=== PATIENT | female | born 1980 | race Caucasian/White ===

== ENCOUNTER 2020-07-23 09:45 | Outpatient (REF) | payer OTHER, SELFPAY ==
[2020-07-23 11:05] LABS: Glucose Urine UA 500 MG/DL (NEG); Leukocyte Esterase Urine NEG (NEG); Nitrite Urine NEG (NEG); PH 5.5 (5.0-8.0); Specific Gravity - Urine >= 1.030 (1.005-1.025); Urine Blood 3+ (NEG); Urine Ketones NEG (NEG); Urine Protein 3+ MG/DL (NEG-TRACE)
[2020-07-23 11:06] LABS: MANUAL DIFF FLAG NO
[2020-07-23 11:08] LABS: Appearance Urine HAZY; Color Urine YELLOW
[2020-07-23 11:10] LABS: Basophils Percent Auto 0.6 % (0-2); Eosinophils Absolute Auto 0.3 X10*3/uL (0.0-0.4); Eosinophils Percent Auto 3.8 % (0-4); Hematocrit 33.8 % (37-47); Hemoglobin 12.3 g/dl (12.0-16.0); Imm Gran Abs Auto 0.03 X10*3/uL (0.00-0.03); Imm Gran Pct Auto 0.5 % (0.0-0.4); Lymphocytes Absolute Auto 1.2 X10*3/uL (1.2-4.9); Lymphocytes Percent Auto 17.5 % (20-40); Mean Corpuscular HGB Conc 36.4 g/dl (31.0-35.0); Mean Corpuscular Volume 82.4 fL (80-98); Mean Platelet Volume 10.4 fL (9.4-12.3); Monocytes Absolute Auto 0.3 X10*3/uL (0.1-1.2); Monocytes Percent Auto 4.2 % (2-11); Neutrophils Absolute Auto 4.9 X10*3/uL (2.0-8.3); Neutrophils Percent Auto 73.4 % (45-73); Platelet Count 219 X10*3/uL (160-400); Red Cell Distribution Width 14.6 % (11.0-16.0); White Blood Count 6.6 X10*3/uL (4.8-10.8)
[2020-07-23 11:24] LABS: Bacteria Urine 2+ /LPF; Squamous Epithelial Cell Urine 3+ /LPF; WBC Urine 0-2 /HPF (0-4)
[2020-07-23 11:40] LABS: Creatinine Urine 121.37 mg/dL
[2020-07-23 12:18] LABS: Cholesterol 733 mg/dL; Triglycerides 4815 mg/dL
[2020-07-23 12:37] LABS: Alanine Aminotransferase 15 U/L (0-31); Albumin Level 3.9 g/dL (3.5-5.0); Alkaline Phosphatase 66 U/L (39-117); Anion Gap 19 (12-20); Aspartate Amino Transferase 19 U/L (5-31); Bilirubin Total 0.3 mg/dL (0.0-1.0); Blood Urea Nitrogen 15 mg/dL (9-16); Calcium 9.1 mg/dL (8.4-10.2); Carbon Dioxide 22 mmol/L (22-29); Chloride 100 mmol/L (96-108); Estimated Glomerular Filt Rate > 60; Glucose Random 322 mg/dL (60-115); HDL Cholesterol 20 mg/dL; Potassium 4.4 mmol/L (3.3-5.1); Sodium 137 mmol/L (135-145); Total Protein 7.3 g/dL (6.5-8.0)
[2020-07-23 12:42] LABS: Folate 16.1 ng/mL (> or = 4.0); Vitamin B12 226 pg/mL (200-900)
[2020-07-23 12:54] LABS: Free T4 (Free Thyroxine) 0.96 ng/dL (0.71-1.85); Thyroid Stimulating Hormone 0.95 uIU/mL (0.32-4.0); Vitamin D 25-OH Total 6.4 ng/mL (>30)
[2020-07-23 13:01] LABS: Estimated Average Glucose 206 mg/dL; Hemoglobin A1c % 8.8 %
== END 2020-07-23 09:46 | disposition home or self-care (01) ==
LOC: HO.LAB 09:45
PROVIDERS: PCP Internal Medicine; Visit Provider Internal Medicine
DX: I10 Essential (primary) hypertension (principal); E11.65 Type 2 diabetes mellitus with hyperglycemia; E11.42 Type 2 diabetes mellitus with diabetic polyneuropathy; E78.00 Pure hypercholesterolemia, unspecified; E78.5 Hyperlipidemia, unspecified; R10.12 Left upper quadrant pain
CPT/HCPCS: 36415; 80053; 80061; 81001; 82043; 82306; 82607; 82746; 83036; 84439; 84443; 85025

== ENCOUNTER 2020-08-02 13:06 | Outpatient (REF) | payer OTHER, SELFPAY ==
--- NOTE | ~2020-08-02 | US_ITS ---
EXAMINATION: PELVIC ULTRASOUND CLINICAL INFORMATION: Left lower quadrant pain. History of left ovarian cyst COMPARISON: Previous pelvic ultrasound most recent June [address] of the abdomen and pelvis June 2019 TECHNIQUE: Transabdominal and transvaginal pelvic ultrasound was performed. Transvaginal exam was performed for better visualization of the uterus and ovaries. FINDINGS: The uterus is anteverted and measures 8.3 x 4.1 x 4.7 cm in dimension. There is a 1.3 x 0.9 x 1.2 cm hypoechoic lesion in the posterior upper uterine body or lower fundus suggestive of a small fibroid. This is unchanged. No other focal uterine lesion is seen. Endometrial thickness is normal measuring 0.4 cm. There are nabothian cysts in the cervix. The ovaries are normal-appearing. The right ovary measures 3.6 x 2.2 x 2.8 cm and the left ovary measures 3.5 x 2.4 x 3 cm. There is no fluid in the pelvis. US/US transvaginal IMPRESSION: Small uterine fibroid otherwise unremarkable exam.
--- NOTE | ~2020-08-02 | US_ITS ---
EXAMINATION: PELVIC ULTRASOUND CLINICAL INFORMATION: Left lower quadrant pain. History of left ovarian cyst COMPARISON: Previous pelvic ultrasound most recent June [address] of the abdomen and pelvis June 2019 TECHNIQUE: Transabdominal and transvaginal pelvic ultrasound was performed. Transvaginal exam was performed for better visualization of the uterus and ovaries. FINDINGS: The uterus is anteverted and measures 8.3 x 4.1 x 4.7 cm in dimension. There is a 1.3 x 0.9 x 1.2 cm hypoechoic lesion in the posterior upper uterine body or lower fundus suggestive of a small fibroid. This is unchanged. No other focal uterine lesion is seen. Endometrial thickness is normal measuring 0.4 cm. There are nabothian cysts in the cervix. The ovaries are normal-appearing. The right ovary measures 3.6 x 2.2 x 2.8 cm and the left ovary measures 3.5 x 2.4 x 3 cm. There is no fluid in the pelvis. US/US pelvic complete IMPRESSION: Small uterine fibroid otherwise unremarkable exam.
--- NOTE | ~2020-08-02 | US_ITS ---
EXAMINATION: US RETROPERITONEAL COMPLETE (RENAL) CLINICAL INFORMATION: Left lower quadrant pain with microscopic hematuria. COMPARISON: CT abdomen and pelvis 07/01/2019. Ultrasound abdomen 10/25/2018. Limited abdominal ultrasound 09/29/2016. TECHNIQUE: Real-time imaging of the kidneys and bladder. FINDINGS: RIGHT KIDNEY: 12.3 x 5.5 x 7.1 cm (SAG x AP x TRV). The kidney is normal in size, contour, and echogenicity. Renal cortical thickness is normal. No calculi or focal parenchymal lesions. No hydronephrosis. LEFT KIDNEY: 12.0 x 6.0 x 6.0 cm (SAG x AP x TRV). The kidney is normal in size, contour, and echogenicity. Renal cortical thickness is normal. No calculi or focal parenchymal lesions. No hydronephrosis. BLADDER: Well distended and normal. Bilateral ureteral jets are demonstrated. Prevoid bladder volume is 262 mL. Postvoid bladder volume is 5.4 mL. US/US retroperitoneal comp IMPRESSION: 1. Unremarkable renal ultrasound. 2. Bilateral ureteral jets seen. Tiny postvoid residual bladder volume noted.
== END 2020-08-02 13:07 | disposition home or self-care (01) ==
LOC: HO.US 13:06
PROVIDERS: Visit Provider Physician Assistant
DX: R31.29 Other microscopic hematuria (principal)
CPT/HCPCS: 76770; 76830; 76856

== ENCOUNTER 2020-09-21 12:26 | Outpatient (REF) | payer OTHER, SELFPAY ==
--- NOTE | ~2020-09-21 | CT_ITS ---
EXAMINATION: CT ABDOMEN AND PELVIS WITHOUT AND WITH CONTRAST CLINICAL INFORMATION: Hematuria COMPARISON: Previous CT of the abdomen and pelvis June 2019 TECHNIQUE: Multidetector volumetric imaging was performed of the abdomen and pelvis before and after the IV administration of 85 mL of Omnipaque 350 intravenous contrast. Sagittal and coronal reformatted images were obtained on the technologist's workstation. This CT examination was performed using dose optimization techniques as appropriate, variously including the following: *Automated exposure control *Adjustment of mA and/or kV according to patient size (this includes techniques or standardized protocols for targeted exams where dose is matched to indication/reason for exam; i.e. extremities or head) *Use of iterative reconstruction technique DLP: 1040 mGy-cm FINDINGS: LUNG BASES: The visualized lung bases are unremarkable. LIVER, GALLBLADDER, AND BILIARY TREE: The liver is low in attenuation suggestive of fatty infiltration. No focal liver is seen. The gallbladder has been removed. PANCREAS: Unremarkable SPLEEN: Unremarkable ADRENAL GLANDS: Unremarkable KIDNEYS AND URETERS: The kidneys are normal in size, shape, and attenuation. No hydronephrosis, hydroureter, or calculi seen. The collecting systems are normal. The right ureter is well-opacified with excreted contrast and is normal-appearing. The left ureter is not optimally opacified with excreted contrast. The left ureter appears unremarkable. The BLADDER: Unremarkable GASTROINTESTINAL TRACT: The small and large bowel are unremarkable. The appendix is unremarkable. ABDOMINAL WALL: No significant hernia is appreciated. LYMPH NODES: Normal VASCULAR: Unremarkable PELVIC VISCERA: Unremarkable OSSEOUS STRUCTURES: Unremarkable CT/CT abdomen pelvis wo/w con IMPRESSION: No cause of hematuria seen. Fatty liver..
[2020-09-21 13:16] LABS: Glucose Urine UA 250 MG/DL (NEG); Leukocyte Esterase Urine NEG (NEG); Nitrite Urine NEG (NEG); PH 5.5 (5.0-8.0); Specific Gravity - Urine >= 1.030 (1.005-1.025); Urine Blood 1+ (NEG); Urine Ketones NEG (NEG); Urine Protein 2+ MG/DL (NEG-TRACE)
[2020-09-21 13:19] LABS: Appearance Urine HAZY; Color Urine YELLOW
[2020-09-21 13:25] LABS: Alanine Aminotransferase 8 U/L (0-31); Albumin Level 4.2 g/dL (3.5-5.0); Alkaline Phosphatase 51 U/L (39-117); Anion Gap 12 (12-20); Aspartate Amino Transferase 12 U/L (5-31); Bilirubin Total 0.4 mg/dL (0.0-1.0); Blood Urea Nitrogen 16 mg/dL (9-16); Calcium 10.1 mg/dL (8.4-10.2); Carbon Dioxide 27 mmol/L (22-29); Chloride 101 mmol/L (96-108); Estimated Glomerular Filt Rate > 60; Glucose Random 310 mg/dL (60-115); Potassium 4.2 mmol/L (3.3-5.1); Sodium 136 mmol/L (135-145); Total Protein 7.1 g/dL (6.5-8.0)
[2020-09-21 13:32] LABS: Creatinine Urine 190.68 mg/dL
[2020-09-21 14:34] LABS: Squamous Epithelial Cell Urine 3+ /LPF; WBC Urine 0 /HPF (0-4)
[2020-09-21] MEDS: iohexoL 350 MG/ML 100 ML INFUS..BTL IV (14:50)
== END 2020-09-21 12:27 | disposition home or self-care (01) ==
LOC: HO.CT 12:26
PROVIDERS: PCP Internal Medicine; Visit Provider Internal Medicine
DX: R31.9 Hematuria, unspecified (principal); E11.42 Type 2 diabetes mellitus with diabetic polyneuropathy; E11.65 Type 2 diabetes mellitus with hyperglycemia
CPT/HCPCS: 36415; 74178; 80053; 81001; Q9967

== ENCOUNTER 2020-09-27 10:31 | Outpatient (REF) | payer OTHER, SELFPAY ==
[2020-09-27 11:53] LABS: Glucose Urine UA NEG (NEG); Leukocyte Esterase Urine NEG (NEG); Nitrite Urine NEG (NEG); PH 5.5 (5.0-8.0); Specific Gravity - Urine >= 1.030 (1.005-1.025); Urine Blood TRACE (NEG); Urine Ketones NEG (NEG); Urine Protein 2+ MG/DL (NEG-TRACE)
[2020-09-27 11:55] LABS: Appearance Urine CLEAR; Color Urine YELLOW
[2020-09-27 11:57] LABS: Blood Urea Nitrogen 17 mg/dL (9-16); Estimated Glomerular Filt Rate > 60
[2020-09-27 12:02] LABS: Bacteria Urine TRACE /LPF; Squamous Epithelial Cell Urine 2+ /LPF; WBC Urine 0-2 /HPF (0-4)
== END 2020-09-27 10:32 | disposition home or self-care (01) ==
LOC: HO.LAB 10:31
PROVIDERS: PCP Internal Medicine; Visit Provider Internal Medicine
DX: R31.9 Hematuria, unspecified (principal); R10.12 Left upper quadrant pain
CPT/HCPCS: 36415; 81001; 82565; 84520

== ENCOUNTER 2020-10-08 09:35 | Outpatient (REF) | payer OTHER, SELFPAY ==
[2020-10-08 13:51] LABS: Alanine Aminotransferase 12 U/L (0-31); Albumin Level 4.5 g/dL (3.5-5.0); Alkaline Phosphatase 44 U/L (39-117); Aspartate Amino Transferase 15 U/L (5-31); Bilirubin Total 0.5 mg/dL (0.0-1.0); Blood Urea Nitrogen 23 mg/dL (9-16); Cholesterol 128 mg/dL; Estimated Glomerular Filt Rate 48; Glucose Fasting 235 mg/dL (60-99); HDL Cholesterol 26 mg/dL; Total Protein 7.6 g/dL (6.5-8.0); Triglycerides 537 mg/dL
[2020-10-08 14:03] LABS: Anion Gap 16 (12-20); Calcium 10.8 mg/dL (8.4-10.2); Carbon Dioxide 24 mmol/L (22-29); Chloride 106 mmol/L (96-108); Potassium 5.5 mmol/L (3.3-5.1); Sodium 140 mmol/L (135-145)
[2020-10-08 14:03] LABS: Creatinine Urine 169.48 mg/dL
[2020-10-09 10:46] LABS: LDL Cholesterol Direct 28 mg/dL (<100)
== END 2020-10-08 09:36 | disposition home or self-care (01) ==
LOC: HO.LAB 09:35
PROVIDERS: PCP Internal Medicine; Visit Provider Nurse Practitioner Gerontology
DX: E11.65 Type 2 diabetes mellitus with hyperglycemia (principal); Z79.4 Long term (current) use of insulin
CPT/HCPCS: 36415; 80053; 80061; 82043; 82947; 83721; 99212

== ENCOUNTER 2020-10-12 09:41 | Outpatient (REF) | payer OTHER, SELFPAY ==
[2020-10-12 11:14] LABS: Alanine Aminotransferase 16 U/L (0-31); Albumin Level 4.4 g/dL (3.5-5.0); Alkaline Phosphatase 47 U/L (39-117); Anion Gap 14 (12-20); Aspartate Amino Transferase 17 U/L (5-31); Bilirubin Total 0.6 mg/dL (0.0-1.0); Blood Urea Nitrogen 19 mg/dL (9-16); Calcium 10.3 mg/dL (8.4-10.2); Carbon Dioxide 22 mmol/L (22-29); Chloride 104 mmol/L (96-108); Estimated Glomerular Filt Rate > 60; Glucose Fasting 99 mg/dL (60-99); Magnesium 1.7 mg/dL (1.6-2.6); Phosphorus 3.8 mg/dL (2.7-4.5); Potassium 4.2 mmol/L (3.3-5.1); Sodium 136 mmol/L (135-145); Total Protein 7.3 g/dL (6.5-8.0)
[2020-10-12 11:38] LABS: Vitamin D 25-OH Total 34.7 ng/mL (>30)
[2020-10-13 10:17] LABS: Calcium, Ionized 5.5 mg/dL (4.8-5.6)
[2020-10-14 10:07] LABS: Calcium (PTHI) 10.5 mg/dL (8.6-10.2); PTHI 19 pg/mL (14-64)
[2020-10-16 14:17] LABS: VITAMIN D (1,25 OH) D3 26 pg/mL; Vit D (1,25-Dihydroxy) Total 26 pg/mL (18-72); Vitamin D (1,25 OH) D2 <8 pg/mL
== END 2020-10-12 09:42 | disposition home or self-care (01) ==
LOC: HO.LAB 09:41
PROVIDERS: PCP Internal Medicine; Visit Provider Nurse Practitioner Gerontology
DX: E83.52 Hypercalcemia (principal)
CPT/HCPCS: 36415; 80053; 82306; 82330; 82652; 83735; 83970; 84100

== ENCOUNTER 2020-10-15 09:56 | Outpatient (REF) | payer OTHER, SELFPAY ==
[2020-10-15 10:37] LABS: Total Volume 24 Hour Urine 1050 mL
[2020-10-15 10:53] LABS: Creatinine, 24Hr Urine 1.1 G/Day (1.0-2.0); Creatinine, mg/dL 105.62
[2020-10-16 20:16] LABS: Calcium, 24 Hr Urine 11 mg/24 h; Calcium/Creatinine Ratio 9 mg/g creat (30-275); Creatinine 24Hr Urine 1.13 g/24 h (0.50-2.15)
== END 2020-10-15 09:57 | disposition home or self-care (01) ==
LOC: HO.LNP 09:56
PROVIDERS: Visit Provider Nurse Practitioner Gerontology
DX: E83.52 Hypercalcemia (principal)
CPT/HCPCS: 82340; 82570

== ENCOUNTER → 2020-11-16 13:04 | Outpatient (BNVA) | payer OTHER, SELFPAY | PROVIDERS: PCP Internal Medicine; Referring Provider Internal Medicine; Visit Provider Physician Assistant ==

== ENCOUNTER → 2020-12-21 15:25 | Outpatient (BNVA) | payer OTHER, SELFPAY | PROVIDERS: PCP Internal Medicine; Referring Provider Internal Medicine; Visit Provider Physician Assistant | DX: E66.9 Obesity, unspecified (principal); E11.42 Type 2 diabetes mellitus with diabetic polyneuropathy; E55.9 Vitamin D deficiency, unspecified; E53.8 Deficiency of other specified B group vitamins; K58.9 Irritable bowel syndrome, unspecified; E78.1 Pure hyperglyceridemia; I10 Essential (primary) hypertension; E78.5 Hyperlipidemia, unspecified; Z68.34 Body mass index [BMI] 34.0-34.9, adult | CPT/HCPCS: 99202 ==

== ENCOUNTER 2020-12-31 10:57 | Outpatient (REF) | payer OTHER, SELFPAY ==
--- NOTE | ~2020-12-31 | XR_ITS ---
EXAMINATION: XR CHEST CLINICAL INFORMATION: Obesity. COMPARISON: Chest radiograph dated 09/22/2018. TECHNIQUE: 2 views of the chest were obtained. FINDINGS: The lungs are clear. The cardiomediastinal silhouette is normal in size. There is no pleural effusion or pneumothorax. No acute osseous abnormality. Right upper quadrant surgical clips. XR/XR chest 2V IMPRESSION: No acute cardiopulmonary findings.
--- NOTE | 2020-12-31 11:10 | ECG_ITS ---
Test Reason : E66.9 Blood Pressure : / mmHG Vent. Rate : 086 BPM Atrial Rate : 086 BPM P-R Int : 140 ms QRS Dur : 082 ms QT Int : 364 ms P-R-T Axes : 034 024 038 degrees QTc Int : 435 ms Normal sinus rhythm Low voltage QRS Borderline ECG When compared with ECG of 02-SEP-2018 22:20, No significant change was found Referred By: Eva Ribeiro Electronically Signed By:ANJEL AKHTAR
[2020-12-31 11:43] LABS: MANUAL DIFF FLAG NO
[2020-12-31 11:47] LABS: Basophils Percent Auto 0.6 % (0-2); Eosinophils Absolute Auto 0.1 X10*3/uL (0.0-0.4); Eosinophils Percent Auto 2.3 % (0-4); Hematocrit 32.4 % (37-47); Hemoglobin 11.2 g/dl (12.0-16.0); Imm Gran Abs Auto 0.02 X10*3/uL (0.00-0.03); Imm Gran Pct Auto 0.4 % (0.0-0.4); Mean Corpuscular HGB Conc 34.6 g/dl (31.0-35.0); Mean Corpuscular Hemoglobin 29.3 pg (27.0-33.0); Mean Corpuscular Volume 84.8 fL (80-98); Mean Platelet Volume 9.9 fL (9.4-12.3); Monocytes Absolute Auto 0.2 X10*3/uL (0.1-1.2); Monocytes Percent Auto 4.4 % (2-11); Neutrophils Absolute Auto 3.8 X10*3/uL (2.0-8.3); Neutrophils Percent Auto 73.3 % (45-73); Platelet Count 179 X10*3/uL (160-400); Red Blood Count 3.82 X10*6/uL (4.20-5.50); Red Cell Distribution Width 13.6 % (11.0-16.0); White Blood Count 5.2 X10*3/uL (4.8-10.8)
[2020-12-31 11:53] LABS: Estimated Average Glucose 203 mg/dL; Hemoglobin A1c % 8.7 %
[2020-12-31 12:07] LABS: Alanine Aminotransferase 18 U/L (0-31); Albumin Level 4.4 g/dL (3.5-5.0); Alkaline Phosphatase 45 U/L (39-117); Anion Gap 12 (12-20); Aspartate Amino Transferase 20 U/L (5-31); Bilirubin Total 0.4 mg/dL (0.0-1.0); Blood Urea Nitrogen 29 mg/dL (9-16); C Reactive Protein 0.24 mg/dL (< or = 0.50); Calcium 10.2 mg/dL (8.4-10.2); Carbon Dioxide 26 mmol/L (22-29); Chloride 105 mmol/L (96-108); Cholesterol 108 mg/dL; Estimated Glomerular Filt Rate 54; Glucose Random 209 mg/dL (60-115); HDL Cholesterol 23 mg/dL; Iron 74 mcg/dL (30-160); LDL Cholesterol Calculated 17 mg/dl; Percent Iron Saturation 18 % (15-50); Potassium 4.1 mmol/L (3.3-5.1); Sodium 139 mmol/L (135-145); Total Iron Binding Capacity 412 mcg/dL (228-428); Total Protein 7.4 g/dL (6.5-8.0); Triglycerides 341 mg/dL; Unsaturated Iron Binding 338 ug/dL
[2020-12-31 12:27] LABS: Vitamin D 25-OH Total 27.7 ng/mL (>30)
[2020-12-31 12:30] LABS: Ferritin 176 ng/mL (10-122)
[2021-01-01 15:11] LABS: H Pylori Breath Test NOT DETECTED (NOT DETECTED)
[2021-01-01 16:01] LABS: Folate 13.4 ng/mL (> or = 4.0); Vitamin B12 1634 pg/mL (200-900)
[2021-01-03 13:01] LABS: PTHI 18 pg/mL (14-64)
[2021-01-03 17:57] LABS: Insulin Level Total 41.9 uIU/mL
[2021-01-04 16:41] LABS: Zinc 81 mcg/dL (60-130)
[2021-01-05 17:41] LABS: Vitamin A 78 mcg/dL (38-98)
[2021-01-06 13:46] LABS: Vitamin B1 12 nmol/L (8-30)
== END 2020-12-31 10:58 | disposition home or self-care (01) ==
LOC: HO.XRAY 10:57
PROVIDERS: PCP Internal Medicine; Visit Provider Physician Assistant
DX: Z01.812 Encounter for preprocedural laboratory examination (principal); E66.9 Obesity, unspecified; E11.42 Type 2 diabetes mellitus with diabetic polyneuropathy; E78.5 Hyperlipidemia, unspecified; I10 Essential (primary) hypertension; Z11.0 Encounter for screening for intestinal infectious diseases; Z87.891 Personal history of nicotine dependence
CPT/HCPCS: 36415; 71046; 80053; 80061; 82306; 82607; 82728; 82746; 83013; 83036; 83525; 83540; 83970; 84425; 84590; 84630; 85025; 86140; 93005; 99211; 99212

== ENCOUNTER → 2021-01-10 08:30 | Outpatient (BNVA) | payer OTHER, SELFPAY | PROVIDERS: PCP Internal Medicine; Visit Provider Internal Medicine | DX: E83.52 Hypercalcemia (principal); E55.9 Vitamin D deficiency, unspecified; E11.65 Type 2 diabetes mellitus with hyperglycemia | CPT/HCPCS: Q3014 ==

== ENCOUNTER 2021-01-18 12:10 | Outpatient (REF) | payer OTHER, SELFPAY ==
[2021-01-18 13:41] LABS: Alanine Aminotransferase 14 U/L (0-31); Albumin Level 4.6 g/dL (3.5-5.0); Alkaline Phosphatase 39 U/L (39-117); Anion Gap 14 (12-20); Aspartate Amino Transferase 15 U/L (5-31); Bilirubin Total 0.6 mg/dL (0.0-1.0); Blood Urea Nitrogen 28 mg/dL (9-16); Calcium 10.1 mg/dL (8.4-10.2); Carbon Dioxide 21 mmol/L (22-29); Chloride 106 mmol/L (96-108); Estimated Glomerular Filt Rate 55; Glucose Random 168 mg/dL (60-115); Phosphorus 3.8 mg/dL (2.7-4.5); Potassium 4.2 mmol/L (3.3-5.1); Sodium 137 mmol/L (135-145); Total Protein 7.5 g/dL (6.5-8.0)
[2021-01-18 14:03] LABS: Free T4 (Free Thyroxine) 1.05 ng/dL (0.71-1.85); Vitamin D 25-OH Total 27.6 ng/mL (>30)
[2021-01-20 08:26] LABS: Calcium (PTHI) 10.3 mg/dL (8.6-10.2); PTHI 22 pg/mL (14-64)
[2021-01-20 13:12] LABS: Calcium, Ionized 5.3 mg/dL (4.8-5.6)
[2021-01-21 11:20] LABS: Alkaline Phosphatase Bone 6.1 mcg/L (5.3-19.5)
[2021-01-21 23:21] LABS: Vitamin A 63 mcg/dL (38-98)
[2021-01-22 12:56] LABS: VITAMIN D (1,25 OH) D3 24 pg/mL; Vit D (1,25-Dihydroxy) Total 24 pg/mL (18-72); Vitamin D (1,25 OH) D2 <8 pg/mL
[2021-01-25 22:52] LABS: Prot Elec - Albumin 4.2 g/dL (3.8-4.8); Prot Elec - Alpha1 0.4 g/dL (0.2-0.3); Prot Elec - Alpha2 0.9 g/dL (0.5-0.9); Prot Elec - Beta 1 0.6 g/dL (0.4-0.6); Prot Elec - Beta 2 0.5 g/dL (0.2-0.5); Prot Elec - Gamma 0.8 g/dL (0.8-1.7); Prot Elec - Total Protein 7.4 g/dL (6.1-8.1)
[2021-01-26 23:51] LABS: Parathyroid Hormone Related Pr 17 pg/mL (14-27)
== END 2021-01-18 12:11 | disposition home or self-care (01) ==
LOC: HO.LAB 12:10
PROVIDERS: PCP Internal Medicine; Visit Provider Internal Medicine
DX: E66.9 Obesity, unspecified (principal); Z68.33 Body mass index [BMI] 33.0-33.9, adult; E83.52 Hypercalcemia; Z71.3 Dietary counseling and surveillance
CPT/HCPCS: 36415; 80053; 82306; 82330; 82652; 83519; 83970; 84075; 84100; 84165; 84439; 84443; 84590; 97802

== ENCOUNTER 2021-01-25 10:25 | Outpatient (REF) | payer OTHER, SELFPAY ==
[2021-01-25 10:42] LABS: Total Volume 24 Hour Urine 2075 mL
[2021-01-25 11:36] LABS: Creatinine, 24Hr Urine 1.2 G/Day (1.0-2.0); Creatinine, mg/dL 57.82
[2021-01-27 17:31] LABS: Calcium, 24 Hr Urine 104 mg/24 h; Calcium/Creatinine Ratio 83 mg/g creat (30-275); Creatinine 24Hr Urine 1.25 g/24 h (0.50-2.15)
[2021-02-01 19:56] LABS: N-Telopeptide 11 (see note); NTXCreaRU 82 mg/dL (20-275)
== END 2021-01-25 10:26 | disposition home or self-care (01) ==
LOC: HO.LNP 10:25
PROVIDERS: Visit Provider Internal Medicine
DX: E83.52 Hypercalcemia (principal)
CPT/HCPCS: 82340; 82523; 82570

== ENCOUNTER → 2021-02-07 08:28 | Outpatient (BNVA) | payer OTHER, SELFPAY | PROVIDERS: PCP Internal Medicine; Visit Provider Surgery | DX: E66.9 Obesity, unspecified (principal); E11.42 Type 2 diabetes mellitus with diabetic polyneuropathy; I10 Essential (primary) hypertension; E78.5 Hyperlipidemia, unspecified; E78.1 Pure hyperglyceridemia; K21.9 Gastro-esophageal reflux disease without esophagitis | CPT/HCPCS: Q3014 ==

== ENCOUNTER 2021-02-08 09:29 | Outpatient (REF) | payer OTHER, SELFPAY ==
--- NOTE | ~2021-02-08 | FL_ITS ---
EXAMINATION: XR GI SERIES CLINICAL INFORMATION: Obesity COMPARISON: None TECHNIQUE: Upper GI was performed using thin and thick barium and effervescent granules. FINDINGS: Esophageal motility is normal. There is no esophageal hernia. There is mild gastroesophageal reflux. The stomach and duodenum are normal-appearing. No fold thickening, mass, ulcer or stricture is seen. FLUOROSCOPY TIME: 0.6 minutes DOSE AREA PRODUCT: 8 Toure per centimeter squared. 19 saved fluoroscopic images. FL/FL upper GI series IMPRESSION: Mild gastroesophageal reflux otherwise unremarkable exam.
--- NOTE | ~2021-02-08 | US_ITS ---
EXAMINATION: US COMPLETE ABDOMEN WITH LIVER ELASTOGRAPHY CLINICAL INFORMATION: Obesity COMPARISON: Previous CT of the abdomen and pelvis September 2020 TECHNIQUE: Real-time imaging of the abdominal viscera. Noninvasive ultrasound liver fibrosis assessment is performed using Duong ElastPQ point quantification shear wave elastography (pSWE) with a C5-2 MHz transducer. Multiple elastography samples are obtained. FINDINGS: PANCREAS: The visualized pancreatic head and body are normal in appearance. The remainder of the pancreas is obscured from visualization by the overlying bowel gas. ABDOMINAL AORTA: The proximal, middle, and distal aortic segments are normal in caliber. INFERIOR VENA CAVA: Visualized portions are normal. LIVER: Liver echotexture is increased. The liver is slightly enlarged. The liver demonstrates normal contour. No focal lesion or intrahepatic biliary duct dilatation. The right lobe measures 19 cm in length. The left lobe measures 14 cm in length. Portal flow is normal/hepatopedal Shear wave liver elastography median stiffness is 1.7 m/s (reference: normal median stiffness is 1.3 m/s or less). IQR/median stiffness to assess sampling precision is 0.15 (reference: good quality data set is IQR/median stiffness of 0.15 or less). GALLBLADDER: Surgically removed COMMON BILE DUCT: Normal in caliber measuring 0.4 cm in diameter. RIGHT KIDNEY: Normal. No hydronephrosis. No renal calculi or focal parenchymal lesions. The kidney measures 12.7 cm in maximum dimension. LEFT KIDNEY: Normal. No hydronephrosis. No renal calculi or focal parenchymal lesions. The kidney measures 12.4 cm in maximum dimension. SPLEEN: Normal. The spleen measures 11.6 cm in maximum dimension. FREE FLUID: None. US/US abdomen comp w elastography IMPRESSION: 1. Impression: Enlarged echogenic liver suggestive of fatty infiltration. Limited visualization of the tail the pancreas. 2. Liver elastography: Mild sampling error. In the absence of other known clinical signs, rules out compensated advanced chronic liver disease. REFERENCE: Society of Radiologists in Ultrasound Liver Stiffness Thresholds (2020): LIVER STIFFNESS THRESHOLDS: *Liver Stiffness equal or less than 1.3 m/s: High probability of being normal. *Liver Stiffness less than 1.7 m/s: In the absence of other known clinical signs, rules out compensated advanced chronic liver disease. *Liver Stiffness 1.7-2.1 m/s: Suggestive of compensated advanced chronic liver disease but need further test for confirmation. *Liver Stiffness over 2.1 m/s: Rules in compensated advanced chronic liver disease. *Liver Stiffness over 2.4 m/s: Suggestive of clinically significant portal hypertension. QUALITY OF DATA SET: *IQR/Median value equal or less than 0.15 implies a quality data set. *IQR/Median value over 0.15 implies a poor quality data set. SIGNIFICANT CHANGE FROM PRIOR EXAM: Significant change if liver stiffness measurement is 10% or greater from prior exam. OTHER CONSIDERATIONS: The stage of liver fibrosis may be overestimated in the setting of acute hepatitis, liver inflammation, elevated liver function tests, hepatic vascular congestion, obstructive cholestasis, non-fasting state, and infiltrative diseases such as amyloidosis and lymphoma. In some patients with NAFLD, the liver stiffness thresholds for compensated advanced chronic liver disease may be lower. In causes other than viral hepatitis and NAFLD, liver stiffness thresholds are not well established.
== END 2021-02-08 09:30 | disposition home or self-care (01) ==
LOC: HO.US 09:29
PROVIDERS: Visit Provider Surgery
DX: Z01.818 Encounter for other preprocedural examination (principal); Z01.812 Encounter for preprocedural laboratory examination; E66.01 Morbid (severe) obesity due to excess calories; K21.9 Gastro-esophageal reflux disease without esophagitis; E11.42 Type 2 diabetes mellitus with diabetic polyneuropathy; E66.9 Obesity, unspecified; E78.5 Hyperlipidemia, unspecified; I10 Essential (primary) hypertension
CPT/HCPCS: 74240; 76705; 76981

== ENCOUNTER 2021-02-15 13:28 | Outpatient (REF) | payer OTHER, SELFPAY ==
[2021-02-15 14:26] LABS: Estimated Average Glucose 151 mg/dL; Hemoglobin A1c % 6.9 %
== END 2021-02-15 13:29 | disposition home or self-care (01) ==
LOC: HO.LAB 13:28
PROVIDERS: PCP Internal Medicine; Visit Provider Surgery
DX: E11.42 Type 2 diabetes mellitus with diabetic polyneuropathy (principal)
CPT/HCPCS: 36415; 83036

== ENCOUNTER → 2021-02-25 13:26 | Outpatient (BNVA) | payer OTHER, SELFPAY | PROVIDERS: PCP Internal Medicine; Referring Provider Internal Medicine; Visit Provider Physician Assistant Surgical ==

== ENCOUNTER → 2021-03-02 08:10 | Outpatient (BNVA) | payer OTHER, SELFPAY | PROVIDERS: PCP Internal Medicine; Visit Provider Surgery | DX: E66.9 Obesity, unspecified (principal); E78.1 Pure hyperglyceridemia; E78.5 Hyperlipidemia, unspecified; E11.42 Type 2 diabetes mellitus with diabetic polyneuropathy; I10 Essential (primary) hypertension; K21.9 Gastro-esophageal reflux disease without esophagitis; Z68.32 Body mass index [BMI] 32.0-32.9, adult | CPT/HCPCS: Q3014 ==

== ENCOUNTER 2021-03-10 06:19 | Inpatient (IN) | payer OTHER, SELFPAY ==
[2021-02-25 11:01] VITALS: BMI 32.4
[2021-03-03 07:34] LABS: MANUAL DIFF FLAG NO
[2021-03-03 08:33] LABS: Basophils Percent Auto 0.7 % (0-2); Eosinophils Absolute Auto 0.1 X10*3/uL (0.0-0.4); Eosinophils Percent Auto 2.1 % (0-4); Hematocrit 32.3 % (37-47); Hemoglobin 10.9 g/dl (12.0-16.0); Imm Gran Abs Auto 0.01 X10*3/uL (0.00-0.03); Imm Gran Pct Auto 0.2 % (0.0-0.4); Lymphocytes Percent Auto 16.5 % (20-40); Mean Corpuscular HGB Conc 33.7 g/dl (31.0-35.0); Mean Corpuscular Hemoglobin 28.8 pg (27.0-33.0); Mean Corpuscular Volume 85.4 fL (80-98); Monocytes Absolute Auto 0.3 X10*3/uL (0.1-1.2); Neutrophils Absolute Auto 4.4 X10*3/uL (2.0-8.3); Neutrophils Percent Auto 75.5 % (45-73); Platelet Count 188 X10*3/uL (160-400); Red Blood Count 3.78 X10*6/uL (4.20-5.50); White Blood Count 5.8 X10*3/uL (4.8-10.8)
[2021-03-03 08:37] LABS: Prothrombin Time 11.9 SEC (9.9-13.0)
[2021-03-03 08:43] LABS: Estimated Average Glucose 137 mg/dL; Hemoglobin A1c % 6.4 %
[2021-03-03 08:54] LABS: Partial Thromboplastin Time 49.6 SEC (24.1-38.0)
[2021-03-03 09:18] LABS: Alanine Aminotransferase 10 U/L (0-31); Albumin Level 4.3 g/dL (3.5-5.0); Alkaline Phosphatase 44 U/L (39-117); Anion Gap 10 (12-20); Aspartate Amino Transferase 16 U/L (5-31); Bilirubin Total 0.3 mg/dL (0.0-1.0); Blood Urea Nitrogen 28 mg/dL (9-16); C Reactive Protein 0.24 mg/dL (< or = 0.50); Calcium 9.5 mg/dL (8.4-10.2); Carbon Dioxide 24 mmol/L (22-29); Chloride 106 mmol/L (96-108); Cholesterol 127 mg/dL; Estimated Glomerular Filt Rate 49; Glucose Random 229 mg/dL (60-115); HDL Cholesterol 20 mg/dL; Potassium 4.2 mmol/L (3.3-5.1); Sodium 136 mmol/L (135-145); Total Protein 7.2 g/dL (6.5-8.0); Triglycerides 406 mg/dL
[2021-03-03 09:33] LABS: Insulin 16 uU/mL (2-29); TSH reflex Free T4 1.23 uIU/mL (0.32-4.0)
--- NOTE | 2021-03-08 14:18 | P.HPSUR_ITS ---
Pre-Procedural Eval Section A Date of Service: 03/08/21 The patient is an INPATIENT: Yes The History & Physical has been completed within 30 days and I have reviewed it.: No Section B Chief Complaint: Obesity Relevant Family History (Specify if Yes): No Relevant Social History: None Present Medications: None Medical History: No relevant PMH History of Previous Operations: No relevant previous surgery Allergies: Allergies Allergy/AdvReac Type Severity Reaction Status Date / Time metoclopramide [From REGLAN] Allergy Severe ANXIETY Verified 02/25/21 09:56 promethazine [From PHENERGAN] Allergy Severe ANXIETY Verified 02/25/21 09:56 shellfish derived Allergy Severe THROAT Verified 02/25/21 09:56 [SHELLFISH DERIVED] SWELLING HIVES IN SCALP, ITCHY ibuprofen [From MOTRIN] Allergy Unknown HIVES Verified 02/25/21 09:56 metformin Allergy Unknown diarrhea Verified 02/25/21 09:56 morphine [MORPHINE] Allergy Unknown THROAT Verified 02/25/21 09:56 CLOSES, anaphylaxis prochlorperazine Allergy Unknown ANXIETY Verified 02/25/21 09:56 [From COMPAZINE] Sulfa (Sulfonamide Allergy Unknown SWELLING Verified 02/25/21 09:56 Antibiotics) [SULFA (SULFONAMIDE ANTIBIOTICS)] temsirolimus [Torisel] Allergy Unknown anxiety Verified 02/25/21 09:56 trazodone AdvReac Unknown Dizziness Verified 02/25/21 09:56 Review of Systems Sugical H&P ROS: Negative: Constitution, Cardiovascular, Respiratory, Neurological, Psychiatric, Hem-Onc, Allergic/Immunologic, Gastrointestinal, Genitourinary, Musculoskeletal, Integumentary, Endocrine and Eyes/Ears/Nose/Th roat Exam Surgical H&P Exam: Normal: HEENT, Normal: Heart, Normal: Lungs, Normal: Extremities, Normal: Abdomen, Normal: Skin and Normal: Neurological Plan Diagnosis/Plan: Unchanged I have reviewed the history and physical and performed a pertinent physical examination on my patient. No changes have occurred unless specified.
--- NOTE | 2021-03-09 09:03 | HO.ANESPROP2 ---
Documented by User: Carmel Mar NP 03/09/21 09:04 HPI - Anesthesia Eval Consult details Narrative: 41yo F for Gastrectomy Sleeve, EGD, Poss Diaphragmatic Hernia, Poss Ventral Hernia, Poss open PMFSH Active Problems Active Problems: All Active Problems (Updated 03/02/21 @ 14:02 by Gm Sullivan MD) BMI 32.0-32.9,adult (Acute) Obesity (Acute) COVID-19 virus infection (Acute) LUQ abdominal pain (Acute) Vitamin B 12 deficiency (Acute) Hematuria (Acute) Onychomycosis (Acute) Obesity (Acute) Pre-procedure lab exam (Acute) Adjustment disorder, unspecified (Acute) BMI over 35 (Acute) GERD (gastroesophageal reflux disease) (Acute) Anxiety (Acute) Vitamin D deficiency (Acute) Hypercalcemia (Acute) Obesity (BMI 30-39.9) (Acute) Type 2 diabetes mellitus with diabetic polyneuropathy (Acute) Essential hypertension (Acute) Hypertriglyceridemia (Acute) Hyperlipidemia LDL goal <100 (Acute) Irritable bowel syndrome (Acute) Vitamin D deficiency (Acute) Serum calcium elevated (Acute) Proteinuria (Acute) Type 2 diabetes mellitus with hyperglycemia (Acute) Past Medical History Medical History Anxiety Atkins's palsy Diabetic retinopathy Essential hypertension Family hx of hypertension GERD (gastroesophageal reflux disease) History of back pain Hypercalcemia Hyperlipidemia LDL goal <100 Hypertriglyceridemia Insomnia Irritable bowel syndrome Migraine Obesity (BMI 30-39.9) Pancreatitis Peripheral neuropathy Proteinuria Serum calcium elevated Trigeminal neuralgia Type 2 diabetes mellitus with diabetic polyneuropathy Type 2 diabetes mellitus with hyperglycemia Vitamin D deficiency Family History Family History Father Diabetes mellitus Asthma Hypertension Mother Diabetes mellitus Hypertension Scleroderma Maternal Aunt Ovarian cancer Paternal Grandfather Diabetes mellitus Paternal Grandmother Diabetes mellitus Maternal Grandmother Diabetes mellitus Maternal Grandfather Diabetes mellitus CVD (cardiovascular disease) Sister CVD (cardiovascular disease) Brother Anxiety Arthritis Surgical History Surgical History Acalculous cholecystitis History of wisdom tooth extraction, class I edentulism Hx of colonoscopy Hx of dilation and curettage Hx of hernia repair Hx of removal of cyst Social History Social History Household Members: Spouse Are you a primary patient care technician to a significant other at home: No Do you presently have visiting nurse or other home services: No Alcohol intake: never Patient Tobacco Use Status: Former Tobacco user Quit Date: 2015 Tobacco use type: Cigarette Cigarettes Per Day: 3 Use of substances other than those prescribed or required for medical reasons: No Substance Use Type Other:: Last marijuana - > 4 months ago Have you been hit, kicked, punched, or otherwise hurt by someone within the past year? If so, by whom?: No Are you DNR?: No Advance Directives: No Advance Directives Information Provided: Yes (Mailed with Pre-op Instructions) Advance Directives on File: No Recently lost weight without trying: No How much weight loss: 14-23 pounds Eating poorly because of decreased appetite: Yes Nutrition screen score: 3 Nutrition Risks: No Nutritional Risk Patient : No FDLMP: 01/28/21 : No Meds Allergies Allergy/AdvReac Type Severity Reaction Status Date / Time metoclopramide [From REGLAN] Allergy Severe ANXIETY Verified 02/25/21 09:56 promethazine [From PHENERGAN] Allergy Severe ANXIETY Verified 02/25/21 09:56 shellfish derived Allergy Severe THROAT Verified 02/25/21 09:56 [SHELLFISH DERIVED] SWELLING HIVES IN SCALP, ITCHY ibuprofen [From MOTRIN] Allergy Unknown HIVES Verified 02/25/21 09:56 metformin Allergy Unknown diarrhea Verified 02/25/21 09:56 morphine [MORPHINE] Allergy Unknown THROAT Verified 02/25/21 09:56 CLOSES, anaphylaxis prochlorperazine Allergy Unknown ANXIETY Verified 02/25/21 09:56 [From COMPAZINE] Sulfa (Sulfonamide Allergy Unknown SWELLING Verified 02/25/21 09:56 Antibiotics) [SULFA (SULFONAMIDE ANTIBIOTICS)] trazodone AdvReac Unknown Dizziness Verified 02/25/21 09:56 Home Medications Medication Instructions Recorded Confirmed Last Taken Type dapagliflozin 10 mg tablet 10 mg PO DAILY 12/13/20 03/02/21 Unknown History ([facility]) Exam Exam Date and Time: March 09, [id number] Height,Weight and Vital Signs: Height 5 ft Weight 75.296 kg Pertinent Lab Results Pertinent Lab Results: Laboratory Tests 1003/03/21 03/03/21 07:30 07:30 07:30 WBC 5.8 RBC 3.78 L Hgb 10.9 L Hct 32.3 L MCV 85.4 MCH 28.8 MCHC 33.7 RDW 14.0 Plt Count 188 MPV 10.0 Immature Gran % (Auto) 0.2 Neut % (Auto) 75.5 H Lymph % (Auto) 16.5 L [place] % (Auto) 5.0 Eos % (Auto) 2.1 Baso % (Auto) 0.7 Lymph # (Auto) 1.0 L [place] # (Auto) 0.3 Eos # (Auto) 0.1 Baso # (Auto) 0.0 Abs Immat Gran (auto) 0.01 Absolute Neuts (auto) 4.4 Absolute Nucleated RBC 0.000 Nucleated RBC % (auto) 0.0 PT 11.9 INR 1.0 APTT 49.6 H Sodium 136 Potassium 4.2 Chloride 106 Carbon Dioxide 24 Anion Gap 10 L BUN 28 H Creatinine 1.21 Estim Creat Clear Calc 56.0 Estimated GFR 49 Random Glucose 229 H Estimat Average Glucose Hemoglobin A1c % Insulin Level 16 Calcium 9.5 Total Bilirubin 0.3 AST 16 ALT 10 Alkaline Phosphatase 44 C-Reactive Protein 0.24 Total Protein 7.2 Albumin 4.3 Triglycerides 406 Cholesterol 127 LDL Cholesterol, Calc TNP HDL Cholesterol 20 TSH 1.23 Blood Type Antibody Screen 03/03/21 03/03/21 07:30 07:30 WBC RBC Hgb Hct MCV MCH MCHC RDW Plt Count MPV Immature Gran % (Auto) Neut % (Auto) Lymph % (Auto) [place] % (Auto) Eos % (Auto) Baso % (Auto) Lymph # (Auto) [place] # (Auto) Eos # (Auto) Baso # (Auto) Abs Immat Gran (auto) Absolute Neuts (auto) Absolute Nucleated RBC Nucleated RBC % (auto) PT INR APTT Sodium Potassium Chloride Carbon Dioxide Anion Gap BUN Creatinine Estim Creat Clear Calc Estimated GFR Random Glucose Estimat Average Glucose 137 Hemoglobin A1c % 6.4 Insulin Level Calcium Total Bilirubin AST ALT Alkaline Phosphatase C-Reactive Protein Total Protein Albumin Triglycerides Cholesterol LDL Cholesterol, Calc HDL Cholesterol TSH Blood Type O Positive Antibody Screen NEGATIVE Narrative Narrative: EKG 12/2020 Vent. Rate : 086 BPM ? ? Atrial Rate : 086 BPM ?? P-R Int : 140 ms? QRS Dur : 082 ms ? ? QT Int : 364 ms ? ? ? P-R-T Axes : 034 024 038 degrees ?? QTc Int : 435 ms ? Normal sinus rhythm Low voltage QRS Borderline ECG When compared with ECG of 02-SEP-2018 22:20, No significant change was found Assessment and Plan Assessment Anesthesia Assessment: Chart Reviewed Documented by User: Avril Lockett MD 03/10/21 07:47 PMF Active Problems Active Problems: All Active Problems (Updated 03/02/21 @ 14:02 by Gm Sullivan MD) BMI 32.0-32.9,adult (Acute) COVID-19 virus infection (Acute) LUQ abdominal pain (Acute) Vitamin B 12 deficiency (Acute) Hematuria (Acute) Onychomycosis (Acute) Pre-procedure lab exam (Acute) Adjustment disorder, unspecified (Acute) BMI over 35 (Acute) GERD (gastroesophageal reflux disease) (Acute) Anxiety (Acute) Vitamin D deficiency (Acute) Hypercalcemia (Acute) Obesity (BMI 30-39.9) (Acute). Denies JAG Type 2 diabetes mellitus with diabetic polyneuropathy (Acute) Essential hypertension (Acute) Hypertriglyceridemia (Acute) Hyperlipidemia LDL goal <100 (Acute) Irritable bowel syndrome (Acute) Proteinuria (Acute) Type 2 diabetes mellitus with hyperglycemia (Acute) Anemia PTT 49.6 Dr Sullivan aware Past Medical History Medical History Anxiety Atkins's palsy Diabetic retinopathy Essential hypertension Family hx of hypertension GERD (gastroesophageal reflux disease) History of back pain Hypercalcemia Hyperlipidemia LDL goal <100 Hypertriglyceridemia Insomnia Irritable bowel syndrome Migraine Obesity (BMI 30-39.9) Pancreatitis Peripheral neuropathy Proteinuria Serum calcium elevated Trigeminal neuralgia Type 2 diabetes mellitus with diabetic polyneuropathy Type 2 diabetes mellitus with hyperglycemia Vitamin D deficiency Family History Family History Father Diabetes mellitus Asthma Hypertension Mother Diabetes mellitus Hypertension Scleroderma Maternal Aunt Ovarian cancer Paternal Grandfather Diabetes mellitus Paternal Grandmother Diabetes mellitus Maternal Grandmother Diabetes mellitus Maternal Grandfather Diabetes mellitus CVD (cardiovascular disease) Sister CVD (cardiovascular disease) Brother Anxiety Arthritis Family history of problems with anesthesia: No Surgical History Surgical History Acalculous cholecystitis History of wisdom tooth extraction, class I edentulism Hx of colonoscopy Hx of dilation and curettage Hx of hernia repair Hx of removal of cyst History of Problems with Anesthesia: No Social History Social History Household Members: Spouse Are you a primary patient care technician to a significant other at home: No Do you presently have visiting nurse or other home services: No Alcohol intake: never Patient Tobacco Use Status: Former Tobacco user Quit Date: 2015 Tobacco use type: Cigarette Cigarettes Per Day: 3 Use of substances other than those prescribed or required for medical reasons: No Substance Use Type Other:: Last marijuana - > 4 months ago Have you been hit, kicked, punched, or otherwise hurt by someone within the past year? If so, by whom?: No Are you DNR?: No Advance Directives: No Advance Directives Information Provided: Yes (Mailed with Pre-op Instructions) Advance Directives on File: No Recently lost weight without trying: No How much weight loss: 14-23 pounds Eating poorly because of decreased appetite: Yes Nutrition screen score: 3 Nutrition Risks: No Nutritional Risk Patient : No FDLMP: 01/28/21 : No Meds Allergies Allergy/AdvReac Type Severity Reaction Status Date / Time metoclopramide [From REGLAN] Allergy Severe ANXIETY Verified 02/25/21 09:56 promethazine [From PHENERGAN] Allergy Severe ANXIETY Verified 02/25/21 09:56 shellfish derived Allergy Severe THROAT Verified 02/25/21 09:56 [SHELLFISH DERIVED] SWELLING HIVES IN SCALP, ITCHY ibuprofen [From MOTRIN] Allergy Unknown HIVES Verified 02/25/21 09:56 metformin Allergy Unknown diarrhea Verified 02/25/21 09:56 morphine [MORPHINE] Allergy Unknown THROAT Verified 02/25/21 09:56 CLOSES, anaphylaxis prochlorperazine Allergy Unknown ANXIETY Verified 02/25/21 09:56 [From COMPAZINE] Sulfa (Sulfonamide Allergy Unknown SWELLING Verified 02/25/21 09:56 Antibiotics) [SULFA (SULFONAMIDE ANTIBIOTICS)] trazodone AdvReac Unknown Dizziness Verified 02/25/21 09:56 Home Medications Medication Instructions Recorded Confirmed Last Taken Type dapagliflozin 10 mg tablet 10 mg PO DAILY 12/13/20 03/02/21 Unknown History ([facility]) Exam Height,Weight and Vital Signs: Height 5 ft Weight 75.296 kg Vital Signs Temp Pulse Resp BP Pulse Ox 03/10/21 06:40 97.1 F 94 16 117/69 99 Pertinent Lab Results Pertinent Lab Results: Laboratory Tests 03/03/21 03/03/21 03/03/21 07:30 07:30 07:30 WBC 5.8 RBC 3.78 L Hgb 10.9 L Hct 32.3 L MCV 85.4 MCH 28.8 MCHC 33.7 RDW 14.0 Plt Count 188 MPV 10.0 Immature Gran % (Auto) 0.2 Neut % (Auto) 75.5 H Lymph % (Auto) 16.5 L [place] % (Auto) 5.0 Eos % (Auto) 2.1 Baso % (Auto) 0.7 Lymph # (Auto) 1.0 L [place] # (Auto) 0.3 Eos # (Auto) 0.1 Baso # (Auto) 0.0 Abs Immat Gran (auto) 0.01 Absolute Neuts (auto) 4.4 Absolute Nucleated RBC 0.000 Nucleated RBC % (auto) 0.0 PT 11.9 INR 1.0 APTT 49.6 H Sodium 136 Potassium 4.2 Chloride 106 Carbon Dioxide 24 Anion Gap 10 L BUN 28 H Creatinine 1.21 Estim Creat Clear Calc 56.0 Estimated GFR 49 Random Glucose 229 H Estimat Average Glucose Hemoglobin A1c % Insulin Level 16 Calcium 9.5 Total Bilirubin 0.3 AST 16 ALT 10 Alkaline Phosphatase 44 C-Reactive Protein 0.24 Total Protein 7.2 Albumin 4.3 Triglycerides 406 Cholesterol 127 LDL Cholesterol, Calc TNP HDL Cholesterol 20 TSH 1.23 Blood Type Antibody Screen 03/03/21 03/03/21 07:30 07:30 WBC RBC Hgb Hct MCV MCH MCHC RDW Plt Count MPV Immature Gran % (Auto) Neut % (Auto) Lymph % (Auto) [place] % (Auto) Eos % (Auto) Baso % (Auto) Lymph # (Auto) [place] # (Auto) Eos # (Auto) Baso # (Auto) Abs Immat Gran (auto) Absolute Neuts (auto) Absolute Nucleated RBC Nucleated RBC % (auto) PT INR APTT Sodium Potassium Chloride Carbon Dioxide Anion Gap BUN Creatinine Estim Creat Clear Calc Estimated GFR Random Glucose Estimat Average Glucose 137 Hemoglobin A1c % 6.4 Insulin Level Calcium Total Bilirubin AST ALT Alkaline Phosphatase C-Reactive Protein Total Protein Albumin Triglycerides Cholesterol LDL Cholesterol, Calc HDL Cholesterol TSH Blood Type O Positive Antibody Screen NEGATIVE Laboratory Results - last 24 hr 03/10/21 03/10/21 03/10/21 06:25 06:26 06:54 POC Glucose 98 Urine Test NEGATIVE COVID-19 (ANA) Negative COVID-19 Clin Com See Note Airway Mallampati Class: II TM Dist: >3cm Neck ROM: Full Loose/Missing/Broken Teeth: Yes (Loose top front, missing top front) Heart: RRR Lungs: CTAB Assessment and Plan Assessment Anesthesia Assessment: Anesthesia Plan Discussed Final Anesthetic Review Family History of Problems with Anesthesia: No History of Problems with Anesthesia: No NPO: Yes ASA Class: III Final Preanesthetic Review: No Changes in Pt Med Stat, Meds/Allgs Chart Reviewed, Consent Obtained/Reviewed and Anes Risks/Benef Reviewed Patient Risk: Intermediate Procedure Risk: Intermediate Assessment/Block/Sedation in SS: Assess/Block/Sedation-SS Anesthetic Plan Anesthetic Plan: GA Disposition: Standard PACU and Inp. Admit - Standard Bed
[2021-03-10] VITALS (18 sets, daily range): BP systolic 117–174; BP diastolic 69–99; PULSE 94–108; RESP 15–16; TEMP 36.1–36.4; O2SAT 95–99
[2021-03-10 06:40] LABS: UPreg QC Valid YES; Urine Pregnancy NEGATIVE (NEGATIVE)
[2021-03-10 06:51] LABS: COVID-19 Test Negative (Negative)
[2021-03-10 07:04] LABS: Glucose, Whole Blood 98 mg/dL (60-115)
[2021-03-10] MEDS: Lactated Ringers 1,000 ML 100 ML IVCONT ×3 (07:04→20:26)
[2021-03-10] MEDS: Lactated Ringers 1,000 ML 999 ML IV (07:04)
--- NOTE | 2021-03-10 10:49 | PM.OP ---
Brief Operative Note Date of Service: 03/10/21 Pre-op diagnosis: Severe obesity with comorbidities (see below) Post-op diagnosis: same (& diaphragmatic hernia, splenomegaly and abdominal adhesions) Procedure: INITIAL PATIENT BMI ON PRESENTATION AT OUR OFFICE: 34.4 kg/m2 LAST BMI BEFORE SURGERY: 32.5 kg/m2 COMORBIDITIES: insulin dependent diabetes, hypertension, anxiety, GERD, neuropathy, migraines, liver steatosis, liver fibrosis, hyperlipidemia The patient participated in an intensive weekly lifestyle ?intervention and exercise program during which the patient ?has lost between the initial office visit and the last preoperative visit 19.4lbs, or 10.64% of initial actual body weight. The patient met the BMI-criteria for bariatric surgery based on the BMI on initial presentation. The patient should not be penalized for achieving such weight loss because ?it is not sustainable long-term without surgical intervention and it was achieved in preparation for bariatric surgery ?under my direction and based on my published research ([email or web address]) ?that a 10% preoperative weight loss improves long-term weight loss after surgery and reduces perioperative complications.? Insurance carriers such as [facility] have endorsed my recommendations ?and have included in their policies criteria to include a 10% preoperative weight loss requirement. PROCEDURE: Esophago-gastroscopy, laparoscopic repair of incarcerated diaphragmatic hernia, laparoscopic lysis of adhesions, laparoscopic sleeve gastrectomy and laparoscopic gastropexy INDICATIONS: This is a 41 year-old female who was electively scheduled for laparoscopic, possibly open sleeve gastrectomy. The risks and complications of the procedure were discussed with the patient in advance, particularly the possibility of ; pulmonary embolism; staple line leak; bleeding; GERD; cardiac, pulmonary, or renal complications; as well as long-term problems such as insufficient weight loss, vitamin deficiency, strictures, or ulcers. The patient understood all the risks, and was in agreement to proceed with surgery. DESCRIPTION OF PROCEDURE: After informed consent was obtained from the patient, the patient was given preoperative antibiotics, and was transferred to the operating room. After successful induction of general anesthesia, pneumatic compressive devices were placed on both lower extremities. An upper endoscopy was performed next. The oropharynx and esophagus appeared to be within normal limits. There was a diaphragmatic hernia present of moderate size that was not reported at the preoperative upper GI. The stomach was entered. Then after all fluid and air were suctioned and the stomach was fully decompressed, the scope was withdrawn and secured in the mid esophagus. The patient was then prepped and draped in the usual sterile manner, and abdominal access was established at the right upper quadrant with the Maria Elena technique. A 12 mm blunt port was inserted, and the abdomen was insufflated with CO2 to a pressure of 15 mmHg. Under direct visualization, additional ports were placed, specifically two 5 mm Versi-step ports to the left upper quadrant, and a 5 mm Versi-Step port to the right upper quadrant. 1% lidocaine plain was used to infiltrate all port sites as well as all fascia defects. There were adhesions in the abdomen from previous hernia repair involving the omentum and the anterior abdominal wall. Those were lysed completely with the ultrasonic device. Following that, the patient was placed in a steep reverse Trendelenburg position. An additional 5 mm port was placed to the right flank for the Mediflex retractor that was used to retract the left lobe of the liver. The gastro-esophageal fat pad was opened with the ultrasonic device (Thunderbeat, Olympus) and the anterior esophagus and hiatus were exposed. The angle of His was opened with the ultrasonic device the fundus of the stomach from any diaphragmatic and splenic attachments. I then opened the gastrocolic ligament between the transverse colon and the greater curvature of the stomach with the ultrasonic device to enter the lesser sac and facilitate the ligation of the short gastric vessels. I started at a mid-point along the greater curvature and using the Thunderbeat, all short gastric vessels were divided all the way to the angle of His until the left ronaldo was completely dissected at its entirety. I then divided the gastro-colic ligament distally to a distance of about 3-4 cm proximal to the esophagus. Dissection around the spleen was extremely difficult because there was significant splenomegaly with the spleen enveloping the stomach leaving no space for dissection. Dissecting posteriorly first medially to the splenic artery allowed for better exposure and eventually I was able to detach the stomach safely from the spleen. There were extensive congenital adhesions between the pancreas and posterior gastric wall. Those were lysed completely with the ultrasonic device. Adhesiolysis took approximately 45 min to complete. There was an obvious significant-sized hiatal hernia. I continued dissecting along the hiatus toward the left ronaldo and the angle of His. I fully mobilized the fat pad that was incarcerated in the hernia. I then continued by dissecting even further into the posterior retro-esophageal space all the way to the angle of His. I continued to mobilize the esophagus into the mediastinum circumferentially. Both vagal nerves were seen and preserved. At that point, I was able to have at least 3 to 5 cm of esophagus into the abdomen.? After I completely mobilized the esophagus from both the left and right ronaldo and I had a good mobilization of the esophagus circumferentially, I closed the hernia defect with three interrupted #0 Surgidac sutures using the Endo Stitch device, two of which were placed posterior and one anterior to the esophagus. ? The stomach was then divided transversely with one Endo KRISTINA-45 purple, one KRISTINA-60 purple and three KRISTINA-60 articulating orange loads using the AEON stapler and loads. Every effort was made that the gastric sleeve had a tubular shape and an even caliber throughout. Once the sleeve resection was completed, the staple line of the gastric sleeve was reinforced with Hemoclips. The resected stomach was retrieved without difficulty from the Maria Elena port. A gastropexy was then performed in order to prevent postoperative GERD and partial gastric volvulus. Several interrupted 2.0 Surgidac sutures were placed between the sleeve's staple line and the previously divided greater omentum and gastro-colic ligament using the Endo-Stitch device. ?An upper endoscopy was performed. There was no narrowing at the GE junction. The scope was easily advanced all the way to the pylorus which was clearly visualized. There was no narrowing anywhere and the sleeve's caliber was even throughout. The sleeve's staple line was inspected and there was no evidence of ischemia, bleeding or dehiscence. At that point the gastroscope was withdrawn from the patient?s mouth while we were decompressing the bowel and the stomach from any remaining air. I looked into the lesser sac to see how the sleeve was situating and it was situating well. There was no bleeding from the staple line, spleen, or short gastric vessels. The Mediflex retractor was removed, and the undersurface of the liver was inspected and there was no bleeding. The patient was placed in supine position. I closed the fascial defect of the 12 mm port site with a figure of eight #1 Polysorb suture. Then 100 cc 0.25 % Marcaine plain with 10 mg of Dexamethasone were used to infiltrate the fascial closure as well as all skin incisions. At this point, the abdomen was deflated, all ports were removed under direct vision, and no bleeding was noted from any of the port sites. The skin incisions were irrigated with saline and were closed with 4-0 absorbable monofilament sutures. Steri-Strips and OpSites were used to cover all incisions. The patient was extubated and was transferred in stable condition to the recovery room for further care. I was present and performed all jeong parts of the procedure. Ms. Ribeiro was the radiology assistant and Flip Atkins the second facilities maintenance assistant. There were no residents to assist with this case. Ta Sullvian MD, PhD, FACS Surgeon: Gm Sullivan MD Anesthesia: GETA, local and other (TAP block) Was an Utilities And Maintenance Supervisor used for this Procedure?: Yes Utilities And Maintenance Supervisor: Eva Ribeiro Estimated blood loss (mL): 10 IV fluids (mL): 2,500 Urine output (mL): 0 (No Brice to record) Pathology: other (Stomach) Condition: stable Disposition: PACU
--- NOTE | 2021-03-10 10:54 | PM.DS ---
DS: Providers Provider Date of Service: 03/11/21 Date of admission: 03/10/21 06:19 Primary care physician: Emigdio Guthrie MD DS: Summary Hospital Course Hospital Course: ADMITTING DIAGNOSIS: morbid obesity, HTN, NIDDM, hypertriglycerides, hyperlipidemia, GERD, IBS, migraines, insomnia, anxiety DISCHARGE DIAGNOSIS: same, s/p laparoscopic sleeve gastrectomy and repair diaphragmatic hernia PAST SURGICAL HISTORY: alp edgar, umbillical hernia repair PROCEDURE: upper endoscopy, laparoscopic sleeve gastrectomy and repair of diaphragmatic hernia hernia DISCHARGE SUMMARY: History of Present Illness: The patient is a 41 year-old woman with a BMI of 39.4 kg/m2 and associated co-morbidities as described above. The patient had extensive work-up,lost 18.2 lbs preoperatively and was electively scheduled for laparoscopic, possible open sleeve gastrectomy and gastropexy. Risks and complications of the surgery were discussed with the patient in advance, particularly the possibility of , pulmonary embolism, anastomotic leak, bleeding, bowel injury, GERD, cardiac, renal or pulmonary complications. The patient understood all the risks and was in agreement with the surgical plan. Hospital Course: The patient underwent an uneventful laparoscopic sleeve gastrectomy with gastropexy and repair of diaphragmatic hernia on the day of admission. Postoperatively, the patient was transferred to the surgical floor. The patient received IV Acetaminophen and IV dilaudid for pain control. Patient was started on bariatric phase 1 diet POD #0. On postoperative day one, the patient was feeling well without nausea, vomiting, fevers, or tachycardia. The patient had some mild incisional pain and the abdomen was soft. On the morning of postoperative day one, the patient was continued on 1 ounce of water or ice every half hour. During the day, the patient did fairly well, having some incisional pain, but able to ambulate adequately and to tolerate liquids well. Since the patient is doing well, we decided that the patient was ready to be discharged. The patient was given instructions to follow-up with me next week and to call my office for any fever over 101, persistent abdominal pain, nausea, vomiting, GERD, symptoms of DVT such as calf tenderness, or leg swelling, or pulmonary embolism such as chest pain or shortness of breath. The patient was also instructed to drink 40-60 ounces of liquids per day using the 1-ounce cups. The patient had been given prescriptions for Tylenol for pain, Zofran prn for nausea, and pantoprazole and carafate previously. The patient was encouraged to ambulate and use the incentive spirometer. The patient was allowed to shower, but no baths, and encouraged to stay active at home. All of these instructions were given to the patient personally. All questions were answered and the patient understood all instructions, the instructions were also given to the patient in print. Time Spent with Patient Time attestation: Total time spent providing and/or coordinating discharge services: Discharge coordination time: Less than 30 minutes Quality: Stroke Does the patient have a stroke diagnosis?: No Physical Exam Vital Signs: Vital Signs: Last Vital Signs Temp 97.3 F 03/10/21 10:46 Pulse 101 H 03/10/21 10:46 Resp 16 03/10/21 10:46 BP 155/79 H 03/10/21 10:46 Pulse Ox 99 03/10/21 10:46 Body Mass Index 32.4 DS: Data Data Completed and Pending Pending studies at discharge: Pending at discharge 03/10/21 09:45 Surgical [PTH] Routine Labs on day of discharge: Laboratory Results - last 24 hr 03/10/21 03/10/21 03/10/21 06:25 06:26 06:54 POC Glucose 98 Urine Test NEGATIVE COVID-19 (ANA) Negative COVID-19 Clin Com See Note Discharge Plan Discharge Anticipated Discharge Date/Time: 03/11/21 10:49 Patient Disposition: Home, Self-Care Discharge Diagnosis: s/p sleeve gastrectomy Referrals: Po,Emigdio Manzo MD [Primary Care Provider] - 1 Week Discharge Medications: Continued atorvastatin 40 mg tablet 40 mg PO DAILY Qty: 90 RF: 1 fenofibrate nanocrystallized 145 mg tablet 145 mg PO DAILY Qty: 90 RF: 3 ondansetron HCl 4 mg tablet 4 mg PO Q6H Qty: 60 RF: 0 sumatriptan succinate [Imitrex] 50 mg tablet 50 mg PO .qd PRN (Reason: migraine headache) Qty: 10 RF: 5 (DME) FreeStyle Meagan 14 Day [place] Misc See Rx Instructions .ROUTE .MEDSUPPLY Qty: 1 RF: 0 (DME) FreeStyle Meagan 14 Day Sensor Kit See Rx Instructions .ROUTE .MEDSUPPLY Qty: 6 RF: 3 blood sugar diagnostic [FreeStyle Lite Strips] Strip 1 strip miscellaneous QID Qty: 400 RF: 3 alprazolam 0.5 mg tablet 0.5 mg PO BEDTIME PRN (Reason: anxiety) 30 Days Qty: 30 RF: 2 lisinopril 20 mg tablet 20 mg PO DAILY Qty: 90 RF: 2 (DME) blood pressure monitor [Blood Pressure Kit] Kit See Rx Instructions .ROUTE .MEDSUPPLY Qty: 1 RF: 0 pantoprazole 40 mg tablet,delayed release (DR/EC) 40 mg PO DAILY Qty: 30 RF: 2 sucralfate 100 mg/mL suspension 10 ml PO BID Qty: 400 RF: 2 Farxiga 10 mg tablet 10 mg PO DAILY RF: 0 Held gabapentin 600 mg tablet 600 mg PO TID PRN (Reason: pain) 90 Days Qty: 270 RF: 3 Hold Instructions: Resume on 03/25/21. Discontinued omeprazole 40 mg capsule,delayed release(DR/EC) 40 mg PO DAILY Qty: 90 RF: 2 famotidine [Pepcid] 40 mg tablet 40 mg PO DAILY Qty: 90 RF: 3 ferrous sulfate 325 mg (65 mg iron) tablet 325 mg PO DAILY Qty: 30 RF: 6 terbinafine HCl 250 mg tablet 250 mg PO DAILY Qty: 90 RF: 1 cholecalciferol (vitamin D3) 25 mcg (1,000 unit) capsule 25 mcg PO DAILY 30 Days Qty: 30 RF: 11 ondansetron HCl [Zofran] 4 mg tablet 4 mg PO Q12H Qty: 20 RF: 0 polyethylene glycol 3350 [Miralax] 17 gram powder in packet 17 g PO DAILY Qty: 14 RF: 2 Discharge Orders: Discharge Order (Routine); Ordered 03/11/21 Ordered By: Gm Sullivan Diet: other Activity on Discharge: No heavy lifting Stand Alone Forms: Patient Portal Discharge page Care Plan Goals: weight loss Health Concerns: morbid obesity Plan of Treatment: No tub baths, sex or returning to work until discussed at first post op appointment. No exercise, alcohol, tobacco or illegal drug use. Continue to use incentive spirometer hourly while awake. Walk in home for 5- 10 minutes every 2 hours during the first week. Continue phase 1 diet today and start phase 2 diet tomorrow morning. Follow all instructions in the bariatric handbook and call with any questions. 1. Please call your doctor or come back to the emergency room should any new symptoms arise. 2. You will receive a courtesy call from [facility] 24-48 hours after discharge. 3. Activity: abstain from alcohol, practice limited stair climbing, no bending, no driving, no exercise, no illicit substances, no lifting, no sex, no tub bath, no work. 4. Diet: continue as discussed with Dr. Sullivan. 5. Dressing Change/Wound Care: Your incision is covered by surgical glue. If the area is tender, you may apply an ice pack for short intervals (no more than 20 minutes on, followed by at least 20 minutes off). Do not apply heat. Do not use creams, lotions, or topical antibiotics unless instructed to do so by your surgeon. These can cause infection or allergic reaction. 6. Call your doctor if: - Your temperature exceeds 101.5 F - You experience excessive pain or swelling - You have an unexpected reaction to medication - You have excessive bleeding - You experience continued vomiting/nausea - Your incision begins to separate - Your incision shows signs of infection such as increased redness, swelling, excessive pain, heat, or drainage (light blood or clear fluid is normal) 7. General instructions: No lifting greater than 5 lbs for the next 4 weeks[address] driving within 24 hours of taking narcotic pain medications. If you do not move your bowels in the next 2 days, please take milk of magnesia over the counter. Please follow the post op diet and do not advance your diet until you are seen in the office in about 2 weeks. Please walk around your home every hour or two to prevent blood clots from forming in your legs. You do not need to wake from sleeping to walk. Please sleep in a bed or couch to prevent kinking at the hips and knees. Please take your incentive spirometer (your lung refrigeration plant cork insulator) home with you and use it for the next few days to prevent pneumonias. You may shower, no hot tubs, baths or swimming pools. Please call the office with any questions or concerns such as increasing abdominal pain, fever, chills, shortness of breath, chest pain, leg pain or swelling, or redness or drainage from your incisions. Please stay on stage 3 diet which includes sugar free clear liquids such as ice pops and jello and broth and crystal light. Avoid all carbonation. Please drink 3 protein shakes with at least 25-30 grams of protein daily or 3 of the Celebrate 4:1 shakes which can be purchased in our office. The Celebrate shakes have all of the bariatric vitamins you need if you consume these shakes. If you are drinking other protein shakes, you will need to purchase the Celebrate multivitamins and calcium that we provide in the office (they will provide all the vitamins you need). Please make sure you are consuming at least 40-60 ounces of water in addition to your 3 protein shakes daily. Do not hesitate to contact the office with any questions at . The patient's medical history has been reviewed and they are considered low risk for post op DVT and therefore DVT prophylaxis is not considered necessary. Travel after surgery was reviewed. The patient has not disclosed any travel plans during the first 30 days after surgery and they have been advised that within the first 30 days after surgery any bus, plane, train or car travel over 2 hours in duration is contraindicated due to the possibility of developing blood clots from immobility. Any travel, needs to include periods of ambulation of 10 minutes in duration every 2 hours. The patient was instructed to discuss any plans for travel during this period with their bariatric surgeon. Assessment: stable post op sleeve gastrectomy
--- NOTE | 2021-03-10 10:57 | P.PNGS_ITS ---
Subjective Subjective Date of Service: 03/11/21 Interval history: Patient has mild incisional pain, but was able to ambulate and use the incentive spirometer. She is tolerating phase 1 bariatric diet Physical Exam Vital Signs: Vital Signs: Last Vital Signs Temp 97.3 F 03/10/21 10:46 Pulse 101 H 03/10/21 10:51 Resp 16 03/10/21 10:51 BP 157/71 H 03/10/21 10:51 Pulse Ox 95 03/10/21 10:51 Body Mass Index 32.4 GI: Inspection: Yes normal to inspection and Yes incision (clean, dry and intact) Extrem: Right lower extremity: normal to inspection (no calf tenderness) Left lower extremity: normal to inspection (no calf tenderness) Procedures Date of Service Date of Service: 03/11/21 Progress Note: A&P Assessment and plan (1) S/P laparoscopic sleeve gastrectomy: Status: Acute Assessment and Plan: s/p laparoscopic sleeve gastrectomy, lysis of adhesions repair of diaphragmatic hernia, and gastropexy Doing well Check am labs. If OK, will discharge home? (2) Status post repair of paraesophageal diaphragmatic hernia: Status: Acute (3) Diaphragmatic hernia: Status: Acute (4) Obesity: Status: Acute (5) BMI 32.0-32.9,adult: Status: Acute (6) Type 2 diabetes mellitus with hyperglycemia: Status: Acute (7) Hyperlipidemia LDL goal <100: Status: Acute (8) Hypertriglyceridemia: Status: Acute (9) Essential hypertension: Status: Acute (10) Type 2 diabetes mellitus with diabetic polyneuropathy: Status: Acute (11) GERD (gastroesophageal reflux disease): Status: Acute (12) Steatosis, liver: Status: Acute (13) Liver fibrosis: Status: Acute (14) Splenomegaly: Status: Acute (15) Intra-abdominal adhesions: Status: Acute (16) Congenital intra-abdominal adhesions: Status: Acute Fall Risk Details Current Medications: Current Medications Famotidine (Famotidine/Pf 20 Mg/2 Ml Vial) 20 mg IVPUSH BID YVONNE Fentanyl (Fentanyl Citrate/Pf 100 Mcg/2 Ml Vial) 25 mcg IVPUSH Q5M PRN; Protocol PRN Reason: Pain, Moderate (Pain Scale 4-6 Lactated Ringer's (Lr) 1,000 mls @ 100 mls/hr IVCONT .Q10H YVONNE Last Admin: 03/10/21 07:04 Dose: 100 mls/hr Documented by: Lactated Ringer's (Lr) 1,000 mls @ 100 mls/hr IVCONT .Q10H [facility] Ondansetron HCl (Ondansetron Hcl 4 Mg/2 Ml Vial) 4 mg IVPUSH ONCE PRN PRN Reason: Nausea and Vomiting Time Spent With Patient Time: Total time spent is greater than 50% in coordination of care (as documented) at patient's floor/unit and/or counseling patient: Time with patient: less than 15 minutes Quality Stroke Does the patient have a stroke diagnosis?: No VTE Prior VTE?: No VTE Risk Level:: Surgical - moderate VTE Device Contraindication: N/A - Device Ordered VTE Drug Contraindication: Treatment Not Indicated
[2021-03-10] MEDS: Famotidine/PF 20 MG/2 ML VIAL IVPUSH ×2 (10:59→20:26)
[2021-03-10] MEDS: fentaNYL citrate/PF 100 MCG/2 ML VIAL 25 MCG IVPUSH ×4 (11:04→11:20)
[2021-03-10] MEDS: HYDROmorphone HCl 0.5 MG/0.5 ML SYRINGE 0.25 MG IVPUSH ×3 (11:35→19:36)
[2021-03-10 11:38] LABS: Anion Gap 17 (12-20); Blood Urea Nitrogen 23 mg/dL (9-16); Calcium 8.9 mg/dL (8.4-10.2); Carbon Dioxide 19 mmol/L (22-29); Chloride 103 mmol/L (96-108); Creatinine Clr Calc Pharmacy 55.1; Estimated Glomerular Filt Rate 48; Glucose Random 148 mg/dL (60-115); Potassium 4.2 mmol/L (3.3-5.1); Sodium 135 mmol/L (135-145)
[2021-03-10] MEDS: diphenhydrAMINE HCL 50 MG/ML VIAL 12.5 MG IVPUSH ×2 (12:17→22:51)
[2021-03-10] MEDS: ceFAZolin Sodium/Dextrose,Iso 2 GM/50 ML PIGGYBACK IV (13:08)
[2021-03-10] MEDS: ondansetron HCL 4 MG/2 ML VIAL IVPUSH (19:36)
[2021-03-10] MEDS: ALPRAZolam 0.5 MG TABLET PO (21:58)
[2021-03-11] VITALS: BP 146/82; PULSE 103; RESP 16; TEMP 36; O2SAT 96
[2021-03-11 04:00] VITALS: BP 165/80; PULSE 98; RESP 16; TEMP 36; O2SAT 99
[2021-03-11] MEDS: ondansetron HCL 4 MG/2 ML VIAL IVPUSH (05:26)
[2021-03-11 06:10] LABS: MANUAL DIFF FLAG NO
[2021-03-11 06:19] LABS: Basophils Percent Auto 0.3 % (0-2); Eosinophils Percent Auto 0.3 % (0-4); Hematocrit 27.2 % (37-47); Hemoglobin 9.4 g/dl (12.0-16.0); Imm Gran Abs Auto 0.02 X10*3/uL (0.00-0.03); Imm Gran Pct Auto 0.3 % (0.0-0.4); Lymphocytes Absolute Auto 0.7 X10*3/uL (1.2-4.9); Lymphocytes Percent Auto 11.4 % (20-40); Mean Corpuscular HGB Conc 34.6 g/dl (31.0-35.0); Mean Corpuscular Hemoglobin 29.3 pg (27.0-33.0); Mean Corpuscular Volume 84.7 fL (80-98); Mean Platelet Volume 9.7 fL (9.4-12.3); Monocytes Absolute Auto 0.4 X10*3/uL (0.1-1.2); Monocytes Percent Auto 7.1 % (2-11); Neutrophils Percent Auto 80.6 % (45-73); Platelet Count 164 X10*3/uL (160-400); Red Blood Count 3.21 X10*6/uL (4.20-5.50); Red Cell Distribution Width 13.6 % (11.0-16.0); White Blood Count 6.2 X10*3/uL (4.8-10.8)
[2021-03-11 06:34] LABS: Glucose, Whole Blood 94 mg/dL (60-115)
[2021-03-11 06:35] LABS: Anion Gap 12 (12-20); Blood Urea Nitrogen 26 mg/dL (9-16); Calcium 8.9 mg/dL (8.4-10.2); Carbon Dioxide 24 mmol/L (22-29); Chloride 105 mmol/L (96-108); Creatinine Clr Calc Pharmacy 54.1; Estimated Glomerular Filt Rate 47; Glucose Random 96 mg/dL (60-115); Potassium 4.4 mmol/L (3.3-5.1); Sodium 137 mmol/L (135-145)
[2021-03-11] MEDS: Lactated Ringers 1,000 ML 100 ML IVCONT (06:40)
[2021-03-11 07:02] VITALS: BP 147/65; PULSE 95; RESP 18; TEMP 36.4; O2SAT 96
[2021-03-11 07:42] VITALS: BP 147/65; PULSE 95
[2021-03-11] MEDS: Famotidine/PF 20 MG/2 ML VIAL IVPUSH (07:42)
[2021-03-11] MEDS: lisinopriL 20 MG TABLET PO (07:42)
--- NOTE | 2021-03-11 09:47 | HO.POSTANES ---
Post Anesthesia Evaluation Post Anesthesia Evaluation Vital Signs: Vital Signs Temp Pulse Resp BP Pulse Ox 03/11/21 07:42 95 147/65 H 03/11/21 07:02 97.6 F 95 18 147/65 H 96 03/11/21 04:00 96.8 F 98 16 165/80 H 99 03/11/21 00:00 96.8 F 103 H 16 146/82 H 96 Anesthesia: General Endotracheal-GETA Mental Status: Awake Pain Control: Satisfactory Nausea/Vomiting: None Hydration: Adequate Anesthesia-Related Issues: No Anes. Related Issues
--- NOTE | 2021-03-11 09:56 | MHC.CM.PN ---
PATIENT LIVES WITH HER SPOUSE. SHE IS INDEPENDENT WITH ALL ADLS. NO DME OR VNA SERVICES. SPOUSE IS DUE IN BETWEEN NOON AND 1 PM ON DAY OF DC TO TRANSPORT HOME. PATIENT IS AWARE OF IMPORTANCE OF HCP DESIGNATION AND WILL NOTIFY CASE MANAGEMENT IF SHE WISHES TO COMPLETE ONE PRIOR TO HER DC. IMM 03/10 IN CHART. PLAN WILL BE HOME NO SERVICES
== END 2021-03-11 11:47 | disposition home or self-care (01) | DRG 620 ==
LOC: HO.SSSA 10:54 → HO.S3 10:56
PROVIDERS: Nurse Practitioner; Physician Assistant; Admitting Provider Surgery; PCP Internal Medicine; Visit Provider Surgery
PROC: 0DB64Z3 Excision of Stomach, Percutaneous Endoscopic Approach, Vertical (ICD-10-PCS; CPT 43845; principal; 2021-03-10 07:30)
DX: E66.01 Morbid (severe) obesity due to excess calories (principal); K44.0 Diaphragmatic hernia with obstruction, without gangrene; K21.9 Gastro-esophageal reflux disease without esophagitis; I10 Essential (primary) hypertension; F41.9 Anxiety disorder, unspecified; K76.0 Fatty (change of) liver, not elsewhere classified; E11.40 Type 2 diabetes mellitus with diabetic neuropathy, unspecified; K74.00 Hepatic fibrosis, unspecified; G47.00 Insomnia, unspecified; E78.1 Pure hyperglyceridemia; Z20.822 Contact with and (suspected) exposure to COVID-19; K66.0 Peritoneal adhesions (postprocedural) (postinfection); R16.1 Splenomegaly, not elsewhere classified; Z68.32 Body mass index [BMI] 32.0-32.9, adult; G43.909 Migraine, unspecified, not intractable, without status migrainosus; Z87.891 Personal history of nicotine dependence; Z88.2 Allergy status to sulfonamides; Z88.6 Allergy status to analgesic agent; Z79.4 Long term (current) use of insulin; Z79.899 Other long term (current) drug therapy
CPT/HCPCS: 36415; 80048; 80053; 80061; 81025; 82947; 83036; 83525; 84443; 85014; 85018; 85025; 85610; 85730; 86140; 86850; 86900; 86901; 87635; 88307; 88342; 99024; A4649; J0131; J0690; J1100; J1170; J1200; J2250; J2370; J2405; J3010

== ENCOUNTER → 2021-03-18 08:02 | Outpatient (BNVA) | payer OTHER, SELFPAY | PROVIDERS: PCP Internal Medicine; Referring Provider Internal Medicine; Visit Provider Surgery | DX: E66.9 Obesity, unspecified (principal); Z68.30 Body mass index [BMI] 30.0-30.9, adult | CPT/HCPCS: 99212 ==

== ENCOUNTER → 2021-04-22 13:13 | Outpatient (BNVA) | payer OTHER, SELFPAY | PROVIDERS: PCP Internal Medicine; Referring Provider Internal Medicine; Visit Provider Physician Assistant Surgical | DX: E66.3 Overweight (principal); Z68.29 Body mass index [BMI] 29.0-29.9, adult | CPT/HCPCS: 99212 ==

== ENCOUNTER → 2021-05-23 08:06 | Outpatient (BNVA) | payer OTHER, SELFPAY | PROVIDERS: PCP Internal Medicine; Visit Provider Physician Assistant Surgical | DX: E66.3 Overweight (principal); Z68.29 Body mass index [BMI] 29.0-29.9, adult | CPT/HCPCS: 99212 ==

== ENCOUNTER 2021-10-07 09:16 | Outpatient (REF) | payer OTHER, SELFPAY ==
[2021-10-07 09:29] LABS: MANUAL DIFF FLAG NO
[2021-10-07 09:45] LABS: Basophils Absolute Auto 0.1 X10*3/uL (0.0-0.2); Basophils Percent Auto 0.9 % (0-2); Eosinophils Absolute Auto 0.2 X10*3/uL (0.0-0.4); Eosinophils Percent Auto 3.8 % (0-4); Hematocrit 36.6 % (37.0-47.0); Hemoglobin 12.9 g/dl (12.0-16.0); Imm Gran Abs Auto 0.02 X10*3/uL (0.00-0.03); Imm Gran Pct Auto 0.4 % (0.0-0.4); Immature Retic Fraction 18.1 % (3.0-15.9); Lymphocytes Absolute Auto 1.4 X10*3/uL (1.2-4.9); Lymphocytes Percent Auto 25.3 % (20-40); Mean Corpuscular HGB Conc 35.2 g/dl (31.0-35.0); Mean Corpuscular Hemoglobin 30.4 pg (27.0-33.0); Mean Corpuscular Volume 86.3 fL (80.0-98.0); Mean Platelet Volume 9.9 fL (9.4-12.3); Monocytes Absolute Auto 0.3 X10*3/uL (0.1-1.2); Monocytes Percent Auto 5.5 % (2-11); Neutrophils Absolute Auto 3.5 x10*3/uL (2.0-8.3); Neutrophils Percent Auto 64.1 % (45-73); Platelet Count 174 X10*3/uL (160-400); Red Blood Count 4.24 X10*6/uL (4.20-5.50); Red Cell Distribution Width 13.3 % (11.0-16.0); Reticulocyte Percent 2.5 % (0.5-1.8); Reticulocytes Absolute 0.106 X10*6/uL (0.026-0.095); White Blood Count 5.5 X10*3/uL (4.8-10.8)
[2021-10-07 09:53] LABS: Estimated Average Glucose 126 mg/dL
[2021-10-07 10:05] LABS: Alanine Aminotransferase 9 U/L (0-31); Alkaline Phosphatase 59 U/L (39-117); Anion Gap 12 (12-20); Aspartate Amino Transferase 12 U/L (5-31); Bilirubin Total 0.5 mg/dL (0.0-1.0); Blood Urea Nitrogen 17 mg/dL (9-16); Calcium 9.9 mg/dL (8.4-10.2); Carbon Dioxide 27 mmol/L (22-29); Chloride 105 mmol/L (96-108); Cholesterol 223 mg/dL; Estimated Glomerular Filt Rate > 60; Glucose Random 166 mg/dL (60-115); HDL Cholesterol 25 mg/dL; Iron 73 mcg/dL (30-160); Percent Iron Saturation 20 % (15-50); Potassium 4.5 mmol/L (3.3-5.1); Sodium 139 mmol/L (135-145); Total Iron Binding Capacity 373 mcg/dL (228-428); Total Protein 7.2 g/dL (6.5-8.0); Triglycerides 1040 mg/dL; Unsaturated Iron Binding 300 ug/dL
[2021-10-07 10:29] LABS: Ferritin 86 ng/mL (10-250); Free T4 (Free Thyroxine) 1.15 ng/dL (0.71-1.85); Vitamin D 25-OH Total 10.8 ng/mL (>30)
[2021-10-07 11:11] LABS: Folate 12.1 ng/mL (> or = 4.0); Vitamin B12 331 pg/mL (200-900)
[2021-10-11 15:27] LABS: Zinc 63 mcg/dL (60-130)
[2021-10-13 06:07] LABS: Vitamin B1 12 nmol/L (8-30)
[2021-10-13 21:06] LABS: Vitamin A 67 mcg/dL (38-98)
== END 2021-10-07 09:17 | disposition home or self-care (01) ==
LOC: HO.LAB 09:16
PROVIDERS: Absent Provider Internal Medicine; PCP Internal Medicine; Visit Provider Physician Assistant Surgical
DX: E66.3 Overweight (principal); E78.00 Pure hypercholesterolemia, unspecified; E11.42 Type 2 diabetes mellitus with diabetic polyneuropathy
CPT/HCPCS: 36415; 80053; 80061; 82306; 82607; 82728; 82746; 83036; 83540; 84425; 84439; 84443; 84590; 84630; 85025; 85045

== ENCOUNTER 2022-01-12 14:13 | Outpatient (REF) | payer OTHER, SELFPAY ==
[2022-01-12 14:36] LABS: MANUAL DIFF FLAG NO
[2022-01-12 15:50] LABS: Basophils Absolute Auto 0.1 X10*3/uL (0.0-0.2); Basophils Percent Auto 0.8 % (0-2); Eosinophils Absolute Auto 0.1 X10*3/uL (0.0-0.4); Hematocrit 35.2 % (37.0-47.0); Hemoglobin 12.7 g/dl (12.0-16.0); Imm Gran Abs Auto 0.03 X10*3/uL (0.00-0.03); Imm Gran Pct Auto 0.5 % (0.0-0.4); Lymphocytes Absolute Auto 1.4 X10*3/uL (1.2-4.9); Lymphocytes Percent Auto 21.1 % (20-40); Mean Corpuscular HGB Conc 36.1 g/dl (31.0-35.0); Mean Corpuscular Hemoglobin 30.9 pg (27.0-33.0); Mean Corpuscular Volume 85.6 fL (80.0-98.0); Mean Platelet Volume 10.2 fL (9.4-12.3); Monocytes Absolute Auto 0.3 X10*3/uL (0.1-1.2); Monocytes Percent Auto 4.7 % (2-11); Neutrophils Absolute Auto 4.6 x10*3/uL (2.0-8.3); Neutrophils Percent Auto 70.9 % (45-73); Platelet Count 180 X10*3/uL (160-400); Red Blood Count 4.11 X10*6/uL (4.20-5.50); Red Cell Distribution Width 13.2 % (11.0-16.0); White Blood Count 6.5 X10*3/uL (4.8-10.8)
[2022-01-12 15:58] LABS: Estimated Average Glucose 111 mg/dL; Hemoglobin A1c % 5.5 %
[2022-01-12 16:20] LABS: Alanine Aminotransferase 7 U/L (0-31); Albumin Level 4.2 g/dL (3.5-5.0); Alkaline Phosphatase 59 U/L (39-117); Anion Gap 14 (12-20); Aspartate Amino Transferase 12 U/L (5-31); Bilirubin Total 0.8 mg/dL (0.0-1.0); Blood Urea Nitrogen 14 mg/dL (9-16); C Reactive Protein 0.16 mg/dL (< or = 0.50); Calcium 9.7 mg/dL (8.4-10.2); Carbon Dioxide 28 mmol/L (22-29); Chloride 103 mmol/L (96-108); Cholesterol 253 mg/dL; Estimated Glomerular Filt Rate > 60; Glucose Random 127 mg/dL (60-115); HDL Cholesterol 28 mg/dL; Iron 103 mcg/dL (30-160); Percent Iron Saturation 28 % (15-50); Sodium 141 mmol/L (135-145); Total Iron Binding Capacity 371 mcg/dL (228-428); Total Protein 7.3 g/dL (6.5-8.0); Triglycerides 889 mg/dL; Unsaturated Iron Binding 268 ug/dL
[2022-01-12 16:44] LABS: Folate 12.1 ng/mL (> or = 4.0); Vitamin B12 280 pg/mL (200-900)
[2022-01-12 16:51] LABS: Ferritin 120 ng/mL (10-250); TSH reflex Free T4 1.18 uIU/mL (0.32-4.0); Vitamin D 25-OH Total 24.9 ng/mL (>30)
[2022-01-12 16:52] LABS: Insulin 7 uU/mL (2-29)
[2022-01-13 17:51] LABS: Calcium (PTHI) 9.8 mg/dL (8.6-10.2); PTHI 43 pg/mL (16-77)
[2022-01-16 22:32] LABS: Zinc 73 mcg/dL (60-130)
[2022-01-18 13:42] LABS: Vitamin A 70 mcg/dL (38-98)
[2022-01-19 15:11] LABS: Vitamin B1 11 nmol/L (8-30)
== END 2022-01-12 14:14 | disposition home or self-care (01) ==
LOC: HO.LAB 14:13
PROVIDERS: Visit Provider Physician Assistant Surgical
DX: E66.9 Obesity, unspecified (principal); L98.7 Excessive and redundant skin and subcutaneous tissue; Z71.3 Dietary counseling and surveillance; Z98.84 Bariatric surgery status; Z79.899 Other long term (current) drug therapy; Z68.30 Body mass index [BMI] 30.0-30.9, adult
CPT/HCPCS: 36415; 80053; 80061; 82306; 82607; 82728; 82746; 83036; 83525; 83540; 83970; 84425; 84443; 84590; 84630; 85025; 86140; 99212

== ENCOUNTER → 2022-02-15 14:19 | Outpatient (BNVA) | payer OTHER, SELFPAY | PROVIDERS: PCP Internal Medicine; Visit Provider Physician Assistant Surgical | DX: E66.9 Obesity, unspecified (principal); Z98.84 Bariatric surgery status; Z68.30 Body mass index [BMI] 30.0-30.9, adult | CPT/HCPCS: Q3014 ==

== ENCOUNTER 2022-04-18 11:23 | Outpatient (REF) | payer OTHER, SELFPAY ==
[2022-04-18 12:38] LABS: UPreg QC Valid YES; Urine Pregnancy NEGATIVE (NEGATIVE)
[2022-04-18 12:42] LABS: HCG Quantitative < 2 mIU/mL
[2022-04-18 13:00] LABS: Alanine Aminotransferase 10 U/L (0-31); Albumin Level 3.9 g/dL (3.5-5.0); Alkaline Phosphatase 56 U/L (39-117); Anion Gap 15 (12-20); Aspartate Amino Transferase 12 U/L (5-31); Bilirubin Total 0.5 mg/dL (0.0-1.0); Blood Urea Nitrogen 12 mg/dL (9-16); Calcium 9.4 mg/dL (8.4-10.2); Carbon Dioxide 25 mmol/L (22-29); Chloride 103 mmol/L (96-108); Cholesterol 250 mg/dL; Estimated Glomerular Filt Rate > 60; Glucose Random 158 mg/dL (60-115); HDL Cholesterol 28 mg/dL; Potassium 4.5 mmol/L (3.3-5.1); Sodium 138 mmol/L (135-145); Total Protein 6.9 g/dL (6.5-8.0); Triglycerides 1004 mg/dL
[2022-04-18 13:23] LABS: Microalbum/Creatinine Ratio Ur 1182.5 ug/mg cr
[2022-04-18 13:31] LABS: Estimated Average Glucose 128 mg/dL; Hemoglobin A1c % 6.1 %
== END 2022-04-18 11:24 | disposition home or self-care (01) ==
LOC: HO.LAB 11:23
PROVIDERS: PCP Internal Medicine; Visit Provider Internal Medicine
DX: E11.42 Type 2 diabetes mellitus with diabetic polyneuropathy (principal); E11.65 Type 2 diabetes mellitus with hyperglycemia; N91.1 Secondary amenorrhea; E78.00 Pure hypercholesterolemia, unspecified; E78.1 Pure hyperglyceridemia
CPT/HCPCS: 36415; 80053; 80061; 81025; 82043; 83036; 84702

== ENCOUNTER 2022-08-14 09:27 | Outpatient (REF) | payer OTHER, SELFPAY ==
--- NOTE | ~2022-08-14 | XR_ITS ---
Examination: Bilateral knee. CLINICAL INDICATION: Pain. COMPARISON: Bilateral AP knee standing and left knee 12/11/2016. TECHNIQUE: 2 views right knee and 3 views left knee. FINDINGS: Right knee: The tricompartment joint space is maintained. No bony erosive changes. No loose bodies. No visible acute fracture or dislocation. There is anterior superior patellar enthesophyte. No abnormal joint effusion. Left knee: The tricompartment joint space is maintained. No visible acute fracture, dislocation or subluxation seen. No bony erosive changes. No abnormal joint effusion. XR/XR knee LT 2V IMPRESSION: Unremarkable left knee exam. Unremarkable right knee exam except for anterior superior patella enthesophyte.
--- NOTE | ~2022-08-14 | XR_ITS ---
Examination: Bilateral knee. CLINICAL INDICATION: Pain. COMPARISON: Bilateral AP knee standing and left knee 12/11/2016. TECHNIQUE: 2 views right knee and 3 views left knee. FINDINGS: Right knee: The tricompartment joint space is maintained. No bony erosive changes. No loose bodies. No visible acute fracture or dislocation. There is anterior superior patellar enthesophyte. No abnormal joint effusion. Left knee: The tricompartment joint space is maintained. No visible acute fracture, dislocation or subluxation seen. No bony erosive changes. No abnormal joint effusion. XR/XR knee RT 2V IMPRESSION: Unremarkable left knee exam. Unremarkable right knee exam except for anterior superior patella enthesophyte.
[2022-08-14 09:39] LABS: MANUAL DIFF FLAG NO
[2022-08-14 09:47] LABS: Basophils Absolute Auto 0.1 X10*3/uL (0.0-0.2); Basophils Percent Auto 0.9 % (0-2); Eosinophils Absolute Auto 0.2 X10*3/uL (0.0-0.4); Eosinophils Percent Auto 2.9 % (0-4); Hemoglobin 12.1 g/dl (12.0-16.0); Imm Gran Abs Auto 0.03 X10*3/uL (0.00-0.03); Imm Gran Pct Auto 0.5 % (0.0-0.4); Lymphocytes Absolute Auto 1.2 X10*3/uL (1.2-4.9); Mean Corpuscular HGB Conc 35.6 g/dl (31.0-35.0); Mean Corpuscular Hemoglobin 31.3 pg (27.0-33.0); Mean Corpuscular Volume 87.9 fL (80.0-98.0); Mean Platelet Volume 9.8 fL (9.4-12.3); Monocytes Absolute Auto 0.3 X10*3/uL (0.1-1.2); Monocytes Percent Auto 5.5 % (2-11); Neutrophils Absolute Auto 4.1 x10*3/uL (2.0-8.3); Neutrophils Percent Auto 69.2 % (45-73); Platelet Count 165 X10*3/uL (160-400); Red Blood Count 3.87 X10*6/uL (4.20-5.50); Red Cell Distribution Width 13.4 % (11.0-16.0); White Blood Count 5.9 X10*3/uL (4.8-10.8)
[2022-08-14 10:09] LABS: Estimated Average Glucose 134 mg/dL; Hemoglobin A1C 151.0942 umol/L; Hemoglobin A1c % 6.3 %
[2022-08-14 10:40] LABS: Alanine Aminotransferase 17 U/L (0-31); Albumin Level 3.7 g/dL (3.5-5.0); Alkaline Phosphatase 48 U/L (39-117); Anion Gap 13 (12-20); Aspartate Amino Transferase 21 U/L (5-31); Bilirubin Total 0.6 mg/dL (0.0-1.0); Blood Urea Nitrogen 12 mg/dL (9-16); C Reactive Protein 0.41 mg/dL (< or = 0.50); Calcium 9.8 mg/dL (8.4-10.2); Carbon Dioxide 28 mmol/L (22-29); Chloride 102 mmol/L (96-108); Cholesterol 372 mg/dL; Estimated Glomerular Filt Rate > 60; Glucose Random 155 mg/dL (60-115); HDL Cholesterol 29 mg/dL; Iron 113 mcg/dL (30-160); Percent Iron Saturation 35 % (15-50); Potassium 4.6 mmol/L (3.3-5.1); Sodium 138 mmol/L (135-145); Total Iron Binding Capacity 322 mcg/dL (228-428); Total Protein 6.5 g/dL (6.5-8.0); Triglycerides 1340 mg/dL; Unsaturated Iron Binding 209 ug/dL
[2022-08-14 10:55] LABS: Ferritin 105 ng/mL (10-250); Folate 14.7 ng/mL (> or = 4.0); Insulin 6 uU/mL (2-29); TSH reflex Free T4 1.15 uIU/mL (0.32-4.0); Vitamin B12 550 pg/mL (200-900); Vitamin D 25-OH Total 20.3 ng/mL (>30)
[2022-08-14 12:26] LABS: Creatinine Urine 151.93 mg/dL
[2022-08-15 16:13] LABS: Calcium (PTHI) 9.6 mg/dL (8.6-10.2); PTHI 24 pg/mL (16-77)
[2022-08-17 06:19] LABS: Zinc 69 mcg/dL (60-130)
[2022-08-18 12:23] LABS: Vitamin B1 19 nmol/L (8-30)
[2022-08-22 11:03] LABS: Vitamin A 54 mcg/dL (38-98)
== END 2022-08-14 09:28 | disposition home or self-care (01) ==
LOC: HO.XRAY 09:27
PROVIDERS: PCP Internal Medicine; Visit Provider Physician Assistant Surgical
DX: E11.65 Type 2 diabetes mellitus with hyperglycemia (principal); E11.42 Type 2 diabetes mellitus with diabetic polyneuropathy; M25.561 Pain in right knee; M25.562 Pain in left knee; Z98.84 Bariatric surgery status
CPT/HCPCS: 36415; 73560; 80053; 80061; 82306; 82607; 82728; 82746; 83036; 83525; 83540; 83970; 84425; 84443; 84590; 84630; 85025; 86140

== ENCOUNTER 2022-09-26 08:24 | Outpatient (REF) | payer OTHER, SELFPAY | END 2022-09-26 08:25 | disposition home or self-care (01) | LOC: HO.HOSX 08:24 | PROVIDERS: Visit Provider Physician Assistant | DX: Z13.89 Encounter for screening for other disorder (principal) ==

== ENCOUNTER 2022-12-28 15:22 | Outpatient (AMB) | payer OTHER, SELFPAY ==
[2022-12-28 15:24] VITALS: BP 132/80; PULSE 97; O2SAT 100; BMI 31.3
--- NOTE | 2022-12-28 15:24 | MHC.PC.OV ---
Vital Signs 12/28/22 15:24 Height 5 ft Weight 160 lb 0.8 oz BMI 31.3 BP 132/80 Blood Pressure Location Lt brachial Position Sitting Pulse 97 Pulse Source Pulse Oximeter Temp Source Skin Pulse Oximetry (%) 100 Oxygen Delivery Method Room Air Intake Visit Reasons: 3M follow up on DM Vehicle Service Attendant Required: No Allergies metoclopramide [From REGLAN] Allergy (Severe, Verified 12/28/22 15:48) ANXIETY promethazine [From PHENERGAN] Allergy (Severe, Verified 12/28/22 15:48) ANXIETY shellfish derived [SHELLFISH DERIVED] Allergy (Severe, Verified 12/28/22 15:48) THROAT SWELLING HIVES IN SCALP, ITCHY ibuprofen [From MOTRIN] Allergy (Unknown, Verified 12/28/22 15:48) HIVES metformin Allergy (Unknown, Verified 12/28/22 15:48) diarrhea morphine [MORPHINE] Allergy (Unknown, Verified 12/28/22 15:48) THROAT CLOSES, anaphylaxis prochlorperazine [From COMPAZINE] Allergy (Unknown, Verified 12/28/22 15:48) ANXIETY Sulfa (Sulfonamide Antibiotics) [SULFA (SULFONAMIDE ANTIBIOTICS)] Allergy (Unknown, Verified 12/28/22 15:48) SWELLING trazodone Adverse Reaction (Unknown, Verified 12/28/22 15:48) Dizziness Medication List - Last Reconciled 12/28/22 by FRANK Burrows alprazolam 0.5 mg PO BEDTIME PRN 30 days blood pressure monitor (Blood Pressure Kit) As directed blood sugar diagnostic ([employer] Verio test strips) As directed two times per day blood-glucose meter As directed blood-glucose meter ([employer] Lite Meter kit) As directed cholecalciferol (vitamin D3) 125 mcg PO DAILY clotrimazole 1% 1 appl topical BID cyanocobalamin (vitamin B-12) 1,000 mcg PO DAILY diclofenac sodium 1% (Voltaren Arthritis Pain) 4 grams topical QID fenofibrate 160 mg PO DAILY gabapentin 600 mg PO QID 90 days lancets ([employer] Delica Lancets) As directed lisinopril 5 mg PO DAILY omeprazole 40 mg PO DAILY 90 days ondansetron HCl 4 mg PO Q6H sumatriptan succinate (Imitrex) 50 mg PO .qd PRN Tobacco use date assessed: 12/28/22 Dental Screening Dental Screen Date: 12/28/22 Did you have a dental visit in the last 12 months?: Yes Did you have a dental problem in the last 6 months where you did not have access to dental care?: No Was dental information given to patient?: Patient has dentist HPI 3M follow up on DM HPI Details Patient is a 42-year-old female who presents today follow-up on diabetes. Patient of Dr. Guthrie. Medical history significant for IBS, hypertriglyceridemia, hypertension obesity, GERD, diabetes type 2 among others. Patient reports that she is compliant with medications and denies side effects. She reports diabetic eye exam 08/2022, she reports that she is receiving injections in both of her eyes for the past 2 years due to diabetic retinopathy. Patient denies shortness of breath or chest pain. Patient is due for blood work. [facility] Medical History Adjustment disorder, unspecified Atkins's palsy BMI 32.0-32.9,adult BMI over 35 COVID-19 virus infection Diabetic retinopathy Essential hypertension Family hx of hypertension GERD (gastroesophageal reflux disease) Hematuria History of back pain Hypercalcemia Hyperlipidemia LDL goal <100 Hypertriglyceridemia Insomnia Irritable bowel syndrome Liver fibrosis LUQ abdominal pain Migraine Obesity Obesity Obesity (BMI 30-39.9) Onychomycosis Pancreatitis Peripheral neuropathy Pre-procedure lab exam Proteinuria Serum calcium elevated Steatosis, liver Trigeminal neuralgia Type 2 diabetes mellitus with diabetic polyneuropathy Type 2 diabetes mellitus with hyperglycemia Vitamin B 12 deficiency Vitamin D deficiency Vitamin D deficiency Surgical History Acalculous cholecystitis H/O gastric sleeve History of wisdom tooth extraction, class I edentulism Hx of colonoscopy Hx of dilation and curettage Hx of hernia repair Hx of removal of cyst Family History Father Diabetes mellitus Asthma Hypertension Mother Diabetes mellitus Hypertension Scleroderma Maternal Aunt Ovarian cancer Paternal Grandfather Diabetes mellitus Paternal Grandmother Diabetes mellitus Maternal Grandmother Diabetes mellitus Maternal Grandfather Diabetes mellitus CVD (cardiovascular disease) Sister CVD (cardiovascular disease) Brother Anxiety Arthritis Social History Household Members: Spouse Housing: Apartment Are you a primary care management assistant to a significant other at home: No Do you presently have visiting nurse or other home services: No Alcohol intake: never Patient Tobacco Use Status: Former Tobacco user Quit Date: 2015 Tobacco use type: Cigarette Cigarettes Per Day: 3 Years Smoked: quit 03/2016 e-Cigarette/Vaping Use: Never Used Second Hand Smoke Exposure: No Current occupational status: unemployed Cognitive needs: No Hearing needs: No Vision needs: Yes Questionnaire Thrive Questionnaire Date Thrive assessed: 08/24/22 AUDIT C Alcohol Use Questionnaire (AUDIT-C) 1. How often do you have a drink containing alcohol?: Never 2. How many drinks containing alcohol do you have on a typical day when you are drinking?: 1 or 2 (0) 3. How often do you have six or more drinks on one occasion?: Never Total Score: 0 Score Reviewed/Action Taken: No BERTRAM-7 AMB Questionnaire BERTRAM-7 Date BERTRAM - 7 assessed: 08/24/22 Source: Developed by Drs. Jovon Nation, Cecilia Ribeiro, Travon Silveira and colleagues, with an educational michelle from [employer]. Review of Systems Const Denies body aches, Denies chills, Denies fever(s) and Denies headache(s) Eyes Denies change in vision ENT Denies dizziness, Denies otalgia, Denies headache(s), Denies nasal discharge, Denies sinus pain and Denies sore throat Card Denies chest pain, Denies edema, Denies lightheadedness and Denies dyspnea Resp Denies cough, Denies dyspnea and Denies wheezing GI Denies abdominal pain Denies dysuria Musc Details: Neuropathy Denies myalgias Skin/Breast Denies rash Neuro Denies dizziness and Denies headache(s) Aller/Immun Denies wheezing Physical exam (Primary Care) Vital Signs: Last Vital Signs Pulse 97 12/28/22 15:24 BP 132/80 12/28/22 15:24 Pulse Ox 100 12/28/22 15:24 Oxygen Delivery Method Room Air 12/28/22 15:24 BMI result Body Mass Index 31.3 Tobacco/Smoking Status: Tobacco use Status Tobacco use date assessed 12/28/22 12/28/22 15:31 Patient Tobacco Use Status Former Tobacco user 12/28/22 15:31 Tobacco use type Cigarette 12/28/22 15:31 e-Cigarette/Vaping Use Never Used 12/28/22 15:31 Thrive Assessment: Date of Thrive Assessment Date Thrive assessed 08/24/22 12/28/22 15:31 Const General: cooperative and no acute distress Orientation/consciousness: patient oriented x3 HENMT Head: Yes normocephalic and Yes atraumatic Face and sinus: Yes sinuses nontender Mouth: oropharynx normal and moist mucous membranes Throat: Yes posterior oropharynx normal Eyes General: appearance normal, both eyes and all related structures Neck Neck: Yes normal visual inspection, Yes full ROM and Yes no lymphadenopathy Resp Effort & Inspection: normal respiratory effort and able to speak in complete sentences Auscultation: clear to auscultation bilaterally, no crackles, no rales, no rhonchi and no wheezes Cardio Rate: regular rate Rhythm: regular rhythm Heart sounds: S1 normal heart sound present and S2 normal heart sound present GI Auscultation: normal bowel sounds Skin General skin exam: no rashes or lesions noted Neuro General: patient oriented x3 Gait exam (Neuro): Normal gait present Extrem General: Yes full ROM and No edema Results AMB Hemoglobin A1c AMB Hemoglobin A1c 6.0 % Last Edit by SATHISH Verdugo on 12/28/22 16:17 Results Reviewed Results Reviewed: Laboratory Last Values Hgb A1c (Clinic) 6.0 % (4.0-6.0) 12/28/22 15:23 Assessment and Plan Assessment & Plan (1) Type 2 diabetes mellitus with hyperglycemia: Code(s): E11.65 - Type 2 diabetes mellitus with hyperglycemia Plan: A1c 6.0 today Diet controlled Continue low-carbohydrate diet (2) GERD (gastroesophageal reflux disease): Code(s): K21.9 - Gastro-esophageal reflux disease without esophagitis Plan: Continue omeprazole Avoid GERD trigger foods Do not lay down 2-3 hours after evening meal (3) Essential hypertension: Code(s): I10 - Essential (primary) hypertension Plan: Goal BP equal or less than 140/90 Continue lisinopril Low-sodium diet (4) Hypertriglyceridemia: Code(s): E78.1 - Pure hyperglyceridemia Plan: Continue low-cholesterol and low-carbohydrate diet Continue fenofibrate 160 mg daily Patient is due for blood work Plan Follow-up with PCP in 3 months or sooner as needed Orders: Orders Comprehensive [place]. Panel Fast Today E11.42 - Type 2 diabetes mellitus with diabetic polyneuropathy Lipid Panel Today E78.1 - Pure hyperglyceridemia Vitamin D 25-OH Total Today E55.9 - Vitamin D deficiency, unspecified AMB Hemoglobin A1c Today E11.65 - Type 2 diabetes mellitus with hyperglycemia Coding Level of Care Code Est Pt Level 4 (88948) Diagnoses Type 2 diabetes mellitus with hyperglycemia E11.65 GERD (gastroesophageal reflux disease) K21.9 Essential hypertension I10 Hypertriglyceridemia E78.1
== END 2022-12-28 16:04 | disposition home or self-care (01) ==
PROVIDERS: PCP Internal Medicine; Visit Provider Nurse Practitioner Family
DX: E11.65 Type 2 diabetes mellitus with hyperglycemia (principal); K21.9 Gastro-esophageal reflux disease without esophagitis; I10 Essential (primary) hypertension; E78.1 Pure hyperglyceridemia
CPT/HCPCS: 83036; 99214

== ENCOUNTER 2023-01-16 14:19 | Emergency (ER) | payer OTHER, SELFPAY ==
--- NOTE | ~2023-01-16 | CT_ITS ---
EXAMINATION: CT ABDOMEN AND PELVIS WITHOUT CONTRAST CLINICAL INFORMATION: Abdominal pain. COMPARISON: 09/21/2020 TECHNIQUE: Multidetector volumetric imaging was performed from the superior aspect of the liver through the pubic symphysis. Sagittal and coronal reformatted images were obtained on the technologist's workstation. This CT examination was performed using dose optimization techniques as appropriate, variously including the following: *Automated exposure control *Adjustment of mA and/or kV according to patient size (this includes techniques or standardized protocols for targeted exams where dose is matched to indication/reason for exam; i.e. extremities or head) *Use of iterative reconstruction technique DLP: 607 mGy-cm FINDINGS: LUNG BASES: The visualized lung bases are unremarkable. LIVER, GALLBLADDER, AND BILIARY TREE: The liver is normal in size, shape, and attenuation. No focal hepatic lesion or biliary ductal dilatation is present. There has been a prior cholecystectomy. PANCREAS: Unremarkable. SPLEEN: Unremarkable. ADRENAL GLANDS: Unremarkable. KIDNEYS AND URETERS: The kidneys are normal in size, shape, and attenuation. No hydronephrosis, hydroureter, or calculi seen. No perinephric stranding. BLADDER: Unremarkable. GASTROINTESTINAL TRACT: The small and large bowel are unremarkable. The appendix is unremarkable. ABDOMINAL WALL: No significant hernia is appreciated. LYMPH NODES: Normal. VASCULAR: Unremarkable. PELVIC VISCERA: Unremarkable. OSSEOUS STRUCTURES: Unremarkable. CT/CT abdomen pelvis wo IV con IMPRESSION: No acute intra-abdominal process. Fleischner guidelines were followed.
--- NOTE | 2023-01-16 14:31 | ED_ITS ---
HPI - General Adult General Chief complaint: Abdominal Pain Stated complaint: Pelvic pain Time Seen by Provider: 01/16/23 21:34 Source: patient, RN notes reviewed and old records reviewed Mode of arrival: ambulatory Limitations: no limitations History of Present Illness HPI narrative: 42-year-old female with past medical history significant for type 2 diabetes, obesity, anxiety, sleeve gastrectomy presents for evaluation of lower abdominal pain. patient states that she has had the pain on off for at least 2 years she reports that she has seen nurse gynecology in the past and never found anything she reports that her pain worsened about 10 days ago so she saw her OBGYN again on January 05, 2023 she reports that she had a pelvic examination and an ultrasound of her pelvis that was transvaginal and they did not find anything except a very small fibroid. Patient is experiencing continued pain and her doctor suggested maybe it is kidney stones or diverticulitis. Patient reports that she has diarrhea throughout most of her life she reports history of sleeve gastrectomy, cholecystectomy but no other abdominal surgeries Related Data Previous Rx's Medication Instructions Recorded sumatriptan succinate 50 mg tablet 50 mg PO .qd PRN migraine headache 07/28/20 (Imitrex) #10 tabs blood pressure monitor (Blood #1 ea 08/13/20 Pressure Kit) clotrimazole 1 % topical cream 1 appl topical BID #30 grams 01/12/22 diclofenac sodium 1 % topical gel 4 g topical QID #100 grams 03/31/22 (Voltaren Arthritis Pain) lisinopril 5 mg tablet 5 mg PO DAILY #30 tabs 07/13/22 blood-glucose meter (FreeStyle #1 ea 08/24/22 Lite Meter kit) fenofibrate 160 mg tablet 160 mg PO DAILY #30 tabs 08/24/22 gabapentin 600 mg tablet 600 mg PO QID pain 90 days #360 08/24/22 tabs ondansetron HCl 4 mg tablet 4 mg PO Q6H #60 tabs 08/24/22 blood sugar diagnostic (OneTouch #100 ea 09/12/22 Verio test strips) blood-glucose meter #1 ea 09/12/22 lancets 33 gauge (OneTouch Delica #100 ea 09/12/22 Lancets) cholecalciferol (vitamin D3) 125 125 mcg PO DAILY #90 caps 11/23/22 mcg (5,000 unit) capsule omeprazole 40 mg capsule,delayed 40 mg PO DAILY 90 days #90 caps 12/03/22 release cyanocobalamin (vitamin B-12) 1,000 mcg PO DAILY #30 caps 12/04/22 1,000 mcg capsule alprazolam 0.5 mg tablet 0.5 mg PO BEDTIME PRN anxiety 30 01/03/23 days #30 tabs Allergies Allergy/AdvReac Type Severity Reaction Status Date / Time metoclopramide [From REGLAN] Allergy Severe ANXIETY Verified 12/28/22 15:48 promethazine [From PHENERGAN] Allergy Severe ANXIETY Verified 12/28/22 15:48 shellfish derived Allergy Severe THROAT Verified 12/28/22 15:48 [SHELLFISH DERIVED] SWELLING HIVES IN SCALP, ITCHY ibuprofen [From MOTRIN] Allergy Unknown HIVES Verified 12/28/22 15:48 metformin Allergy Unknown diarrhea Verified 12/28/22 15:48 morphine [MORPHINE] Allergy Unknown THROAT Verified 12/28/22 15:48 CLOSES, anaphylaxis prochlorperazine Allergy Unknown ANXIETY Verified 12/28/22 15:48 [From COMPAZINE] Sulfa (Sulfonamide Allergy Unknown SWELLING Verified 12/28/22 15:48 Antibiotics) [SULFA (SULFONAMIDE ANTIBIOTICS)] trazodone AdvReac Unknown Dizziness Verified 12/28/22 15:48 Review of Systems Constitutional: Constitutional: Denies chills and Denies fever(s) Cardiovascular: Cardiovascular: Denies chest pain and Denies dyspnea Respiratory: Respiratory: Denies cough and Denies dyspnea Gastrointestinal: Gastrointestinal: Reports abdominal pain, Reports diarrhea, Reports nausea and Denies vomiting Genitourinary: Genitourinary: Reports hematuria and Denies difficulty voiding Musculoskeletal: Musculoskeletal: Denies back pain Integumentary/Breasts: Skin/Breast: Denies rash PMFSH Past Medical History Medical History Adjustment disorder, unspecified Atkins's palsy BMI 32.0-32.9,adult BMI over 35 COVID-19 virus infection Diabetic retinopathy Essential hypertension Family hx of hypertension GERD (gastroesophageal reflux disease) Hematuria History of back pain Hypercalcemia Hyperlipidemia LDL goal <100 Hypertriglyceridemia Insomnia Irritable bowel syndrome Liver fibrosis LUQ abdominal pain Migraine Obesity Obesity Obesity (BMI 30-39.9) Onychomycosis Pancreatitis Peripheral neuropathy Pre-procedure lab exam Proteinuria Serum calcium elevated Steatosis, liver Trigeminal neuralgia Type 2 diabetes mellitus with diabetic polyneuropathy Type 2 diabetes mellitus with hyperglycemia Vitamin B 12 deficiency Vitamin D deficiency Vitamin D deficiency Surgical History Acalculous cholecystitis H/O gastric sleeve History of wisdom tooth extraction, class I edentulism Hx of colonoscopy Hx of dilation and curettage Hx of hernia repair Hx of removal of cyst Family History Family History Father Diabetes mellitus Asthma Hypertension Mother Diabetes mellitus Hypertension Scleroderma Maternal Aunt Ovarian cancer Paternal Grandfather Diabetes mellitus Paternal Grandmother Diabetes mellitus Maternal Grandmother Diabetes mellitus Maternal Grandfather Diabetes mellitus CVD (cardiovascular disease) Sister CVD (cardiovascular disease) Brother Anxiety Arthritis Social History Social History Household Members: Spouse Housing: Apartment Are you a primary group care worker to a significant other at home: No Do you presently have visiting nurse or other home services: No Alcohol intake: never Patient Tobacco Use Status: Former Tobacco user Quit Date: 2015 Tobacco use type: Cigarette Cigarettes Per Day: 3 Years Smoked: quit 03/2016 e-Cigarette/Vaping Use: Never Used Second Hand Smoke Exposure: No Advance Directives: No Advance Directives Information Provided: No Current occupational status: unemployed Cognitive needs: No Hearing needs: No Vision needs: Yes Physical Exam ED Vital Signs: Vital Signs - 24 hr 01/16/23 14:32 01/16/23 22:00 01/16/23 23:32 Temperature 97.8 F 98.7 F 98.1 F Pulse Rate 103 H 89 88 Respiratory Rate 20 16 16 Blood Pressure 183/108 H 169/97 H 171/91 H Pulse Oximetry 97 96 97 Oxygen Delivery Method Nasal Cannula Room Air Room Air BMI result Body Mass Index 30.4 Const General: healthy appearing, comfortable, no acute distress, alert and awake Nutritional Appearance: well nourished Orientation/consciousness: patient oriented x3 HENMT Head: Yes normocephalic and Yes atraumatic Eyes Eyelids: Yes eyelids normal Conjunctivae: conjunctivae normal Sclerae: sclerae normal Corneas: corneas normal Pupils: Equal, round and reactive pupils present EOM: EOMs intact bilaterally Neck Neck: Yes full ROM Resp Effort & Inspection: normal respiratory effort, able to speak in complete sentences and not labored GI Inspection: No distended Palpation (GI): Soft to palpation, not firm, Tenderness to palpation present (GI ) in the LLQ and in the RLQ, Guarding due to palpation present (GI) in the RLQ; not in the LLQ and not rigid Skin General skin exam: no rashes or lesions noted and elasticity normal Neuro General: patient oriented x3 Cranial nerves: Yes Equal, round and reactive pupils present and Yes Bilaterally intact EOM present Cognition (Neuro): normal cognition Extrem Other: Moving all extremities well without any obvious deformities Course Course Course Narrative: This is a rapid medical exam: Additional HPI, ROS, PE not included below will be deferred to primary provider. Patient is a 42-year-old female with history of T2DM, HTN, GERD, IBS, pancreatitis, liver steatosis presenting to the emergency department with complaint of severe intermittent episodes of pelvic pain. Reports 2 days of similar sxs on the , was able to see [employer] who ordered an U/S which patient was told was negative. Denies vaginal bleeding but states it feels like something is coming out of there. Reports the episodes of pain come on suddenly. Reports nausea an vomiting when episodes of pain occur. Denies any blood in stool or dark, tarry stool. Plan: labs, UA Reevaluation(s) Reevaluation #1: patient's CT scan results did not show any acute findings. I discussed this with the patient and recommended she see GI for the next stage in her workup. she did have some nausea, vomiting and lightheadedness after receiving IM inje ction of Dilaudid, she was given a 2nd dose of Zofran and some Benadryl. She not have any itching and rash, this was an adverse reaction, not a true allergy. Time: 01:46 Medications Administered Discontinued Medications Generic Name Dose Route Start Last Admin Trade Name Chaparrita PRN Reason Stop Dose Admin Hydromorphone HCl 2 mg 01/16/23 22:02 01/16/23 23:02 Hydromorphone Hcl 2 Mg/Ml Vial IM 01/16/23 22:03 2 mg ONCE ONE Administration Protocol Ondansetron HCl 4 mg 01/16/23 22:02 01/16/23 23:02 Ondansetron Odt 4 Mg Tab.Stefanie GUNN 01/16/23 22:03 4 mg ONCE ONE Administration Medical Decision Making Medical Decision Making [facility] Narrative: 42-year-old female with multiple medical issues as described above presents for evaluation of acute on chronic abdominal pain. She has had pelvic pathology ruled out by her OBGYN with a pelvic exam and imaging. She is quite tender right lower quadrant, therefore ordered a CT scan of the abdomen pelvis. Her labs are reassuring the patient does have some blood in the urine but otherwise no evidence of UTI. Patient requesting pain medication, she has an allergy to both morphine and ibuprofen. She reports that she has had Dilaudid in the past without any issues. Differential Diagnosis Differential Diagnoses: The differential diagnosis associated with the presentation includes Chronic abdominal pain IBS Constipation Obstructive uropathy UTI Pyelonephritis Lab Data [facility] Lab Attestation statement: I reviewed the patient's lab results. no leukocytosis, no significant anemia. No electrolyte abnormalities. Normal renal function. sugar slightly elevated with a glucose of 146 but no evidence of DKA 01/16/23 15:46 01/16/23 15:46 Labs: Lab Results 01/16/23 01/16/23 01/16/23 Range/Units 15:46 15:46 15:46 WBC 7.2 (4.8-10.8) X10*3/uL RBC 4.38 (4.20-5.50) X10*6/uL Hgb 13.1 (12.0-16.0) g/dl Hct 37.1 (37.0-47.0) % MCV 84.7 (80.0-98.0) fL MCH 29.9 (27.0-33.0) pg MCHC 35.3 H (31.0-35.0) g/dl RDW 13.1 (11.0-16.0) % Plt Count 192 (160-400) X10*3/uL MPV 9.7 (9.4-12.3) fL Immature Gran % (Auto) 0.4 (0.0-0.4) % Neut % (Auto) 74.0 H (45-73) % Lymph % (Auto) 18.0 L (20-40) % [place] % (Auto) 4.9 (2-11) % Eos % (Auto) 2.0 (0-4) % Baso % (Auto) 0.7 (0-2) % Lymph # (Auto) 1.3 (1.2-4.9) X10*3/uL [place] # (Auto) 0.4 (0.1-1.2) X10*3/uL Eos # (Auto) 0.1 (0.0-0.4) X10*3/uL Baso # (Auto) 0.1 (0.0-0.2) X10*3/uL Abs Immat Gran (auto) 0.03 (0.00-0.03) X10*3/uL Absolute Neuts (auto) 5.3 (2.0-8.3) x10*3/uL Absolute Nucleated RBC 0.000 (0.0-0.012) X10*3/uL Nucleated RBC % (auto) 0.0 (0.0-0.2) /100WBC PT 11.9 (11.1-13.3) SEC INR 1.0 (0.9-1.1) Sodium 140 (135-145) mmol/L Potassium 4.5 (3.3-5.1) mmol/L Chloride 106 (96-108) mmol/L Carbon Dioxide 26 (22-29) mmol/L Anion Gap 13 (12-20) BUN 14 (9-16) mg/dL Creatinine 0.83 (0.5-1.4) mg/dL Estim Creat Clear Calc 81.5 Estimated GFR > 60 Random Glucose 146 H (60-115) mg/dL Calcium 10.8 H D (8.4-10.2) mg/dL Total Bilirubin 0.3 (0.0-1.0) mg/dL AST 12 (5-31) U/L ALT 8 (0-31) U/L Alkaline Phosphatase 47 (39-117) U/L Total Protein 7.7 (6.5-8.0) g/dL Albumin 4.3 (3.5-5.0) g/dL Lipase 19 (8-78) U/L Beta HCG, Quant mIU/mL Urine Color Urine Appearance Urine pH (5.0-9.0) Ur Specific [place] (1.005-1.025) Urine Protein (Neg-Trace) mg/dL Urine Glucose (UA) (Negative) mg/dL Urine Ketones (Negative) mg/dL Urine Blood (Negative) Urine Nitrite (Negative) Ur Leukocyte Esterase (Negative) Urine RBC (0-2) /HPF Urine WBC (0-5) /HPF Ur Squamous Epith Cells (0-2) /HPF Urine Bacteria (None Seen) Hyaline Casts (0-2) /LPF 01/16/23 01/16/23 Range/Units 15:46 21:46 WBC (4.8-10.8) X10*3/uL RBC (4.20-5.50) X10*6/uL Hgb (12.0-16.0) g/dl Hct (37.0-47.0) % MCV (80.0-98.0) fL MCH (27.0-33.0) pg MCHC (31.0-35.0) g/dl RDW (11.0-16.0) % Plt Count (160-400) X10*3/uL MPV (9.4-12.3) fL Immature Gran % (Auto) (0.0-0.4) % Neut % (Auto) (45-73) % Lymph % (Auto) (20-40) % [place] % (Auto) (2-11) % Eos % (Auto) (0-4) % Baso % (Auto) (0-2) % Lymph # (Auto) (1.2-4.9) X10*3/uL [place] # (Auto) (0.1-1.2) X10*3/uL Eos # (Auto) (0.0-0.4) X10*3/uL Baso # (Auto) (0.0-0.2) X10*3/uL Abs Immat Gran (auto) (0.00-0.03) X10*3/uL Absolute Neuts (auto) (2.0-8.3) x10*3/uL Absolute Nucleated RBC (0.0-0.012) X10*3/uL Nucleated RBC % (auto) (0.0-0.2) /100WBC PT (11.1-13.3) SEC INR (0.9-1.1) Sodium (135-145) mmol/L Potassium (3.3-5.1) mmol/L Chloride (96-108) mmol/L Carbon Dioxide (22-29) mmol/L Anion Gap (12-20) BUN (9-16) mg/dL Creatinine (0.5-1.4) mg/dL Estim Creat Clear Calc Estimated GFR Random Glucose (60-115) mg/dL Calcium (8.4-10.2) mg/dL Total Bilirubin (0.0-1.0) mg/dL AST (5-31) U/L ALT (0-31) U/L Alkaline Phosphatase (39-117) U/L Total Protein (6.5-8.0) g/dL Albumin (3.5-5.0) g/dL Lipase (8-78) U/L Beta HCG, Quant < 2 mIU/mL Urine Color Yellow Urine Appearance Clear Urine pH 5.5 (5.0-9.0) Ur Specific [place] 1.025 (1.005-1.025) Urine Protein 300 (3+) H (Neg-Trace) mg/dL Urine Glucose (UA) 100 H (Negative) mg/dL Urine Ketones Trace (Negative) mg/dL Urine Blood Small (1+) H (Negative) Urine Nitrite Negative (Negative) Ur Leukocyte Esterase Negative (Negative) Urine RBC 0-2 (0-2) /HPF Urine WBC 0-5 (0-5) /HPF Ur Squamous Epith Cells 6-10 (0-2) /HPF Urine Bacteria None Seen (None Seen) Hyaline Casts 3-5 (0-2) /LPF Discharge Plan Discharge Clinical Impression: Abdominal pain Patient Disposition: Home, Self-Care Instructions: Abdominal Pain (ED) Additional Instructions: your workup in the emergency department did not show any concerning findings. this includes your blood work, urine sample, CT scan given that you are cleared by OBGYN, had a negative imaging, you should follow- up with GI for your chronic abdominal pain you may follow-up with the offices of Dr. Calles Prescriptions: No Action sumatriptan succinate [Imitrex] 50 mg tablet 50 mg PO .qd PRN (Reason: migraine headache) Qty: 10 5RF Rx Instructions: do not exceed 4 doses per 24 hrs diclofenac sodium [Voltaren Arthritis Pain] 1 % gel 4 g topical QID Qty: 100 12RF Rx Instructions: apply to single knee, ankle, foot; for foot includes sole/toes/top of foot lisinopril 5 mg tablet 5 mg PO DAILY Qty: 30 3RF fenofibrate 160 mg tablet 160 mg PO DAILY Qty: 30 3RF (DME) blood-glucose meter Misc See Rx Instructions .Route Qty: 1 0RF Rx Instructions: As directed (DME) OneTouch Verio test strips Strip See Rx Instructions .Route Qty: 100 0RF Rx Instructions: As directed two times per day (DME) lancets [OneTouch Delica Lancets] 33 gauge misc See Rx Instructions .Route Qty: 100 1RF Rx Instructions: As directed cholecalciferol (vitamin D3) 125 mcg (5,000 unit) capsule 125 mcg PO DAILY Qty: 90 1RF omeprazole 40 mg capsule,delayed release(DR/EC) 40 mg PO DAILY 90 Days Qty: 90 0RF cyanocobalamin (vitamin B-12) 1,000 mcg capsule 1,000 mcg PO DAILY Qty: 30 4RF alprazolam 0.5 mg tablet 0.5 mg PO BEDTIME PRN (Reason: anxiety) 30 Days Qty: 30 0RF (DME) blood pressure monitor [Blood Pressure Kit] Kit See Rx Instructions .ROUTE .MEDSUPPLY Qty: 1 0RF Rx Instructions: As directed gabapentin 600 mg tablet 600 mg PO QID 90 Days Qty: 360 3RF Hold Instructions: Resume on 03/25/21. ondansetron HCl 4 mg tablet 4 mg PO Q6H Qty: 60 0RF (DME) blood-glucose meter [FreeStyle Lite Meter] Kit See Rx Instructions .ROUTE .MEDSUPPLY Qty: 1 0RF Rx Instructions: As directed clotrimazole 1 % cream 1 appl topical BID Qty: 30 3RF Referrals: Veronica Calles MD [Physician] - (chronic abdominal pain. negative [employer] workup, negative imaging)
[2023-01-16 14:32] VITALS: BP 183/108; PULSE 103; RESP 20; TEMP 36.6; O2SAT 97; BMI 30.4
[2023-01-16 15:51] LABS: MANUAL DIFF FLAG NO
[2023-01-16 15:54] LABS: Basophils Absolute Auto 0.1 X10*3/uL (0.0-0.2); Basophils Percent Auto 0.7 % (0-2); Eosinophils Absolute Auto 0.1 X10*3/uL (0.0-0.4); Hematocrit 37.1 % (37.0-47.0); Hemoglobin 13.1 g/dl (12.0-16.0); Imm Gran Abs Auto 0.03 X10*3/uL (0.00-0.03); Imm Gran Pct Auto 0.4 % (0.0-0.4); Lymphocytes Absolute Auto 1.3 X10*3/uL (1.2-4.9); Mean Corpuscular HGB Conc 35.3 g/dl (31.0-35.0); Mean Corpuscular Hemoglobin 29.9 pg (27.0-33.0); Mean Corpuscular Volume 84.7 fL (80.0-98.0); Mean Platelet Volume 9.7 fL (9.4-12.3); Monocytes Absolute Auto 0.4 X10*3/uL (0.1-1.2); Monocytes Percent Auto 4.9 % (2-11); Neutrophils Absolute Auto 5.3 x10*3/uL (2.0-8.3); Platelet Count 192 X10*3/uL (160-400); Red Blood Count 4.38 X10*6/uL (4.20-5.50); Red Cell Distribution Width 13.1 % (11.0-16.0); White Blood Count 7.2 X10*3/uL (4.8-10.8)
[2023-01-16 16:00] LABS: Prothrombin Time 11.9 SEC (11.1-13.3)
[2023-01-16 16:08] LABS: Alanine Aminotransferase 8 U/L (0-31); Albumin Level 4.3 g/dL (3.5-5.0); Alkaline Phosphatase 47 U/L (39-117); Anion Gap 13 (12-20); Aspartate Amino Transferase 12 U/L (5-31); Bilirubin Total 0.3 mg/dL (0.0-1.0); Blood Urea Nitrogen 14 mg/dL (9-16); Calcium 10.8 mg/dL (8.4-10.2); Carbon Dioxide 26 mmol/L (22-29); Chloride 106 mmol/L (96-108); Creatinine Clr Calc Pharmacy 81.5; Estimated Glomerular Filt Rate > 60; Glucose Random 146 mg/dL (60-115); Lipase 19 U/L (8-78); Potassium 4.5 mmol/L (3.3-5.1); Sodium 140 mmol/L (135-145); Total Protein 7.7 g/dL (6.5-8.0)
[2023-01-16 16:16] LABS: HCG Quantitative < 2 mIU/mL
[2023-01-16 21:57] LABS: Appearance Urine Clear; Color Urine Yellow; Glucose Urine UA 100 mg/dL (Negative); Leukocyte Esterase Urine Negative (Negative); Nitrite Urine Negative (Negative); PH 5.5 (5.0-9.0); Specific Gravity - Urine 1.025 (1.005-1.025); UMIC TRIGGER UACC YES; Urine Blood Small (1+) (Negative); Urine Ketones Trace mg/dL (Negative); Urine Protein 300 (3+) mg/dL (Neg-Trace)
[2023-01-16 22:00] VITALS: BP 169/97; PULSE 89; RESP 16; TEMP 37.1; O2SAT 96
[2023-01-16 22:11] LABS: Bacteria Urine None Seen (None Seen); RBC Urine 0-2 /HPF (0-2); WBC Urine 0-5 /HPF (0-5)
[2023-01-16] MEDS: HYDROmorphone HCl 2 MG/ML VIAL IM (23:02)
[2023-01-16] MEDS: Ondansetron ODT 4 MG TAB.RAPDIS TRANSLINGU (23:02)
[2023-01-16 23:32] VITALS: BP 171/91; PULSE 88; RESP 16; TEMP 36.7; O2SAT 97
[2023-01-17 01:59] VITALS: BP 167/91; PULSE 84; RESP 15; TEMP 36.4; O2SAT 96
[2023-01-17] MEDS: Ondansetron ODT 4 MG TAB.RAPDIS TRANSLINGU (02:06)
== END 2023-01-17 03:49 | disposition home or self-care (01) ==
PROVIDERS: Registered Nurse Emergency; Emergency Provider Emergency Medicine Emergency Medical Services; PCP Internal Medicine
DX: R10.2 Pelvic and perineal pain (principal); Z98.84 Bariatric surgery status; Z79.899 Other long term (current) drug therapy; Z87.891 Personal history of nicotine dependence
CPT/HCPCS: 36415; 74176; 80053; 81001; 83690; 84702; 85025; 85610; 96372; 99284; J1170

== ENCOUNTER 2023-01-18 10:44 | Outpatient (AMB) | payer OTHER, SELFPAY ==
[2023-01-18 10:46] VITALS: BP 142/86; PULSE 93; O2SAT 99; BMI 29.9
--- NOTE | 2023-01-18 10:46 | A.OFFPC_ITS ---
Vital Signs 01/18/23 10:46 Height 5 ft 1 in Weight 158 lb BMI 29.9 BP 142/86 H Blood Pressure Location Lt brachial Position Sitting Pulse 93 Pulse Source Pulse Oximeter Temp Source Skin Pulse Oximetry (%) 99 Oxygen Delivery Method Room Air Intake Visit Reasons: [facility]/Pelvic Pain/01-16-23 Intake Note: Patient is here to follow-up after a visit the emergency department at [facility] on 01/16/23 for pelvic pain Slide Developer Required: No Allergies metoclopramide [From REGLAN] Allergy (Severe, Verified 01/18/23 11:15) ANXIETY promethazine [From PHENERGAN] Allergy (Severe, Verified 01/18/23 11:15) ANXIETY shellfish derived [SHELLFISH DERIVED] Allergy (Severe, Verified 01/18/23 11:15) THROAT SWELLING HIVES IN SCALP, ITCHY ibuprofen [From MOTRIN] Allergy (Unknown, Verified 01/18/23 11:15) HIVES metformin Allergy (Unknown, Verified 01/18/23 11:15) diarrhea morphine [MORPHINE] Allergy (Unknown, Verified 01/18/23 11:15) THROAT CLOSES, anaphylaxis prochlorperazine [From COMPAZINE] Allergy (Unknown, Verified 01/18/23 11:15) ANXIETY Sulfa (Sulfonamide Antibiotics) [SULFA (SULFONAMIDE ANTIBIOTICS)] Allergy (Unknown, Verified 01/18/23 11:15) SWELLING trazodone Adverse Reaction (Unknown, Verified 01/18/23 11:15) Dizziness Medication List - Last Reconciled 01/18/23 by FRANK Burrows alprazolam 0.5 mg PO BEDTIME PRN 30 days blood pressure monitor (Blood Pressure Kit) As directed blood sugar diagnostic ([employer] Verio test strips) As directed two times per day blood-glucose meter As directed blood-glucose meter (FreeStyle Lite Meter kit) As directed cholecalciferol (vitamin D3) 125 mcg PO DAILY clotrimazole 1% 1 appl topical BID cyanocobalamin (vitamin B-12) 1,000 mcg PO DAILY diclofenac sodium 1% (Voltaren Arthritis Pain) 4 grams topical QID fenofibrate 160 mg PO DAILY gabapentin 600 mg PO QID 90 days lancets ([employer] Delica Lancets) As directed lisinopril 5 mg PO DAILY omeprazole 40 mg PO DAILY 90 days ondansetron HCl 4 mg PO Q6H sumatriptan succinate (Imitrex) 50 mg PO .qd PRN Tobacco use date assessed: 01/18/23 Dental Screening Dental Screen Date: 01/18/23 Did you have a dental visit in the last 12 months?: Yes Did you have a dental problem in the last 6 months where you did not have access to dental care?: No Was dental information given to patient?: Patient has dentist HPI [facility]/Pelvic Pain/01-16-23 HPI Details Patient is a 42-year-old female who presents today to follow-up after [facility] visit 01/16/2023 due to pelvic pain. Patient Dr. Guthrie. Discharge diagnosis abdominal pain. Per ED notes: 42-year-old female with past medical history significant for type 2 diabetes, obesity, anxiety, sleeve gastrectomy presents for evaluation of lower abdominal pain. patient states that she has had the pain on off for at least 2 years she reports that she has seen enrobing machine feeder in the past and never found anything she reports that her pain worsened about 10 days ago so she saw her OBGYN again on January 05, 2023 she reports that she had a pelvic examination and an ultrasound of her pelvis that was transvaginal and they did not find anything except a very small fibroid. Patient is experiencing continued pain and her doctor suggested maybe it is kidney stones or diverticulitis. Patient reports that she has diarrhea throughout most of her life she reports history of sleeve gastrectomy, cholecystectomy but no other abdominal surgeries. 42-year-old female with history of T2DM, HTN, GERD, IBS, pancreatitis, liver steatosis presenting to the emergency department with complaint of severe intermittent episodes of pelvic pain. Reports 2 days of similar sxs on the , was able to see GARBAGE COLLECTOR SUPERVISOR who ordered an U/S which patient was told was negative. Denies vaginal bleeding but states it feels like something is coming out of there. Reports the episodes of pain come on suddenly. Reports nausea an vomiting when episodes of pain occur. Denies any blood in stool or dark, tarry stool. patient's CT scan results did not show any acute findings. I discussed this with the patient and recommended she see GI for the next stage in her workup. she did have some nausea, vomiting and lightheadedness after receiving IM injection of Dilaudid, she was given a 2nd dose of Zofran and some Benadryl. She not have any itching and rash, this was an adverse reaction, not a true allergy. your workup in the emergency department did not show any concerning findings. this includes your blood work, urine sample, CT scan given that you are cleared by OBGYN, had a negative imaging, you should follow- up with GI for your chronic abdominal pain you may follow-up with the offices of Dr. Calles. Today, patient reports left lower quadrant throbbing pain usually daily, currently pain 8/10 scale. Reports this pain for the past 3 years now which is intermittent with intermittent flares up. Patient reports when she starts with this pain it starts in the low back and then radiates down to her pelvic area, patient reports intermittent severe pelvic pain like severe menstrual cramps. Reports with severe pain she has nausea and vomiting. Reports chronic diarrhea for the past 7 years. She did have colonoscopy in 2016 which was normal - Dr. Orr. Patient reports she saw her gynecology 12/2022 she had ultrasound which showed small fibroid, then patient started with menstruation 01/07-01/12, and then patient reports 01/16 she started with vaginal spotting when wiping - patient will let her gynecology know about this. Patient denies fever or chills. Reports regular menstruation with severe cramps. Patient reports that this pain feels like ovarian pain on the left side. 01/17/23 CT/CT abdomen pelvis wo IV con IMPRESSION: No acute intra-abdominal process. PFSH Medical History Adjustment disorder, unspecified Atkins's palsy BMI 32.0-32.9,adult BMI over 35 COVID-19 virus infection Diabetic retinopathy Essential hypertension Family hx of hypertension GERD (gastroesophageal reflux disease) Hematuria History of back pain Hypercalcemia Hyperlipidemia LDL goal <100 Hypertriglyceridemia Insomnia Irritable bowel syndrome Liver fibrosis LUQ abdominal pain Migraine Obesity Obesity Obesity (BMI 30-39.9) Onychomycosis Pancreatitis Peripheral neuropathy Pre-procedure lab exam Proteinuria Serum calcium elevated Steatosis, liver Trigeminal neuralgia Type 2 diabetes mellitus with diabetic polyneuropathy Type 2 diabetes mellitus with hyperglycemia Vitamin B 12 deficiency Vitamin D deficiency Vitamin D deficiency Surgical History Acalculous cholecystitis H/O gastric sleeve History of wisdom tooth extraction, class I edentulism Hx of colonoscopy Hx of dilation and curettage Hx of hernia repair Hx of removal of cyst Family History Father Diabetes mellitus Asthma Hypertension Mother Diabetes mellitus Hypertension Scleroderma Maternal Aunt Ovarian cancer Paternal Grandfather Diabetes mellitus Paternal Grandmother Diabetes mellitus Maternal Grandmother Diabetes mellitus Maternal Grandfather Diabetes mellitus CVD (cardiovascular disease) Sister CVD (cardiovascular disease) Brother Anxiety Arthritis Social History Household Members: Spouse Housing: Apartment Are you a primary home health care social worker to a significant other at home: No Do you presently have visiting nurse or other home services: No Alcohol intake: never Patient Tobacco Use Status: Former Tobacco user Quit Date: 2015 Tobacco use type: Cigarette Cigarettes Per Day: 3 Years Smoked: quit 03/2016 e-Cigarette/Vaping Use: Never Used Second Hand Smoke Exposure: No Current occupational status: unemployed Cognitive needs: No Hearing needs: No Vision needs: Yes Questionnaire Thrive Questionnaire Date Thrive assessed: 08/24/22 AUDIT C Alcohol Use Questionnaire (AUDIT-C) 1. How often do you have a drink containing alcohol?: Never 2. How many drinks containing alcohol do you have on a typical day when you are drinking?: 1 or 2 (0) 3. How often do you have six or more drinks on one occasion?: Never Total Score: 0 Score Reviewed/Action Taken: No BERTRAM-7 AMB Questionnaire BERTRAM-7 Date BERTRAM - 7 assessed: 08/24/22 Source: Developed by Drs. Jovon Nation, Cecilia Ribeiro, Travon Silveira and colleagues, with an educational michelle from [employer]. Review of Systems Const Denies body aches, Denies chills, Denies fever(s) and Denies headache(s) Eyes Denies change in vision ENT Denies dizziness, Denies otalgia, Denies headache(s), Denies nasal discharge, Denies sinus pain and Denies sore throat Card Denies chest pain, Denies edema, Denies lightheadedness and Denies dyspnea Resp Denies cough, Denies dyspnea and Denies wheezing GI Reports abdominal pain, Denies constipation, Reports diarrhea, Reports nausea and Denies vomiting Reports as per HPI, Denies hematuria, Denies dysuria and Denies flank pain Musc Denies myalgias Skin/Breast Denies rash Neuro Denies dizziness and Denies headache(s) Aller/Immun Denies wheezing Physical exam (Primary Care) Vital Signs: Last Vital Signs Pulse 93 01/18/23 10:46 BP 142/86 H 01/18/23 10:46 Pulse Ox 99 01/18/23 10:46 Oxygen Delivery Method Room Air 01/18/23 10:46 BMI result Body Mass Index 29.9 Tobacco/Smoking Status: Tobacco use Status Tobacco use date assessed 01/18/23 01/18/23 10:47 Patient Tobacco Use Status Former Tobacco user 01/18/23 10:47 Tobacco use type Cigarette 01/18/23 10:47 e-Cigarette/Vaping Use Never Used 01/18/23 10:47 Thrive Assessment: Date of Thrive Assessment Date Thrive assessed 08/24/22 01/18/23 10:47 Const General: cooperative and no acute distress Orientation/consciousness: patient oriented x3 HENMT Head: Yes normocephalic and Yes atraumatic Mouth: oropharynx normal and moist mucous membranes Throat: Yes posterior oropharynx normal Eyes General: appearance normal, both eyes and all related structures Pupils: Equal, round and reactive pupils present Neck Neck: Yes normal visual inspection, Yes full ROM and Yes no lymphadenopathy Resp Effort & Inspection: normal respiratory effort and able to speak in complete sentences Auscultation: clear to auscultation bilaterally, no crackles, no rales, no rhonchi and no wheezes Cardio Rate: regular rate Rhythm: regular rhythm Heart sounds: S1 normal heart sound present, S2 normal heart sound present and no murmurs GI Palpation (GI): Soft to palpation, not firm, Tenderness to palpation present (GI) in the LLQ and suprapubicly; with no rebound tenderness, no guarding, not rigid and no hepatosplenomegaly Auscultation: normal bowel sounds Other: Scant brown spotting noted on the liner - patient reports she did not have this in the past until 01/16/23- this is new to her General: No CVA tenderness Back/Spine/Pelvis Back: No CVA tenderness Skin General skin exam: no rashes or lesions noted Neuro General: patient oriented x3 Cranial nerves: Yes Equal, round and reactive pupils present Gait exam (Neuro): Normal gait present Extrem General: Yes full ROM and No edema Assessment and Plan Assessment & Plan (1) LLQ abdominal pain: Code(s): R10.32 - Left lower quadrant pain Plan: Patient presents to follow-up after [facility] visit couple days ago due to abdominal pain. She reports this pain for the past 3 years on and off. CT scan with no acute findings. Patient reports she was seen by her GARBAGE COLLECTOR SUPERVISOR and was told she has small fibroid. Physical exam revealed left lower quadrant and suprapubic tenderness, no rebound tenderness. Also scant brown spotting noted on the liner - patient reports she did not have this in the past until 01/16/23- this is new to her. Instructed patient to follow-up with her gy necology and let them know about vaginal spotting. Also will refer patient urgently to see GI specialist ? colonoscopy, also patient with chronic diarrhea for the past 7 years - was told this is related to her IBS. Zofran refilled p.r.n. for nausea. Patient can try [id number] Tylenol as needed for pain - reports not helping much. Signs and symptoms reviewed when to notify provider or go to the emergency department. Patient agreed with the plan. Orders: Referrals Gastroenterology Referral R10.32 - Left lower quadrant pain Medications: Refilled ondansetron HCl 4 mg PO Q6H 60 tabs 0RF M25.561 - Pain in right knee, M25.562 - Pain in left knee Coding Level of Care Code Est Pt Level 3 (58127) Diagnoses LLQ abdominal pain R10.32
== END 2023-01-18 12:24 | disposition home or self-care (01) ==
PROVIDERS: PCP Internal Medicine; Visit Provider Nurse Practitioner Family
DX: R10.32 Left lower quadrant pain (principal)
CPT/HCPCS: 99213

== ENCOUNTER 2023-01-18 11:49 | Outpatient (REF) | payer OTHER, SELFPAY ==
[2023-01-18 13:46] LABS: Alanine Aminotransferase 8 U/L (0-31); Albumin Level 4.2 g/dL (3.5-5.0); Alkaline Phosphatase 46 U/L (39-117); Anion Gap 13 (12-20); Aspartate Amino Transferase 14 U/L (5-31); Bilirubin Total 0.6 mg/dL (0.0-1.0); Blood Urea Nitrogen 16 mg/dL (9-16); Calcium 10.3 mg/dL (8.4-10.2); Carbon Dioxide 28 mmol/L (22-29); Chloride 103 mmol/L (96-108); Cholesterol 185 mg/dL (<200); Estimated Glomerular Filt Rate > 60; Glucose Fasting 150 mg/dL (60-99); HDL Cholesterol 32 mg/dL (>40); Potassium 3.8 mmol/L (3.3-5.1); Sodium 140 mmol/L (135-145); Total Protein 7.6 g/dL (6.5-8.0); Triglycerides 499 mg/dL (<150)
[2023-01-18 14:11] LABS: Vitamin D 25-OH Total 33.6 ng/mL (>30)
== END 2023-01-18 11:50 | disposition home or self-care (01) ==
LOC: HO.LAB 11:49
PROVIDERS: PCP Internal Medicine; Visit Provider Nurse Practitioner Family
DX: E11.42 Type 2 diabetes mellitus with diabetic polyneuropathy (principal); E78.1 Pure hyperglyceridemia; E55.9 Vitamin D deficiency, unspecified
CPT/HCPCS: 36415; 80053; 80061; 82306

== ENCOUNTER 2023-02-13 10:44 | Day surgery (SDC) | payer OTHER, SELFPAY ==
--- NOTE | 2023-02-12 09:59 | P.CONAN_ITS ---
Documented by User: Carmel Mar NP 02/12/23 10:00 [facility] Active Problems Active Problems: All Active Problems (Updated 01/18/23 @ 11:31 by FRANK Burrows) LLQ abdominal pain (Acute) Secondary amenorrhea (Acute) Vitamin B 12 deficiency (Acute) Knee pain, bilateral (Acute) Excess skin of abdominal wall (Acute) Vitamin D deficiency (Acute) Overweight (BMI 25.0-29.9) (Acute) Type 2 diabetes mellitus with hyperglycemia (Acute) Generalized anxiety disorder (Acute) BMI 30.0-30.9,adult (Acute) Congenital intra-abdominal adhesions (Acute) Intra-abdominal adhesions (Acute) Splenomegaly (Acute) Liver fibrosis (Acute) Steatosis, liver (Acute) S/P laparoscopic sleeve gastrectomy (Acute) Status post repair of paraesophageal diaphragmatic hernia (Acute) Diaphragmatic hernia (Acute) GERD (gastroesophageal reflux disease) (Acute) Obesity (BMI 30-39.9) (Acute) Type 2 diabetes mellitus with diabetic polyneuropathy (Acute) Essential hypertension (Acute) Hypertriglyceridemia (Acute) Irritable bowel syndrome (Acute) Past Medical History Medical History Adjustment disorder, unspecified Atkins's palsy BMI 32.0-32.9,adult BMI over 35 COVID-19 virus infection Diabetic retinopathy Essential hypertension Family hx of hypertension GERD (gastroesophageal reflux disease) Hematuria History of back pain Hypercalcemia Hyperlipidemia LDL goal <100 Hypertriglyceridemia Insomnia Irritable bowel syndrome Liver fibrosis LUQ abdominal pain Migraine Obesity Obesity Obesity (BMI 30-39.9) Onychomycosis Pancreatitis Peripheral neuropathy Pre-procedure lab exam Proteinuria Serum calcium elevated Steatosis, liver Trigeminal neuralgia Type 2 diabetes mellitus with diabetic polyneuropathy Type 2 diabetes mellitus with hyperglycemia Vitamin B 12 deficiency Vitamin D deficiency Vitamin D deficiency Family History Family History Father Diabetes mellitus Asthma Hypertension Mother Diabetes mellitus Hypertension Scleroderma Maternal Aunt Ovarian cancer Paternal Grandfather Diabetes mellitus Paternal Grandmother Diabetes mellitus Maternal Grandmother Diabetes mellitus Maternal Grandfather Diabetes mellitus CVD (cardiovascular disease) Sister CVD (cardiovascular disease) Brother Anxiety Arthritis Family history of problems with anesthesia: No Surgical History Surgical History Acalculous cholecystitis H/O gastric sleeve History of wisdom tooth extraction, class I edentulism Hx of colonoscopy Hx of dilation and curettage Hx of hernia repair Hx of removal of cyst History of Problems with Anesthesia: No Social History Social History Household Members: Spouse Housing: Apartment Are you a primary director of patient care to a significant other at home: No Do you presently have visiting nurse or other home services: No Alcohol intake: never Patient Tobacco Use Status: Former Tobacco user Quit Date: 2015 Tobacco use type: Cigarette Cigarettes Per Day: 3 Years Smoked: quit 03/2016 e-Cigarette/Vaping Use: Never Used Second Hand Smoke Exposure: No Are you DNR?: No Advance Directives: No Advance Directives Information Provided: Yes Patient : No FDLMP: 02/13 Current occupational status: unemployed Cognitive needs: No Hearing needs: No Vision needs: Yes Meds Allergies Allergy/AdvReac Type Severity Reaction Status Date / Time metoclopramide [From REGLAN] Allergy Severe ANXIETY Verified 01/18/23 11:15 promethazine [From PHENERGAN] Allergy Severe ANXIETY Verified 01/18/23 11:15 shellfish derived Allergy Severe THROAT Verified 01/18/23 11:15 [SHELLFISH DERIVED] SWELLING HIVES IN SCALP, ITCHY ibuprofen [From MOTRIN] Allergy Unknown HIVES Verified 01/18/23 11:15 morphine [MORPHINE] Allergy Unknown THROAT Verified 01/18/23 11:15 CLOSES, anaphylaxis prochlorperazine Allergy Unknown ANXIETY Verified 01/18/23 11:15 [From COMPAZINE] Sulfa (Sulfonamide Allergy Unknown SWELLING Verified 01/18/23 11:15 Antibiotics) [SULFA (SULFONAMIDE ANTIBIOTICS)] trazodone AdvReac Unknown Dizziness Verified 01/18/23 11:15 Exam Exam Date and Time: February 12, 2023 0959 Pertinent Lab Results Pertinent Lab Results: Laboratory Tests 01/16/23 01/18/23 15:46 12:06 WBC 7.2 Hgb 13.1 Hct 37.1 Plt Count 192 Sodium 140 Potassium 3.8 Chloride 103 Carbon Dioxide 28 BUN 16 Creatinine 0.85 Assessment and Plan Assessment Anesthesia Assessment: Chart Reviewed Final Anesthetic Review Family History of Problems with Anesthesia: No History of Problems with Anesthesia: No Documented by User: Lionel Rees MD 02/13/23 16:21 HPI - Anesthesia Eval Consult details Narrative: 43 F for EGD and colonoscopy Active smoker PMF Past Medical History Medical History Adjustment disorder, unspecified Atkins's palsy BMI 32.0-32.9,adult BMI over 35 COVID-19 virus infection Diabetic retinopathy Essential hypertension Family hx of hypertension GERD (gastroesophageal reflux disease) Hematuria History of back pain Hypercalcemia Hyperlipidemia LDL goal <100 Hypertriglyceridemia Insomnia Irritable bowel syndrome Liver fibrosis LUQ abdominal pain Migraine Obesity Obesity Obesity (BMI 30-39.9) Onychomycosis Pancreatitis Peripheral neuropathy Pre-procedure lab exam Proteinuria Serum calcium elevated Steatosis, liver Trigeminal neuralgia Type 2 diabetes mellitus with diabetic polyneuropathy Type 2 diabetes mellitus with hyperglycemia Vitamin B 12 deficiency Vitamin D deficiency Vitamin D deficiency Functional capacity: independent ambulation Family History Family History Father Diabetes mellitus Asthma Hypertension Mother Diabetes mellitus Hypertension Scleroderma Maternal Aunt Ovarian cancer Paternal Grandfather Diabetes mellitus Paternal Grandmother Diabetes mellitus Maternal Grandmother Diabetes mellitus Maternal Grandfather Diabetes mellitus CVD (cardiovascular disease) Sister CVD (cardiovascular disease) Brother Anxiety Arthritis Family history of problems with anesthesia: Yes (PONV in grandmother ) Surgical History Surgical History Acalculous cholecystitis H/O gastric sleeve History of wisdom tooth extraction, class I edentulism Hx of colonoscopy Hx of dilation and curettage Hx of hernia repair Hx of removal of cyst Social History Social History Household Members: Spouse Housing: Apartment Are you a primary director of patient care to a significant other at home: No Do you presently have visiting nurse or other home services: No Alcohol intake: never Patient Tobacco Use Status: Former Tobacco user Quit Date: 2015 Tobacco use type: Cigarette Cigarettes Per Day: 3 Years Smoked: quit 03/2016 e-Cigarette/Vaping Use: Never Used Second Hand Smoke Exposure: No Are you DNR?: No Advance Directives: No Advance Directives Information Provided: Yes Patient : No FDLMP: 02/13 Current occupational status: unemployed Cognitive needs: No Hearing needs: No Vision needs: Yes Meds Allergies Allergy/AdvReac Type Severity Reaction Status Date / Time metoclopramide [From REGLAN] Allergy Severe ANXIETY Verified 01/18/23 11:15 promethazine [From PHENERGAN] Allergy Severe ANXIETY Verified 01/18/23 11:15 shellfish derived Allergy Severe THROAT Verified 01/18/23 11:15 [SHELLFISH DERIVED] SWELLING HIVES IN SCALP, ITCHY ibuprofen [From MOTRIN] Allergy Unknown HIVES Verified 01/18/23 11:15 morphine [MORPHINE] Allergy Unknown THROAT Verified 01/18/23 11:15 CLOSES, anaphylaxis prochlorperazine Allergy Unknown ANXIETY Verified 01/18/23 11:15 [From COMPAZINE] Sulfa (Sulfonamide Allergy Unknown SWELLING Verified 01/18/23 11:15 Antibiotics) [SULFA (SULFONAMIDE ANTIBIOTICS)] trazodone AdvReac Unknown Dizziness Verified 01/18/23 11:15 Exam Airway Mallampati Class: IV Neck ROM: Full Partial: Upper Loose/Missing/Broken Teeth: Yes Assessment and Plan Assessment Anesthesia Assessment: Anesthesia Plan Discussed Final Anesthetic Review Family History of Problems with Anesthesia: Yes (PONV in grandmother ) NPO: Yes ASA Class: III Final Preanesthetic Review: Meds/Allgs Chart Reviewed, Consent Obtained/Reviewed and Anes Risks/Benef Reviewed Patient Risk: Intermediate Procedure Risk: Intermediate Anesthetic Plan Anesthetic Plan: MAC: and Agree w/ Assess. and Plan Disposition: Standard PACU
[2023-02-13 09:36] VITALS: BMI 30.4
[2023-02-13 11:01] VITALS: BP 153/94; PULSE 90; RESP 18; TEMP 36.6; O2SAT 98
[2023-02-13 11:17] LABS: Glucose, Whole Blood 123 mg/dL (60-115)
[2023-02-13 11:31] LABS: UPreg QC Valid YES; Urine Pregnancy NEGATIVE (NEGATIVE)
[2023-02-13] MEDS: Lactated Ringers 1,000 ML 100 ML IVCONT (11:39)
--- NOTE | 2023-02-13 13:38 | MHC.SHP ---
Pre-Procedural Eval Section A Date of Service: 02/13/23 The patient is an INPATIENT: No Changes since office visit: No Cold of Flu in the past 2 weeks, No New Medical Problems, No Changes in Medication and No Patient answered all questions The History & Physical has been completed within 30 days and I have reviewed it.: Yes Section B Chief Complaint: gerd,abdominal pain, Allergies: Allergies Allergy/AdvReac Type Severity Reaction Status Date / Time metoclopramide [From REGLAN] Allergy Severe ANXIETY Verified 01/18/23 11:15 promethazine [From PHENERGAN] Allergy Severe ANXIETY Verified 01/18/23 11:15 shellfish derived Allergy Severe THROAT Verified 01/18/23 11:15 [SHELLFISH DERIVED] SWELLING HIVES IN SCALP, ITCHY ibuprofen [From MOTRIN] Allergy Unknown HIVES Verified 01/18/23 11:15 metformin Allergy Unknown diarrhea Verified 01/18/23 11:15 morphine [MORPHINE] Allergy Unknown THROAT Verified 01/18/23 11:15 CLOSES, anaphylaxis prochlorperazine Allergy Unknown ANXIETY Verified 01/18/23 11:15 [From COMPAZINE] Sulfa (Sulfonamide Allergy Unknown SWELLING Verified 01/18/23 11:15 Antibiotics) [SULFA (SULFONAMIDE ANTIBIOTICS)] trazodone AdvReac Unknown Dizziness Verified 01/18/23 11:15 Plan I have reviewed the history and physical and performed a pertinent physical examination on my patient. No changes have occurred unless specified. Time Spent With Patient Time: Total time managing care of this patient today ____ minutes.
--- NOTE | 2023-02-13 14:47 | PM.OP ---
Brief Operative Note Date of Service: 02/13/23 Pre-op diagnosis: see H*P no changes Post-op diagnosis: same Procedure: egd colon Surgeon: Kain Orr Anesthesia: MAC Was an Bulk Clerk used for this Procedure?: No Estimated blood loss (mL): 2 Pathology: other Condition: stable Disposition: PACU
[2023-02-13 14:56] VITALS: BP 157/97; PULSE 99; RESP 15; TEMP 36.1; O2SAT 98
[2023-02-13 15:11] VITALS: BP 153/89; PULSE 93; RESP 16; O2SAT 95
[2023-02-13 15:27] VITALS: BP 163/91; PULSE 94; RESP 16; TEMP 36.1; O2SAT 96
[2023-02-13] MEDS: Ondansetron ODT 4 MG TAB.RAPDIS TRANSLINGU (15:50)
--- NOTE | 2023-02-14 00:24 | OP_ITS ---
DATE OF SERVICE: 02/13/2023 SURGEON: Kain Orr MD INDICATIONS: Gastroesophageal reflux disease and abdominal pain. PREOPERATIVE DIAGNOSIS: POSTOPERATIVE DIAGNOSIS: PROCEDURE PERFORMED: Upper endoscopy with biopsy, colonoscopy to the terminal ileum with biopsy. ESTIMATED BLOOD LOSS: COMPLICATIONS: ANESTHESIA: Monitored anesthesia care. ASSISTANTS: SPECIMENS: DESCRIPTION OF PROCEDURE: A history and physical performed. The risks and benefits of the procedure were explained to the patient. Informed consent was obtained. The patient was placed in the left lateral decubitus position. The Olympus video gastroscope was introduced into the esophagus, stomach, and duodenum. Examination was performed. The scope was removed. She was repositioned for colonoscopy. Digital rectal exam was performed and was found to be normal. The Olympus pediatric videocolonoscope was introduced into the rectum and advanced to the cecum. The cecum was identified by transillumination, palpation, identification of ileocecal valve. Examination was performed. The scope was removed. She tolerated both procedures well, returned to recovery area in stable condition. FINDINGS: Upper endoscopy: Esophagus: Normal. There was no esophagitis. Stomach: Showed no evidence of masses, ulcers, or polyps. Duodenum: The bulb and 2nd portion were normal. Biopsies were obtained from the EG junction, antrum, and duodenum. Colonoscopy: The terminal ileum was examined and appeared normal. This was biopsied. The visualized colonic mucosa was within normal limits without evidence of masses or ulcers. No polyps were identified. The quality of the prep was good. Retroflexed examination showed small internal hemorrhoids. IMPRESSION: 1. Gastroesophageal reflux disease. 2. Normal colonoscopy. RECOMMENDATION: 1. Follow up as needed. 2. Repeat colonoscopy for colon cancer screening purposes should begin at age 53, 10 years from this examination. MD ARTHUR Liang/SCHUYLERL / [phone]
== END 2023-02-13 16:12 | disposition home or self-care (01) ==
PROVIDERS: Nurse Practitioner; PCP Internal Medicine; Visit Provider Internal Medicine Gastroenterology
PROC: (CPT 45380; principal; 2023-02-13 12:00)
DX: R10.84 Generalized abdominal pain (principal); K64.8 Other hemorrhoids; K58.2 Mixed irritable bowel syndrome; K29.50 Unspecified chronic gastritis without bleeding; K21.9 Gastro-esophageal reflux disease without esophagitis; R19.8 Other specified symptoms and signs involving the digestive system and abdomen; K85.90 Acute pancreatitis without necrosis or infection, unspecified; K76.0 Fatty (change of) liver, not elsewhere classified; I10 Essential (primary) hypertension; E11.42 Type 2 diabetes mellitus with diabetic polyneuropathy; E78.1 Pure hyperglyceridemia; F41.1 Generalized anxiety disorder; E55.9 Vitamin D deficiency, unspecified; Z79.899 Other long term (current) drug therapy; Z88.5 Allergy status to narcotic agent; Z88.8 Allergy status to other drugs, medicaments and biological substances; Z98.84 Bariatric surgery status; Z90.49 Acquired absence of other specified parts of digestive tract; Z87.891 Personal history of nicotine dependence
CPT/HCPCS: 45380; 43239; 81025; 82947; 88305; 88342; J2250; J3010

== ENCOUNTER 2023-04-10 14:43 | Outpatient (AMB) | payer OTHER, SELFPAY ==
[2023-04-10 14:46] VITALS: BP 162/90; PULSE 110; O2SAT 98; BMI 29.7
--- NOTE | 2023-04-10 14:46 | A.OFFPC_ITS ---
Vital Signs 04/10/23 14:46 Height 5 ft 1 in Weight 157 lb BMI 29.7 BP 162/90 H Blood Pressure Location Lt brachial Position Sitting Pulse 110 H Pulse Source Pulse Oximeter Pulse Oximetry (%) 98 Oxygen Delivery Method Room Air Intake Visit Reasons: DM Environmental Services Project Manager Required: No Iron Miner Blasting: Not Required per policy Accompanied by: Self / Same As Patient Allergies metoclopramide [From REGLAN] Allergy (Severe, Verified 04/10/23 14:47) ANXIETY promethazine [From PHENERGAN] Allergy (Severe, Verified 04/10/23 14:47) ANXIETY shellfish derived [SHELLFISH DERIVED] Allergy (Severe, Verified 04/10/23 14:47) THROAT SWELLING HIVES IN SCALP, ITCHY ibuprofen [From MOTRIN] Allergy (Unknown, Verified 04/10/23 14:47) HIVES morphine [MORPHINE] Allergy (Unknown, Verified 04/10/23 14:47) THROAT CLOSES, anaphylaxis prochlorperazine [From COMPAZINE] Allergy (Unknown, Verified 04/10/23 14:47) ANXIETY Sulfa (Sulfonamide Antibiotics) [SULFA (SULFONAMIDE ANTIBIOTICS)] Allergy (Unknown, Verified 04/10/23 14:47) SWELLING trazodone Adverse Reaction (Unknown, Verified 04/10/23 14:47) Dizziness Tobacco use date assessed: 01/18/23 Dental Screening Dental Screen Date: 04/10/23 Did you have a dental visit in the last 12 months?: Yes Did you have a dental problem in the last 6 months where you did not have access to dental care?: No Was dental information given to patient?: Patient has dentist HPI DM HPI Details 43-year-old overweight female with a his tory of diabetes mellitus GERD hypertension hypercholesterolemia coming in for follow-up. Last seen in August 2022. Patient is up-to-date with colonoscopy. February [address] Orr had also EGD showing GERD. Patient had the sleeve gastrectomy February 2021. Patient has seen the nurse practitioner in December 2022 for pelvic pain after ER visit CT scan did not show any acute findings. Patient also has seen Orthopedics for bilateral knee pain diagnosis of patellofemoral osteoarthritis had knee injections. December hemoglobin A1c 6.0. complains of LLQ abd pain, vomiting, deny dysuria, ,no fevers, complains of bilateral flank pain, BM is good, , no constipation, complains also of neck pain L and has a habit of repeating movement of the head to help with sleep and complains of L neck ;pain PFSH Medical History Liver fibrosis Steatosis, liver BMI 32.0-32.9,adult Obesity History of back pain BMI over 35 Vitamin D deficiency Hypercalcemia Adjustment disorder, unspecified Pre-procedure lab exam Obesity Family hx of hypertension Serum calcium elevated Proteinuria Onychomycosis Hematuria Vitamin B 12 deficiency LUQ abdominal pain COVID-19 virus infection Irritable bowel syndrome Migraine Insomnia Vitamin D deficiency Obesity (BMI 30-39.9) Diabetic retinopathy Atkins's palsy Peripheral neuropathy Trigeminal neuralgia Pancreatitis GERD (gastroesophageal reflux disease) Type 2 diabetes mellitus with diabetic polyneuropathy Type 2 diabetes mellitus with hyperglycemia Hypertriglyceridemia Essential hypertension Hyperlipidemia LDL goal <100 Surgical History H/O gastric sleeve History of wisdom tooth extraction, class I edentulism Hx of colonoscopy Acalculous cholecystitis Hx of hernia repair Hx of removal of cyst Hx of dilation and curettage Family History Father Diabetes mellitus Asthma Hypertension Mother Diabetes mellitus Hypertension Scleroderma Maternal Aunt Ovarian cancer Paternal Grandfather Diabetes mellitus Paternal Grandmother Diabetes mellitus Maternal Grandmother Diabetes mellitus Maternal Grandfather Diabetes mellitus CVD (cardiovascular disease) Sister CVD (cardiovascular disease) Brother Anxiety Arthritis Household Members: Spouse Housing: Apartment Are you a primary home visit field care manager to a significant other at home: No Do you presently have visiting nurse or other home services: No Alcohol intake: never Patient Tobacco Use Status: Former Tobacco user Quit Date: 2015 Tobacco use type: Cigarette Cigarettes Per Day: 3 Years Smoked: quit 03/2016 e-Cigarette/Vaping Use: Never Used Second Hand Smoke Exposure: No Current occupational status: unemployed Cognitive needs: No Hearing needs: No Vision needs: Yes Questionnaire Thrive Questionnaire Date Thrive assessed: 08/24/22 BERTRAM-7 AMB Questionnaire BERTRAM-7 Date BERTRAM - 7 assessed: 08/24/22 Source: Developed by Drs. Jovon L. Cecilia Nation, Travon Silveira and colleagues, with an educational michelle from [employer]. Physical exam (Primary Care) Vital Signs: Last Vital Signs Pulse 110 H 04/10/23 14:46 BP 162/90 H 04/10/23 14:46 Pulse Ox 98 04/10/23 14:46 Oxygen Delivery Method Room Air 04/10/23 14:46 BMI result Body Mass Index 29.7 Tobacco/Smoking Status: Tobacco use Status Tobacco use date assessed 01/18/23 04/10/23 14:48 Patient Tobacco Use Status Former Tobacco user 04/10/23 14:48 Tobacco use type Cigarette 04/10/23 14:48 e-Cigarette/Vaping Use Never Used 04/10/23 14:48 Thrive Assessment: Date of Thrive Assessment Date Thrive assessed 08/24/22 04/10/23 14:48 Const General: alert; No acute distress Eyes Conjunctivae: conjunctivae normal Resp Auscultation: clear to auscultation bilaterally Cardio Rate: regular rate Rhythm: regular rhythm GI Inspection: Yes normal to inspection Extrem General: Yes normal to inspection and No edema Results AMB Hemoglobin A1c AMB Hemoglobin A1c 6.9 % Last Edit by SATHISH Walters on 04/10/23 15:16 Results Reviewed Results Reviewed: Laboratory Last Values Hgb A1c (Clinic) 6.9 % (4.0-6.0) H 04/10/23 15:03 Assessment and Plan Assessment & Plan (1) Type 2 diabetes mellitus with hyperglycemia: Code(s): E11.65 - Type 2 diabetes mellitus with hyperglycemia Plan: Decrease the amount of carbohydrate intake, pasta, bread, rice and potatoes are all sugar and that is aside from all the sweet stuff, remember that fruits are good but they are Sweet also. Hemoglobin A1c goal of less than 6.5 presently on diet control (2) Essential hypertension: Code(s): I10 - Essential (primary) hypertension Plan: Continue with blood pressure medication. Decrease salt intake and exercise patient is on lisinopril 5 mg once a day (3) Hypertriglyceridemia: Code(s): E78.1 - Pure hyperglyceridemia Plan: Avoid fried foods, chicken skin, eggs, butter margarine, pastries and meat. Be it pork or beef they have a lot of cholesterol triglyceride of less than 150 and cholesterol LDL of less than 100 on fenofibrate 160 mg once a day and pravastatin 10 mg once a day (4) GERD (gastroesophageal reflux disease): Code(s): K21.9 - Gastro-esophageal reflux disease without esophagitis Plan: Avoid the foods that causes that usually spicy foods, tomato products, juices, coffee, soda and foods that your sensitive to. After eating do not lie down, allow 3-4 hours before in lie down. And keep the head of bed above 30 degrees to avoid the acid from going up. (5) S/P laparoscopic sleeve gastrectomy: Comment: February 2021 Code(s): Z98.84 - Bariatric surgery status Plan: Keep well hydrated keep active. (6) Steatosis, liver: Code(s): K76.0 - Fatty (change of) liver, not elsewhere classified Plan: Low-fat diet and exercise (7) Overweight (BMI 25.0-29.9): Code(s): E66.3 - Overweight Plan: Diet and exercise (8) Generalized anxiety disorder: Comment: Declined referral for counseling September 2021 Code(s): F41.1 - Generalized anxiety disorder Plan: Continue with present medication (9) Left groin pain: Code(s): R10.32 - Left lower quadrant pain (10) Trapezius strain: Code(s): S46.819A - Strain of other muscles, fascia and tendons at shoulder and upper arm level, unspecified arm, initial encounter (11) Pain, dental: Code(s): K08.89 - Other specified disorders of teeth and supporting structures Orders: Orders AMB Hemoglobin A1c Today E11.65 - Type 2 diabetes mellitus with hyperglycemia Complete Blood Count Auto Diff 3 Months E11.42 - Type 2 diabetes mellitus with diabetic polyneuropathy Comprehensive Met. Panel 3 Months E11.42 - Type 2 diabetes mellitus with diabeti c polyneuropathy Microalbumin, Random (w Creat) 3 Months E11.42 - Type 2 diabetes mellitus with diabetic polyneuropathy, E11.65 - Type 2 diabetes mellitus with hyperglycemia Thyroid Stimulating Hormone 3 Months E11.42 - Type 2 diabetes mellitus with diabetic polyneuropathy Vitamin B12 and Folate 3 Months E11.42 - Type 2 diabetes mellitus with diabetic polyneuropathy Hemoglobin A1c 3 Months E11.42 - Type 2 diabetes mellitus with diabetic polyneuropathy PT Evaluation and Treatment Today R10.32 - Left lower quadrant pain, S46.819A - Strain of other muscles, fascia and tendons at shoulder and upper arm level, unspecified arm, initial encounter Lipid Panel 3 Months E11.42 - Type 2 diabetes mellitus with diabetic polyneuropathy, E78.00 - Pure hypercholesterolemia, unspecified Creatinine Urine 3 Months E11.42 - Type 2 diabetes mellitus with diabetic polyneuropathy, E11.65 - Type 2 diabetes mellitus with hyperglycemia Free T4 (Free Thyroxine) 3 Months E11.42 - Type 2 diabetes mellitus with diabetic polyneuropathy Vitamin D 25-OH Total 3 Months E11.42 - Type 2 diabetes mellitus with diabetic polyneuropathy Medications: New amoxicillin 875 mg PO BID 14 tabs 0RF K08.89 - Other specified disorders of teeth and supporting structures cyclobenzaprine 5 mg PO TID PRN 30 tabs 0RF muscle spasm S46.819A - Strain of other muscles, fascia and tendons at shoulder and upper arm level, unspecified arm, initial encounter Coding Level of Care Code Est Pt Level 4 (66170) Diagnoses Type 2 diabetes mellitus with hyperglycemia E11.65 Essential hypertension I10 Hypertriglyceridemia E78.1 GERD (gastroesophageal reflux disease) K21.9 S/P laparoscopic sleeve gastrectomy Z98.84 Steatosis, liver K76.0 Overweight (BMI 25.0-29.9) E66.3 Generalized anxiety disorder F41.1 Left groin pain R10.32 Trapezius strain S46.819A Pain, dental K08.89
== END 2023-04-10 15:43 | disposition home or self-care (01) ==
PROVIDERS: PCP Internal Medicine; Visit Provider Internal Medicine
DX: E11.65 Type 2 diabetes mellitus with hyperglycemia (principal); I10 Essential (primary) hypertension; E78.1 Pure hyperglyceridemia; K21.9 Gastro-esophageal reflux disease without esophagitis; Z98.84 Bariatric surgery status; K76.0 Fatty (change of) liver, not elsewhere classified; E66.3 Overweight; F41.1 Generalized anxiety disorder; R10.32 Left lower quadrant pain; S46.819A Strain of other muscles, fascia and tendons at shoulder and upper arm level, unspecified arm, initial encounter; K08.89 Other specified disorders of teeth and supporting structures
CPT/HCPCS: 83036; 99214

== ENCOUNTER 2023-07-10 14:04 | Outpatient (REF) | payer OTHER, SELFPAY ==
[2023-07-10 14:18] LABS: MANUAL DIFF FLAG NO
[2023-07-10 14:33] LABS: Basophils Percent Auto 0.6 % (0-2); Eosinophils Absolute Auto 0.2 X10*3/uL (0.0-0.4); Eosinophils Percent Auto 2.9 % (0-4); Hematocrit 36.1 % (37.0-47.0); Hemoglobin 12.6 g/dl (12.0-16.0); Imm Gran Abs Auto 0.03 X10*3/uL (0.00-0.03); Imm Gran Pct Auto 0.4 % (0.0-0.4); Lymphocytes Absolute Auto 1.4 X10*3/uL (1.2-4.9); Lymphocytes Percent Auto 20.7 % (20-40); Mean Corpuscular HGB Conc 34.9 g/dl (31.0-35.0); Mean Corpuscular Hemoglobin 29.8 pg (27.0-33.0); Mean Corpuscular Volume 85.3 fL (80.0-98.0); Monocytes Absolute Auto 0.4 X10*3/uL (0.1-1.2); Monocytes Percent Auto 5.6 % (2-11); Neutrophils Absolute Auto 4.8 x10*3/uL (2.0-8.3); Neutrophils Percent Auto 69.8 % (45-73); Platelet Count 185 X10*3/uL (160-400); Red Blood Count 4.23 X10*6/uL (4.20-5.50); Red Cell Distribution Width 13.1 % (11.0-16.0); White Blood Count 6.8 X10*3/uL (4.8-10.8)
[2023-07-10 14:37] LABS: Estimated Average Glucose 114 mg/dL; Hemoglobin A1c % 5.6 % (<6.0)
[2023-07-10 15:01] LABS: Alanine Aminotransferase 9 U/L (0-31); Alkaline Phosphatase 48 U/L (39-117); Anion Gap 12 (12-20); Aspartate Amino Transferase 14 U/L (5-31); Bilirubin Total 0.6 mg/dL (0.0-1.0); Blood Urea Nitrogen 14 mg/dL (9-16); Calcium 9.6 mg/dL (8.4-10.2); Carbon Dioxide 24 mmol/L (22-29); Chloride 103 mmol/L (96-108); Cholesterol 165 mg/dL (<200); Estimated Glomerular Filt Rate > 60; Glucose Random 124 mg/dL (60-115); HDL Cholesterol 30 mg/dL (>40); Potassium 4.3 mmol/L (3.3-5.1); Sodium 135 mmol/L (135-145); Total Protein 7.2 g/dL (6.5-8.0); Triglycerides 401 mg/dL (<150)
[2023-07-10 15:19] LABS: Free T4 (Free Thyroxine) 0.95 ng/dL (0.71-1.85); Thyroid Stimulating Hormone 0.79 uIU/mL (0.32-4.0); Vitamin D 25-OH Total 31.3 ng/mL (>30)
[2023-07-10 15:30] LABS: Folate 14.1 ng/mL (> or = 4.0); Vitamin B12 808 pg/mL (200-900)
[2023-07-10 16:21] LABS: Creatinine Urine 60.84 mg/dL; Microalbum/Creatinine Ratio Ur 539.1 ug/mg cr (<30)
== END 2023-07-10 14:05 | disposition home or self-care (01) ==
LOC: HO.LAB 14:04
PROVIDERS: PCP Internal Medicine; Visit Provider Internal Medicine
DX: E11.65 Type 2 diabetes mellitus with hyperglycemia (principal); E11.42 Type 2 diabetes mellitus with diabetic polyneuropathy; E78.00 Pure hypercholesterolemia, unspecified
CPT/HCPCS: 36415; 80053; 80061; 82043; 82306; 82570; 82607; 82746; 83036; 84439; 84443; 85025

== ENCOUNTER 2023-07-19 11:29 | Outpatient (AMB) | payer OTHER, SELFPAY ==
[2023-07-19 11:30] VITALS: BP 132/70; PULSE 96; O2SAT 99; BMI 31.2
--- NOTE | 2023-07-19 11:30 | A.OFFPC_ITS ---
Vital Signs 07/19/23 11:30 Height 5 ft 1 in Weight 165 lb BMI 31.2 BP 132/70 Blood Pressure Location Lt brachial Position Sitting Pulse 96 Pulse Source Pulse Oximeter Pulse Oximetry (%) 99 Oxygen Delivery Method Room Air Intake Visit Reasons: DM, L groin pain Intake Note: Patient is here to follow up on DM, L groin pain Sr. Manager Marketing Required: No Allergies metoclopramide [From REGLAN] Allergy (Severe, Verified 07/19/23 11:31) ANXIETY promethazine [From PHENERGAN] Allergy (Severe, Verified 07/19/23 11:31) ANXIETY shellfish derived [SHELLFISH DERIVED] Allergy (Severe, Verified 07/19/23 11:31) THROAT SWELLING HIVES IN SCALP, ITCHY ibuprofen [From MOTRIN] Allergy (Unknown, Verified 07/19/23 11:31) HIVES morphine [MORPHINE] Allergy (Unknown, Verified 07/19/23 11:31) THROAT CLOSES, anaphylaxis prochlorperazine [From COMPAZINE] Allergy (Unknown, Verified 07/19/23 11:31) ANXIETY Sulfa (Sulfonamide Antibiotics) [SULFA (SULFONAMIDE ANTIBIOTICS)] Allergy (Unknown, Verified 07/19/23 11:31) SWELLING trazodone Adverse Reaction (Unknown, Verified 07/19/23 11:31) Dizziness Medication List - Last Reconciled 07/19/23 by Emigdio Guthrie MD alprazolam 0.5 mg PO BEDTIME PRN 30 days blood pressure monitor (Blood Pressure Kit) As directed blood sugar diagnostic (OneTouch Verio test strips) As directed two times per day blood-glucose meter As directed blood-glucose meter (FreeStyle Lite Meter kit) As directed cholecalciferol (vitamin D3) 125 mcg PO DAILY clotrimazole 1% 1 appl topical BID cyanocobalamin (vitamin B-12) 1,000 mcg PO DAILY cyclobenzaprine 5 mg PO TID PRN diclofenac sodium 1% (Voltaren Arthritis Pain) 4 grams topical QID fenofibrate 160 mg PO DAILY gabapentin 600 mg PO QID 90 days lancets As directed lisinopril 5 mg PO DAILY omeprazole 40 mg PO DAILY 90 days ondansetron HCl 4 mg PO Q6H pravastatin 10 mg PO BEDTIME sumatriptan succinate (Imitrex) 50 mg PO .qd PRN Tobacco use date assessed: 07/19/23 Dental Screening Dental Screen Date: 07/19/23 Did you have a dental visit in the last 12 months?: Yes Did you have a dental problem in the last 6 months where you did not have access to dental care?: No Was dental information given to patient?: Patient has dentist HPI DM, L groin pain HPI Details 43-year-old obese female with diabetes m ellitus hypertension hypercholesterolemia GERD status post laparoscopic sleeve gastrectomy liver steatosis generalized anxiety disorder last seen in March 2023 patient has been advised to have mammograms done. uterine surgery seeing gynecology - 08/26/2022 polyp . patient complains of palpitations getting sob, states when having intercoursebut also on activity also, PFSH Medical History Liver fibrosis Steatosis, liver BMI 32.0-32.9,adult Obesity History of back pain BMI over 35 Vitamin D deficiency Hypercalcemia Adjustment disorder, unspecified Pre-procedure lab exam Obesity Family hx of hypertension Serum calcium elevated Proteinuria Onychomycosis Hematuria Vitamin B 12 deficiency LUQ abdominal pain COVID-19 virus infection Irritable bowel syndrome Migraine Insomnia Vitamin D deficiency Obesity (BMI 30-39.9) Diabetic retinopathy Atkins's palsy Peripheral neuropathy Trigeminal neuralgia Pancreatitis GERD (gastroesophageal reflux disease) Type 2 diabetes mellitus with diabetic polyneuropathy Type 2 diabetes mellitus with hyperglycemia Hypertriglyceridemia Essential hypertension Hyperlipidemia LDL goal <100 Surgical History H/O gastric sleeve History of wisdom tooth extraction, class I edentulism Hx of colonoscopy Acalculous cholecystitis Hx of hernia repair Hx of removal of cyst Hx of dilation and curettage Family History Father Diabetes mellitus Asthma Hypertension Mother Diabetes mellitus Hypertension Scleroderma Maternal Aunt Ovarian cancer Paternal Grandfather Diabetes mellitus Paternal Grandmother Diabetes mellitus Maternal Grandmother Diabetes mellitus Maternal Grandfather Diabetes mellitus CVD (cardiovascular disease) Sister CVD (cardiovascular disease) Brother Anxiety Arthritis Social History Household Members: Spouse Housing: Apartment Are you a primary caregivers non medical to a significant other at home: No Do you presently have visiting nurse or other home services: No Alcohol intake: never Patient Tobacco Use Status: Former Tobacco user Quit Date: 2015 Tobacco use type: Cigarette Cigarettes Per Day: 3 Years Smoked: quit 03/2016 e-Cigarette/Vaping Use: Never Used Second Hand Smoke Exposure: No Current occupational status: unemployed Cognitive needs: No Hearing needs: No Vision needs: Yes Questionnaire Thrive Questionnaire Date Thrive assessed: 07/19/23 AUDIT C Alcohol Use Questionnaire (AUDIT-C) 1. How often do you have a drink containing alcohol?: Never 2. How many drinks containing alcohol do you have on a typical day when you are drinking?: 1 or 2 (0) 3. How often do you have six or more drinks on one occasion?: Never Total Score: 0 Score Reviewed/Action Taken: No BERTRAM-7 AMB Questionnaire BERTRAM-7 Date BERTRAM - 7 assessed: 07/19/23 Source: Developed by Drs. Jovon Nation, Cecilia Ribeiro, Travon Silveira and colleagues, with an educational michelle from [employer]. Physical exam (Primary Care) Vital Signs: Last Vital Signs Pulse 96 07/19/23 11:30 BP 132/70 07/19/23 11:30 Pulse Ox 99 07/19/23 11:30 Oxygen Delivery Method Room Air 07/19/23 11:30 BMI result Body Mass Index 31.2 Tobacco/Smoking Status: Tobacco use Status Tobacco use date assessed 07/19/23 07/19/23 11:32 Patient Tobacco Use Status Former Tobacco user 07/19/23 11:31 Tobacco use type Cigarette 07/19/23 11:31 e-Cigarette/Vaping Use Never Used 07/19/23 11:31 Thrive Assessment: Date of Thrive Assessment Date Thrive assessed 07/19/23 07/19/23 11:32 Const General: alert; No acute distress Eyes Conjunctivae: conjunctivae normal Resp Auscultation: clear to auscultation bilaterally Cardio Rate: regular rate Rhythm: regular rhythm GI Inspection: Yes normal to inspection Extrem General: Yes normal to inspection and No edema Assessment and Plan Assessment & Plan (1) S/P laparoscopic sleeve gastrectomy: Comment: February 2021 Code(s): Z98.84 - Bariatric surgery status Plan: Continue to keep active, keep well hydrated and eat healthy (2) Type 2 diabetes mellitus with hyperglycemia: Comment: Eye and lasik Code(s): E11.65 - Type 2 diabetes mellitus with hyperglycemia Plan: Decrease the amount of carbohydrate intake, pasta, bread, rice and potatoes are all sugar and that is aside from all the sweet stuff, remember that fruits are good but they are Sweet also. Hemoglobin A1c goal of less than 6.5. Diet controlled, up to date eye and lasik (3) Hypertriglyceridemia: Code(s): E78.1 - Pure hyperglyceridemia Plan: Avoid fried foods, chicken skin, eggs, butter margarine, pastries and meat. Be it pork or beef they have a lot of cholesterol LDL goal of less than 100 and triglyceride of less than 150. On pravastatin 10 mg and fenofibrate 160 mg once a day (4) Essential hypertension: Code(s): I10 - Essential (primary) hypertension Plan: Continue with blood pressure medication. Decrease salt intake and exercise continue with lisinopril 5 mg once a day (5) Obesity (BMI 30-39.9): Code(s): E66.9 - Obesity, unspecified Plan: Diet and exercise (6) Thumb tendonitis: Comment: L hand Code(s): M77.8 - Other enthesopathies, not elsewhere classified Plan: wrist and thumb brace given (7) Chest pain: Code(s): R07.9 - Chest pain, unspecified Plan: stress test advised (8) Low back pain: Code(s): M54.50 - Low back pain, unspecified Plan: sent for PT Orders: Orders PT Evaluation and Treatment Today M54.50 - Low back pain, unspecified CA stress test Today R07.9 - Chest pain, unspecified Coding Level of Care Code Est Pt Level 4 (27796) Diagnoses S/P laparoscopic sleeve gastrectomy Z98.84 Type 2 diabetes mellitus with hyperglycemia E11.65 Hypertriglyceridemia E78.1 Essential hypertension I10 Obesity (BMI 30-39.9) E66.9 Thumb tendonitis M77.8 Chest pain R07.9 Low back pain M54.50
== END 2023-07-19 12:37 | disposition home or self-care (01) ==
PROVIDERS: PCP Internal Medicine; Visit Provider Internal Medicine
DX: E11.65 Type 2 diabetes mellitus with hyperglycemia (principal); E66.9 Obesity, unspecified; Z68.30 Body mass index [BMI] 30.0-30.9, adult; Z98.84 Bariatric surgery status; E78.1 Pure hyperglyceridemia; M77.8 Other enthesopathies, not elsewhere classified; I10 Essential (primary) hypertension; R07.9 Chest pain, unspecified; M54.50 Low back pain, unspecified
CPT/HCPCS: 99214

== ENCOUNTER → 2023-07-27 09:00 | Outpatient (REF) | payer OTHER, SELFPAY ==
--- NOTE | 2023-07-27 09:02 | CA_ITS ---
Acquisition Time: 2023-07-27 09:11:54 Total Exercise Time: 00:06:59 Test Indications: CP Medications: SEE H Protocol: NIYA Max HR: 153 BPM 85% of Pred: 178 BPM Max BP: 210/070 mmHG Max Work Load: 8.5 METS Exercise stress test exercise 6 min 59 sec of Niya protocol achieving 85% MPHR, with mild to moderate SOB, no chest discomfort, without arrhythmias, with HTN response to exercise 210/70 was peak/max BP, without EKG changes. Breathing and blood pressure returned to baseline with rest. Test reviewed with Dr. Lyles. Referred By: Emigdio Guthrie Overread By: Mariela Ureña
== END ==
LOC: HO.CARD 09:00
PROVIDERS: PCP Internal Medicine; Visit Provider Internal Medicine
DX: R07.9 Chest pain, unspecified (principal)
CPT/HCPCS: 93017

== ENCOUNTER → 2023-07-27 09:02 | Outpatient (BNV) | payer OTHER, SELFPAY | PROVIDERS: PCP Internal Medicine; Visit Provider Nurse Practitioner | DX: R06.02 Shortness of breath (principal); R07.9 Chest pain, unspecified | CPT/HCPCS: 93016; 93018 ==

== ENCOUNTER 2023-08-15 09:42 | Outpatient (REF) | payer OTHER, SELFPAY | END 2023-08-15 09:43 | disposition home or self-care (01) | LOC: HO.HOSX 09:42 | PROVIDERS: Visit Provider Physician Assistant | DX: Z13.89 Encounter for screening for other disorder (principal) ==

== ENCOUNTER 2023-10-30 12:25 | Outpatient (AMB) | payer OTHER, SELFPAY ==
--- NOTE | 2023-10-30 12:28 | A.OFFPC_ITS ---
Vital Signs 10/30/23 12:29 Height 5 ft 1 in Weight 165 lb BMI 31.2 BP 136/82 Blood Pressure Location Lt brachial Position Sitting Pulse 102 H Pulse Source Pulse Oximeter Pulse Oximetry (%) 98 Oxygen Delivery Method Room Air Intake Visit Reasons: Annual Exam Allergies metoclopramide [From REGLAN] Allergy (Severe, Verified 10/30/23 12:29) ANXIETY promethazine [From PHENERGAN] Allergy (Severe, Verified 10/30/23 12:29) ANXIETY shellfish derived [SHELLFISH DERIVED] Allergy (Severe, Verified 10/30/23 12:29) THROAT SWELLING HIVES IN SCALP, ITCHY ibuprofen [From MOTRIN] Allergy (Unknown, Verified 10/30/23 12:29) HIVES morphine [MORPHINE] Allergy (Unknown, Verified 10/30/23 12:29) THROAT CLOSES, anaphylaxis prochlorperazine [From COMPAZINE] Allergy (Unknown, Verified 10/30/23 12:29) ANXIETY Sulfa (Sulfonamide Antibiotics) [SULFA (SULFONAMIDE ANTIBIOTICS)] Allergy (Unknown, Verified 10/30/23 12:29) SWELLING trazodone Adverse Reaction (Unknown, Verified 10/30/23 12:29) Dizziness Medication List - Last Reconciled 10/30/23 by Ceci Strickland PA-C alprazolam 0.5 mg PO BEDTIME PRN 30 days blood pressure monitor (Blood Pressure Kit) As directed blood sugar diagnostic (OneTouch Verio test strips) As directed two times per day blood-glucose meter As directed blood-glucose meter (FreeStyle Lite Meter kit) As directed cholecalciferol (vitamin D3) 125 mcg PO DAILY clotrimazole 1% 1 appl topical BID cyanocobalamin (vitamin B-12) 1,000 mcg PO DAILY diclofenac sodium 1% (Voltaren Arthritis Pain) 4 grams topical QID fenofibrate 160 mg PO DAILY gabapentin 600 mg PO QID 90 days lancets As directed lisinopril 5 mg PO DAILY meloxicam 15 mg PO DAILY omeprazole 40 mg PO DAILY 90 days ondansetron HCl 4 mg PO Q6H progesterone micronized 200 mg PO BEDTIME sumatriptan succinate (Imitrex) 50 mg PO .qd PRN Tobacco use date assessed: 07/19/23 Dental Screening Dental Screen Date: 02/29/24 HPI Annual Exam HPI Details 43-year-old obese female with a history of laparoscopic sleeve gastrectomy uncontrolled diabetes mellitus hypercholesterolemia hypertension last seen in 07/10/2023 coming in for physical exam. Patient had chest pains and was advised stress test 07/2023 negative. Mammogram is up-to-date review of the notes in September 2023 went to the emergency room for right lower extremity discomfort post D&C procedure for uterine polyp removal. Patient was concerned with DVT and went to the ER negative ultrasound. Patient was started on Progesterone by report writer for treatment of the polyps and will follow up in 6 months. Episodes of itchiness on hands and they get red and hives on the chest. Resolves with Benadryl with no identifiable triggers and time varies throughout the day. 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 Difficulty swallowing, feels like the food gets stuck and feels like she forgets how to swallow. Still having discomfort in her chest and palpitations during intercourse. Has been having increased sciatic pain that radiates into the groin since going back to work and was previously treated with Tramadol. PFSH Medical History Liver fibrosis Steatosis, liver BMI 32.0-32.9,adult Obesity History of back pain BMI over 35 Vitamin D deficiency Hypercalcemia Adjustment disorder, unspecified Pre-procedure lab exam Obesity Family hx of hypertension Serum calcium elevated Proteinuria Onychomycosis Hematuria Vitamin B 12 deficiency LUQ abdominal pain COVID-19 virus infection Irritable bowel syndrome Migraine Insomnia Vitamin D deficiency Obesity (BMI 30-39.9) Diabetic retinopathy Atkins's palsy Peripheral neuropathy Trigeminal neuralgia Pancreatitis GERD (gastroesophageal reflux disease) Type 2 diabetes mellitus with diabetic polyneuropathy Type 2 diabetes mellitus with hyperglycemia Hypertriglyceridemia Essential hypertension Hyperlipidemia LDL goal <100 Surgical History H/O gastric sleeve History of wisdom tooth extraction, class I edentulism Hx of colonoscopy Acalculous cholecystitis Hx of hernia repair Hx of removal of cyst Hx of dilation and curettage Family History Father Diabetes mellitus Asthma Hypertension Mother Diabetes mellitus Hypertension Scleroderma Maternal Aunt Ovarian cancer Paternal Grandfather Diabetes mellitus Paternal Grandmother Diabetes mellitus Maternal Grandmother Diabetes mellitus Maternal Grandfather Diabetes mellitus CVD (cardiovascular disease) Sister CVD (cardiovascular disease) Brother Anxiety Arthritis Social History Household Members: Spouse Housing: Apartment Are you a primary pediatric critical care nurse to a significant other at home: No Do you presently have visiting nurse or other home services: No Alcohol intake: never Patient Tobacco Use Status: Current everyday Tobacco user Tobacco use type: Cigarette Cigarettes Per Day: 3 Years Smoked: quit 03/2016. Restarted 03/2023. 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 ) Cognitive needs: No Hearing needs: No Vision needs: Yes Questionnaire PHQ-9 Over the last 2 weeks, how often have you been bothered by any of the following problems? 1. Little interest or pleasure in doing things: more than half the days 2. Feeling down, depressed, or hopeless: more than half the days 3. Trouble falling or staying asleep, or sleeping too much: more than half the days 4. Feeling tired or having little energy: more than half the days 5. Poor appetite or overeating: several days 6. Feeling bad about yourself - or that you are a failure or have let yourself or your family down: not at all 7. Trouble concentrating on things, such as reading the newspaper or watching television: not at all 8. Moving or speaking so slowly that other people could have noticed. Or the opp osite - being so fidgety or restless that you have been moving around a lot more than usual: not at all 9. Thoughts that you would be better off or of hurting yourself in some way: not at all Total score: 9 Depression Screening Interpretation: Positive Depression Screening Done: Yes Source: Developed by Drs. Jovon Nation, Cecilia Ribeiro, Travon Silveira and colleagues, with an educational michelle from [employer]. Thrive Questionnaire Date Thrive assessed: 07/19/23 AUDIT C Alcohol Use Questionnaire (AUDIT-C) 1. How often do you have a drink containing alcohol?: Never 2. How many drinks containing alcohol do you have on a typical day when you are drinking?: 1 or 2 (0) 3. How often do you have six or more drinks on one occasion?: Never Total Score: 0 Score Reviewed/Action Taken: No BERTRAM-7 AMB Questionnaire BERTRAM-7 Date BERTRAM - 7 assessed: 10/30/23 Feeling nervous, anxious, or on edge: 1 = Several days Not being able to stop or control worryin = Several days Worrying too much about different things: 1 = Several days Trouble relaxin = Not at all Being so restless that it is hard to sit still: 0 = Not at all Becoming easily annoyed or irritable: 0 = Not at all Feeling afraid as if something awful might happen: 0 = Not at all Total BERTRAM-7 score (0-4 normal; 5-9 mild; 10-14 moderate; 15-21 severe): 3 Source: Developed by Drs. Jovon Nation, Cecilia Ribeiro, Travon Silveira and colleagues, with an educational michelle from [employer]. Review of Systems Const Reports no additional complaints and Denies difficulty sleeping Eyes Reports no additional complaints ENT Details: endorses occasional dysphagia where she has to remember how to swallow and then is able to pass the food. Reports dysphagia Card Details: occasional pounding heartbeat during intercourse. Denies any other complaints of chest pain, palpitations or shortness of breath. Reports palpitations and Denies dyspnea on exertion Resp Reports no additional complaints, Denies cough, Denies dyspnea on exertion and Denies wheezing GI Details: endorses diarrhea regularly which is her baseline. Reports dysphagia Details: Denies painful or frequent urination. Reports no additional complaints Musc Details: Pain in left hip that radiates to the groin. Denies weakness in the leg or joint pain. Skin/Breast Reports system reviewed and no additional complaints, except as documented Neuro Reports no additional complaints Psych Reports no additional complaints Endo Reports no additional complaints and Reports palpitations Geoavni/Lymph Reports no additional complaints Aller/Immun Details: Occasional hives on arms and hands which happen randomly without trigger. Denies wheezing Physical exam (Primary Care) Vital Signs: Last Vital Signs Pulse 102 H 10/30/23 12:29 BP 136/82 10/30/23 12:29 Pulse Ox 98 10/30/23 12:29 Oxygen Delivery Method Room Air 10/30/23 12:29 BMI result Body Mass Index 31.2 BMI Assessment/Plan discussion: High BMI High, discussed plan: lifestyle, weight reduction, dietary and physical activity Tobacco/Smoking Status: Tobacco use Status Tobacco use date assessed 07/19/23 10/30/23 12:29 Patient Tobacco Use Status Former Tobacco user 10/30/23 12:29 Tobacco use type Cigarette 10/30/23 12:29 e-Cigarette/Vaping Use Never Used 10/30/23 12:29 Are you ready to quit: No Tobacco cessation counseling provided: Yes CPT code: Less than 3 minutes PHQ-9: PHQ-9 Score PHQ-9: Total score 9 10/30/23 12:39 Depression Screening Interpretation: Positive Thrive Assessment: Date of Thrive Assessment Date Thrive assessed 07/19/23 10/30/23 12:29 Const General: cooperative, healthy appearing, comfortable and no acute distress Nutritional Appearance: obese Orientation/consciousness: patient oriented x3 Limitations: no limitations HENMT Head: Yes normal to inspection Ears: hearing grossly normal bilaterally, external ears normal, TM's normal bilaterally and mastoids normal General nose exam: Normal external nose present and Normal nares present Face and sinus: Yes normal facial exam, Yes sinuses nontender and Yes face symmetric Mouth: Normal oral and palatal mucosa present, lip normal, tongue normal and oropharynx normal Teeth and gingiva: dentition normal Throat: Yes posterior oropharynx normal Eyes General: appearance normal, both eyes and all related structures Eyelids: Yes eyelids normal Conjunctivae: conjunctivae normal Pupils: Equal, round and reactive pupils present and Pupil accommodation reflex normal EOM: EOMs intact bilaterally Neck Neck: Yes normal visual inspection, Yes full ROM and Yes no lymphadenopathy Thyroid: Thyroid normal Lymphatic: no lymphadenopathy noted Chest Chest palpation & inspection: normal inspection of the chest Breast/axilla inspection: normal inspection of the axillae Resp Effort & Inspection: normal respiratory effort and able to speak in complete sentences Auscultation: clear to auscultation bilaterally Cardio Jugular venous distension: no JVD Rate: regular rate Rhythm: regular rhythm Heart sounds: S1 normal heart sound present and S2 normal heart sound present GI Inspection: Yes normal to inspection Palpation (GI): Soft to palpation, nontender and No hepatosplenomegaly present Rectal Exam - Female: deferred Other: Pain to palpation in the groin area on the left side. General: Yes no CVA tenderness Back/Spine/Pelvis Other: Pain to palpation of the left buttocks. Positive straight leg raise on the left side and negative on the right side. No tenderness to palpation on the lower b ack or left lateral hip. No pain with lateral leg raise on the left. Back: no CVA tenderness Cervical Spine: cervical ROM normal Thoracic/Lumbar Spine: thoracic and lumbar spine normal to inspection Skin General skin exam: no rashes or lesions noted Lesions: no lesions Rashes: no rashes Neuro General: patient oriented x3, gait normal and normal sensation to monofilament Cranial nerves: Yes Equal, round and reactive pupils present Cognition (Neuro): normal cognition Gait exam (Neuro): Normal gait present Extrem General: Yes normal to inspection and Yes full ROM Right upper extremity: normal to inspection and full ROM Left upper extremity: normal to inspection and full ROM Right lower extremity: normal to inspection and full ROM Left lower extremity: normal to inspection and full ROM Psych Appearance: grossly normal Results AMB Hemoglobin A1c AMB Hemoglobin A1c 6.5 % Last Edit by Ashlyn Lazcano CMA on 10/30/23 12 :49 Assessment and Plan Assessment & Plan (1) Palpitations: Code(s): R00.2 - Palpitations Plan: Was previously sent to stress test which was negative. Continues to have palpitations during intercourse and denies chest pain or palpitations outside of this situation. Will refer for 3 day holter monitor to try and catch an episode. (2) Left groin pain: Code(s): R10.32 - Left lower quadrant pain Plan: Left groin pain and sciatic pain started when she began work. Will refer to physical therapy and sent Tramadol for pain management. (3) Type 2 diabetes mellitus with hyperglycemia: Comment: [facility] Code(s): E11.65 - Type 2 diabetes mellitus with hyperglycemia Plan: Regularly sees [facility] where she receives injections for her eyes. Last seen August 2023 for eye exam. Not currently on medication as A1c is at 6.5. Will continue to encourage healthy lifestyle and exercise and follow up with repeat A1c. (4) Generalized anxiety disorder: Comment: Declined referral for counseling September 2021 Code(s): F41.1 - Generalized anxiety disorder Plan: Continue on Alprazolam as needed. Agreed to reach out if she wants additional help. (5) BMI 30.0-30.9,adult: Code(s): Z68.30 - Body mass index [BMI] 30.0-30.9, adult Plan: Encourage healthy diet and exercise. Counseled on healthy alternatives to carbohydrates and sugars. (6) GERD (gastroesophageal reflux disease): Code(s): K21.9 - Gastro-esophageal reflux disease without esophagitis Plan: Continue on Omeprazole, avoid trigger foods such as tomato products, soda, caffeine, and spicy foods. Avoid lying flat 4 hours after eating and elevate the head of the bed with 2-3 pillows to prevent acid from going into esophagus. (7) Essential hypertension: Code(s): I10 - Essential (primary) hypertension Plan: Blood pressure at goal, continue on Lisinopril. Avoid excessive salt intake, encourage healthy diet and exercise. (8) Hypertriglyceridemia: Code(s): E78.1 - Pure hyperglyceridemia Plan: Avoid foods that are high in cholesterol such as chicken skin, eggs, red meat, fried foods, and baked goods. Continue on Fenofibrate. (9) Itching of both hands: Code(s): L29.9 - Pruritus, unspecified (10) Urticaria: Code(s): L50.9 - Urticaria, unspecified Plan: Rast testing to be completed. Benadryl sent to the pharmacy for occasional hives. Encouraged patient to moisturize and use scent free lotions and detergents. Orders: Orders AMB Diphenhydramine Adult Dose Today Ceci Strickland PA-C L29.9 - Pruritus, unspecified AMB Hemoglobin A1c Today Emigdio Guthrie MD Z13.9 - Encounter for screening, unspecified PT Evaluation and Treatment Today Ceci Strickland PA-C R10.32 - Left lower quadrant pain ECG 3 day holter monitor Today Ceci Strickland PA-C R00.2 - Palpitations Rast Allergen Today Ceci Strickland PA-C L50.9 - Urticaria, unspecified Medications: New diphenhydramine HCl 25 mg PO ONCE 1 tab 0RF Ceci Strickland PA-C L29.9 - Pruritus, unspecified tramadol 50 mg PO DAILY 30 tabs 0RF Emigdio Guthrie MD R10.32 - Left lower quadrant pain Review Declined TDap/Td: 10/30/23 (Patient not interested in Tdap at this time. ) Coding Level of Care Code Est Pt Prev Care 40-64y(05184) Diagnoses Palpitations R00.2 Left groin pain R10.32 Type 2 diabetes mellitus with hyperglycemia E11.65 Generalized anxiety disorder F41.1 BMI 30.0-30.9,adult Z68.30 GERD (gastroesophageal reflux disease) K21.9 Essential hypertension I10 Hypertriglyceridemia E78.1 Itching of both hands L29.9 Urticaria L50.9
[2023-10-30 12:29] VITALS: BP 136/82; PULSE 102; O2SAT 98; BMI 31.2
== END 2023-10-30 13:47 | disposition home or self-care (01) ==
PROVIDERS: PCP Internal Medicine; Visit Provider Internal Medicine
DX: E11.65 Type 2 diabetes mellitus with hyperglycemia (principal)
CPT/HCPCS: 83036; 99396

== ENCOUNTER 2024-02-20 13:12 | Outpatient (REF) | payer OTHER, SELFPAY | END 2024-02-20 13:13 | disposition home or self-care (01) | LOC: HO.LAB 13:12 | PROVIDERS: PCP Internal Medicine; Visit Provider Internal Medicine | DX: L50.9 Urticaria, unspecified (principal); T78.40XA Allergy, unspecified, initial encounter; X58.XXXA Exposure to other specified factors, initial encounter | CPT/HCPCS: 36415; 86003 ==

== ENCOUNTER → 2024-02-22 13:23 | Outpatient (REF) | payer OTHER, SELFPAY ==
--- NOTE | 2024-02-22 13:26 | HM_ITS ---
* Total monitoring time 3 days. * Underlying rhythm is sinus with an average rate of 94/Min. * Sinus tachycardia noted but no other arrhythmias. * One isolated ventricular ectopic beat. * Patient marker used in association with sinus rhythm and sinus tachycardia. * Shortness of breath, palpitations in patient diary associated with sinus rhythm, sinus tachycardia. MTDD
== END ==
LOC: HO.CARD 13:23
PROVIDERS: PCP Internal Medicine; Visit Provider Internal Medicine
DX: R00.2 Palpitations (principal)
CPT/HCPCS: 93242

== ENCOUNTER → 2024-02-22 13:26 | Outpatient (BNV) | payer OTHER, SELFPAY | PROVIDERS: PCP Internal Medicine; Visit Provider Internal Medicine | DX: R00.0 Tachycardia, unspecified (principal) | CPT/HCPCS: 93244 ==

== ENCOUNTER 2024-02-25 14:18 | Outpatient (AMB) | payer OTHER, SELFPAY ==
--- NOTE | 2024-02-25 14:26 | MHC.PC.OV ---
Vital Signs 02/25/24 14:27 02/25/24 14:50 Height 5 ft 1 in Weight 166 lb 4 oz BMI 31.4 BP 140/78 H 138/80 Blood Pressure Location Lt brachial Lt brachial Position Sitting Sitting Pulse 97 Pulse Source Pulse Oximeter Pulse Oximetry (%) 98 Oxygen Delivery Method Room Air Intake Visit Reasons: 3mth f/u Intake Note: Patient is here to follow up on DM, IBS, GERD, Low back pain. Pt decline flu shot today Director Community Organization Required: No Manager Document: Not Required per policy Accompanied by: Self / Same As Patient Allergies metoclopramide [From REGLAN] Allergy (Severe, Verified 02/25/24 14:27) ANXIETY promethazine [From PHENERGAN] Allergy (Severe, Verified 02/25/24 14:27) ANXIETY shellfish derived [SHELLFISH DERIVED] Allergy (Severe, Verified 02/25/24 14:27) THROAT SWELLING HIVES IN SCALP, ITCHY ibuprofen [From MOTRIN] Allergy (Unknown, Verified 02/25/24 14:27) HIVES morphine [MORPHINE] Allergy (Unknown, Verified 02/25/24 14:27) THROAT CLOSES, anaphylaxis prochlorperazine [From COMPAZINE] Allergy (Unknown, Verified 02/25/24 14:27) ANXIETY Sulfa (Sulfonamide Antibiotics) [SULFA (SULFONAMIDE ANTIBIOTICS)] Allergy (Unknown, Verified 02/25/24 14:27) SWELLING trazodone Adverse Reaction (Unknown, Verified 02/25/24 14:27) Dizziness Medication List - Last Reconciled 02/25/24 by Emigdio Guthrie MD alprazolam 0.5 mg PO BEDTIME PRN 30 days blood pressure monitor (Blood Pressure Kit) As directed blood sugar diagnostic (OneTouch Verio test strips) As directed two times per day blood-glucose meter As directed cholecalciferol (vitamin D3) 125 mcg PO DAILY clotrimazole 1% 1 appl topical BID cyanocobalamin (vitamin B-12) 1,000 mcg PO DAILY diclofenac sodium 1% (Voltaren Arthritis Pain) 4 grams topical QID fenofibrate 160 mg PO DAILY fluconazole 150 mg PO .QD 1 day fluconazole 150 mg PO Q3D 2 doses gabapentin 600 mg PO QID 90 days lancets As directed lisinopril 10 mg PO DAILY meloxicam 15 mg PO DAILY omeprazole 40 mg PO DAILY 90 days ondansetron HCl 4 mg PO Q6H progesterone micronized 200 mg PO BEDTIME sumatriptan succinate (Imitrex) 50 mg PO .qd PRN tramadol 50 mg PO DAILY Tobacco use date assessed: 02/25/24 Dental Screening Dental Screen Date: 07/19/23 HPI 3mth f/u HPI Details 44-year-old obese female with diabetes mellitus GERD hypertension hypercholesterolemia and generalized anxiety disorder last seen in 11/08/2023. Patient had an urticarial rash and Benadryl was given. Patient is up-to-date with mammogram and colonoscopy. hysterectomy Hector Alegria TAHBSO 03/17/2024. [facility] Medical History (Updated 02/25/24 @ 20:08 by Emigdio Guthrie MD) Overweight (BMI 25.0-29.9) Liver fibrosis Steatosis, liver BMI 32.0-32.9,adult Obesity History of back pain BMI over 35 Vitamin D deficiency Hypercalcemia Adjustment disorder, unspecified Pre-procedure lab exam Obesity Family hx of hypertension Serum calcium elevated Proteinuria Onychomycosis Hematuria Vitamin B 12 deficiency LUQ abdominal pain COVID-19 virus infection Irritable bowel syndrome Migraine Insomnia Vitamin D deficiency Obesity (BMI 30-39.9) Diabetic retinopathy Atkins's palsy Peripheral neuropathy Trigeminal neuralgia Pancreatitis GERD (gastroesophageal reflux disease) Type 2 diabetes mellitus with diabetic polyneuropathy Type 2 diabetes mellitus with hyperglycemia Hypertriglyceridemia Essential hypertension Hyperlipidemia LDL goal <100 Surgical History (Updated 02/25/24 @ 14:34 by SATHISH Burroughs) H/O gastric sleeve History of wisdom tooth extraction, class I edentulism Hx of colonoscopy Acalculous cholecystitis Hx of hernia repair Hx of removal of cyst Hx of dilation and curettage Family History Father Diabetes mellitus Asthma Hypertension Mother Diabetes mellitus Hypertension Scleroderma Maternal Aunt Ovarian cancer Paternal Grandfather Diabetes mellitus Paternal Grandmother Diabetes mellitus Maternal Grandmother Diabetes mellitus Maternal Grandfather Diabetes mellitus CVD (cardiovascular disease) Sister CVD (cardiovascular disease) Brother Anxiety Arthritis Social History (Updated 02/25/24 @ 14:34 by SATHISH Burroughs) Household Members: Spouse Housing: Apartment Are you a primary point of care specialist to a significant other at home: No Do you presently have visiting nurse or other home services: No Alcohol intake: never Patient Tobacco Use Status: Current everyday Tobacco user Tobacco use type: Cigarette Cigarette Packs Per Day: 0.25 Cigarettes Per Day: 4 Years Smoked: quit 03/2016. Restarted 03/2023. 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 ) Cognitive needs: No Hearing needs: No Vision needs: Yes Questionnaire Thrive Questionnaire Date Thrive assessed: 07/19/23 Are you currently unemployed and looking for a job?: No BERTRAM-7 AMB Questionnaire BERTRAM-7 Date BERTRAM - 7 assessed: 10/30/23 Source: Developed by Drs. Jovon Nation, Cecilia Ribeiro, Travon Silveira and colleagues, with an educational michelle from [employer]. Physical exam (Primary Care) Vital Signs: Last Vital Signs Pulse 97 02/25/24 14:27 BP 138/80 02/25/24 14:50 Pulse Ox 98 02/25/24 14:27 Oxygen Delivery Method Room Air 02/25/24 14:27 Care Plan Goal for BP management: Left side of the chest has a rectangular 3 x 5 cm erythematous rash BMI result Body Mass Index 31.4 Tobacco/Smoking Status: Tobacco use Status Tobacco use date assessed 02/25/24 02/25/24 14:36 Patient Tobacco Use Status Current everyday Tobacco 02/25/24 14:36 Tobacco use type Cigarette 02/25/24 14:36 e-Cigarette/Vaping Use Never Used 02/25/24 14:36 Thrive Assessment: Date of Thrive Assessment Date Thrive assessed 07/19/23 02/25/24 14:36 Const General: alert; No acute distress Eyes Conjunctivae: conjunctivae normal Resp Auscultation: clear to auscultation bilaterally Cardio Rate: regular rate Rhythm: regular rhythm GI Inspection: Yes normal to inspection Extrem General: Yes normal to inspection and No edema Results AMB Hemoglobin A1c AMB Hemoglobin A1c 6.8 % Last Edit by SATHISH Burroughs on 02/25/24 14:37 Results Reviewed Results Reviewed: Laboratory Last Values Hgb A1c (Clinic) 6.8 % (4.0-6.0) H 02/25/24 14:24 Coding Level of Care Code Est Pt Level 4 (62849) Complex EM visit Add On G2211 Diagnoses Type 2 diabetes mellitus with hyperglycemia, without long-term current use of insulin E11.65 Diabetes mellitus retirement insulin use: without retirement use S/P laparoscopic sleeve gastrectomy Z98.84 Obesity (BMI 30-39.9) E66.9 Gastroesophageal reflux disease without esophagitis K21.9 Esophagitis presence: without esophagitis Essential hypertension I10 Hypertriglyceridemia E78.1 Yeast infection B37.9 Allergic contact dermatitis due to adhesives L23.1 Contact dermatitis trigger: adhesive Assessment & Plan Assessment & Plan (1) Type 2 diabetes mellitus with hyperglycemia: Comment: Eye and lasik Code(s): E11.65 - Type 2 diabetes mellitus with hyperglycemia Category: Medical Qualifiers: Diabetes mellitus retirement insulin use: without retirement use Qualified Code(s): E11.65 - Type 2 diabetes mellitus with hyperglycemia Plan: Decrease the amount of carbohydrate intake, pasta, bread, rice and potatoes are all sugar and that is aside from all the sweet stuff, remember that fruits are good but they are Sweet also. Hemoglobin A1c goal of less than 6.5. Patient is diet controlled. decline additional med (2) S/P laparoscopic sleeve gastrectomy: Comment: February 2021 Code(s): Z98.84 - Bariatric surgery status Category: Surgical Plan: Continue to follow-up with bariatric surgery (3) Obesity (BMI 30-39.9): Code(s): E66.9 - Obesity, unspecified Category: Medical Plan: Diet and exercise (4) GERD (gastroesophageal reflux disease): Code(s): K21.9 - Gastro-esophageal reflux disease without esophagitis Category: Medical Qualifiers: Esophagitis presence: without esophagitis Qualified Code(s): K21.9 - Gastro-esophageal reflux disease without esophagitis Plan: Avoid the foods that causes that usually spicy foods, tomato products, juices, coffee, soda and foods that your sensitive to. After eating do not lie down, allow 3-4 hours before in lie down. And keep the head of bed above 30 degrees to avoid the acid from going up. (5) Essential hypertension: Code(s): I10 - Essential (primary) hypertension Category: Medical Plan: Continue with blood pressure medication. Decrease salt intake and exercise on lisinopril 5 mg once a day (6) Hypertriglyceridemia: Code(s): E78.1 - Pure hyperglyceridemia Category: Medical Plan: Discussed with the patient on needing to retest the triglyceride. (7) Yeast infection: Code(s): B37.9 - Candidiasis, unspecified Category: Medical Plan: Antifungal prescription sent in. But discussed with the patient that if this persist will need to see Gynecology. (8) Allergic contact dermatitis: Code(s): L23.9 - Allergic contact dermatitis, unspecified cause Category: Medical Qualifiers: Contact dermatitis trigger: adhesive Qualified Code(s): L23.1 - Allergic contact dermatitis due to adhesives Plan: L chest due to the holter patch Orders: Orders Comprehensive Met. Panel Today E11.65 - Type 2 diabetes mellitus with hyperglycemia Free T4 (Free Thyroxine) Today E11.65 - Type 2 diabetes mellitus with hyperglycemia AMB Hemoglobin A1c Today E11.65 - Type 2 diabetes mellitus with hyperglycemia Lipid Panel Today E78.1 - Pure hyperglyceridemia Complete Blood Count Auto Diff Today E11.65 - Type 2 diabetes mellitus with hyperglycemia Thyroid Stimulating Hormone Today E11.65 - Type 2 diabetes mellitus with hyperglycemia Medications: New fluconazole 150 mg PO Q3D 2 tabs 0RF 2 doses B37.9 - Candidiasis, unspecified Changed From lisinopril 5 mg PO DAILY 90 tabs 1RF I10 - Essential (primary) hypertension To lisinopril 10 mg PO DAILY 90 tabs 1RF I10 - Essential (primary) hypertension
[2024-02-25 14:27] VITALS: BP 140/78; PULSE 97; O2SAT 98; BMI 31.4
[2024-02-25 14:50] VITALS: BP 138/80
== END 2024-02-25 15:01 | disposition home or self-care (01) ==
PROVIDERS: PCP Internal Medicine; Visit Provider Internal Medicine
DX: E11.65 Type 2 diabetes mellitus with hyperglycemia (principal); Z98.84 Bariatric surgery status; E66.811 Obesity, class 1; Z68.31 Body mass index [BMI] 31.0-31.9, adult; K21.9 Gastro-esophageal reflux disease without esophagitis; I10 Essential (primary) hypertension; E78.1 Pure hyperglyceridemia; B37.9 Candidiasis, unspecified; L23.1 Allergic contact dermatitis due to adhesives

== ENCOUNTER → 2024-02-25 14:18 | Outpatient (BNVA) | payer OTHER, SELFPAY | PROVIDERS: PCP Internal Medicine; Visit Provider Internal Medicine | DX: E11.65 Type 2 diabetes mellitus with hyperglycemia (principal); E66.9 Obesity, unspecified; Z68.31 Body mass index [BMI] 31.0-31.9, adult; K21.9 Gastro-esophageal reflux disease without esophagitis; I10 Essential (primary) hypertension; E78.1 Pure hyperglyceridemia; B37.9 Candidiasis, unspecified; L23.1 Allergic contact dermatitis due to adhesives; Z98.84 Bariatric surgery status; Z79.899 Other long term (current) drug therapy; Z71.3 Dietary counseling and surveillance | CPT/HCPCS: 83036; 99212 ==

== ENCOUNTER 2024-06-03 09:46 | Outpatient (AMB) | payer OTHER, SELFPAY ==
[2024-06-03 09:55] VITALS: BP 152/80; PULSE 81; O2SAT 98; BMI 30.2
--- NOTE | 2024-06-03 09:55 | MHC.PC.OV ---
Vital Signs 06/03/24 09:55 Height 5 ft 1 in Weight 160 lb BMI 30.2 BP 152/80 H Blood Pressure Location Lt brachial Position Sitting Pulse 81 Pulse Source Pulse Oximeter Pulse Oximetry (%) 98 Oxygen Delivery Method Room Air Intake Visit Reasons: [facility] - Abdomen Pain Allergies metoclopramide [From REGLAN] Allergy (Severe, Verified 06/03/24 10:07) ANXIETY promethazine [From PHENERGAN] Allergy (Severe, Verified 06/03/24 10:07) ANXIETY shellfish derived [SHELLFISH DERIVED] Allergy (Severe, Verified 06/03/24 10:07) THROAT SWELLING HIVES IN SCALP, ITCHY ibuprofen [From MOTRIN] Allergy (Unknown, Verified 06/03/24 10:07) HIVES morphine [MORPHINE] Allergy (Unknown, Verified 06/03/24 10:07) THROAT CLOSES, anaphylaxis prochlorperazine [From COMPAZINE] Allergy (Unknown, Verified 06/03/24 10:07) ANXIETY Sulfa (Sulfonamide Antibiotics) [SULFA (SULFONAMIDE ANTIBIOTICS)] Allergy (Unknown, Verified 06/03/24 10:07) SWELLING trazodone Adverse Reaction (Unknown, Verified 06/03/24 10:07) Dizziness Tobacco use date assessed: 06/03/24 Dental Screening Dental Screen Date: 06/03/24 Did you have a dental visit in the last 12 months?: Yes Did you have a dental problem in the last 6 months where you did not have access to dental care?: No Was dental information given to patient?: Patient has dentist HPI [facility] - Abdomen Pain HPI Details L groin pain, , deny fall trauma 5 years The patient is a 44-year-old female presenting with abdominal pain and hyperglycemia. She reports frequent visits to the emergency room, totaling four times due to abdominal pain, which consistently began after consuming heavy meals such as pork chops. The patient's repeated CT scans have shown no significant findings, and medical notes suggest overconsumption of food, which the patient disputes. Additionally, the patient is aware of elevated blood sugar levels, historically recorded between 200-300 mg/dL, and acknowledges difficulties in glycemic control without medication. She has not been compliant with metformin due to adverse effects and lacks alternative glycemic control measures. Despite attempts to reduce sugar and carbohydrate intake, her blood glucose remains elevated. The patient has a history of gastroparesis, likely exacerbated by hyperglycemia, affecting gastrointestinal motility. The patient also describes chronic groin pain on the left side, persisting for over five years and worsening without relief from physical therapy. Despite a total hysterectomy, the pain persists, notably when standing. No accompanying lower back pain was reported, and the pain is localized to a specific muscular area in the groin. Prior imaging or trauma were not referenced. She uses cannabis and suspects a relationship between her symptoms and cannabis use after learning about Cannabis Hyperemesis Syndrome. She acknowledges significant nausea, frequently leading to vomiting, particularly after consuming marijuana, prompting a decision to cease usage. [facility] Medical History (Updated 06/03/24 @ 10:57 by Emigdio Guthrie MD) Overweight (BMI 25.0-29.9) Liver fibrosis Steatosis, liver BMI 32.0-32.9,adult Obesity History of back pain BMI over 35 Vitamin D deficiency Hypercalcemia Adjustment disorder, unspecified Pre-procedure lab exam Obesity Family hx of hypertension Serum calcium elevated Proteinuria Onychomycosis Hematuria Vitamin B 12 deficiency LUQ abdominal pain COVID-19 virus infection Irritable bowel syndrome Migraine Insomnia Vitamin D deficiency Obesity (BMI 30-39.9) Diabetic retinopathy Atkins's palsy Peripheral neuropathy Trigeminal neuralgia Pancreatitis GERD (gastroesophageal reflux disease) Type 2 diabetes mellitus with diabetic polyneuropathy Type 2 diabetes mellitus with hyperglycemia Hypertriglyceridemia Essential hypertension Hyperlipidemia LDL goal <100 Surgical History (Updated 02/25/24 @ 14:34 by SATHISH Burroughs) H/O gastric sleeve History of wisdom tooth extraction, class I edentulism Hx of colonoscopy Acalculous cholecystitis Hx of hernia repair Hx of removal of cyst Hx of dilation and curettage Family History Father Diabetes mellitus Asthma Hypertension Mother Diabetes mellitus Hypertension Scleroderma Maternal Aunt Ovarian cancer Paternal Grandfather Diabetes mellitus Paternal Grandmother Diabetes mellitus Maternal Grandmother Diabetes mellitus Maternal Grandfather Diabetes mellitus CVD (cardiovascular disease) Sister CVD (cardiovascular disease) Brother Anxiety Arthritis Social History (Updated 02/25/24 @ 14:34 by SATHISH Burroughs) Household Members: Spouse Housing: Apartment Are you a primary grounds caretaker to a significant other at home: No Do you presently have visiting nurse or other home services: No Alcohol intake: never Patient Tobacco Use Status: Current everyday Tobacco user Tobacco use type: Cigarette Cigarette Packs Per Day: 0.25 Cigarettes Per Day: 4 Years Smoked: quit 03/2016. Restarted 03/2023. 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 ) Cognitive needs: No Hearing needs: No Vision needs: Yes Questionnaire PHQ-9 Over the last 2 weeks, how often have you been bothered by any of the following problems? 1. Little interest or pleasure in doing things: more than half the days 2. Feeling down, depressed, or hopeless: more than half the days 3. Trouble falling or staying asleep, or sleeping too much: more than half the days 4. Feeling tired or having little energy: more than half the days 5. Poor appetite or overeating: several days 6. Feeling bad about yourself - or that you are a failure or have let yourself or your family down: not at all 7. Trouble concentrating on things, such as reading the newspaper or watching television: not at all 8. Moving or speaking so slowly that other people could have noticed. Or the opposite - being so fidgety or restless that you have been moving around a lot more than usual: not at all 9. Thoughts that you would be better off or of hurting yourself in some way: not at all Total score: 9 Depression Screening Interpretation: Positive Depression Screening Done: Yes Source: Developed by Drs. Jovon Nation, Cecilia Ribeiro, Travon Silveira and colleagues, with an educational michelle from [employer]. Thrive Questionnaire Date Thrive assessed: 06/03/24 I am a: Patient What is your living situation today?: I have a steady place to live Within the past 12 months, did the food you bought not last and you didn't have the money to get more?: Never true Within the past 12 months, did you worry whether your food would run out before you got money to buy more?: Never true Do you have trouble paying for medicines?: No Do you have trouble getting transportation to medical appointments?: No Do you have trouble paying your heating and electricity bill?: No Do you have trouble taking care of your child, family member or friend?: No Do you have trouble with day-to-day activities such as bathing, preparing meals, shopping, managing finances, etc.?: No Are you currently unemployed and looking for a job?: No Are you interested in more education?: No Currently or been in a relationship where the following occur: No concerns reported THRIVE Score: 0 AUDIT C Alcohol Use Questionnaire (AUDIT-C) 1. How often do you have a drink containing alcohol?: Never 2. How many drinks containing alcohol do you have on a typical day when you are drinking?: 1 or 2 (0) 3. How often do you have six or more drinks on one occasion?: Never Total Score: 0 Score Reviewed/Action Taken: No BERTRAM-7 AMB Questionnaire BERTRAM-7 Date BERTRAM - 7 assessed: 06/03/24 Feeling nervous, anxious, or on edge: 0 = Not at all Not being able to stop or control worryin = Not at all Worrying too much about different things: 0 = Not at all Trouble relaxin = Not at all Being so restless that it is hard to sit still: 0 = Not at all Becoming easily annoyed or irritable: 0 = Not at all Feeling afraid as if something awful might happen: 0 = Not at all Total BERTRAM-7 score (0-4 normal; 5-9 mild; 10-14 moderate; 15-21 severe): 0 Source: Developed by Drs. Jovon Nation, Cecilia Ribeiro, Travon Silveira and colleagues, with an educational michelle from [employer]. Physical exam (Primary Care) Vital Signs: Last Vital Signs Pulse 81 06/03/24 09:55 BP 152/80 H 06/03/24 09:55 Pulse Ox 98 06/03/24 09:55 Oxygen Delivery Method Room Air 06/03/24 09:55 BMI result Body Mass Index 30.2 Tobacco/Smoking Status: Tobacco use Status Tobacco use date assessed 06/03/24 06/03/24 10:09 Patient Tobacco Use Status Current everyday Tobacco 06/03/24 09:55 Tobacco use type Cigarette 06/03/24 09:55 e-Cigarette/Vaping Use Never Used 06/03/24 09:55 PHQ-9: PHQ-9 Score PHQ-9: Total score 9 06/03/24 10:32 Depression Screening Interpretation: Positive Thrive Assessment: Date of Thrive Assessment Date Thrive assessed 06/03/24 06/03/24 10:09 Currently or been in a relationship where the following occur: No concerns reported Const General: alert; No acute distress Eyes Conjunctivae: conjunctivae normal Resp Auscultation: clear to auscultation bilaterally Cardio Rate: regular rate Rhythm: regular rhythm GI Inspection: Yes normal to inspection Extrem General: Yes normal to inspection and No edema Results AMB Hemoglobin A1c AMB Hemoglobin A1c 7.6 % Last Edit by Ashlyn Lazcano CMA on 06/03/24 10:33 Results Reviewed Results Reviewed: Laboratory Last Values Hgb A1c (Clinic) 7.6 % (4.0-6.0) H 06/03/24 10:09 Coding Level of Care Code Est Pt Level 4 (03149) Complex EM visit Add On G2211 Diagnoses Type 2 diabetes mellitus with hyperglycemia, without long-term current use of insulin E11.65 Diabetes mellitus intermediate accountant insulin use: without intermediate accountant use S/P laparoscopic sleeve gastrectomy Z98.84 Gastroesophageal reflux disease without esophagitis K21.9 Esophagitis presence: without esophagitis Essential hypertension I10 Hypertriglyceridemia E78.1 Left groin pain R10.32 Cannabinoid hyperemesis syndrome R11.2; F12.90 Assessment & Plan Assessment & Plan (1) Type 2 diabetes mellitus with hyperglycemia: Comment: Eye and lasik Code(s): E11.65 - Type 2 diabetes mellitus with hyperglycemia Category: Medical Qualifiers: Diabetes mellitus longterm insulin use: without intermediate accountant use Qualified Code(s): E11.65 - Type 2 diabetes mellitus with hyperglycemia (2) S/P laparoscopic sleeve gastrectomy: Comment: February 2021 Code(s): Z98.84 - Bariatric surgery status Category: Surgical (3) GERD (gastroesophageal reflux disease): Code(s): K21.9 - Gastro-esophageal reflux disease without esophagitis Category: Medical Qualifiers: Esophagitis presence: without esophagitis Qualified Code(s): K21.9 - Gastro-esophageal reflux disease without esophagitis (4) Essential hypertension: Code(s): I10 - Essential (primary) hypertension Category: Medical (5) Hypertriglyceridemia: Code(s): E78.1 - Pure hyperglyceridemia Category: Medical (6) Left groin pain: Code(s): R10.32 - Left lower quadrant pain Category: Medical Plan: advised to get physical therapy, muscle relaxant rx, (7) Cannabinoid hyperemesis syndrome: Code(s): R11.2 - Nausea with vomiting, unspecified; F12.90 - Cannabis use, unspecified, uncomplicated Category: Medical Plan - Initiate insulin therapy with Lantus, starting at 10 units daily, to address hyperglycemia. - Prescribe Jardiance if insurance permits to assist with glycemic control by promoting renal glucose excretion. - Recommend continuation of pantoprazole for management of heartburn if symptomatic. - Advise cessation of cannabis use due to risk of Cannabis Hyperemesis Syndrome exacerbation. - Prescribe cyclobenzaprine for management of musculoskeletal strain in the left groin area. - Recommend physical therapy consultation to instruct on specific exercises targeting groin pain relief. - Discuss potential use of alternative anxiolytic dosing with 1 mg alprazolam for heightened anxiety episodes. - Arrange follow-up to assess glycemic control efficacy and overall symptom management. Patient was informed and verbally consented to the use of an ambient scribe for clinic note documentation during this visit. Orders: Orders PT Evaluation and Treatment Today R10.32 - Left lower quadrant pain AMB Hemoglobin A1c Today Z13.9 - Encounter for screening, unspecified Medications: New empagliflozin (Jardiance) 10 mg PO DAILY 30 tabs 3RF E11.65 - Type 2 diabetes mellitus with hyperglycemia insulin glargine (Lantus Solostar U-100 Insulin) 10 units (0.1 mL) subcut QPM 15 mL 0RF E11.65 - Type 2 diabetes mellitus with hyperglycemia baclofen 5 mg PO TID 20 tabs 0RF R10.32 - Left lower quadrant pain Changed From alprazolam 0.5 mg PO BEDTIME 30 days PRN 30 tabs 0RF anxiety E78.1 - Pure hyperglyceridemia To alprazolam 1 mg PO .QD PRN 25 tabs 0RF anxiety 30 days E78.1 - Pure hyperglyceridemia
--- OUTSIDE RECORDS SUMMARY | 2024-06-03 10:54 | XMS_ITS ---
Author Organization [facility] Address [address] [place] [phone] Care Team Providers Care Tableau Lead Name Role Phone Po Emigdio SHEPPARD Primary Care Provider Kain Dia Jr REASON FOR VISIT Cancel Appointment Request Encounters Encounter Location Date Provider Diagnosis [facility] [address] [place] [phone] 02/25/2024 Kain Orr Jr PLAN OF TREATMENT No Information
--- OUTSIDE RECORDS SUMMARY | 2024-06-03 10:54 | XMS_ITS ---
Author Organization [facility] Address [address] [place] [phone] Care Team Providers Care As400 Operator Name Role Phone Po Emigdio SHEPPARD Primary Care Provider Kain Dia Jr [phone] REASON FOR VISIT Patient presents today for abdominal pain Encounters Encounter Location Date Provider Diagnosis [facility] [address] [place] [phone] 02/27/2024 Kain Orr Jr PLAN OF TREATMENT No Information
--- OUTSIDE RECORDS SUMMARY | 2024-06-03 10:54 | XMS_ITS | Patient Health Record ---
Author Organization [facility] Address [address] [place] [address] Support Name Relationship Address Phone NADIYA RUGGIERO Emergency Contact [address] [place] [address] [address] [place], [place] [id number] EDISON RUGGIERO Guarantor Unknown [phone] Care Team Providers Care Transport Truck Driver Name Role Phone Emigdio Guthrie MD Primary Care Provider Kain Dia Jr Unavailable ALLERGIES Allergen (clinical drug ingredient) Drug/Non Drug Allergy documented on EMR Reaction Allergy Type Onset Date Status metoclopramide Reglan Unknown Drug Allergy Ac tive promethazine Phenergan Unknown Drug Allergy Acti ve Motrin hives Drug Allergy Active morphine Morphine Sulfate Unknown Drug Allergy Active Shellfish (FN) shell fish (uncoded) Unknown Allergy Active Compazine Unknown Drug Allergy Active Sulfacet-R Unknown Drug Allergy Active REASON FOR REFERRAL No Information MEDICATIONS Medication SIG (Take, Route, Frequency, Duration) Notes Start Date End Date Status Vitamin D3 Active Zofran Active Dicyclomine HCl 20 MG 1 tablet Orally 2- 4 times a day 01/25/2023 Active Vitamin B-2 100 MG 1 tablet Orally Once a day Active Fenofibrate 145 MG 1 tablet with food O rally Once a day for 30 day(s) Active ALPRAZolam 0.5 MG 1 tablet Orally as needed Active Lisinopril 5 MG 1 tablet Orally Once a day for 30 day(s) Active SUMAtriptan & Homeopathic Prod 50 MG as directed Combination prn Active Omeprazole 40 MG 1 capsule 30 minutes before morning meal Orally Once a day for 30 day(s) Active Gabapentin 600 MG 1 tablet Orally Twic e a day Active IMMUNIZATIONS Vaccine Route Administration Date Status Comme nts Influenza Unknown 03/01/2018 Administered Influenza Unknown 02/18/2019 Administered SOCIAL HISTORY Sex Assigned At : Social History Observation Description Sex Assigned At Unknown Alcohol Screen Question Answer Notes Did you have a drink containing alcohol in the p ast year? 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) Active confirmed 09787727 Problem Gastroesophageal reflux disease, unspecified whether esophagitis present (K21.9) Active confirmed 244375934 Problem Generalized abdominal pain (R10.84) Active confirmed 427473440 Problem Change in bowel movement (R19.8) Active confirmed 83021906 Problem Gastroesophageal reflux disease (K21.9) Active confirmed Gastroesophagea l reflux disease (890641757) Encounters Encounter Location Date Provider Diagnosis [facility] [address] [place] [phone] 02/27/2024 Kain Orr Jr [facility] [address] [place] [phone] 05/06/2024 Kain Orr Jr [facility] [address] [place] [phone] 02/25/2024 Kain Orr Jr PLAN OF TREATMENT Pending Test Test Name Order Date CHEM 7 PROFILE 11/30/2016 LIVER PROFILE 11/30/2016 CBC w/o DIFF 11/30/2016 STOOL WBC 11/30/2016 CELIAC PANEL #10 10/11/2016 OVA & PARASITES (O&P) 11/30/2016 CULTURE, STOOL 11/30/2016 XR GI SERIES 08/21/2019 Future Test Test Name Order Date UPPER GI ENDOSCOPY 08/31/2016 COLONOSCOPY 02/07/2017 UPPER GI ENDOSCOPY 01/25/2023 Insurance Providers Payer Name Payer Address Payer Phone Subscriber Number Group Number Insured Name Patient Relationship to Insured Coverage Start Date Coverage End Date [facility] [address] Attn Claims [place] [id number] EDISON RUGGIERO Self - patient is the insured MEDICAID OF [facility] [address] [place] [address] [id number] EDISON RUGGIERO Self - patient is the insured MEDICARE OF [place] [address] [place] [address] [id number] EDISON RUGGIERO Self - patient is the insured MEDICAL (GENERAL) HISTORY Medical History History ICD Code diabetes mellitus/ under control Gastroesophageal reflux disease, EGD 10/19 9, no H. pylori pancreatitis hypertriglyceridemia anxiety Ovarian cysts Hypertension Neuropathy Colonoscopy 04/06, normal biopsies inclu ding ileum and sigmoid Surgical History Surgery Date(Month/Year) Dilation/curettage 2004 hernia repair as an Sleeve gastrectomy repair of hiatal marianna ia 02/2021 cholecystectomy 10/2018
== END 2024-06-03 11:02 | disposition home or self-care (01) ==
PROVIDERS: PCP Internal Medicine; Visit Provider Internal Medicine
DX: E11.65 Type 2 diabetes mellitus with hyperglycemia (principal); Z98.84 Bariatric surgery status; K21.9 Gastro-esophageal reflux disease without esophagitis; I10 Essential (primary) hypertension; E78.1 Pure hyperglyceridemia; R10.32 Left lower quadrant pain; R11.2 Nausea with vomiting, unspecified; F12.90 Cannabis use, unspecified, uncomplicated; Z13.9 Encounter for screening, unspecified

== ENCOUNTER → 2024-06-03 09:46 | Outpatient (BNVA) | payer OTHER, SELFPAY | PROVIDERS: PCP Internal Medicine; Visit Provider Internal Medicine | DX: R10.9 Unspecified abdominal pain (principal); R73.01 Impaired fasting glucose; E11.65 Type 2 diabetes mellitus with hyperglycemia; K21.9 Gastro-esophageal reflux disease without esophagitis; I10 Essential (primary) hypertension; E78.1 Pure hyperglyceridemia; R10.32 Left lower quadrant pain; R11.2 Nausea with vomiting, unspecified; F12.90 Cannabis use, unspecified, uncomplicated; E66.9 Obesity, unspecified; Z68.30 Body mass index [BMI] 30.0-30.9, adult; Z98.84 Bariatric surgery status; Z90.710 Acquired absence of both cervix and uterus | CPT/HCPCS: 83036; 99212 ==

== ENCOUNTER 2024-06-14 10:30 | Outpatient (REF) | payer OTHER, SELFPAY ==
--- NOTE | ~2024-06-14 | XR_ITS ---
EXAMINATION: XR HIP 2 OR MORE VIEWS LEFT HISTORY: R10.32 - Left lower quadrant pain COMPARISON: There are no prior studies for comparison. FINDINGS: Two views of the left hip are submitted. Osseous mineralization is normal. There is no fracture or dislocation. The joint space is maintained. There are vascular calcifications. XR/XR hip LT min 2V IMPRESSION: Unremarkable examination of the left hip. Electronically signed by: Jovon Valdivia MD 06/24/2024 10:06 AM [facility]
--- OUTSIDE RECORDS SUMMARY | 2024-06-14 10:32 | XMS_ITS ---
Author Organization [facility] Address [address] [place] [phone] Care Team Providers Care Mental Health Aides Teacher Name Role Phone Po Emigdio SHEPPARD Primary Care Provider Kain Dia Jr REASON FOR VISIT Patient presents today for abdominal pain Encounters Encounter Location Date Provider Diagnosis [facility] [address] [place] [phone] 02/27/2024 Kain Orr Jr PLAN OF TREATMENT No Information
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
--- OUTSIDE RECORDS SUMMARY | 2024-06-14 10:32 | XMS_ITS ---
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 Role Phone YEIMI MARRERO Unavailable [phone] REASON FOR VISIT EB AND F/U FROM DR ZAVALA D&Rakan Encounters Encounter Location Date Provider Diagnosis [facility] [address] [place] [address] 03/27/2024 YEIMI MARRERO Plan Of Treatment Next Appt Details Provider Name:YEIMI Das, 07/28/2024 01:00:00 PM, [address] [place] [address], [address], [place], [address], Progress Notes * EDISON RUGGIERODOB:1980 (44 yo F)Acc No.[id number]:03/27/2024 PROGRESS NOTES Patient:?MONIK EDISON Provider:?YEIMI MARRERO MD :1980???Age:44 Y???Sex:Female D ate:03/27/2024 Address:[address] [place], [place] [id number] Subjective: * Chief Complaints: * ???1. EB AND F/U FROM DR ROEL Marx. * Medical History:? Objective: * Vitals:? Assessment: Plan: * Treatment: * Images: Billing Information: * Visit Code:? * Procedure Codes:? * Electronic signature of YEIMI MARRERO MD on 06/14/2024 at 10:32 AM EST Sign off status: Pending * Provider:?YEIMI MARRERO MD Date:?2023 Generated for Lauren umanzor/Gina/Aubreyitting on:?06/14/2024 10:32 AM EST
--- OUTSIDE RECORDS SUMMARY | 2024-06-14 10:33 | XMS_ITS | Patient Health Record ---
Author Organization [facility] Address [address] [place] [address] Support Name Relationship Address Phone NADIYA RUGGIERO Emergency Contact 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) Active confirmed 59184884 Problem Gastroesophageal reflux disease, unspecified whether esophagitis present (K21.9) Active confirmed 979000052 Problem Generalized abdominal pain (R10.84) Active confirmed 294946909 Problem Change in bowel movement (R19.8) Active confirmed 86459298 Problem Gastroesophageal reflux disease (K21.9) Active confirmed Gastroesophagea l reflux disease (033789887) Encounters Encounter Location Date Provider Diagnosis [facility] [address] [place] [address] 02/27/2024 Kain Orr Jr [facility] [address] [place] [phone] 05/06/2024 Kain Orr Jr [facility] [address] [place] [phone] 02/25/2024 Kain Orr Jr PLAN OF TREATMENT [...] Insured Coverage Start Date Coverage End Date [facility] [address] Attn Claims [place] [id number] EDISON RUGGIERO Self - patient is the insured MEDICAID OF [facility] [address] [place] [address] [id number] EDISON RUGGIERO Self - patient is the insured MEDICARE OF [place] [address] [place] [address] [id number] EDISON RUGGIERO Self - patient is the [...]
--- OUTSIDE RECORDS SUMMARY | 2024-06-14 10:33 | XMS_ITS | Patient Health Record ---
Author Organization [facility] Address [address] [place] [address] Care Team Providers Care Supervisor Dog License Officer Name Role Phone RAMILA MARRERO Unavailable [phone] Allergies Allergen (clinical drug ingredient) Drug/Non Drug [...] Component Value Reference Range Notes Test, Urine (Not y et reviewed by provider) Interpretation: Performing Lab: Notes/Report: Test, Urine NEG URINE (Not yet rev iewed by provider) Interpretation: Performing Lab: Notes/Report: URINE NEG SURGICAL PATHOLOGY Reviewed date:07/05/2023 01:18:49 PM Interpretation: Performing Lab:Testing performed or reported by [facility], a Service of [facility], [address] [place] [address] Robin Stahl MD, Engine Buildup Mechanic [facility]# [id number] Notes/Report: Patient Name: EDISON RUGGIERO Lab Patient : 1980 (Age: 43) Collection Date: 06/29/2023 Accession Date: 06/29/2023 Sign Out Date: 07/03/2023 Tissue Source: 1:ENDOMETRIUM BIOPSY Final Diagnosis: Endometrium, biopsy: - Early secretory endometrium. Primary Pathologist:Ramila Castillo M.D. electronically signed out by: Ramila Castillo M.D. / MICHELLE Clinical History: Abnormal uterine bleeding Gross Description: Labeled EMB . Received in formalin and filtered is a 2.3 x 2.1 x 0.3 cm aggregate of ac, red tissue. The specimen is entirely submitted. 1-multiple pieces, x2. (HG)* Phone #: [phone], On-Call Pathologist: [id number] ANTI-HEPATITIS C Reviewed date:07/26/2023 08:30:48 AM Interpretation: Performing Lab:Testing performed or reported by [facility], a Service of [facility], [facility] [place] [address] Robin Stahl MD, Engine Buildup Mechanic [facility]# [id number] Notes/Report: ANTI-HEPATITIS C NEGATIVE (NEG) Reference range: Negative This test was performed on the [employer] immunoassay system. HEP. B SURF. AG Reviewed date:07/26/2023 08:30:55 AM Interpretation: Performing Lab:Testing performed or reported by [facility], a Service of [facility], [facility] [place] [address] Robin Stahl MD, Engine Buildup Mechanic [facility]# [id number] Notes/Report: HEP. B SURF. AG NEGATIVE (NEG) Reference range: Negative This test was performed on the [employer] Piled[employer] Carpenter immunoassay system. CHLAMYDIA GC AMP PROBE Reviewed date:07/26/2023 09:35:02 AM Interpretation: Performing Lab:Testing performed or reported by [facility] [employer], a Service of [facility], [facility] [place] [address] Robin Stahl MD, Engine Buildup Mechanic [facility]# [id number] Notes/Report: C.TRACHOMATIS AMP PROBE NEGATIVE (NEG) No Chlamydia Trachomatis RNA detected in this patient's sample (REFERENCE RANGE/NORMAL VALUE: NOT DETECTED) Note: This test uses information systems architect- mediated amplification method to detect rRNA from C. Trachomatis N.GONORRHOEAE AMP PROBE NEGATIVE (NEG) No Neisseria Gonorrhoeae RNA detected in this patient's sample (REFERENCE RANGE/NORMAL VALUE: NOT DETECTED) NOTE: This test uses information systems architect-mediated amplification method to detect rRNA from N.Gonorrhoeae. A negative result does not preclude infection. In the case of a negative urine result, testing of an endocervical(female) or urethral (male) specimen is recommended if there is high clinical suspicion of infection. Due to very high sensitivity of Nucleic Acid Amplification Test, false positive results may occur. Therefore, specimen handling is extremely important. In patients in whom the disease is unlikely, additional sample for testing should be considered after an initial positive result. The performance characteristics of this test have not been evaluated in children. The Aptima Combo2 assay is not intended for the evaluation of suspected sexual abuse or for other medico-legal indications. The ordering provider should assess if the patient had consensual sex without risk of sexual abuse. Consult the [facility] if needed. Contact phone number . Therapeutic failure or success cannot be determined with the Aptima Combo2 assay since nucleic acid may persist following appropriate antimicrobial therapy. The Centers for Disease Control and Prevention (CDC) recommends confirmatory retesting using culture or a different nucleic acid amplification test when positive results occur, if indicated. CHLAM/GC AMP PROBE SPEC TYPE CERVIX SYPHILIS TESTING Reviewed date:07/26/2023 08:31:00 AM Interpretation: Performing Lab:Testing performed or reported by [facility] [employer], a Service of [facility], [facility] [place] [address] Robin Stahl MD, Engine Buildup Mechanic [facility]# [id number] Notes/Report: SYPHILIS SCREEN BY ALCIDES NEGATIVE (NEG) Reference range: Negative This test was performed on the [employer] Carpenter immunoassay system. RPR TITER RESULT NOT INDICATED TPPA RESULT NOT INDICATED SYPHILIS INTERPRETATION Indicative of th e absence of infection with Treponemal pallidum. Test may be negative in cases of incubating or early primary syphilis. Consider repeat testing in several weeks if clinical suspicion is high. HIV AB-AG 4TH GENERATION Reviewed date:07/26/2023 08:31:06 AM Interpretation: Performing Lab:Testing performed or reported by [facility], a Service of [facility], [facility] [place] [address] Robin Stahl MD, Engine Buildup Mechanic [facility]# [id number] Notes/Report: RESULT 4TH GEN HIV AB-AG NEGATIVE (NEG) Negative for antibodies to HIV 1 and HIV 2 and P24 antigen. Reference range: Negative Additional note: Written patient authorization is required for each separate release of this test result. This test was performed on the [employer] immunoassay system. Test, Urine Reviewed date:01/25/2024 04:01:13 PM Interpretation: Performing Lab: Notes/Report: Test, Urine NEG CBC, Platelet, No Differenti [id number] Reviewed date:02/04/2024 08:56:32 AM Interpretation: Performing Lab:[facility], [address] [facility], Phone - [phone], Director - Adolfo Notes/Report: WBC 8.2 3.4-10.8 x10E3/uL RBC 4.46 3.77-5.28 x10E6/uL Hemoglobin 13.3 11.1-15.9 g/dL Hematocrit 38.8 34.0-46.6 % MCV 87 79-97 fL MCH 29.8 26.6-33.0 pg MCHC 34.3 31.5-35.7 g/dL RDW 13.9 11.7-15.4 % Platelets 209 150-450 x10E3/uL PDF Report Reviewed date:01/28/2024 08:47:37 AM Interpretation: Performing Lab:[facility], [address] [facility], Phone - [phone], Director - Adolfo Notes/Report: Reason For Referral No Information Medications Medication SIG (Take, Route, Frequency, Duration) Notes Start Date End Date Status Fenofibrate 145 MG 1 tablet Orally Once a day Active Gabapentin 600 MG Orally two times a day Active ALPRAZolam 0.25 MG 1 tablet Orally PRN Active B-12 Once a day Active Tranexamic Acid 650 MG 2 tablets Orally three times daily for 5 days 01/25/2024 Active Omeprazole 40 MG TAKE 1 CAPSULE BY [facility] EVERY DAY Oral for 90 Active Progesterone 200 MG 1 capsule at bedtime Orally Once a day for 90 days 10/29/2023 Active Magnesium 400 MG as directed Orally Active Vitamin D (Ergocalciferol) 37669 UNIT 1 capsule Orally Active Lisinopril 5 MG 1 tablet [...] Are you an other tobacco user? No Problems Problem Type SNOMED Code ICD Code Onset Dates Problem Status W/U Status Risk Notes Problem Human papilloma virus deoxyribonucleic acid test positive, high risk on vaginal specimen (710459438774016) Cervical high risk human papillomavirus (HPV) DNA test positive (R87.810) Active confirmed Problem Essential hypertension (01110963) Essential (primary) hypertension (I10) Active confirmed Problem Type II diabetes mellitus without complication (450683339) Type 2 diabetes mellitus without complications (E11.9) Active confirmed Problem Hyperlipidemia (59320027) Hyperlipidemia, unspecified (E78.5) Active confirmed Problem Anxiety disorder (559599611) Anxiety disorder, unspecified (F41.9) Active confirmed Problem Migraine without aura, not refractory (disorder) (869652242) Migraine, unspecified, not intractable, without status migrainosus (G43.909) Active confirmed Problem Chronic pain syndrome (250868522) Chronic pain syndrome (G89.4) Active confirmed Problem Hidradenitis suppurativa (72134987) Hidradenitis suppurativa (L73.2) Active confirmed Problem Oligomenorrhea (20470431) Oligomenorrhea, unspecified (N91.5) Active confirmed Problem Abnormal uterine bleeding (58491759301731) Abnormal uterine and vaginal bleeding, unspecified (N93.9) Active confirmed Problem Female infertility (8571666) Female infertility, unspecified (N97.9) Active confirmed Problem History of gastrointestinal disease (495986372) Personal history of other diseases of the digestive system (Z87.19) Active confirmed Problem COVID-19 (755446691) COVID-19 (U07.1) Active confirmed Vital Signs Temperature 97.1 degrees Fahrenheit 01/25/2024 Blood pressure diastolic 90 mm Hg 01/25/2024 Height 61 in 01/25/2024 Blood pressure systolic 160 mm Hg 01/25/2024 Weight 163 lbs 01/25/2024 BMI 30.8 kg/m2 01/25/2024 Encounters Encounter Location Date Provider Diagnosis Total [address] [address] 06/19/2023 RAMILA MARRERO Abnormal uterine and vaginal bleeding, unspecified N93.[address] [address] 06/29/2023 RAMILA MARRERO Abnormal uterine and vaginal bleeding, unspecified N93.[address] [address] 07/05/2023 RAMILA MARRERO Pelvic Pain R10.[address] [address] 07/24/2023 RAMILA MARRERO Encounter for gynecological examination (general) (routine) without abnormal findings Z01.419 ; Encounter for screening mammogram for malignant neoplasm of breast Z12.31 ; Encounter for screening for infections with a predominantly sexual mode of transmission Z11.3 and High risk heterosexual behavior Z72.[address] [address] 01/25/2024 RAMILA MARRERO Abnormal uterine and vaginal bleeding, unspecified N93.[address] [address] 01/25/2024 RAMILA MARRERO Total [address] [address] 07/05/2023 RAMILA MARRERO Total [address] [address] 10/25/2023 RAMILA MARRERO [address] [address] 10/29/2023 RAMILA MARRERO Abnormal uterine and vaginal bleeding, unspecified N93.[address] [address] 01/25/2024 RAMILA MARRERO Assessments Encounter Date Diagnosis (ICD Code) Assessment Notes Treatment Notes Treatment Clinical Notes Section Notes 06/19/2023 Abnormal uterine and vaginal bleeding, unspecified (ICD-10 - N93.9) Abnormal bleeding - will evaluate endometrium with HSONO and embx, to rule out hyperplasia, endometrial polyps. Patient also with undiagnosed pelvic pain - she is concerned she may have endometriosis. Advised her to schedule an evaluation for her pain. 06/29/2023 Abnormal uterine and vaginal bleeding, unspecified (ICD-10 - N93.9) Two polyps seen, which could explain her abnormal bleeding. She has an appointment next week to further evaluate her pain - she states it comes with ovulation, and causes nausea/vomiting and such intense pain (worse, and different, than she experienced today with the embx). Will refer for hysteroscopic polypectomy pending pathology, and may consider requesting a diagnostic laparoscopy for her pain. 07/05/2023 Pelvic Pain (ICD-10 - R10.2) Will refer patient for diagnostic laparoscopy. This has been a long-standing intermittent pain - normal ultrasound, normal colonoscopy/endosco py. Patient is at her wits end with this pain, as she keeps getting bounced from office to office with no cause identified. I told her that I didn't think it was general office assistant in origin, but since she relates it to ovulatory time, her PCP and her gasto doctor keep telling her to return to general office assistant. Perhaps there is scar tissue from previous surgery or endometriosis that is contributing to her pain, though her pain does not seem to be endometriosis-type pain. She does need hysteroscopy for endometrial polyp removal. If surgery does not elicit a cause of pain, consider prescribing POPs to suppress ovulation to see if this makes a difference. 07/24/2023 Encounter for gynecological examination (general) (routine) without abnormal findings (ICD-10 - Z01.419) Discussed cervical cancer screening with either cytology alone every 3 years or high risk HPV co-testing every 5 years as per ASCCP guidelines. Advised continued annual pelvic exams. Patient encouraged to increase her level of exercise. SBE technique encouraged/taught. Patient reminded when annual mammogram is due. 07/24/2023 Encounter for screening mammogram for malignant neoplasm of breast (ICD-10 - Z12.31) 10/29/2023 Abnormal uterine and vaginal bleeding, unspecified (ICD-10 - N93.9) 01/25/2024 Abnormal uterine and vaginal bleeding, unspecified (ICD-10 - N93.9) Will refer for surgical consult for hysterectomy. She is not a candidate for estrogen-containing products, and we have attempted to manage her with progesterone, but her symptoms of heavy bleeding and pain continue. She requests definitive management for her bleeding and hopes that it will help the pain as well. 07/24/2023 Encounter for screening for infections with a predominantly sexual mode of transmission (ICD-10 - Z11.3) 07/24/2023 High risk heterosexual behavior (ICD-10 - Z72.51) 07/05/2023 Other 38 minutes were spent on the day of the visit reviewing and prepping the chart, obtaining the HPI, examining the patient, counseling the patient on the diagnosis, ordering/refilling medications, ordering tests and procedures and documenting this encounter. 01/25/2024 Other LYSTEDA: The following adverse drug [...] =7%), muscle spasm (=7%) Plan Of Treatment Pending Test Test Name Order Date Sonohysterogram 06/19/2023 Test, Urine 06/19/2023 Ultrasound : Kidneys and Bladder 021 Urinalysis 07/27/2020 ANTI-HEPATITIS C 02/27/2018 ANTI-HEPATITIS C 05/27/2019 COMPLETE URINALYSIS 07/27/2020 HEP. B SURF. AG 02/27/2018 HEP. B SURF. AG 05/27/2019 THIN PREP,HPV,NIRANJAN IF HPV+ (>29YR)(SCRN) 02/27/2018 URINE 06/29/2023 TEST, (IN HOUSE) 08/21/2018 SYPHILIS TESTING 02/27/2018 SYPHILIS TESTING 05/27/2019 HIV AB-AG 4TH GENERATION 05/27/2019 HIV AB-AG 4TH GENERATION 02/27/2018 PELVIC ULTRASOUND W/TRANSVAGINAL 021 ULTRASOUND: PELVIC W/TRANSVAGINAL 2022 ULTRASOUND: PELVIC W/TRANSVAGINAL 2019 MM Digital Screening Mammogram 3D 2022 MM Digital Screening Mammogram 3D 2023 Next Appt Details Provider Name:RAMILA Das, 07/28/2024 01:00:00 PM, [address] [facility], [address], [place], [address], Insurance Providers Payer Name Payer Address Payer Phone Subscriber Number Group Number Insured Name Patient Relationship to Insured Coverage Start Date Coverage End Date [employer] [facility] [address] [place] [phone] [id number] EDISON RUGGIERO Self - patient is the insured Medical (General) History Medical History History ICD Code Hyperlipidemia, unspecified E78.5 Essential (primary) hypertension I10 COVID-19 U07.1 Surgical History Surgery Date(Month/Year) Dilation and curretage 2005 Hernia Repair 1981 Removal of Lump on R under arm cholecystectomy 10/2018 upper endoscopy and colonoscopy 2018 GASTRIC SLEEVE 02/2021 Hospitalization History Reason Date(Month/Year) See surgical Hx
--- OUTSIDE RECORDS SUMMARY | 2024-06-14 10:33 | XMS_ITS ---
Author Organization [facility] Address [address] [place] [address] Care Team Providers Care Video Conference Specialist Name Role Phone Po Emigdio SHEPPARD Primary Care Provider Kain Dia Jr REASON FOR VISIT Cancel Appointment Request Encounters Encounter Location Date Provider Diagnosis [facility] [address] [place] [phone] 02/25/2024 Kain Orr Jr PLAN OF TREATMENT No Information
--- OUTSIDE RECORDS SUMMARY | 2024-06-14 10:33 | XMS_ITS ---
Author Organization [facility] Address [address] [place] [address] Care Team Providers Care Nursing Staffing Coordinator Name Role Phone Po Emigdio SHEPPARD Primary Care Provider Kain Dia Jr REASON FOR VISIT was in [facility] ER Encounters Encounter Location Date Provider Diagnosis [facility] [address] [place] [phone] 05/06/2024 Kain Orr Jr PLAN OF TREATMENT No Information
--- OUTSIDE RECORDS SUMMARY | 2024-06-14 10:33 | XMS_ITS | Clinical Summary ---
Author Organization [facility] Address [address] [place] [address] Phone Care Team Providers Care Electronic Imaging System Operator Name Role Phone Emigdio Guthrie MD Primary Care Provider [phone] Allergies Active Allergy Reactions Criticality Noted Date Comments Metoclopramide 11/30/2017 Morphine Anaphylaxis High 11/30/2017 Ibuprofen 12/07/2020 Prochlorperazine 11/30/2017 Promethazine 11/30/2017 Sulfa Antibiotics 12/07/2020 Medications ALPRAZolam (XANAX) 0.5 MG tablet TAKE 1 TABLET BY MOUTH EVERY DAY AT BEDTIME NEEDED FOR ANXIETY 11/12/2020 Active atorvastatin (LIPITOR) 40 MG tablet Take 40 mg by mouth 1 (one) time each day 11/16/2020 Active dicyclomine (BENTYL) 20 MG tablet Take 40 mg by mouth Active famotidine (PEPCID) 40 MG tablet Take 40 mg by mouth 1 (one) time each day 10/05/2020 Active fenofibrate (TRICOR) 145 MG tablet Take 145 mg by mouth 1 (one) time each day Active gabapentin (NEURONTIN) 600 MG tablet Take 600 mg by mouth 3 times a day Active lisinopril 20 MG tablet Take 20 mg by mouth 1 (one) time each day 11/16/2020 Active omeprazole (PriLOSEC) [address] capsule Take by mouth 1 (one) time each day 11/21/2020 Active terbinafine (LamISIL) 250 MG tablet Take 250 mg by mouth 1 (one) time each day 11/16/2020 Active Dapagliflozin Propanediol (Farxiga) 5 MG tablet Take 10 mg by mouth 1 (one) time each day 90 tablet 3 12/07/2020 Active ferrous sulfate 325 (65 Fe) MG tablet TAKE 1 TABLET BY MOUTH DAILY TAKE WITH 500 MG VITAMIN C, DO NOT TAKE WITH DAIRY PRODUCTS. 01/17/2021 Active [facility] D3 25 MCG (1000 UT) capsule Take by mouth 1 (one) time each day 01/10/2021 Active sucralfate (CARAFATE) 1 GM/10ML suspension 05/18/2021 Active Active Problems Problem Noted Date Diagnosed Date Proteinuria 02/14/2021 Type 2 diabetes mellitus without complication Family History Medical History Relation Comments Hypertension Father Heart disease Maternal Grandfather Heart disease Maternal Grandmother Hypertension Mother Cancer Mother's Sister Hypertension Sister Relation Status Comments Father Maternal Grandfather Maternal Grandmother Mother Mother's Sister Sister Social History Tobacco Use Types Packs/Day Years Used Date Smoking Tobacco: Former Smokeless Tobacco: Never Alcohol Use Standard Drinks/Week Comments Not Currently 0 (1 standard drink = 0.6 oz pur e alcohol) Comments Unknown Sex and Gender Information Value Date Recorded Sex Assigned at Not on file Legal Sex Female 12:45 PM EDT Gender Identity Not on file Sexual Orientation Not on file Last Filed Vital Signs Vital Sign Reading Time Taken Comments Blood Pressure 132/64 02/15/2021 4:07 PM EDT Pulse 98 02/15/2021 4:07 PM EDT Temperature - - Respiratory Rate - - Oxygen Saturation 96% 02/15/2021 4:07 PM EDT Inhaled Oxygen Concentration - - Weight 78 kg (172 lb) 02/15/2021 4:07 PM EDT Height 154.9 cm (5' 1 ) 02/15/2021 4:07 PM EDT Body Mass Index 32.5 02/15/2021 4:07 PM EDT Plan of Treatment Health Maintenance Due Date Last Done Comments Hepatitis B Vaccine (1 of 3 - 19+ 3-dose series) 01/23/2000 Diabetes: Hemoglobin A1C 02/14/2021 Diabetes: Ophthalmology Exam 02/14/2021 Diabetes: Pedal Pulse Checked 02/14/2021 Diabetes: Sensory Foot Exam 02/14/2021 Diabetes: Visual Foot Exam 02/14/2021 Influenza Vaccine (#1) 2024 Pneumococcal Vaccine: Pediat rics (0 to 5 Years) and At-Risk Patients (6 to 64 Years) Aged Out No longer eligible b ased on patient's age to complete this topic Insurance [employer] Care Teams Electronic Imaging System Operator Relationship Specialty Start Date End Date Emigdio Guthrie MD [facility] [id number] [place], [place] PCP - General Internal Medicine 11/02/20
--- OUTSIDE RECORDS SUMMARY | 2024-06-14 10:33 | XMS_ITS | Clinical Summary ---
Author Organization [facility] Address [address] [place] [address] Care Team Providers Care Receiver/Laborer Name Role Phone Emigdio Guthrie MD Primary Care Provider [phone] Allergies Active Allergy Reactions Criticality Noted Date Comments Prochlorperazine 11/30/2017 Morphine Anaphylaxis High 11/30/2017 Promethazine 11/30/2017 Metoclopramide 11/30/2017 Medications Medication Sig Dispensed Refills Start Date End Date Status carBAMazepine (TEGRETOL XR) 100 MG 12 hr tablet Take 400 mg by mouth 2 (two) times a day. 0 Active fenofibrate (TRICOR) tablet 145 mg Take 145 mg by mouth daily. 0 Active glimepiride (AMARYL) tablet 2 mg Take 2 mg by mouth every morning before breakfast. 0 Active atorvastatin (LIPITOR) tablet 40 mg Take 40 mg by mouth daily. 0 Active gabapentin (NEURONTIN) 600 MG tablet Take 600 mg by mouth 3 (three) times a day. 0 Active lisinopril (PRINIVIL,ZESTRIL) tablet 5 mg Take 5 mg by mouth daily. 0 Active dicyclomine (BENTYL) 20 MG tablet Take 40 mg by mouth every night at bedtime. 0 Active diazepam (VALIUM) tablet 5 mg Take 5 mg by mouth every 6 (six) hours as needed for anxiety. 0 Active loperamide (IMODIUM A-D) 2 MG capsule Take 2 mg by mouth as needed for diarrhea. 0 Active Family History Medical History Relation Name Comments Diabetes Father Edgaurdo Hypertension Father Edgaurdo Cancer Maternal Aunt Eugenia Diabetes Mother Liliana Hypertension Mother Liliana Diabetes Sister javan Hypertension Sister javan Relation Name Status Comments Father Edgaurdo Alive Maternal Aunt Eugenia Mother Liliana Alive Sister javan Alive Social History Tobacco Use Types Packs/Day Years Used Date Smoking Tobacco: Former Cigarettes 0.5 10 Smokeless Tobacco: Never Alcohol Use Standard Drinks/Week Comments No 0 (1 standard drink = 0.6 oz pur e alcohol) Sex and Gender Information Value Date Recorded Sex Assigned at Not on file Gender Identity Not on file Sexual Orientation Not on file Last Filed Vital Signs Vital Sign Reading Time Taken Comments Blood Pressure 151/88 11/30/2017 11:00 AM EDT Pulse 106 11/30/2017 11:00 AM EDT Temperature 36.3 ??C (97.3 ??F) 11/30/2017 1 1:00 AM EDT Respiratory Rate - - Oxygen Saturation - - Inhaled Oxygen Concentration - - Weight 77.9 kg (171 lb 12.8 oz) 018 11:00 AM EDT Height 154.9 cm (5' 1 ) 11/30/2017 11:0 0 AM EDT Body Mass Index 32.46 11/30/2017 11:00 AM EDT Plan of Treatment Health Maintenance Due Date Last Done Comments Hepatitis B Vaccines (1 of 3 - 3-dose series) 1981 Hepatitis C Screening 1980 COVID-19 Vaccine (#1) 1981 Depression Screening 1993 Preventative Health Evaluation 1999 DTap / Tdap / Td (1 - Tdap) 01/23/2000 Cervical Cancer Screening (P ap Smear) 2002 Influenza Vaccine (#1) 2024 Pneumococcal Vaccine Aged Out No long er eligible based on patient's age to complete this topic RSV Ped < 20 months Aged Out No longe r eligible based on patient's age to complete this topic Care Teams Receiver/Laborer Relationship Specialty Start Date End Date Emigdio Guthrie MD [address] [place] [address] [address] [facility] [place] [address] PCP - General Internal Medicine 11/30/17
[2024-06-14 10:41] LABS: MANUAL DIFF FLAG NO
[2024-06-14 11:25] LABS: Basophils Absolute Auto 0.1 X10*3/uL (0.0-0.2); Basophils Percent Auto 0.9 % (0-2); Eosinophils Absolute Auto 0.3 X10*3/uL (0.0-0.4); Eosinophils Percent Auto 4.1 % (0-4); Hematocrit 36.7 % (37.0-47.0); Hemoglobin 12.7 g/dl (12.0-16.0); Imm Gran Abs Auto 0.02 X10*3/uL (0.00-0.03); Imm Gran Pct Auto 0.3 % (0.0-0.4); Lymphocytes Absolute Auto 1.3 X10*3/uL (1.2-4.9); Lymphocytes Percent Auto 20.1 % (20-40); Mean Corpuscular HGB Conc 34.6 g/dl (31.0-35.0); Mean Corpuscular Hemoglobin 28.8 pg (27.0-33.0); Mean Corpuscular Volume 83.2 fL (80.0-98.0); Mean Platelet Volume 10.2 fL (9.4-12.3); Monocytes Absolute Auto 0.4 X10*3/uL (0.1-1.2); Monocytes Percent Auto 5.8 % (2-11); Neutrophils Absolute Auto 4.5 x10*3/uL (2.0-8.3); Neutrophils Percent Auto 68.8 % (45-73); Platelet Count 220 X10*3/uL (160-400); Red Blood Count 4.41 X10*6/uL (4.20-5.50); Red Cell Distribution Width 13.2 % (11.0-16.0); White Blood Count 6.6 X10*3/uL (4.8-10.8)
[2024-06-14 12:06] LABS: Alanine Aminotransferase 14 U/L (0-31); Albumin Level 4.5 g/dL (3.5-5.0); Alkaline Phosphatase 57 U/L (39-117); Anion Gap 15 (12-20); Aspartate Amino Transferase 20 U/L (5-31); Bilirubin Total 0.4 mg/dL (0.0-1.0); Blood Urea Nitrogen 26 mg/dL (9-16); Carbon Dioxide 26 mmol/L (22-29); Chloride 103 mmol/L (96-108); Cholesterol 154 mg/dL (<200); Estimated Glomerular Filt Rate 47; Glucose Random 245 mg/dL (60-115); HDL Cholesterol 32 mg/dL (>40); LDL Cholesterol Calculated 74 mg/dL (<100); Potassium 4.4 mmol/L (3.3-5.1); Sodium 140 mmol/L (135-145); Total Protein 8.2 g/dL (6.5-8.0); Triglycerides 241 mg/dL (<150)
[2024-06-14 12:24] LABS: Thyroid Stimulating Hormone 0.51 uIU/mL (0.32-4.0)
== END 2024-06-14 10:31 | disposition home or self-care (01) ==
LOC: HO.XRAY 10:30
PROVIDERS: PCP Internal Medicine; Visit Provider Internal Medicine
DX: E11.65 Type 2 diabetes mellitus with hyperglycemia (principal); E78.1 Pure hyperglyceridemia; R10.32 Left lower quadrant pain
CPT/HCPCS: 36415; 73502; 80053; 80061; 84439; 84443; 85025

== ENCOUNTER → 2024-06-14 10:52 | Outpatient (BNV) | payer OTHER, SELFPAY | PROVIDERS: PCP Internal Medicine; Visit Provider Radiology Diagnostic Radiology | DX: R10.32 Left lower quadrant pain (principal) | CPT/HCPCS: 73502 ==

== ENCOUNTER 2024-07-30 13:51 | Outpatient (AMB) | payer OTHER, SELFPAY ==
--- NOTE | 2024-07-30 13:52 | A.OFFPC_ITS ---
Intake Visit Reasons: discharge f/u [facility] 07/191 Allergies metoclopramide [From REGLAN] Allergy (Severe, Verified 07/30/24 13:58) ANXIETY promethazine [From PHENERGAN] Allergy (Severe, Verified 07/30/24 13:58) ANXIETY shellfish derived [SHELLFISH DERIVED] Allergy (Severe, Verified 07/30/24 13:58) THROAT SWELLING HIVES IN SCALP, ITCHY ibuprofen [From MOTRIN] Allergy (Unknown, Verified 07/30/24 13:58) HIVES morphine [MORPHINE] Allergy (Unknown, Verified 07/30/24 13:58) THROAT CLOSES, anaphylaxis prochlorperazine [From COMPAZINE] Allergy (Unknown, Verified 07/30/24 13:58) ANXIETY Sulfa (Sulfonamide Antibiotics) [SULFA (SULFONAMIDE ANTIBIOTICS)] Allergy (Unknown, Verified 07/30/24 13:58) SWELLING trazodone Adverse Reaction (Unknown, Verified 07/30/24 13:58) Dizziness Medication List - Last Reconciled 07/30/24 by Ceci Strickland PA-C alprazolam 1 mg PO .QD PRN 30 days baclofen 5 mg PO TID blood pressure monitor (Blood Pressure Kit) As directed blood sugar diagnostic (9Flavauch Verio test strips) As directed two times per day blood-glucose meter As directed carvedilol 12.5 mg PO BID cholecalciferol (vitamin D3) 125 mcg PO DAILY clotrimazole 1% 1 appl topical BID cyanocobalamin (vitamin B-12) 1,000 mcg PO DAILY diclofenac sodium 1% (Voltaren Arthritis Pain) 4 grams topical QID empagliflozin (Jardiance) 10 mg PO DAILY fenofibrate 160 mg PO DAILY fluconazole 150 mg PO ONCE 1 day gabapentin 600 mg PO QID 90 days hydralazine 50 mg PO TID insulin glargine (Lantus Solostar U-100 Insulin) 10 units (0.1 mL) subcut QPM lancets As directed lancets (Ally Home CareTouch Delica Plus Lancet) As directed 2 times per day lisinopril 10 mg PO DAILY meloxicam 15 mg PO DAILY omeprazole 40 mg PO DAILY 90 days ondansetron HCl 4 mg PO Q6H oxycodone 5 mg PO Q8H PRN pantoprazole 40 mg PO TID pen needle, diabetic (Comfort EZ Pen [place]) As directed-daily progesterone micronized 200 mg PO BEDTIME scopolamine HBr mg PO sucralfate 1 g PO TID sumatriptan succinate (Imitrex) 50 mg PO .qd PRN tramadol 50 mg PO DAILY Tobacco use date assessed: 06/03/24 Dental Screening Dental Screen Date: 06/03/24 HPI discharge f/u [facility] 07/196 HPI Details 44-year-old female with past medical his tory of diabetes mellitus, GERD, hypertension, hypercholesterolemia and generalized anxiety disorder last seen 05/[address] Guthrie presenting via telehealth for hospital discharge follow up. In review of the notes, patient was seen in [facility] 07/14/2024 for abdominal pain and nausea patient was admitted for further evaluation. gastric sleeve issues and having hypovitamatosis. - thinking gastroparesis for the abdominal pain. has been feeling very weak and has been losing muscle mass and has been having pain. she did call the weight loss clinic for 08/25/2024 to go back to see them. she does have a GI specialist with Dr. Orr. continues to have abdominal pain ever since hysterectomy has been back and forth in the hospital for abdominal pain. Presenting with persistent abdominal pain and other symptoms following a hysterectomy performed February last year. She reports continuous hospital admissions for severe abdominal pain, characterized by a burning sensation in the upper abdomen, drawing potential links to acid reflux and a recent probable diagnosis of gastroparesis. Chronic health issues include diabetes mellitus, notably exacerbated post-gastric sleeve surgery in 2020. Though initially resolved post-surgery, the condition has recurred, contributing to the patient?s health complexity. Additional chronic issues include anxiety disorder, exacerbated by hospital experiences, and hypertension, currently managed with carvedilol and hydralazine, resulting in adequate blood pressure control. The p atient reports chronic gastrointestinal disturbance, notably diarrhea, independent of hospitalization episodes. She expresses reluctance towards introducing new pharmacologic interventions for anxiety due to apprehension about potential side effects and the complexity of managing existing medication treatments. [facility] Medical History Overweight (BMI 25.0-29.9) Liver fibrosis Steatosis, liver BMI 32.0-32.9,adult Obesity History of back pain BMI over 35 Vitamin D deficiency Hypercalcemia Adjustment disorder, unspecified Pre-procedure lab exam Obesity Family hx of hypertension Serum calcium elevated Proteinuria Onychomycosis Hematuria Vitamin B 12 deficiency LUQ abdominal pain COVID-19 virus infection Irritable bowel syndrome Migraine Insomnia Vitamin D deficiency Obesity (BMI 30-39.9) Diabetic retinopathy Atkins's palsy Peripheral neuropathy Trigeminal neuralgia Pancreatitis GERD (gastroesophageal reflux disease) Type 2 diabetes mellitus with diabetic polyneuropathy Type 2 diabetes mellitus with hyperglycemia Hypertriglyceridemia Essential hypertension Hyperlipidemia LDL goal <100 Surgical History H/O gastric sleeve History of wisdom tooth extraction, class I edentulism Hx of colonoscopy Acalculous cholecystitis Hx of hernia repair Hx of removal of cyst Hx of dilation and curettage Family History Father Diabetes mellitus Asthma Hypertension Mother Diabetes mellitus Hypertension Scleroderma Maternal Aunt Ovarian cancer Paternal Grandfather Diabetes mellitus Paternal Grandmother Diabetes mellitus Maternal Grandmother Diabetes mellitus Maternal Grandfather Diabetes mellitus CVD (cardiovascular disease) Sister CVD (cardiovascular disease) Brother Anxiety Arthritis Social History Household Members: Spouse Housing: Apartment Are you a primary critical care unit manager to a significant other at home: No Do you presently have visiting nurse or other home services: No Alcohol intake: never Patient Tobacco Use Status: Current everyday Tobacco user Tobacco use type: Cigarette Cigarette Packs Per Day: 0.25 Cigarettes Per Day: 4 Years Smoked: quit 03/2016. Restarted 03/2023. e-Cigarette/Vaping Use: Never Used Second Hand Smoke Exposure: No service: No Current occupational status: employed Cognitive needs: No Hearing needs: No Vision needs: Yes Questionnaire Thrive Questionnaire Date Thrive assessed: 06/03/24 BERTRAM-7 AMB Questionnaire BERTRAM-7 Date BERTRAM - 7 assessed: 07/30/24 Feeling nervous, anxious, or on edge: 3 = Nearly every day Not being able to stop or control worryin = Not at all Worrying too much about different things: 3 = Nearly every day Trouble relaxin = Nearly every day Being so restless that it is hard to sit still: 0 = Not at all Becoming easily annoyed or irritable: 3 = Nearly every day Feeling afraid as if something awful might happen: 0 = Not at all Total BERTRAM-7 score (0-4 normal; 5-9 mild; 10-14 moderate; 15-21 severe): 12 Source: Developed by Drs. Jovon Nation, Cecilia Ribeiro, Travon Silveira and colleagues, with an educational michelle from [employer]. Review of Systems Const Denies body aches, Denies chills, Denies fever(s), Denies headache(s) and Denies poor appetite Eyes Reports no additional complaints ENT Denies dysphagia, Denies dizziness, Denies headache(s) and Denies odynophagia Card Denies chest pain, Denies syncope, Denies edema, Denies irregular heart rhythm, Denies lightheadedness and Denies dyspnea Resp Denies cough and Denies dyspnea GI Reports abdominal pain, Denies constipation, Denies dysphagia, Reports dyspepsia, Reports heartburn, Reports diarrhea, Denies nausea, Denies odynophagia and Denies vomiting Reports no additional complaints Musc Reports no additional complaints and Denies abnormal gait Skin/Breast Reports system reviewed and no additional complaints, except as documented Neuro Denies abnormal gait, Denies dizziness, Denies syncope and Denies headache(s) Psych Reports no additional complaints Physical exam (Primary Care) Tobacco/Smoking Status: Tobacco use Status Tobacco use date assessed 06/03/24 07/24/24 10:18 Patient Tobacco Use Status Current everyday Tobacco 07/24/24 10:18 Tobacco use type Cigarette 07/24/24 10:18 e-Cigarette/Vaping Use Never Used 07/24/24 10:18 Thrive Assessment: Date of Thrive Assessment Date Thrive assessed 06/03/24 07/24/24 10:18 Telehealth Telehealth Telehealth Platform: Telephone Location of provider rendering services: practice address Location of patient: address on file Patient Identification confirmed using: Name, : Yes Telehealth method: video (Iphone) Patient verbally consented to treatment: Yes Patient verbally consented to billing insurance company: Yes Patient informed of any privacy concerns related to visit: Yes Coding Level of Care Code Tele Est Pt Level 3 (17288) Diagnoses Type 2 diabetes mellitus with hyperglycemia, without long-term current use of insulin E11.65 Diabetes mellitus mcc insulin use: without petroleum terminal plant operator use Generalized anxiety disorder F41.1 BMI 30.0-30.9,adult Z68.30 Gastroesophageal reflux disease without esophagitis K21.9 Esophagitis presence: without esophagitis Irritable bowel syndrome K58.9 Essential hypertension I10 Assessment & Plan Assessment & Plan (1) Type 2 diabetes mellitus with hyperglycemia: Comment: Eye and lasik Code(s): E11.65 - Type 2 diabetes mellitus with hyperglycemia Category: Medical Qualifiers: Diabetes mellitus mcc insulin use: without petroleum terminal plant operator use Qualified Code(s): E11.65 - Type 2 diabetes mellitus with hyperglycemia Plan: Decrease the amount of carbohydrates such as pasta, bread, rice, and potatoes and limit the amount of sweets. Although fruits are generally healthy they should be eaten in moderation as they are still high in sugar. Hemoglobin A1c goal of less than 7%. Patient having hyperglycemia recommending the use of continuous glucose monitoring (2) Generalized anxiety disorder: Comment: Declined referral for counseling September 2021 Code(s): F41.1 - Generalized anxiety disorder Category: Medical Plan: Patient is currently on alprazolam daily I did recommend an antidepressant for continuous management of her anxiety symptoms. She notes having worsening anxiety since discharge from the hospital in regards to her chronic medical conditions. Initial medication and counseling was declined today (3) BMI 30.0-30.9,adult: Code(s): Z68.30 - Body mass index [BMI] 30.0-30.9, adult Category: Medical Plan: Healthy diet and regular exercise is encouraged. (4) GERD (gastroesophageal reflux disease): Code(s): K21.9 - Gastro-esophageal reflux disease without esophagitis Category: Medical Qualifiers: Esophagitis presence: without esophagitis Qualified Code(s): K21.9 - Gastro-esophageal reflux disease without esophagitis Plan: Avoid trigger foods such as citrus, tomato products, soda, caffeine, spicy foods and other foods that may be irritating to your stomach. Avoid laying flat 3-4 hours after eating and elevate the head of the bed 30 degrees to prevent acid from moving into the esophagus. Continue on pantoprazole. Patient reporting severe acid reflux symptoms recommend following up with her GI specialist Dr. Orr for further management. Can consider additional testing however we will await hospital documentation to see what workup has been completed. (5) Irritable bowel syndrome: Code(s): K58.9 - Irritable bowel syndrome, unspecified Category: Medical Plan: Patient having chronic diarrhea recommend following up with blow molder for further management. (6) Essential hypertension: Code(s): I10 - Essential (primary) hypertension Category: Medical Plan: Continue on current blood pressure medication. Avoid salt intake and encourage healthy diet and regular exercise. Patient reports while she was in the hospital her medication was changed to include carvedilol and hydralazine. Plan to review hospital discharge paperwork once available and adjust plan accordingly. Plan The plan, addressing multiple interconnected health concerns, involves ensuring targeted management of the patient's persistent postoperative abdominal pain, probable gastroparesis, diabetes, hypertension, and anxiety disorder. A renewed consultation with a blow molder is prioritized to optimize management of suspected gastroparesis. Non-invasive glucose sensors have been prescribed subject to insurance approval to aid in diabetes management, addressing challenges with traditional finger-pricking due to weakness. Collaboratively liaising with Dr. Guthrie will ascertain the feasibility of additional oxycodone prescriptions for more effective pain management. The patient elects to continue solely with alprazolam for anxiety control, declining further pharmacological interventions at this time. Prescriptions for antihypertensive medications are to be resumed to maintain controlled blood pressure levels. Engagement with additional healthcare services is recommended as needed to enhance her healthcare journey. Patient was informed and verbally consented to the use of an ambient scribe for clinic note documentation during this visit. This note was constructed using voice recognition software. While every effort has been made to ensure accuracy and staff attorney, still areas may have been included sometimes these areas may affect the content or meeting of the given symptoms. Total time spent caring for the patient today was 20 minutes. This includes time spent before the visit reviewing the chart, time spent during the visit, and time spent after the visit and documentation. Medications: New carvedilol must administer with a meal/food 12.5 mg PO BID 60 tabs 0RF hydralazine 50 mg PO TID 60 tabs 0RF Refilled flash glucose sensor (FreeStyle Meagan 14 Day Sensor kit) As directed 6 kits 3RF E11.65 - Type 2 diabetes mellitus with hyperglycemia, Z79.4 - snf (current) use of insulin fluconazole 150 mg PO ONCE 1 day 1 tab 0RF flash glucose scanning reader (FreeStyle Meagan 14 Day [place]) As directed check the BS 1 ea 0RF E11.65 - Type 2 diabetes mellitus with hyperglycemia, Z79.4 - exterminator helper termite (current) use of insulin
--- OUTSIDE RECORDS SUMMARY | 2024-07-30 16:26 | XMS_ITS ---
Author Organization [facility] Address [address] [place] [address] Support Name Relationship Address Phone NADIYA RUGGIERO Emergency Contact [address] [place] [address] [address] [place], [place] [id number] EDISON RUGGIERO Guarantor Unknown [phone] Care Team Providers Care Finance Business Manager Name Role Phone Emigdio Guthrie MD Primary Care Provider Kain Dia Jr [phone] REASON FOR VISIT Patient presents today for abdominal pain Encounters Encounter Location Date Provider Diagnosis [facility] [address] [place] [phone] 02/27/2024 Kain Orr Jr Plan Of Treatment No Information Progress Notes * EDISON RUGGIERODOB:1980 (44 yo F)Acc No.[id number]:02/27/2024 Progress Notes Patient:?EDISON RUGGIERO Provider:?Kain Orr MD :1980???Age:44 Y???Sex:Female D ate:02/27/2024 Address:[address] [place], [place] [id number] Pcp:Emigdio Guthrie MD Subjective: * Chief Complaints: * ???1. Patient presents today for abdominal pain. * Medical History:? Objective: * Vitals:? Assessment: Plan: * Treatment: * * The named appointment provid er may or may not be the originator of this progress note, and it is not deemed complete until electronically signed by the appointment provider. Sign off status: Pending * Provider:?Kain Orr MD Date:?1 Generated for Lauren umanzor/Gina/eTransmitting on:?07/30/2024 04:26 PM EDT
--- OUTSIDE RECORDS SUMMARY | 2024-07-30 16:26 | XMS_ITS ---
Author Organization [facility] Address [address] [place] [address] Support Name Relationship Address Phone NADIYA RUGGIERO Emergency Contact [address] [place] [address] [address] [place], [place] [phone] EDISON RUGGIERO Guarantor Unknown [phone] Care Team Providers Care Sheet Metal Layout Worker Name Role Phone Emigdio Guthrie MD Primary Care Provider Kain Dia Jr REASON FOR VISIT was in [facility] ER Encounters Encounter Location Date Provider Diagnosis [facility] [address] [place] [address] 05/06/2024 Kain Orr Jr Plan Of Treatment No Information Progress Notes * EDISON RUGGIERODOB:1980 (44 yo F)Acc No.[id number]:05/06/2024 Patient:?EDISON RUGGIERO :1980???Age:44 Y???Sex:Female Address:[address] [place], [address] * true * Date:? Generated for Lauren muanzor/Gina/eTransmitting on:?07/30/2024 04:26 PM EDT
--- OUTSIDE RECORDS SUMMARY | 2024-07-30 16:26 | XMS_ITS ---
Author Organization [employer] [facility] Address [address] [place] [address] Care Team Providers Care Assembler Musical Instruments Name Role Phone YEIMI MARRERO Unavailable [phone] REASON FOR VISIT EB AND F/U FROM DR ZAVALA D&Rakan Encounters Encounter Location Date Provider Diagnosis [facility] [address] [place] [address] 03/27/2024 YEIMI MARRERO Plan Of Treatment Next Appt Details Provider Name:YEIMI Das, 08/28/2024 01:00:00 PM, [address] [place] [address], [address], [place], [address], Progress Notes * EDISON RUGGIERODOB:1980 (44 yo F)Acc No.[id number]:03/27/2024 PROGRESS NOTES Patient:?MONIK EDISON Provider:?YEIMI MARRERO MD :1980???Age:44 Y???Sex:Female D ate:03/27/2024 Address:[address] [place], [place] [id number] Subjective: * Chief Complaints: * ???1. EB AND F/U FROM DR ROEL Marx. * Medical History:? Objective: * Vitals:? Assessment: Plan: * Treatment: * Images: Billing Information: * Visit Code:? * Procedure Codes:? * Electronic signature of YEIMI MARRERO MD on 07/30/2024 at 04:25 PM EDT Sign off status: Pending * Provider:?YEIMI MARRERO MD Date:?2023 Generated for Lauren umanzor/Gina/Aubreyitting on:?07/30/2024 04:25 PM EDT
--- OUTSIDE RECORDS SUMMARY | 2024-07-30 16:26 | XMS_ITS ---
Author Organization [employer] [facility] Address [address] [place] [address] Care Team Providers Care Auto Parts Manager Name Role Phone YEIMI MARRERO Unavailable [phone] REASON FOR VISIT [facility] 2023 Encounters Encounter Location Date Provider Diagnosis [facility] [employer] [facility] [address] [place] [address] 01/25/2024 YEIMI MARRERO Plan Of Treatment Next Appt Details Provider Name:YEIMI Das, 08/28/2024 01:00:00 PM, [address], [address], [place], [address], Progress Notes * LIDYA RUGGIEROB:1980 (44 yo F)Acc No.[id number]:01/25/2024 Patient:?EDISON RUGGIERO :1980???Age:44 Y???Sex:Female Address:[address] [place] [address], [address] * true * Date:? Generated for Printi erna/Gina/eTransmitting on:?07/30/2024 04:25 PM EDT
--- OUTSIDE RECORDS SUMMARY | 2024-07-30 16:26 | XMS_ITS | Patient Health Record ---
Author Organization [employer] [facility] Address [address] [place] [address] Care Team Providers Care Cancer Registrar Name Role Phone YEIMI MARRERO Unavailable [phone] Allergies Allergen (clinical drug ingredient) Drug/Non Drug [...] Active Results Component Value Reference Range Notes PDF Report Reviewed date:01/28/2024 08:47:37 AM Interpretation: Performing Lab:[facility], [address] [place] [address], Phone - [phone], Director - MDJodry Notes/Report: Test, Urine Reviewed date:01/25/2024 04:01:13 PM Interpretation: Performing Lab: Notes/Report: Test, Urine NEG CBC, Platelet, No Differenti al-[id number] Reviewed date:02/04/2024 08:56:32 AM Interpretation: Performing Lab:[facility], [address] [place] [address], Phone - [phone], Director - MDJodry Notes/Report: WBC 8.2 3.4-10.8 x10E3/uL RBC 4.46 3.77-5.28 x10E6/uL Hemoglobin 13.3 11.1-15.9 g/dL Hematocrit 38.8 34.0-46.6 % MCV 87 79-97 fL MCH 29.8 26.6-33.0 pg MCHC 34.3 31.5-35.7 g/dL RDW 13.9 11.7-15.4 % Platelets 209 150-450 x10E3/uL Reason For Referral No Information Medications Medication [...] Omeprazole 40 MG TAKE 1 CAPSULE BY [facility] EVERY DAY Oral for 90 Active Progesterone 200 MG 1 capsule at bedtime Orally Once a day for 90 days 10/29/2023 Active Magnesium 400 MG as directed Orally Active Vitamin D (Ergocalciferol) 00891 UNIT 1 capsule Orally Active Lisinopril 5 [...] test positive, high risk on vaginal specimen (809781265524921) Cervical high risk human papillomavirus (HPV) DNA test positive (R87.810) Active confirmed Problem Essential hypertension (95825570) Essential (primary) hypertension (I10) Active confirmed Problem Type II diabetes mellitus without complication (330784819) Type 2 diabetes mellitus without complications (E11.9) Active confirmed Problem Hyperlipidemia (49750499) Hyperlipidemia, unspecified (E78.5) Active confirmed Problem Anxiety disorder (745893859) Anxiety disorder, unspecified (F41.9) Active confirmed Problem Migraine without aura, not refractory (disorder) (617755680) Migraine, unspecified, not intractable, without status migrainosus (G43.909) Active confirmed Problem Chronic pain syndrome (718325470) Chronic pain syndrome (G89.4) Active confirmed Problem Hidradenitis suppurativa (41426149) Hidradenitis suppurativa (L73.2) Active confirmed Problem Oligomenorrhea (69686946) Oligomenorrhea, unspecified (N91.5) Active confirmed Problem Abnormal uterine bleeding (67490235224800) Abnormal uterine and vaginal bleeding, unspecified (N93.9) Active confirmed Problem Female infertility (9087701) Female infertility, unspecified (N97.9) Active confirmed Problem History of gastrointestinal disease (461784298) Personal history of other diseases of the digestive system (Z87.19) Active confirmed Problem COVID-19 (252962665) COVID-19 (U07.1) Active confirmed Vital Signs Temperature 97.1 degrees Fahrenheit 01/25/2024 Blood pressure diastolic 90 mm Hg 01/25/2024 Height 61 in 01/25/2024 Blood pressure systolic 160 mm Hg 01/25/2024 Weight 163 lbs 01/25/2024 BMI 30.8 kg/m2 01/25/2024 Encounters Encounter Location Date Provider Diagnosis [address] [address] 01/25/2024 YEIMI MARRERO Abnormal uterine and vaginal bleeding, unspecified N93.[address] [address] 10/25/2023 YEIMI MARRERO [address] [address] 10/29/2023 YEIMI MARRERO Abnormal uterine and vaginal bleeding, unspecified N93.[address] [address] 01/25/2024 YEIMI MARRERO [address] [address] 01/25/2024 YEIMI MARRERO Assessments Encounter Date Diagnosis (ICD Code) Assessment Notes Treatment Notes Treatment Clinical Notes Section Notes 10/29/2023 Abnormal uterine and vaginal bleeding, unspecified [...] COMPLETE URINALYSIS 07/27/2020 HEP. B SURF. AG 05/27/2019 HEP. B SURF. AG 02/27/2018 THIN PREP,HPV,NIRANJAN IF HPV+ (>29YR)(SCRN) 02/27/2018 URINE 06/29/2023 TEST, (IN HOUSE) 08/21/2018 SYPHILIS TESTING 02/27/2018 SYPHILIS TESTING 05/27/2019 HIV AB-AG 4TH GENERATION 05/27/2019 HIV AB-AG 4TH GENERATION 02/27/2018 PELVIC ULTRASOUND W/TRANSVAGINAL 021 ULTRASOUND: PELVIC W/TRANSVAGINAL 2019 ULTRASOUND: PELVIC W/TRANSVAGINAL 2022 MM Digital Screening Mammogram 3D 2023 MM Digital Screening Mammogram 3D 2022 Next Appt Details Provider Name:YEIMI Das, 08/28/2024 01:00:00 PM, [address], [address], [place], [address], Insurance Providers Payer Name Payer Address Payer Phone Subscriber Number Group Number Insured Name Patient Relationship to Insured Coverage Start Date Coverage End Date [facility] [address] [place] [address] [id number] EDISON RUGGIERO Self - patient is the insured Medical (General) History Medical History History ICD Code Hyperlipidemia, unspecified E78.5 Essential (primary) hypertension I10 COVID-19 U07.1 Surgical History Surgery Date(Month/Year) Dilation and curretage 2004 Hernia Repair 1980 Removal of Lump on R under arm cholecystectomy 10/2018 upper endoscopy and colonoscopy 2018 GASTRIC SLEEVE 02/2021 LAV/BSO - for AUB 02/2024 Hospitalization History Reason Date(Month/Year) See surgical Hx
--- OUTSIDE RECORDS SUMMARY | 2024-07-30 16:26 | XMS_ITS ---
Author Organization [facility] Address [address] [place] [address] Care Team Providers Care Machine Hand Name Role Phone Emigdio Guthrie MD Primary Care Provider Kain Dia Jr REASON FOR VISIT Cancel Appointment Request Encounters Encounter Location Date Provider Diagnosis [facility] [address] [facility] [address] [place] [address] 02/25/2024 Kain Orr Jr Plan Of Treatment No Information Progress Notes * KVNG RUGGIEROCHANDANAMAXDOB:1980 (44 yo F)Acc No.[id number]:02/25/2024 Patient:?EDISON RUGGIERO :1980???Age:44 Y???Sex:Female Address:[address] [place] [address], [address] * true * Date:? Generated for Lauren umanzor/Gina/eTransmitting on:?07/30/2024 04:26 PM EDT
--- OUTSIDE RECORDS SUMMARY | 2024-07-30 16:26 | XMS_ITS ---
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 Physical Encounters Encounter Location Date Provider Diagnosis [facility] [address] [place] [phone] 07/28/2024 YEIMI MARRERO Encounter for gynecological examination [...] Follow Up: 1 Year, Reason: Y early Field Geologist Exam Provider Name:YEIMI Das, 08/28/2024 01:00:00 PM, [address], [address], [place], [address], Progress Notes * EDISON RUGGIERODOB:1980 (44 yo F)Acc No.[id number]:07/28/2024 PROGRESS NOTES Patient:?EDISON RUGGIERO Provider:?YEIMI MARRERO MD :1980???Age:44 Y???Sex:Female D ate:07/28/2024 Address:[address] [place], [place] [phone] Subjective: * Chief Complaints: * ???1. 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 * HPI: ???Constitutional:?Edison is a 44 yo s/p LAVH/BSO for abnormal uterine bleeding on 03/17/24 who presents for her yearly practice performance manager exam. She was hospitalized 07/14/24 for N/V/abdominal pain associated with diabetic gastroparesis. ? She has been in state of good health since her last exam. She has the following concerns: none* ? She has received the Moderna Covid-19 vaccine. ? Relationship status: * for 10 years. She is sexually active. Sexual partner(s): male. She does wish to have STI testing. ? She does *not report vaginal dryness. She does* have hot flashes/night sweats for YEARS (she doesn't think it has to do with menopause). ? The patient has not had an abnormal pap smear within the last 5 years. Her most recent pap smear was 07/20/21 - NIL, neg HR HPV. Prior pap was 07/27/2020 - NIL, neg HR HPV. Her previous pap was 05/27/2019 - LSIL, +HR HPV. Her hysterectomy specimen showed no pathologic change of the cervix. Paps are no longer indicated. ? She has not been diagnosed with breast cancer. She does not have a family history of breast cancer. She had a mammogram on 06/26/23 - heterogeneously dense breasts, with Ivory risk of 11.9%. Supplemental screening is not indicated. ? The patient does* exercise. She exercises about twice weekly - she does an indoor aerobic/walking to a video. * ROS:?Annual Field Geologist Exam ROS:?Bowel habit changes?denies.?Bladder symptoms?denies.?Vaginal discharge, unusual?denies.?Vaginal itch or odor?denies.?abnormal bleeding?denies.?weight or appetite changes?denies.?Chest pains, SOB?denies.?depression?denies.?Breast:?Denies?Breast lump.?Denies?Nipple discharge.?Hematology:?Denies?Swollen glands.?Skin:?Patient denies?changing moles.?Psychiatric:?Denies?Anxiety.? * Medical History:? * Field Geologist History:?/ Para?1/0.?Sexual activity?currently sexually active, with men.?Last Pap Smear:?07/20/21 NIL, NEG HPV, 07/27/20 NIL, NEG HPV, 05/27/2019 LSIL/+hrHPV, neg 16/18/45.?Mammogram:?not due per age.?Abnormal Pap Smear:?2019, 2017, 2015 abnl pap with HPV. Colpo was recommended but not done. She had colpo 2013 ([facility]).?LMP and menses?hysterectomy.?History of STD's:?none.? Control:?none.?Hysterectomy:?03/17/2024 (LAVH/BSO for AUB).?Endoscopy *?01/2023 - normal.?Colonoscopy?Yes 2017- Normal; 01/2023 - normal.? * OB History:?Total pregnancies?.? * Surgical History:?Dilation a nd curretage 2004, Hernia Repair 1980, Removal of Lump on R under arm 05/16/2018, cholecystectomy 10/2018, upper endoscopy and colonoscopy 2018, GASTRIC SLEEVE 02/2021, LAVH/BSO - for AUB 02/2024. * Hospitalization/Major Diagno stic Procedure:?See surgical Hx . Objective: * Vitals:? * Examination: ???General Examination: ?GENERAL APPEARANCE:?in no acute distress, well developed, well nourished, custom studio coordinator present in room.?HEAD:?normocephalic, atraumatic.?NECK/THYROID:?neck supple, full range of motion, thyroid normal.?LYMPH NODES:?no axillary or supraclavicular adenopathy.?SKIN:? normal, good turgor, no rashes, no suspicious lesions.?BREASTS:?normal, no dimpling, no discharge, no drainage, no masses palpable bilaterally, nontender.?ABDOMEN:? soft, non-tender, non distended without masses or hepatosplenomegay.?RECTAL:? normal tone, no masses palpable.?BACK:? no costovertebral angle tenderness.?FEMALE GENITOURINARY:?Vulva without lesions or masses, vagina pink without abnormal discharge, lesions or masses, cervix, uterus and ovaries are surgically absent.?NEUROLOGIC:? alert and oriented, gait normal.?PSYCH:? alert, oriented, cognitive function intact, cooperative with exam, good eye contact, mood/affect full range, speech clear.? Assessment: * Assessment: 1.?Encounter for gynecologic al examination (general) (routine) without abnormal findings - Z01.419 (Primary)???2.?Encounter for screening mammogram for malignant neoplasm of breast - Z12.31???3.?Encounter for screening for infections with a predominantly sexual mode of transmission - Z11.3??? Plan: * Treatment: 2.?Encounter for screening m ammogram for malignant neoplasm of breast?Imaging: MM Digital Screening Mammogram 3D * Follow Up:?1 Year (Reason: Y early Field Geologist Exam) * Images: Billing Information: * Visit Code:? 73477 Preventive Care Est Pt. Age 40-64. * Procedure Codes:? * Electronic signature of YEIMI MARRERO MD on 07/30/2024 at 04:26 PM EDT Sign off status: Pending * Provider:?YEIMI MARRERO MD Date:?2024 Generated for Lauren umanzor/Gina/eTransmitting on:?07/30/2024 04:26 PM EDT History and Physical Notes * HPI (History of Present Illness) Category Sub-Category Detail Notes Category Not es Constitutional Edison is a 44 yo s/p LAVH/BSO for abnormal uterine bleeding on 03/17/24 who presents for her yearly practice performance manager exam. She was hospitalized 07/14/24 for N/V/abdominal [...] ac sunita distress, well developed, well nourished, custom studio coordinator present in room HEAD: normocephalic, atrau matic [...]
--- OUTSIDE RECORDS SUMMARY | 2024-07-30 16:27 | XMS_ITS | Clinical Summary ---
Author Organization [facility] Address [address] [facility] [facility] [address] [place] [address] Phone Care Team Providers Care Membership Coordinator Name Role Phone Emigdio Guthrie MD Primary Care Provider [phone] Allergies Active Allergy Reactions Criticality Noted Date [...] complete this topic Insurance [employer] Care Teams Membership Coordinator Relationship Specialty Start Date End Date Emigdio Guthrie MD [facility] [place] [address] [place], [place] PCP - General Internal Medicine 11/02/20
--- OUTSIDE RECORDS SUMMARY | 2024-07-30 16:27 | XMS_ITS | Clinical Summary ---
Author Organization [facility] Address [address] [place] [address] Care Team Providers Care Ruby Rails Developer Name Role Phone Emigdio Guthrie MD Primary Care Provider [phone] Allergies Active Allergy Reactions Criticality Noted Date [...] age to complete this topic Care Teams Ruby Rails Developer Relationship Specialty Start Date End Date Emigdio Guthrie MD [address] [place] [address] [address] [facility] [place] [address] PCP - General Internal Medicine 11/30/17
--- OUTSIDE RECORDS SUMMARY | 2024-07-30 16:27 | XMS_ITS | Patient Health Record ---
Author Organization [facility] Address [address] [place] [address] Support Name Relationship Address Phone NADIYA RUGGIERO Emergency Contact [address] [place] [address] [address] [place], [place] [id number] EDISON RUGGIERO Guarantor Unknown [phone] Care Team Providers Care Data Collection Specialist Name Role Phone Emigdio Guthrie MD Primary Care Provider Kain Dia Jr Unavailable Allergies Allergen (clinical drug ingredient) Drug/Non Drug Allergy documented on EMR Reaction Allergy Type Onset Date Status Compazine Unknown Drug Allergy Active Sulfacet-R Unknown Drug Allergy Active metoclopramide Reglan Unknown Drug Allergy Ac tive promethazine Phenergan Unknown Drug Allergy Acti ve Motrin hives Drug Allergy Active morphine Morphine Sulfate Unknown Drug Allergy Active Shellfish (FN) shell fish (uncoded) Unknown Allergy Active Reason For Referral No Information Medications Medication [...] tablet Orally Twic e a day Active Immunizations Vaccine Route Administration Date Status Comme nts Influenza Unknown 03/01/2018 Administered Influenza Unknown 02/18/2019 Administered Social History Alcohol Screen Question Answer Notes Did you have a drink containing alcohol in the p ast year? 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) Active confirmed Problem 98112770 Change in bowel movement (R19.8) Active confirmed Problem 410142019 Gastroesophageal reflux disease, unspecified whether esophagitis present (K21.9) Active confirmed Encounters Encounter Location Date Provider Diagnosis [facility] [address] [place] [phone] 05/06/2024 Kain Orr Jr [facility] [address] [place] [phone] 02/25/2024 Kain Orr Jr Plan Of Treatment Pending Test Test Name Order Date CHEM [...] Insured Coverage Start Date Coverage End Date [facility] [address] Attn Claims [place] [id number] EDISNO RUGGIERO Self - patient is the insured MEDICAID OF [facility] [address] [place] [address] [id number] EDISON RUGGIERO Self - patient is the insured [place] OF [place] [address] [place] [address] [id number] EDISON RUGGIERO Self - patient is the insured Medical (General) History Medical History History ICD Code diabetes mellitus/ under control Gastroesophageal reflux disease, EGD 10/19 9, no H. pylori pancreatitis hypertriglyceridemia anxiety Ovarian cysts Hypertension Neuropathy Colonoscopy 04/06, normal biopsies inclu ding ileum and sigmoid Surgical History Surgery Date(Month/Year) Dilation/curettage 2004 hernia repair as an infant Sleeve gastrectomy repair of hiatal marianna ia 02/2021 cholecystectomy 10/2018
== END 2024-07-30 14:25 | disposition home or self-care (01) ==
LOC: HO.HMCH 13:51
PROVIDERS: PCP Internal Medicine
DX: E11.65 Type 2 diabetes mellitus with hyperglycemia (principal); F41.1 Generalized anxiety disorder; Z68.30 Body mass index [BMI] 30.0-30.9, adult; K21.9 Gastro-esophageal reflux disease without esophagitis; K58.9 Irritable bowel syndrome, unspecified; I10 Essential (primary) hypertension

== ENCOUNTER → 2024-07-30 13:51 | Outpatient (BNVA) | payer OTHER, SELFPAY | PROVIDERS: PCP Internal Medicine ==

== ENCOUNTER 2024-08-06 13:38 | Outpatient (AMB) | payer OTHER, SELFPAY ==
--- NOTE | 2024-08-06 13:34 | MHC.OFFVISWM ---
VS Expanded 08/06/24 13:41 Height 5 ft 1 in Weight 153 lb BMI 28.9 Intake Visit Reasons: TELEPHONE PO LSG 03/10/21*glp-1 Allergies metoclopramide [From REGLAN] Allergy (Severe, Verified 07/30/24 13:58) ANXIETY promethazine [From PHENERGAN] Allergy (Severe, Verified 07/30/24 13:58) ANXIETY shellfish derived [SHELLFISH DERIVED] Allergy (Severe, Verified 07/30/24 13:58) THROAT SWELLING HIVES IN SCALP, ITCHY ibuprofen [From MOTRIN] Allergy (Unknown, Verified 07/30/24 13:58) HIVES morphine [MORPHINE] Allergy (Unknown, Verified 07/30/24 13:58) THROAT CLOSES, anaphylaxis prochlorperazine [From COMPAZINE] Allergy (Unknown, Verified 07/30/24 13:58) ANXIETY Sulfa (Sulfonamide Antibiotics) [SULFA (SULFONAMIDE ANTIBIOTICS)] Allergy (Unknown, Verified 07/30/24 13:58) SWELLING trazodone Adverse Reaction (Unknown, Verified 07/30/24 13:58) Dizziness Medication List - Last Reconciled 08/06/24 by BENSON Alvarado alprazolam 1 mg PO .QD PRN 30 days baclofen 5 mg PO TID blood pressure monitor (Blood Pressure Kit) As directed blood sugar diagnostic (Friendfer Verio test strips) As directed two times per day blood-glucose meter As directed blood-glucose meter,continuous (Dexcom G7 Bingo Attendant) As directed blood-glucose sensor (Dexcom G7 Sensor device) As directed carvedilol 12.5 mg PO BID cholecalciferol (vitamin D3) 125 mcg PO DAILY clotrimazole 1% 1 appl topical BID cyanocobalamin (vitamin B-12) 1,000 mcg PO DAILY diclofenac sodium 1% (Voltaren Arthritis Pain) 4 grams topical QID empagliflozin (Jardiance) 10 mg PO DAILY fenofibrate 160 mg PO DAILY fluconazole 150 mg PO ONCE 1 day gabapentin 600 mg PO QID 90 days hydralazine 50 mg PO TID insulin glargine (Lantus Solostar U-100 Insulin) 10 units (0.1 mL) subcut QPM lancets As directed lancets (PBS-Biouch Delica Plus Lancet) As directed 2 times per day lisinopril 10 mg PO DAILY meloxicam 15 mg PO DAILY omeprazole 40 mg PO DAILY 90 days ondansetron HCl 4 mg PO Q6H oxycodone 5 mg PO Q8H PRN pantoprazole 40 mg PO TID pen needle, diabetic (Comfort EZ Pen [place]) As directed-daily progesterone micronized 200 mg PO BEDTIME scopolamine HBr mg PO sucralfate 1 g PO TID sumatriptan succinate (Imitrex) 50 mg PO .qd PRN tramadol 50 mg PO DAILY HPI Comments Details: This?is a?44?yo female] who is s/p LSG 03/10/2021. Presents for 3 year 5 month post op visit. Weight at last visit on 02/15/2022 was 156 pounds with a BMI of 30.4, weight today is [] pounds, representing a [] pound weight loss with a BMI today of [].? No complaints of nausea, emesis, abdominal pain or reflux, or constipation. I've had a really bad year, gone a bit downhill with my health, going through some personal things, 2 family losses been in and out of the hospital, back to being a diabetic/high blood pressure, possible gastroparesis weak, losing my hair had hysterectomy last February I'm doing well mentally, I want to take care of my health again [facility] Medical History Overweight (BMI 25.0-29.9) Liver fibrosis Steatosis, liver BMI 32.0-32.9,adult Obesity History of back pain BMI over 35 Vitamin D deficiency Hypercalcemia Adjustment disorder, unspecified Pre-procedure lab exam Obesity Family hx of hypertension Serum calcium elevated Proteinuria Onychomycosis Hematuria Vitamin B 12 deficiency LUQ abdominal pain COVID-19 virus infection Irritable bowel syndrome Migraine Insomnia Vitamin D deficiency Obesity (BMI 30-39.9) Diabetic retinopathy Atkins's palsy Peripheral neuropathy Trigeminal neuralgia Pancreatitis GERD (gastroesophageal reflux disease) Type 2 diabetes mellitus with diabetic polyneuropathy Type 2 diabetes mellitus with hyperglycemia Hypertriglyceridemia Essential hypertension Hyperlipidemia LDL goal <100 Surgical History H/O gastric sleeve History of wisdom tooth extraction, class I edentulism Hx of colonoscopy Acalculous cholecystitis Hx of hernia repair Hx of removal of cyst Hx of dilation and curettage Family History Father Diabetes mellitus Asthma Hypertension Mother Diabetes mellitus Hypertension Scleroderma Maternal Aunt Ovarian cancer Paternal Grandfather Diabetes mellitus Paternal Grandmother Diabetes mellitus Maternal Grandmother Diabetes mellitus Maternal Grandfather Diabetes mellitus CVD (cardiovascular disease) Sister CVD (cardiovascular disease) Brother Anxiety Arthritis Social History Household Members: Spouse Housing: Apartment Are you a primary respiratory care practitioner to a significant other at home: No Do you presently have visiting nurse or other home services: No Alcohol intake: never Patient Tobacco Use Status: Current everyday Tobacco user Tobacco use type: Cigarette Cigarette Packs Per Day: 0.25 Cigarettes Per Day: 4 Years Smoked: quit 03/2016. Restarted 03/2023. e-Cigarette/Vaping Use: Never Used Second Hand Smoke Exposure: No service: No Current occupational status: employed Cognitive needs: No Hearing needs: No Vision needs: Yes Telehealth Telehealth Telehealth Platform: Telephone Location of provider rendering services: other Location of patient: address on file Patient Identification confirmed using: Name, : Yes Telehealth method: voice only Patient verbally consented to treatment: Yes Patient verbally consented to billing insurance company: Yes Patient informed of any privacy concerns related to visit: Yes Minutes spent on Phone/Video with Pt.: 18 Assessment & Plan Assessment & Plan (1) S/P laparoscopic sleeve gastrectomy: Comment: February 2021 Code(s): Z98.84 - Bariatric surgery status Category: Medical (2) Overweight: Code(s): E66.3 - Overweight Category: Medical Plan Goal 65g protein per day. Pt would like to use Celebrate 4:1. AM shake- 2 scoops in 8oz UAM lunch shake- 2 scoops in 8oz UAM dinner- 4-6 forks protein, 4-6 forks veg or 2-3f veg and 2-3f potato Encouraged weight training plus cardio, sent exercise handout and meal planvia text. Labs ordered. RTC 4-6 weeks. Orders: Orders Complete Blood Count Auto Diff Today Z98.84 - Bariatric surgery status Lipid Panel Today Z98.84 - Bariatric surgery status Zinc Today Z98.84 - Bariatric surgery status C Reactive Protein Today Z98.84 - Bariatric surgery status Ferritin Today Z98.84 - Bariatric surgery status Vitamin D 25-OH Total Today Z98.84 - Bariatric surgery status Insulin Today Z98.84 - Bariatric surgery status Hemoglobin A1c Today Z98.84 - Bariatric surgery status IRON PROFILE Today Z98.84 - Bariatric surgery status Comprehensive Met. Panel Today Z98.84 - Bariatric surgery status Vitamin B12 and Folate Today Z98.84 - Bariatric surgery status Vitamin B1 Today Z98.84 - Bariatric surgery status Vitamin A Today Z98.84 - Bariatric surgery status TSH reflex Free T4 Today Z98.84 - Bariatric surgery status
[2024-08-06 13:41] VITALS: BMI 28.9
--- OUTSIDE RECORDS SUMMARY | 2024-08-06 16:04 | XMS_ITS ---
Author Organization [employer] Address [address] [address] Care Team Providers Care Heavy Duty Truck Mechanic Name Role Phone YEIMI MARRERO Unavailable [phone] REASON FOR VISIT Annual PASTING INSPECTOR Physical Encounters Encounter Location Date Provider Diagnosis [facility] [address] [place] [phone] 07/28/2024 YEIMI MARRERO Encounter for gynecological examination [...] Follow Up: 1 Year, Reason: Y early Crosstie Inspector Exam Provider Name:YEIMI Das, 08/28/2024 01:00:00 PM, [address], [address], [place], [address], Progress Notes * EDISON RUGGIERODOB:1980 (44 yo F)Acc No.[id number]:07/28/2024 PROGRESS NOTES Patient:?EDISON RUGGIERO Provider:?YEIMI MARRERO MD :1980???Age:44 Y???Sex:Female D ate:07/28/2024 Address:[address] [place], [place] [id number] Subjective: * Chief Complaints: * ???1. Annual PASTING INSPECTOR Physical. * HPI: ???Constitutional:?Edison is a 44 yo s/p LAVH/BSO for abnormal uterine bleeding on 03/17/24 who presents for her yearly gynaecological oncologist exam. She was hospitalized 07/14/24 for N/V/abdominal [...] indoor aerobic/walking to a video. * ROS:?Annual Crosstie Inspector Exam ROS:?Bowel habit changes?denies.?Bladder symptoms?denies.?Vaginal discharge, unusual?denies.?Vaginal itch or odor?denies.?abnormal bleeding?denies.?weight or appetite changes?denies.?Chest pains, SOB?denies.?depression?denies.?Breast:?Denies?Breast lump.?Denies?Nipple discharge.?Hematology:?Denies?Swollen glands.?Skin:?Patient denies?changing moles.?Psychiatric:?Denies?Anxiety.? * Medical History:? * Crosstie Inspector History:?/ Para?1/0.?Sexual activity?currently sexually active, with men.?Last Pap Smear:?07/20/21 NIL, NEG HPV, 07/27/20 NIL, NEG HPV, 05/27/2019 LSIL/+hrHPV, neg 16/18/45.?Mammogram:?not due per age.?Abnormal Pap Smear:?2019, 2017, 2015 abnl pap with HPV. Colpo was recommended but not done. She had colpo 2013 ([facility]).?LMP and menses?hysterectomy.?History of STD's:?none.? Control:?none.?Hysterectomy:?03/17/2024 (LAVH/BSO for [...] no acute distress, well developed, well nourished, verifying machine operator present in room.?HEAD:?normocephalic, atraumatic.?NECK/THYROID:?neck supple, full range [...] * Follow Up:?1 Year (Reason: Y early Crosstie Inspector Exam) * Images: Billing Information: * Visit Code:? 86972 Preventive Care Est Pt. Age 40-64. * Procedure Codes:? * Electronic signature of YEIMI MARRERO MD on 08/06/2024 at 04:04 PM EDT Sign off status: Pending * Provider:?YEIMI MARRERO MD Date:?2024 Generated for Lauren umanzor/Gina/eTransmitting on:?08/06/2024 04:04 PM EDT History and Physical Notes * HPI (History of Present Illness) Category Sub-Category Detail Notes Category Not es Constitutional Edison is a 44 yo s/p LAVH/BSO for abnormal uterine bleeding on 03/17/24 who presents for her yearly gynaecological oncologist exam. She was hospitalized 07/14/24 for N/V/abdominal [...] ac sunita distress, well developed, well nourished, verifying machine operator present in room HEAD: normocephalic, atrau matic [...]
--- OUTSIDE RECORDS SUMMARY | 2024-08-06 16:04 | XMS_ITS ---
Author Organization [facility] Address [address] [place] [address] Support Name Relationship Address Phone NADIYA RUGGIERO Emergency Contact [address] [place] [address] [address] [place], [place] [phone] EDISON RUGGIERO Guarantor Unknown [phone] Care Team Providers Care Director Strategic Account Management Name Role Phone Emigdio Guthrie MD Primary Care Provider Kain Dia Jr [phone] REASON FOR VISIT Patient presents today for abdominal pain Encounters Encounter Location Date Provider Diagnosis [facility] [address] [place] [phone] 02/27/2024 Kain Orr Jr Plan Of Treatment No Information Progress Notes * EDISON RUGGIERODOB:1980 (44 yo F)Acc No.[id number]:02/27/2024 Progress Notes Patient:?EDISON RUGGIERO Provider:?Kain Orr MD :1980???Age:44 Y???Sex:Female D ate:02/27/2024 Address:[address] [place], [place] [id number] Pcp:Emigdio Guthrie MD Subjective: * Chief Complaints: [...] Orr MD Date:?1 Generated for Lauren umanzor/Gina/eTransmitting on:?08/06/2024 04:04 PM EDT
--- OUTSIDE RECORDS SUMMARY | 2024-08-06 16:04 | XMS_ITS ---
Author Organization [facility] Address [address] [facility] [address] [place] [address] Care Team Providers Care Stage Producer Name Role Phone YEIMI MARRERO Unavailable [phone] REASON FOR VISIT [facility] SUR[facility]ICAL REQ 2023 Encounters Encounter Location Date Provider Diagnosis [facility] [address] [facility] [address] [place] [address] 01/25/2024 YEIMI MARRERO Plan Of Treatment Next Appt Details Provider Name:YEIMI Das, 08/28/2024 01:00:00 PM, [address] [facility], [address], [place], [address], Progress Notes * LIDYA RUGGIEROB:1980 (44 yo F)Acc No.[id number]:01/25/2024 Patient:?EDISON RUGGIERO :1980???Age:44 Y???Sex:Female Address:[address] [place] [address], [address] * true * Date:? Generated for Printi erna/Gina/eTransmitting on:?08/06/2024 04:03 PM EDT
--- OUTSIDE RECORDS SUMMARY | 2024-08-06 16:04 | XMS_ITS | Patient Health Record ---
Author Organization [facility] Address [address] [place] [address] Care Team Providers Care Director Product Development Name Role Phone YEIMI MARRERO Unavailable [phone] Allergies Allergen (clinical drug ingredient) Drug/Non Drug [...] Test, Urine NEG CBC, Platelet, No Differenti al-[id number] Reviewed date:02/04/2024 08:56:32 AM Interpretation: Performing Lab:[facility], [address] [place] [address], Phone - [phone], Director - Adolfo Notes/Report: WBC 8.2 3.4-10.8 x10E3/uL RBC 4.46 3.77-5.28 x10E6/uL Hemoglobin 13.3 11.1-15.9 g/dL Hematocrit 38.8 34.0-46.6 % MCV 87 79-97 fL MCH 29.8 26.6-33.0 pg MCHC 34.3 31.5-35.7 g/dL RDW 13.9 11.7-15.4 % Platelets 209 150-450 x10E3/uL PDF Report Reviewed date:01/28/2024 08:47:37 AM Interpretation: Performing Lab:[facility], [address] [facility], [place], Phone - [phone], Director - Adolfo Notes/Report: Reason For Referral [...] Omeprazole 40 MG TAKE 1 CAPSULE BY [facility] EVERY DAY Oral for 90 Active Progesterone 200 MG 1 capsule at bedtime Orally Once a day for 90 days 10/29/2023 Active Magnesium 400 MG as directed Orally Active Vitamin D (Ergocalciferol) 11981 UNIT 1 capsule Orally Active Lisinopril 5 [...] test positive, high risk on vaginal specimen (538283825278309) Cervical high risk human papillomavirus (HPV) DNA test positive (R87.810) Active confirmed Problem Essential hypertension (55346940) Essential (primary) hypertension (I10) Active confirmed Problem Type II diabetes mellitus without complication (622747898) Type 2 diabetes mellitus without complications (E11.9) Active confirmed Problem Hyperlipidemia (78103490) Hyperlipidemia, unspecified (E78.5) Active confirmed Problem Anxiety disorder (855323620) Anxiety disorder, unspecified (F41.9) Active confirmed Problem Migraine without aura, not refractory (disorder) (422026084) Migraine, unspecified, not intractable, without status migrainosus (G43.909) Active confirmed Problem Chronic pain syndrome (807545269) Chronic pain syndrome (G89.4) Active confirmed Problem Hidradenitis suppurativa (30662471) Hidradenitis suppurativa (L73.2) Active confirmed Problem Oligomenorrhea (42448636) Oligomenorrhea, unspecified (N91.5) Active confirmed Problem Abnormal uterine bleeding (29723189257086) Abnormal uterine and vaginal bleeding, unspecified (N93.9) Active confirmed Problem Female infertility (0870577) Female infertility, unspecified (N97.9) Active confirmed Problem History of gastrointestinal disease (276212765) Personal history of other diseases of the digestive system (Z87.19) Active confirmed Problem COVID-19 (233098570) COVID-19 (U07.1) Active confirmed Vital Signs Temperature 97.1 degrees Fahrenheit 01/25/2024 Blood pressure diastolic 90 mm Hg 01/25/2024 Height 61 in 01/25/2024 Blood pressure systolic 160 mm Hg 01/25/2024 Weight 163 lbs 01/25/2024 BMI 30.8 kg/m2 01/25/2024 Encounters Encounter Location Date Provider Diagnosis [address] [address] 01/25/2024 YEIMI MARRERO Abnormal uterine and vaginal bleeding, unspecified N93.[address] [address] 10/25/2023 YEIMI MARRERO [address] [address] 10/29/2023 YEIMI MARRERO Abnormal uterine and vaginal bleeding, unspecified N93.[address] [address] 01/25/2024 YEIMI MARRERO [address] [address] 01/25/2024 YEIMI MARRERO Assessments Encounter Date Diagnosis [...] Provider Name:YEIMI Das, 08/28/2024 01:00:00 PM, [address], [address], [place], [address], Insurance Providers Payer Name Payer Address Payer Phone Subscriber Number Group Number Insured Name Patient Relationship to Insured Coverage Start Date Coverage End Date [facility] [address] [place] [address] [id number] EDISON RUGGIERO Self - patient is the [...]
--- OUTSIDE RECORDS SUMMARY | 2024-08-06 16:04 | XMS_ITS ---
Author Organization [facility] Address [address] [facility] [address] [place] [address] Care Team Providers Care Social Service Liaison Name Role Phone YEIMI MARRERO Unavailable [phone] REASON FOR VISIT EB AND F/U FROM DR ZAVALA D&Rakan Encounters Encounter Location Date Provider Diagnosis [facility] [employer] [address] [place] [address] 03/27/2024 YEIMI MARRERO Plan Of Treatment Next Appt Details Provider Name:YEIMI Das, 08/28/2024 01:00:00 PM, [address] [place] [address], [address], [place], [address], Progress Notes * EDISON RUGGIERODOB:1980 (44 yo F)Acc No.[id number]:03/27/2024 PROGRESS NOTES Patient:?MONIK EDISON Provider:?YEIMI MARRERO MD :1980???Age:44 Y???Sex:Female D ate:03/27/2024 Address:[address] [place], [place] [id number] Subjective: * Chief Complaints: * ???1. EB AND F/U FROM DR ROEL Marx. * Medical History:? Objective: * Vitals:? Assessment: Plan: * Treatment: * Images: Billing Information: * Visit Code:? * Procedure Codes:? * Electronic signature of YEIMI MARRERO MD on 08/06/2024 at 04:04 PM EDT Sign off status: Pending * Provider:?YEIMI MARRERO MD Date:?2023 Generated for Lauren umanzor/Gina/Aubreyitting on:?08/06/2024 04:04 PM EDT
--- OUTSIDE RECORDS SUMMARY | 2024-08-06 16:05 | XMS_ITS | Clinical Summary ---
Author Organization [facility] Address [address] [facility] [address] [place] [address] Phone Care Team Providers Care Display Carver Name Role Phone Emigdio Guthrie MD Primary Care Provider [phone] Allergies Active Allergy Reactions Criticality Noted Date [...] complete this topic Insurance [employer] Care Teams Display Carver Relationship Specialty Start Date End Date Emigdio Guthrie MD [facility] [place] [address] [place], [place] PCP - General Internal Medicine 11/02/20
--- OUTSIDE RECORDS SUMMARY | 2024-08-06 16:05 | XMS_ITS | Patient Health Record ---
Author Organization [facility] Address [address] [place] [address] Support Name Relationship Address Phone NADIYA RUGGIERO Emergency Contact [address] [place] [address] [address] [place], [place] [phone] EDISON RUGGIERO Guarantor Unknown [phone] Care Team Providers Care Certified Ophthalmic Technologist Name Role Phone Emigdio Guthrie MD Primary Care Provider Kain Dia Jr Unavailable Allergies Allergen (clinical drug ingredient) Drug/Non Drug Allergy documented on EMR Reaction Allergy Type Onset Date Status promethazine Phenergan Unknown Drug Allergy Acti ve Motrin hives Drug Allergy Active morphine Morphine Sulfate Unknown Drug Allergy Active Shellfish (FN) shell fish (uncoded) Unknown Allergy Active Compazine Unknown Drug Allergy Active Sulfacet-R Unknown Drug Allergy Active metoclopramide Reglan Unknown Drug Allergy Ac tive Reason For Referral No Information Medications Medication [...] Problem Status W/U Status Risk Notes Problem 67255921 Epigastric pain (R10.13) Active confirmed Problem 102962376 Irritable bowel syndrome with diarrhea (K58.0) Active confirmed Problem 693632537 Generalized abdominal pain (R10.84) Active confirmed Problem Gastroesophageal reflux disease (498307602) Gastroesophageal reflux disease (K21.9) Active confirmed Problem 59852478 Rectal pain (K62.89) Active confirmed Problem 59296075 Diarrhea, unspecified type (R19.7) Active confirmed Problem 73201014 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) Active confirmed Problem 67923625 Change in bowel movement (R19.8) Active confirmed Problem 970393047 Gastroesophageal reflux disease, unspecified whether esophagitis present (K21.9) Active confirmed Encounters Encounter Location Date Provider Diagnosis [facility] [address] [place] [address] 05/06/2024 Kain Orr Jr [facility] [address] [place] [address] 02/25/2024 Kain Orr Jr Plan Of Treatment [...] Insured Coverage Start Date Coverage End Date [facility] [address] Attn Claims [place] [id number] [phone] [id number] EDISON RUGGIERO Self - patient is the insured [facility] [address] [place] [address] [phone] [id number] EDISON RUGGIERO Self - patient is the insured [place] [address] [place] [address] [id number] EDISON RUGGIERO Self - patient is the [...]
--- OUTSIDE RECORDS SUMMARY | 2024-08-06 16:05 | XMS_ITS ---
Author Organization [facility] Address [address] [place] [address] Support Name Relationship Address Phone NADIYA RUGGIERO Emergency Contact [address] [place] [address] [address] [place], [place] [phone] EDISON RUGGIERO Guarantor Unknown [phone] Care Team Providers Care Senior Infrastructure Engineer Name Role Phone Emigdio Guthrie MD Primary Care Provider Kain Dia Jr REASON FOR VISIT was in [facility] ER Encounters Encounter Location Date Provider Diagnosis [facility] [address] [place] [address] 05/06/2024 Kain Orr Jr Plan Of Treatment No Information Progress Notes * EDISON RUGGIERODOB:1980 (44 yo F)Acc No.[id number]:05/06/2024 Patient:?EDISON RUGGIERO :1980???Age:44 Y???Sex:Female Address:[address] [place], [address] * true * Date:? Generated for Lauren umanzor/Gina/eTransmitting on:?08/06/2024 04:04 PM EDT
--- OUTSIDE RECORDS SUMMARY | 2024-08-06 16:05 | XMS_ITS ---
Author Organization [facility] Address [address] [place] [address] Care Team Providers Care Blind Eyeletter Name Role Phone Emigdio Guthrie MD Primary Care Provider Kain Dia Jr REASON FOR VISIT Cancel Appointment Request Encounters Encounter Location Date Provider Diagnosis [facility] [address] [facility] [address] [place] [address] 02/25/2024 Kain Orr Jr Plan Of Treatment No Information Progress Notes * KVNG RUGGIEROCHANDANAMAXDOB:1980 (44 yo F)Acc No.[id number]:02/25/2024 Patient:?EDISON RUGGIERO :1980???Age:44 Y???Sex:Female Address:[address] [place] [address], [address] * true * Date:? Generated for Lauren umanzor/Gina/eTransmitting on:?08/06/2024 04:04 PM EDT
--- OUTSIDE RECORDS SUMMARY | 2024-08-06 16:05 | XMS_ITS | Clinical Summary ---
Author Organization [facility] Address [address] [place] [address] Care Team Providers Care Plate Maker Zinc Name Role Phone Emigdio Guthrie MD Primary Care Provider [phone] Allergies Active Allergy Reactions Criticality Noted Date [...] age to complete this topic Care Teams Plate Maker Zinc Relationship Specialty Start Date End Date Emigdio Guthrie MD [address] [place] [address] [address] [facility] [place] [address] PCP - General Internal Medicine 11/30/17
== END 2024-08-06 13:59 | disposition home or self-care (01) ==
LOC: HO.HBS 13:38
PROVIDERS: PCP Internal Medicine; Visit Provider Physician Assistant Surgical
DX: E66.3 Overweight (principal); Z68.28 Body mass index [BMI] 28.0-28.9, adult; Z90.3 Acquired absence of stomach [part of]; Z98.84 Bariatric surgery status
CPT/HCPCS: 99214; G2211

== ENCOUNTER → 2024-08-06 13:38 | Outpatient (BNVA) | payer OTHER, SELFPAY | PROVIDERS: PCP Internal Medicine; Visit Provider Physician Assistant Surgical ==

== ENCOUNTER 2024-08-26 09:33 | Outpatient (REF) | payer OTHER, SELFPAY ==
[2024-08-26 09:59] LABS: MANUAL DIFF FLAG NO
[2024-08-26 10:35] LABS: Basophils Percent Auto 0.9 % (0-2); Eosinophils Absolute Auto 0.1 X10*3/uL (0.0-0.4); Hematocrit 37.1 % (37.0-47.0); Hemoglobin 12.5 g/dl (12.0-16.0); Imm Gran Abs Auto 0.01 X10*3/uL (0.00-0.03); Imm Gran Pct Auto 0.2 % (0.0-0.4); Lymphocytes Absolute Auto 0.9 X10*3/uL (1.2-4.9); Mean Corpuscular HGB Conc 33.7 g/dl (31.0-35.0); Mean Corpuscular Hemoglobin 28.1 pg (27.0-33.0); Mean Corpuscular Volume 83.4 fL (80.0-98.0); Monocytes Absolute Auto 0.3 X10*3/uL (0.1-1.2); Monocytes Percent Auto 6.9 % (2-11); Neutrophils Absolute Auto 3.2 x10*3/uL (2.0-8.3); Platelet Count 165 X10*3/uL (160-400); Red Blood Count 4.45 X10*6/uL (4.20-5.50); Red Cell Distribution Width 14.1 % (11.0-16.0); White Blood Count 4.6 X10*3/uL (4.8-10.8)
--- OUTSIDE RECORDS SUMMARY | 2024-08-26 10:44 | XMS_ITS | Patient Health Record ---
Author Organization [email or web address] [facility] Address [address] [place] [address] Care Team Providers Care Steel Erector Apprentice Name Role Phone YEIMI MARRERO Unavailable [phone] Allergies Allergen (clinical drug ingredient) Drug/Non Drug [...] Report Reviewed date:01/28/2024 08:47:37 AM Interpretation: Performing Lab:[facility], [address] [place] [address], Phone - [phone], Director - Adolfo Notes/Report: CBC, Platelet, No Differenti al-[id number] Reviewed date:02/04/2024 08:56:32 AM Interpretation: Performing Lab:[facility], [address] [place] [address], Phone - [phone], Director - Jodry Notes/Report: WBC 8.2 3.4-10.8 x10E3/uL RBC 4.46 3.77-5.28 x10E6/uL Hemoglobin 13.3 11.1-15.9 g/dL Hematocrit 38.8 34.0-46.6 % MCV 87 79-97 fL MCH 29.8 26.6-33.0 pg MCHC 34.3 31.5-35.7 g/dL RDW 13.9 11.7-15.4 % Platelets 209 150-450 x10E3/uL Test, Urine Reviewed date:01/25/2024 04:01:13 PM Interpretation: Performing Lab: Notes/Report: Test, Urine NEG Reason For Referral No Information Medications Medication SIG (Take, Route, Frequency, Duration) Notes Start Date End Date Status Lisinopril 5 MG 1 tablet Orally Once a day for 30 day(s) Active Vitamin D (Ergocalciferol) 81140 UNIT 1 capsule Orally Active Gabapentin 600 MG Orally two times a day Active Fenofibrate 145 MG 1 tablet Orally Once a day Active B-12 Once a day Active ALPRAZolam 0.25 MG 1 tablet Orally PRN Active Omeprazole 40 MG TAKE [address] [facility] EVERY DAY Oral for 90 Active Progesterone 200 MG 1 capsule at bedtime Orally Once a day for 90 days 10/29/2023 Active Tranexamic Acid 650 MG 2 tablets Orally three times daily for 5 days 01/25/2024 Active Magnesium 400 MG as directed Orally Active Social History Tobacco Use: Social History [...] test positive, high risk on vaginal specimen (918442308372377) Cervical high risk human papillomavirus (HPV) DNA test positive (R87.810) Active confirmed Problem Essential hypertension (04843634) Essential (primary) hypertension (I10) Active confirmed Problem Type II diabetes mellitus without complication (158061885) Type 2 diabetes mellitus without complications (E11.9) Active confirmed Problem Hyperlipidemia (33170580) Hyperlipidemia, unspecified (E78.5) Active confirmed Problem Anxiety disorder (172472330) Anxiety disorder, unspecified (F41.9) Active confirmed Problem Migraine without aura, not refractory (disorder) (353952418) Migraine, unspecified, not intractable, without status migrainosus (G43.909) Active confirmed Problem Chronic pain syndrome (944330088) Chronic pain syndrome (G89.4) Active confirmed Problem Hidradenitis suppurativa (26601358) Hidradenitis suppurativa (L73.2) Active confirmed Problem Oligomenorrhea (38050647) Oligomenorrhea, unspecified (N91.5) Active confirmed Problem Abnormal uterine bleeding (81788230457219) Abnormal uterine and vaginal bleeding, unspecified (N93.9) Active confirmed Problem Female infertility (8940513) Female infertility, unspecified (N97.9) Active confirmed Problem History of gastrointestinal disease (596872926) Personal history of other diseases of the digestive system (Z87.19) Active confirmed Problem COVID-19 (651321124) COVID-19 (U07.1) Active confirmed Vital Signs Temperature 97.1 degrees Fahrenheit 01/25/2024 Blood pressure diastolic 90 mm Hg 01/25/2024 Height 61 in 01/25/2024 Blood pressure systolic 160 mm Hg 01/25/2024 Weight 163 lbs 01/25/2024 BMI 30.8 kg/m2 01/25/2024 Encounters Encounter Location Date Provider Diagnosis [place] [address] [employer] [address] [address] 08/19/2024 YEIMI MARRERO Total [address] [address] 01/25/2024 YEIMI MARRERO Abnormal uterine and vaginal bleeding, unspecified N93.[address] [address] 10/25/2023 YEIMI MARRERO Total [address] [address] 10/29/2023 YEIMI MARRERO Abnormal uterine and vaginal bleeding, unspecified N93.9 [address] [address] 01/25/2024 YEIMI MARRERO Total [address] [address] 01/25/2024 YEIMI MARRERO Assessments Encounter Date Diagnosis [...] and Bladder 021 Urinalysis 07/27/2020 ANTI-HEPATITIS C 05/27/2019 ANTI-HEPATITIS C 02/27/2018 COMPLETE URINALYSIS 07/27/2020 HEP. B SURF. AG [...] 2022 MM Digital Screening Mammogram 3D 2023 Insurance Providers Payer Name Payer Address Payer Phone Subscriber Number Group Number Insured Name Patient Relationship to Insured Coverage Start Date Coverage End Date [facility] [address] [place] [address] [id number] EDISON RUGGIERO Self - patient is the insured Medical (General) History Medical History History ICD Code Hyperlipidemia, unspecified E78.5 Essential (primary) hypertension I10 COVID-19 U07.1 Surgical History Surgery Date(Month/Year) Dilation and curretage 2004 Hernia Repair 1980 Removal of Lump on R under arm 8 cholecystectomy 10/2018 upper endoscopy and colonoscopy 2018 GASTRIC SLEEVE 02/2021 [facility]/BSO - for AUB 02/2024 Hospitalization History Reason Date(Month/Year) See surgical Hx
--- OUTSIDE RECORDS SUMMARY | 2024-08-26 10:44 | XMS_ITS ---
Author Organization [facility] Address [address] [place] [address] Support Name Relationship Address Phone NADIYA RUGGIERO Emergency Contact [address] [place] [address] [address] [place], [place] [phone] EDISON RUGGIERO Guarantor Unknown [phone] Care Team Providers Care Clean Room Assembler Name Role Phone Emigdio Guthrie MD Primary Care Provider Kain Dia Jr REASON FOR VISIT Patient presents today for abdominal pain Encounters Encounter Location Date Provider Diagnosis [facility] [address] [facility] [address] [place] [address] 02/27/2024 Kain Orr Jr Plan Of Treatment No Information Progress Notes * EDISON RUGGIERODOB:1980 (44 yo F)Acc No.[id number]:02/27/2024 Progress Notes Patient:?EDISON RUGGIERO Provider:?Kain Orr MD :1980???Age:44 Y???Sex:Female D ate:02/27/2024 Address:[address] [place], [place] [id number] Pcp:Emigdio Guthrie MD Subjective: * Chief Complaints: [...] Orr MD Date:?1 Generated for Lauren umanzor/Gina/eTransmitting on:?08/26/2024 10:43 AM EDT
--- OUTSIDE RECORDS SUMMARY | 2024-08-26 10:44 | XMS_ITS ---
Author Organization [employer] [facility] Address [address] [address] Care Team Providers Care Development Officer Name Role Phone YEIMI MARRERO Unavailable [phone] REASON FOR VISIT EB AND F/U FROM DR ZAVALA D&C Encounters Encounter Location Date Provider Diagnosis [facility] [address] [address] 03/27/2024 YEIMI MARRERO Plan Of Treatment No Information Progress Notes * EDISON RUGGIERODOB:1980 (44 yo F)Acc No.[id number]:03/27/2024 PROGRESS NOTES Patient:?EDISON RUGGIERO Provider:?YEIMI MARRERO MD :1980???Age:44 Y???Sex:Female D ate:03/27/2024 Address:[address] [place], [place] [phone] Subjective: * Chief Complaints: * ???1. EB AND F/U FROM DR ROEL OROZCO D&C. * Medical History:? Objective: * Vitals:? Assessment: Plan: * Treatment: * Images: Billing Information: * Visit Code:? * Procedure Codes:? * Electronic signature of YEIMI MARRERO MD on 08/26/2024 at 10:43 AM EDT Sign off status: Pending * Provider:?YEIMI MARRERO MD Date:?2023 Generated for Printi ng/Faxing/eTransmitting on:?08/26/2024 10:43 AM EDT
--- OUTSIDE RECORDS SUMMARY | 2024-08-26 10:44 | XMS_ITS ---
Author Organization [facility] Address [address] [address] Care Team Providers Care Clamp Jig Assembler Name Role Phone YEIMI MARRERO Unavailable [phone] REASON FOR VISIT Annual HUMAN PROJECTILE Physical Encounters Encounter Location Date Provider Diagnosis [facility] [address] [place] [address] 07/28/2024 YEIMI MARRERO Encounter for gynecological examination [...] Follow Up: 1 Year, Reason: Y early Crm Marketing Analyst Exam Progress Notes * EDISON RUGGIERODOB:1980 (44 yo F)Acc No.[id number]:07/28/2024 PROGRESS NOTES Patient:?EDISON RUGGIERO Provider:?YEIMI MARRERO MD :1980???Age:44 Y???Sex:Female D ate:07/28/2024 Address:[address] [place] [address] Subjective: * Chief Complaints: * ???1. Annual HUMAN PROJECTILE Physical. * HPI: ???Constitutional:?Edison is a 44 yo s/p LAVH/BSO for abnormal uterine bleeding on 03/17/24 who presents for her yearly manager online exam. She was hospitalized 07/14/24 for N/V/abdominal [...] indoor aerobic/walking to a video. * ROS:?Annual Crm Marketing Analyst Exam ROS:?Bowel habit changes?denies.?Bladder symptoms?denies.?Vaginal discharge, unusual?denies.?Vaginal itch or odor?denies.?abnormal bleeding?denies.?weight or appetite changes?denies.?Chest pains, SOB?denies.?depression?denies.?Breast:?Denies?Breast lump.?Denies?Nipple discharge.?Hematology:?Denies?Swollen glands.?Skin:?Patient denies?changing moles.?Psychiatric:?Denies?Anxiety.? * Medical History:? * Crm Marketing Analyst History:?/ Para?1/0.?Sexual activity?currently sexually active, with men.?Last Pap Smear:?07/20/21 NIL, NEG HPV, 07/27/20 NIL, NEG HPV, 05/27/2019 LSIL/+hrHPV, neg 16/18/45.?Mammogram:?not due per age.?Abnormal Pap Smear:?2019, 2017, 2014 abnl pap with HPV. Colpo was recommended but not done. She had colpo 2013 ([facility]).?LMP and menses?hysterectomy.?History of STD's:?none.? Control:?none.?Hysterectomy:?03/17/2024 (LAVH/BSO for AUB).?Endoscopy *?01/2023 - normal.?Colonoscopy?Yes 2016- Normal; 01/2023 - [...] no acute distress, well developed, well nourished, ship's officer present in room.?HEAD:?normocephalic, atraumatic.?NECK/THYROID:?neck supple, full range [...] * Follow Up:?1 Year (Reason: Y early Crm Marketing Analyst Exam) * Images: Billing Information: * Visit Code:? 93786 Preventive Care Est Pt. Age 40-64. * Procedure Codes:? * Electronic signature of YEIMI MARRERO MD on 08/26/2024 at 10:44 AM EDT Sign off status: Pending * Provider:?YEIMI MARRERO MD Date:?2024 Generated for Lauren umanzor/Gina/eTransmitting on:?08/26/2024 10:44 AM EDT History and Physical Notes * HPI (History of Present Illness) Category Sub-Category Detail Notes Category Not es Constitutional Edison is a 44 yo s/p LAVH/BSO for abnormal uterine bleeding on 03/17/24 who presents for her yearly manager online exam. She was hospitalized 07/14/24 for N/V/abdominal [...] ac sunita distress, well developed, well nourished, ship's officer present in room HEAD: normocephalic, atrau matic [...]
--- OUTSIDE RECORDS SUMMARY | 2024-08-26 10:44 | XMS_ITS ---
Author Organization [facility] Address [address] [place] [address] Care Team Providers Care Grievance And Appeals Specialist Name Role Phone YEIMI MARRERO Unavailable [phone] REASON FOR VISIT Annual CORRUGATOR HELPER Physical Medications Medication SIG (Take, Route, Frequency, Duration) Notes Start Date End Date Status Lisinopril 5 MG 1 tablet Orally Once a day for 30 day(s) Active Vitamin D (Ergocalciferol) 11882 UNIT 1 capsule Orally Active Gabapentin 600 [...] 40 MG TAKE 1 CAPSULE BY [facility] EVERY DAY Oral for 90 Active Progesterone 200 MG 1 capsule at bedtime Orally Once a day for 90 days 10/29/2023 Active Encounters Encounter Location Date Provider Diagnosis [address] [address] 08/19/2024 YEIMI MARRERO Plan Of Treatment No Information Progress Notes * EDISON RUGGIERODOB:1980 (44 yo F)Acc No.[id number]:08/19/2024 PROGRESS NOTES Patient:?MONIK EDISON Provider:?YEIMI MARRERO MD :1980???Age:44 Y???Sex:Female D ate:08/19/2024 Address:[address] [place], [place] [phone] Subjective: * Chief Complaints: * ???1. Annual CORRUGATOR HELPER Physical. * Medical History:? * Medications:?Taking Magnesiu m 400 MG Tablet as directed Orally , Taking Lisinopril 5 MG Tablet 1 tablet Orally Once a day , Taking Vitamin D (Ergocalciferol) 57534 UNIT Capsule 1 capsule Orally , Taking [...] tablets Orally three times daily Objective: * Vitals:? Assessment: Plan: * Treatment: * Images: Billing Information: * Visit Code:? * Procedure Codes:? * Electronic signature of YEIMI MARRERO MD on 08/26/2024 at 10:44 AM EDT Sign off status: Pending * Provider:?YEIMI MARRERO MD Date:?2024 Generated for Lauren umanzor/Gina/eTmyahsmitting on:?08/26/2024 10:44 AM EDT
--- OUTSIDE RECORDS SUMMARY | 2024-08-26 10:45 | XMS_ITS | Clinical Summary ---
Author Organization [facility] Address [address] [facility] [address] [place] [address] Phone Care Team Providers Care Core Driller Helper Name Role Phone Emigdio Guthrie MD Primary Care Provider [phone] Allergies Active Allergy Reactions Criticality Noted Date [...] Diabetes: Visual Foot Exam 02/14/2021 Influenza Vaccine (Season Ended) 2025 Pneumococcal Vaccine: Pediat rics (0 to 5 Years) and At-Risk Patients (6 to 64 Years) Aged Out No longer eligible b ased on patient's age to complete this topic Insurance [employer] Care Teams Core Driller Helper Relationship Specialty Start Date End Date Emigdio Guthrie MD [facility] [address] [place], [place] PCP - General Internal Medicine 11/02/20
--- OUTSIDE RECORDS SUMMARY | 2024-08-26 10:45 | XMS_ITS | Clinical Summary ---
Author Organization [facility] Address [address] [place] [address] Care Team Providers Care Hopper Operator Name Role Phone Emigdio Guthrie MD Primary Care Provider [phone] Allergies Active Allergy Reactions Criticality Noted Date [...] age to complete this topic Care Teams Hopper Operator Relationship Specialty Start Date End Date Emigdio Guthrie MD [address] [place] [address] [address] [facility] [place] [address] PCP - General Internal Medicine 11/30/17
--- OUTSIDE RECORDS SUMMARY | 2024-08-26 10:45 | XMS_ITS ---
Author Organization [facility] Address [address] [place] [address] Support Name Relationship Address Phone NADIYA RUGGIERO Emergency Contact [address] [place] [address] [address] [place], [place] [phone] EDISON RUGGIERO Guarantor Unknown [phone] Care Team Providers Care Loom Stop Checker Name Role Phone Emigdio Guthrie MD Primary Care Provider Kain Dia Jr [phone] REASON FOR VISIT was in [facility] ER Encounters Encounter Location Date Provider Diagnosis [facility] [address] [place] [address] 05/06/2024 Kain Orr Jr Plan Of Treatment No Information Progress Notes * KVNG RUGGIEROCHANDANAMAXDOB:1980 (44 yo F)Acc No.[id number]:05/06/2024 Patient:?EDISON RUGGIERO :1980???Age:44 Y???Sex:Female Address:[address] [place], [address] * true * Date:? Generated for Cindyi erna/Gina/eTransmitting on:?08/26/2024 10:44 AM EDT
--- OUTSIDE RECORDS SUMMARY | 2024-08-26 10:45 | XMS_ITS ---
Author Organization [facility] Address [address] [place] [address] Support Name Relationship Address Phone NADIYA RUGGIERO Emergency Contact [address] [place] [address] [address] [place], [place] [phone] EDISON RUGGIERO Guarantor Unknown [phone] Care Team Providers Care Smoke Jumper Supervisor Name Role Phone Emigdio Guthrie MD Primary Care Provider Kain Dia Jr REASON FOR VISIT Cancel Appointment Request Encounters Encounter Location Date Provider Diagnosis [facility] [address] [facility] [address] [place] [address] 02/25/2024 Kain Orr Jr Plan Of Treatment No Information Progress Notes * KVNG RUGGIEROCHANDANAMAXDOB:1980 (44 yo F)Acc No.[id number]:02/25/2024 Patient:?EDISON RUGGIERO :1980???Age:44 Y???Sex:Female Address:[address] [place] [address], [address] * true * Date:? Generated for Cindyi erna/Gina/eTransmitting on:?08/26/2024 10:44 AM EDT
[2024-08-26 10:51] LABS: Estimated Average Glucose 131 mg/dL; Hemoglobin A1C 147.8685 umol/L; Hemoglobin A1c % 6.2 % (<6.0); Total Hemoglobin (HGBA1C) 3316.5789 umol/L
[2024-08-26 11:11] LABS: Anion Gap 15 (12-20)
[2024-08-26 11:18] LABS: Parathyroid Hormone Intact 53.2 pg/mL (8.7-77.1)
[2024-08-26 11:33] LABS: Alanine Aminotransferase 18 U/L (0-31); Albumin Level 4.1 g/dL (3.5-5.0); Alkaline Phosphatase 60 U/L (39-117); Aspartate Amino Transferase 20 U/L (5-31); Bilirubin Total 0.5 mg/dL (0.0-1.0); Blood Urea Nitrogen 22 mg/dL (9-16); Calcium 10.3 mg/dL (8.4-10.2); Carbon Dioxide 24 mmol/L (22-29); Chloride 107 mmol/L (96-108); Cholesterol 203 mg/dL (<200); Estimated Glomerular Filt Rate 55; Glucose Random 142 mg/dL (60-115); HDL Cholesterol 24 mg/dL (>40); Iron 75 mcg/dL (30-160); Percent Iron Saturation 21 % (15-50); Potassium 4.2 mmol/L (3.3-5.1); Sodium 142 mmol/L (135-145); Total Iron Binding Capacity 354 mcg/dL (228-428); Total Protein 7.4 g/dL (6.5-8.0); Triglycerides 937 mg/dL (<150); Unsaturated Iron Binding 279 ug/dL
[2024-08-26 11:47] LABS: Ferritin 21 ng/mL (10-250); TSH reflex Free T4 1.14 uIU/mL (0.32-4.0); Vitamin D 25-OH Total 42.4 ng/mL (>30)
[2024-08-26 11:48] LABS: Folate 8.8 ng/mL (> or = 4.0); Vitamin B12 1073 pg/mL (200-900)
[2024-08-26 12:02] LABS: Insulin 16 uU/mL (2-29)
[2024-08-27 15:13] LABS: Calcium, Ionized 5.3 mg/dL (4.7-5.5)
[2024-08-28 23:58] LABS: Zinc 71 mcg/dL (60-130)
[2024-08-29 17:12] LABS: Vitamin A 91 mcg/dL (38-98)
[2024-09-03 16:04] LABS: Vitamin B1 29 nmol/L (8-30)
== END 2024-08-26 09:34 | disposition home or self-care (01) ==
LOC: HO.LAB 09:33
PROVIDERS: Absent Provider Physician Assistant Surgical; PCP Internal Medicine; Visit Provider Internal Medicine
DX: Z98.84 Bariatric surgery status (principal); E83.52 Hypercalcemia; Z13.1 Encounter for screening for diabetes mellitus; Z13.6 Encounter for screening for cardiovascular disorders
CPT/HCPCS: 36415; 80053; 80061; 82306; 82330; 82607; 82728; 82746; 83036; 83525; 83540; 83970; 84425; 84443; 84590; 84630; 85025; 86140

== ENCOUNTER 2024-09-04 14:20 | Outpatient (AMB) | payer OTHER, SELFPAY ==
--- NOTE | 2024-09-04 14:20 | A.OFFPC_ITS ---
Intake Visit Reasons: Requesting med adjustment Director Of Acquisition Marketing Required: No Loss Control Engineer: Not Required per policy Accompanied by: Self / Same As Patient Allergies metoclopramide [From REGLAN] Allergy (Severe, Verified 09/04/24 14:21) ANXIETY promethazine [From PHENERGAN] Allergy (Severe, Verified 09/04/24 14:21) ANXIETY shellfish derived [SHELLFISH DERIVED] Allergy (Severe, Verified 09/04/24 14:21) THROAT SWELLING HIVES IN SCALP, ITCHY ibuprofen [From MOTRIN] Allergy (Unknown, Verified 09/04/24 14:21) HIVES morphine [MORPHINE] Allergy (Unknown, Verified 09/04/24 14:21) THROAT CLOSES, anaphylaxis prochlorperazine [From COMPAZINE] Allergy (Unknown, Verified 09/04/24 14:21) ANXIETY Sulfa (Sulfonamide Antibiotics) [SULFA (SULFONAMIDE ANTIBIOTICS)] Allergy (Unknown, Verified 09/04/24 14:21) SWELLING trazodone Adverse Reaction (Unknown, Verified 09/04/24 14:21) Dizziness Tobacco use date assessed: 06/03/24 Dental Screening Dental Screen Date: 06/03/24 [facility] Medical History (Updated 09/04/24 @ 15:22 by Emigdio Guthrie MD) Overweight (BMI 25.0-29.9) Liver fibrosis Steatosis, liver BMI 32.0-32.9,adult Obesity History of back pain BMI over 35 Vitamin D deficiency Hypercalcemia Adjustment disorder, unspecified Pre-procedure lab exam Obesity Family hx of hypertension Serum calcium elevated Proteinuria Onychomycosis Hematuria Vitamin B 12 deficiency LUQ abdominal pain COVID-19 virus infection Irritable bowel syndrome Migraine Insomnia Vitamin D deficiency Obesity (BMI 30-39.9) Diabetic retinopathy Atkins's palsy Peripheral neuropathy Trigeminal neuralgia Pancreatitis GERD (gastroesophageal reflux disease) Type 2 diabetes mellitus with diabetic polyneuropathy Type 2 diabetes mellitus with hyperglycemia Hypertriglyceridemia Essential hypertension Hyperlipidemia LDL goal <100 Surgical History (Updated 09/04/24 @ 14:22 by SATHISH Burroughs) History of hysterectomy H/O gastric sleeve History of wisdom tooth extraction, class I edentulism Hx of colonoscopy Acalculous cholecystitis Hx of hernia repair Hx of removal of cyst Hx of dilation and curettage Family History Father Diabetes mellitus Asthma Hypertension Mother Diabetes mellitus Hypertension Scleroderma Maternal Aunt Ovarian cancer Paternal Grandfather Diabetes mellitus Paternal Grandmother Diabetes mellitus Maternal Grandmother Diabetes mellitus Maternal Grandfather Diabetes mellitus CVD (cardiovascular disease) Sister CVD (cardiovascular disease) Brother Anxiety Arthritis Social History Household Members: Spouse Housing: Apartment Are you a primary day care director to a significant other at home: No Do you presently have visiting nurse or other home services: No Alcohol intake: never Patient Tobacco Use Status: Former Tobacco user Tobacco use type: Cigarette Cigarette Packs Per Day: 0.25 Cigarettes Per Day: 4 Years Smoked: quit 03/2016. Restarted 03/2023. Packs Per Year: 0 Packs per year/per ci.00 e-Cigarette/Vaping Use: Never Used Second Hand Smoke Exposure: Yes service: No Current occupational status: employed Cognitive needs: No Hearing needs: No Vision needs: Yes Questionnaire Thrive Questionnaire Date Thrive assessed: 06/03/24 BERTRAM-7 AMB Questionnaire BERTRAM-7 Date BERTRAM - 7 assessed: 07/30/24 Source: Developed by Drs. Jovon Nation, Cecilia Ribeiro, Travon Silveira and colleagues, with an educational michelle from [employer]. Physical exam (Primary Care) Tobacco/Smoking Status: Tobacco use Status Tobacco use date assessed 06/03/24 09/04/24 14:23 Patient Tobacco Use Status Former Tobacco user 09/04/24 14:23 Tobacco use type Cigarette 09/04/24 14:23 e-Cigarette/Vaping Use Never Used 09/04/24 14:23 Thrive Assessment: Date of Thrive Assessment Date Thrive assessed 06/03/24 09/04/24 14:23 Const General: alert; No acute distress Eyes Conjunctivae: conjunctivae normal Resp Auscultation: clear to auscultation bilaterally Cardio Rate: regular rate Rhythm: regular rhythm GI Inspection: Yes normal to inspection Extrem General: Yes normal to inspection and No edema Telehealth Telehealth Telehealth Platform: Doximity Location of provider rendering services: practice address Location of patient: address on file Patient Identification confirmed using: Name, : Yes Telehealth method: video Patient verbally consented to treatment: Yes Patient verbally consented to billing insurance company: Yes Patient informed of any privacy concerns related to visit: Yes Minutes spent on Phone/Video with Pt.: 25 Coding Level of Care Code Tele Est Pt Level 4 (46077) Diagnoses Type 2 diabetes mellitus with hyperglycemia, without long-term current use of insulin E11.65 Diabetes mellitus termite inspector insulin use: without termite inspector use Hypertriglyceridemia E78.1 Trigger finger of all digits of both hands M65.321; M65.311; M65.312; M65.322; M65.331 Bilateral hand numbness R20.0 Assessment & Plan Assessment & Plan (1) Type 2 diabetes mellitus with hyperglycemia: Comment: Eye and lasik Code(s): E11.65 - Type 2 diabetes mellitus with hyperglycemia Category: Medical Qualifiers: Diabetes mellitus mcc insulin use: without mcc use Qualified Code(s): E11.65 - Type 2 diabetes mellitus with hyperglycemia Plan: Decrease the amount of carbohydrate intake, pasta, bread, rice and potatoes are all sugar and that is aside from all the sweet stuff, remember that fruits are good but they are Sweet also. Hemoglobin A1c goal of less than 6.5. Patient is presently on Jardiance at 10 mg once a day Lantus at 10 units once a day (2) Hypertriglyceridemia: Code(s): E78.1 - Pure hyperglyceridemia Category: Medical Plan: Avoid fried foods, chicken skin, eggs, butter margarine, pastries and meat. Be it pork or beef they have a lot of cholesterol presently on fenofibrate and the triglyceride remains to be elevated. (3) Trigger finger of all digits of both hands: Code(s): M65.321 - Trigger finger, right index finger; M65.311 - Trigger thumb, right thumb; M65.312 - Trigger thumb, left thumb; M65.322 - Trigger finger, left index finger; M65.331 - Trigger finger, right middle finger Category: Medical (4) Bilateral hand numbness: Code(s): R20.0 - Anesthesia of skin Category: Medical Plan History of Present Illness The patient is a 44-year-old female presenting with follow-up concerns for type 2 diabetes mellitus management. She reports difficulty managing her blood glucose levels during the day, with the only available insulin being Lantus. Episodes of low blood sugar in the morning have been noted, sometimes reaching a low of 96 mg/dL. She utilizes the Dex[employer] system for continuous glucose monitoring. Her current medication regimen includes Jardiance, previously at 10 mg, which the patient finds insufficient in managing her hyperglycemia, and fenofibrate for hypertriglyceridemia, which remains elevated at 937 mg/dL. Notably, she has not initiated any specific dietary changes or increased physical activity since her laparoscopic sleeve gastrectomy in 2020, yet reports a 7-pound weight loss. Additionally, she presents with symptoms suggestive of trigger finger in both m iddle fingers, experiencing pain and morning stiffness. 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 The patient?s medical history includes generalized anxiety disorder. She has had screenings including a mammogram in June 2023 and a colonoscopy in January 2023. Recent labs showed a stable renal function, normal thyroid tests, a hemoglobin A1c of 6.2%, mild hypercalcemia, and a normal blood count with mild leukopenia. Health Maintenance - Mammogram screened in June 2023. - Colonoscopy performed in January 2023. - Routine blood work on August 26 indicating normal counts with mild leukopenia. - Hemoglobin A1c recorded at 6.2% on previous test. - Lipid management ongoing with fenofibrate for hypertriglyceridemia. Social History - The patient is likely involved in professional activities that require frequent typing, possibly impacting her hand symptoms. - No recent changes in dietary habits or physical activity since sleeve gastrectomy in 2020. - History of generalized anxiety disorder. Review of Systems - Musculoskeletal: Reports pain and morning stiffness in both middle fingers. - Neurological: Reports numbness and tingling in all fingers. - Endocrine: Reports fluctuations in blood sugar levels. - General: Reports recent 7-pound weight loss. Physical Exam Results - Labs: Hemoglobin A1c at 6.2%; Mild hypercalcemia at 10.3 mg/dL; Hypertriglyceridemia at 937 mg/dL; Normal thyroid function tests. - Screening: Mammogram in June 2023; Colonoscopy in January 2023. Plan Patient was informed and verbally consented to the use of an ambient scribe for clinic note documentation during this visit. Discussion Notes I discussed with the patient the necessity of adjusting her diabetes medication regimen to better manage her glucose levels, emphasizing the risks of uncontrolled blood sugar, including long-term complications. We explored the benefits of increasing Jardiance to improve glycemic control, and the introduction of a sliding-scale short-acting insulin was to provide flexibility in her insulin therapy management. Additionally, I advised on strategies to prevent potential exacerbations of trigger finger symptoms, including splinting. We examined the role repetitive hand activities may play and considered diagnostic evaluations for carpal tunnel syndrome given her symptoms. Follow-up care and medication adherence were emphasized as critical to her overall health management. Patient Instructions - Increase Jardiance dosage to 25 mg per day. - Use sliding-scale short-acting insulin as instructed. - Adjust Lantus dosage if fasting blood sugar falls below 100 mg/dL. - Utilize splinting for trigger finger pain and stiffness relief. - Follow up for nerve conduction study if symptoms persist. - Avoid repetitive hand activities until further evaluation. - Monitor blood sugar levels regularly using Dexcom system. - Keep all follow-up appointments and update on glucose readings. Orders: Orders NE electromyogram (EMG) Today R20.0 - Anesthesia of skin NE nerve conduction velocity Today R20.0 - Anesthesia of skin Medications: New insulin lispro (Humalog KwikPen (U-100) Insulin) Inject insulin as per sliding scale < 70 u eat, 71-150 no insulin, 151- 230 2 units 231-280 4 u, 281-330 6 u 331-380 8 u > 380 10 u 1 sliding scale dose subcut USEASDIRECTD 15 mL E11.65 - Type 2 diabetes mellitus with hyperglycemia pen needle, diabetic (1st Tier Unifine Pentips) As directed Inject Insulin 4 x a day 400 ea E11.65 - Type 2 diabetes mellitus with hyperglycemia Changed From empagliflozin (Jardiance) 10 mg PO DAILY 30 tabs 3RF E11.65 - Type 2 diabetes mellitus with hyperglycemia To empagliflozin 25 mg PO DAILY 30 tabs 3RF E11.65 - Type 2 diabetes mellitus with hyperglycemia
--- OUTSIDE RECORDS SUMMARY | 2024-09-04 17:19 | XMS_ITS ---
Author Organization [facility] Address [address] [address] Care Team Providers Care Watch Guard Gate Name Role Phone YEIMI MARRERO Unavailable [phone] REASON FOR VISIT Annual CEMENT CUTTER Physical Encounters Encounter Location Date Provider Diagnosis [facility] [address] [place] [phone] 07/28/2024 YEIMI MARRERO Encounter for gynecological examination [...] Follow Up: 1 Year, Reason: Y early Electronic Sales And Service Technician Exam Progress Notes * EDISON RUGGIERODOB:1980 (44 yo F)Acc No.[id number]:07/28/2024 PROGRESS NOTES Patient:?EDISON RUGGIERO Provider:?YEIMI MARRERO MD :1980???Age:44 Y???Sex:Female D ate:07/28/2024 Address:[address] [place] [address] Subjective: * Chief Complaints: * ???1. Annual CEMENT CUTTER Physical. * HPI: ???Constitutional:?Edison is a 44 yo s/p LAVH/BSO for abnormal uterine bleeding on 03/17/24 who presents for her yearly physician gynecologist exam. She was hospitalized 07/14/24 for N/V/abdominal [...] indoor aerobic/walking to a video. * ROS:?Annual Electronic Sales And Service Technician Exam ROS:?Bowel habit changes?denies.?Bladder symptoms?denies.?Vaginal discharge, unusual?denies.?Vaginal itch or odor?denies.?abnormal bleeding?denies.?weight or appetite changes?denies.?Chest pains, SOB?denies.?depression?denies.?Breast:?Denies?Breast lump.?Denies?Nipple discharge.?Hematology:?Denies?Swollen glands.?Skin:?Patient denies?changing moles.?Psychiatric:?Denies?Anxiety.? * Medical History:? * Electronic Sales And Service Technician History:?/ Para?1/0.?Sexual activity?currently sexually active, with men.?Last Pap Smear:?07/20/21 NIL, NEG HPV, 07/27/20 NIL, NEG HPV, 05/27/2019 LSIL/+hrHPV, neg 16/18/45.?Mammogram:?not due per age.?Abnormal Pap Smear:?2019, 2017, 2014 abnl pap with HPV. Colpo was recommended but not done. She had colpo 2013 ([facility]).?LMP and menses?hysterectomy.?History of STD's:?none.? Control:?none.?Hysterectomy:?03/17/2024 (LAVH/BSO [...] no acute distress, well developed, well nourished, solar sales rep present in room.?HEAD:?normocephalic, atraumatic.?NECK/THYROID:?neck supple, full range [...] * Follow Up:?1 Year (Reason: Y early Electronic Sales And Service Technician Exam) * Images: Billing Information: * Visit Code:? 87096 Preventive Care Est Pt. Age 40-64. * Procedure Codes:? * Electronic signature of YEIMI MARRERO MD on 09/04/2024 at 05:19 PM EDT Sign off status: Pending * Provider:?YEIMI MARRERO MD Date:?2024 Generated for Lauren umanzro/Gina/eTransmitting on:?09/04/2024 05:19 PM EDT History and Physical Notes * HPI (History of Present Illness) Category Sub-Category Detail Notes Category Not es Constitutional Edison is a 44 yo s/p LAVH/BSO for abnormal uterine bleeding on 03/17/24 who presents for her yearly physician gynecologist exam. She was hospitalized 07/14/24 for N/V/abdominal [...] ac sunita distress, well developed, well nourished, solar sales rep present in room HEAD: normocephalic, atrau matic [...]
--- OUTSIDE RECORDS SUMMARY | 2024-09-04 17:19 | XMS_ITS ---
Author Organization [facility] Address [address] [place] [phone] Support Name Relationship Address Phone NADIYA RUGGIERO Emergency Contact [address] [place] [address] [address] [place], [place] [id number] EDISON RUGGIERO Guarantor Unknown [phone] Care Team Providers Care Band And Cuff Cutter Name Role Phone Emigdio Guthrie MD Primary Care Provider Kain Dia Jr REASON FOR VISIT Patient presents today for abdominal pain Encounters Encounter Location Date Provider Diagnosis [facility] [address] [place] [phone] 02/27/2024 Kain Orr Jr Plan Of Treatment No Information Progress Notes * EDISON RUGGIERODOB:1980 (44 yo F)Acc No.[id number]:02/27/2024 Progress Notes Patient:?EDISON RUGGIERO Provider:?Kain Orr MD :1980???Age:44 Y???Sex:Female D ate:02/27/2024 Address:[address] [place], [place] [phone] Pcp:Emigdio Guthrie MD Subjective: * Chief Complaints: [...] Orr MD Date:?1 Generated for Lauren umanzor/Gina/eTransmitting on:?09/04/2024 05:19 PM EDT
--- OUTSIDE RECORDS SUMMARY | 2024-09-04 17:19 | XMS_ITS ---
Author Organization [facility] Address [address] [place] [phone] Care Team Providers Care Document Management Specialist Name Role Phone Emigdio Guthrie MD Primary Care Provider Kain Dia Jr REASON FOR VISIT Cancel Appointment Request Encounters Encounter Location Date Provider Diagnosis [facility] [address] [place] [phone] 02/25/2024 Kain Orr Jr Plan Of Treatment No Information Progress Notes * KVNG RUGGIEROCHANDANAMAXDOB:1980 (44 yo F)Acc No.[id number]:02/25/2024 Patient:?EDISON RUGGIERO :1980???Age:44 Y???Sex:Female Address:[address] [place] [address], [address] * true * Date:? Generated for Lauren umanzor/Gina/eTransmitting on:?09/04/2024 05:19 PM EDT
--- OUTSIDE RECORDS SUMMARY | 2024-09-04 17:19 | XMS_ITS | Patient Health Record ---
Author Organization [facility] Address [address] [place] [address] Care Team Providers Care Software Development Leader Name Role Phone YEIMI MARRERO Unavailable [phone] Allergies Allergen (clinical drug ingredient) Drug/Non Drug [...] Test, Urine NEG CBC, Platelet, No Differenti al-[id number] Reviewed date:02/04/2024 08:56:32 AM Interpretation: Performing Lab:[facility], [address] [place] [address], Phone - [phone], Director - Adolfo Notes/Report: WBC 8.2 3.4-10.8 x10E3/uL RBC 4.46 3.77-5.28 x10E6/uL Hemoglobin 13.3 11.1-15.9 g/dL Hematocrit 38.8 34.0-46.6 % MCV 87 79-97 fL MCH 29.8 26.6-33.0 pg MCHC 34.3 31.5-35.7 g/dL RDW 13.9 11.7-15.4 % Platelets 209 150-450 x10E3/uL PDF Report Reviewed date:01/28/2024 08:47:37 AM Interpretation: Performing Lab:[facility], [address] [facility], [place], Phone - [phone], Director - Adolfo Notes/Report: Reason For Referral No Information Medications Medication SIG (Take, Route, Frequency, Duration) Notes Start Date End Date Status Lisinopril 5 MG 1 tablet Orally Once a day for 30 day(s) Active Vitamin D (Ergocalciferol) 66119 UNIT 1 capsule Orally Active Gabapentin 600 [...] test positive, high risk on vaginal specimen (466442377951822) Cervical high risk human papillomavirus (HPV) DNA test positive (R87.810) Active confirmed Problem Essential hypertension (31236989) Essential (primary) hypertension (I10) Active confirmed Problem Type II diabetes mellitus without complication (489775646) Type 2 diabetes mellitus without complications (E11.9) Active confirmed Problem Hyperlipidemia (49158449) Hyperlipidemia, unspecified (E78.5) Active confirmed Problem Anxiety disorder (915671336) Anxiety disorder, unspecified (F41.9) Active confirmed Problem Migraine without aura, not refractory (disorder) (442967215) Migraine, unspecified, not intractable, without status migrainosus (G43.909) Active confirmed Problem Chronic pain syndrome (175934191) Chronic pain syndrome (G89.4) Active confirmed Problem Hidradenitis suppurativa (17560849) Hidradenitis suppurativa (L73.2) Active confirmed Problem Oligomenorrhea (28470290) Oligomenorrhea, unspecified (N91.5) Active confirmed Problem Abnormal uterine bleeding (88879304483720) Abnormal uterine and vaginal bleeding, unspecified (N93.9) Active confirmed Problem Female infertility (1685336) Female infertility, unspecified (N97.9) Active confirmed Problem History of gastrointestinal disease (264611392) Personal history of other diseases of the digestive system (Z87.19) Active confirmed Problem COVID-19 (476941235) COVID-19 (U07.1) Active confirmed Vital Signs Temperature 97.1 degrees Fahrenheit 01/25/2024 Blood pressure diastolic 90 mm Hg 01/25/2024 Height 61 in 01/25/2024 Blood pressure systolic 160 mm Hg 01/25/2024 Weight 163 lbs 01/25/2024 BMI 30.8 kg/m2 01/25/2024 Encounters Encounter Location Date Provider Diagnosis [place] [address] [employer] [address] [address] 08/19/2024 YEIMI MARRERO Total [address] [address] 01/25/2024 YEIMI MARRERO Abnormal uterine and vaginal bleeding, unspecified N93.[address] [address] 10/25/2023 YEIMI MARRERO Total [address] [address] 10/29/2023 YEIMI MARRERO Abnormal uterine and vaginal bleeding, unspecified N93.9 [address] [address] 01/25/2024 YEIMI MARRERO Total [address] [phone] 01/25/2024 YEIMI MARRERO Assessments Encounter Date Diagnosis [...] Insured Coverage Start Date Coverage End Date [facility] [address] [place] [id number] EDISON RUGGIERO Self - patient is the insured Medical (General) History Medical History History ICD Code Hyperlipidemia, unspecified E78.5 Essential (primary) hypertension I10 COVID-19 U07.1 Surgical History Surgery Date(Month/Year) Dilation and curretage 2004 Hernia Repair 1980 Removal of Lump on R under arm 8 cholecystectomy 10/2018 upper endoscopy and colonoscopy 2018 GASTRIC SLEEVE 02/2021 [facility]/BSO - for AUB 02/2024 Hospitalization History Reason Date(Month/Year) See surgical Hx
--- OUTSIDE RECORDS SUMMARY | 2024-09-04 17:19 | XMS_ITS ---
Author Organization [facility] Address [address] [place] [address] Care Team Providers Care Mechanical Sound Technician Name Role Phone YEIMI MARRERO Unavailable [phone] REASON FOR VISIT Annual POWER SHOVEL OPERATOR HELPER Physical Medications Medication SIG (Take, Route, Frequency, Duration) Notes Start Date End Date Status Lisinopril 5 MG 1 tablet Orally Once a day for 30 day(s) Active Vitamin D (Ergocalciferol) 60525 UNIT 1 capsule Orally Active Gabapentin 600 [...] 40 MG TAKE 1 CAPSULE BY MO [facility] EVERY DAY Oral for 90 Active Progesterone 200 MG 1 capsule at bedtime Orally Once a day for 90 days 10/29/2023 Active Encounters Encounter Location Date Provider Diagnosis [address] [address] 08/19/2024 YEIMI MARRERO Plan Of Treatment No Information Progress Notes * EDISON RUGGIERODOB:1980 (44 yo F)Acc No.[id number]:08/19/2024 PROGRESS NOTES Patient:?MONIK EDISON Provider:?YEIMI MARRERO MD :1980???Age:44 Y???Sex:Female D ate:08/19/2024 Address:[address] [place], [place] [id number] Subjective: * Chief Complaints: * ???1. 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 * Medical History:? * Medications:?Taking Magnesiu m 400 MG Tablet as directed Orally , Taking Lisinopril 5 MG Tablet 1 tablet Orally Once a day , Taking Vitamin D (Ergocalciferol) 43554 UNIT Capsule 1 capsule Orally , Taking [...] Provider:?YEIMI MARRERO MD Date:?2024 Generated for Lauren umanzor/Gina/Elizabethsmitting on:?09/04/2024 05:19 PM EDT
--- OUTSIDE RECORDS SUMMARY | 2024-09-04 17:20 | XMS_ITS | Clinical Summary ---
Author Organization [facility] Address [address] [place] [address] Care Team Providers Care Test Grader Name Role Phone Emigdio Guthrie MD Primary Care Provider [phone] Allergies Active Allergy Reactions Criticality Noted Date [...] age to complete this topic Care Teams Test Grader Relationship Specialty Start Date End Date Emigdio Guthrie MD [address] [place] [address] [address] [facility] [place] [address] PCP - General Internal Medicine 11/30/17
--- OUTSIDE RECORDS SUMMARY | 2024-09-04 17:20 | XMS_ITS | Patient Health Record ---
Author Organization [facility] Address [address] [place] [address] Support Name Relationship Address Phone NADIYA RUGGIERO Emergency Contact [address] [place] [address] [address] [place], [place] [phone] EDISON RUGGIERO Guarantor Unknown [phone] Care Team Providers Care Fuselage Framer Name Role Phone Emigdio Guthrie MD Primary [...] Allergy Active Sulfacet-R Unknown Drug Allergy Active Reason For Referral No Information [...] Problem Status W/U Status Risk Notes Problem 99645030 Epigastric pain (R10.13) Active confirmed Problem 872258338 Irritable bowel syndrome with diarrhea (K58.0) Active confirmed Problem 106104154 Generalized abdominal pain (R10.84) Active confirmed Problem Gastroesophageal reflux disease (488932007) Gastroesophageal reflux disease (K21.9) Active confirmed Problem 03113509 Rectal pain (K62.89) Active confirmed Problem 20196749 Diarrhea, unspecified type (R19.7) Active confirmed Problem 46114271 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) Active confirmed Problem 24601828 Change in bowel movement (R19.8) Active confirmed Problem 596317009 Gastroesophageal reflux disease, unspecified whether esophagitis present (K21.9) Active confirmed Encounters Encounter Location Date Provider Diagnosis [facility] [address] [place] [address] 05/06/2024 Kain Orr Jr [facility] [address] [place] [address] 02/25/2024 Kain Orr Jr Plan Of Treatment [...] Coverage Start Date Coverage End Date [facility] [address] Attn Claims [place] [id number] EDISON RUGGIERO Self - patient is the insured MEDICAID OF [facility] [address] [place] [address] [id number] EDISON RUGGIERO Self - patient is the insured MEDICARE OF [place] [address] [place] [address] [id number] EDISON RUGGIERO Self - patient is the [...]
--- OUTSIDE RECORDS SUMMARY | 2024-09-04 17:20 | XMS_ITS ---
Author Organization [facility] Address [address] [place] [address] Support Name Relationship Address Phone NADIYA RUGGIERO Emergency Contact [address] [place] [address] [address] [place], [place] [phone] EDISON RUGGIERO Guarantor Unknown [phone] Care Team Providers Care Commercial Artist Name Role Phone Emigdio Guthrie MD Primary Care Provider Kain Dia Jr REASON FOR VISIT was in [facility] ER Encounters Encounter Location Date Provider Diagnosis [facility] [address] [place] [phone] 05/06/2024 Kani Orr Jr Plan Of Treatment No Information Progress Notes * DEISON RUGGIERODOB:1980 (44 yo F)Acc No.[id number]:05/06/2024 Patient:?EDISON RUGGIERO :1980???Age:44 Y???Sex:Female Address:[address] [place], [address] * true * Date:? Generated for Lauren umanzor/Gina/eTransmitting on:?09/04/2024 05:19 PM EDT
--- OUTSIDE RECORDS SUMMARY | 2024-09-04 17:20 | XMS_ITS | Clinical Summary ---
Author Organization [facility] Address [address] [place] [address] Phone Care Team Providers Care Clinical Abstractor Name Role Phone Emigdio Guthrie MD Primary Care Provider [phone] Allergies Active Allergy Reactions Criticality Noted Date [...] Influenza Vaccine (Season Ended) 2025 Pneumococcal Vaccine: Peds ( 0 to 5 Years) and At-Risk Patients (6 to 49 Years) Aged Out No longer eligible b ased on patient's age to complete this topic Insurance [place] Care Teams Clinical Abstractor Relationship Specialty Start Date End Date Emigdio Guthrie MD [facility] [address] [place], [place] PCP - General Internal Medicine 11/02/20
--- OUTSIDE RECORDS SUMMARY | 2024-09-04 17:20 | XMS_ITS ---
Author Organization [facility] Address [address] [address] Care Team Providers Care Wastewater Treatment Plant Chemist Name Role Phone YEIMI MARRERO Unavailable [phone] REASON FOR VISIT Annual GYROSCOPE TECHNICIAN Physical Encounters Encounter Location Date Provider Diagnosis [facility] [address] [place] [phone] 08/28/2024 YEIMI MARRERO Encounter for gynecological examination [...] Follow Up: 1 Year, Reason: Y early Children'S Lunchroom Supervisor Exam Progress Notes * EDISON RUGGIERODOB:1980 (44 yo F)Acc No.[id number]:08/28/2024 PROGRESS NOTES Patient:?EDISON RUGGIERO Provider:?YEIMI MARRERO MD :1980???Age:44 Y???Sex:Female D ate:08/28/2024 Address:[address] [place] [address] Subjective: * Chief Complaints: * ???1. Annual GYROSCOPE TECHNICIAN Physical. 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 She was hospitalized 07/14/24 for [...] indoor aerobic/walking to a video. * ROS:?Annual Children'S Lunchroom Supervisor Exam ROS:?Bowel habit changes?denies.?Bladder symptoms?denies.?Vaginal discharge, unusual?denies.?Vaginal itch or odor?denies.?abnormal bleeding?denies.?weight or appetite changes?denies.?Chest pains, SOB?denies.?depression?denies.?Breast:?Denies?Breast lump.?Denies?Nipple discharge.?Hematology:?Denies?Swollen glands.?Skin:?Patient denies?changing moles.?Psychiatric:?Denies?Anxiety.? * Medical History:? * Children'S Lunchroom Supervisor History:?/ Para?1/0.?Sexual activity?currently sexually active, with men.?Last Pap Smear:?07/20/21 NIL, NEG HPV, 07/27/20 NIL, NEG HPV, 05/27/2019 LSIL/+hrHPV, neg 16/18/45.?Mammogram:?not due per age.?Abnormal Pap Smear:?2019, 2017, 2014 abnl pap with HPV. Colpo was recommended but not done. She had colpo 2013 ([facility]).?LMP and menses?hysterectomy.?History of STD's:?none.? Control:?none.?Menarche?.?Hysterectomy:?03/17/2024 (LAVH/BSO for AUB).?Endoscopy *?01/2023 - normal.?Colonoscopy?Yes 2016- Normal; 01/2023 - normal.? * OB History:?Total pregnancies?.? Objective: * Vitals:? * Examination: ???General Examination: ?GENERAL APPEARANCE:?in no acute distress, well developed, well nourished, field worker present in room.?HEAD:?normocephalic, atraumatic.?NECK/THYROID:?neck supple, full range [...] * Follow Up:?1 Year (Reason: Y early Children'S Lunchroom Supervisor Exam) * Images: Billing Information: * Visit Code:? [id number] Preventive Care Est Pt. Age 40-64. * Procedure Codes:? 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 She was hospitalized 07/14/24 for [...] ac sunita distress, well developed, well nourished, field worker present in room HEAD: normocephalic, atrau matic [...]
== END 2024-09-04 15:47 | disposition home or self-care (01) ==
LOC: HO.HMCH 14:20
PROVIDERS: PCP Internal Medicine; Visit Provider Internal Medicine
DX: E11.65 Type 2 diabetes mellitus with hyperglycemia (principal); E78.1 Pure hyperglyceridemia; M65.321 Trigger finger, right index finger; M65.311 Trigger thumb, right thumb; M65.312 Trigger thumb, left thumb; M65.322 Trigger finger, left index finger; M65.331 Trigger finger, right middle finger; R20.0 Anesthesia of skin

== ENCOUNTER → 2024-09-04 14:20 | Outpatient (BNVA) | payer OTHER, SELFPAY | PROVIDERS: PCP Internal Medicine; Visit Provider Internal Medicine | DX: Z13.89 Encounter for screening for other disorder (principal) ==

== ENCOUNTER 2024-09-16 08:08 | Outpatient (REF) | payer OTHER, SELFPAY ==
--- NOTE | 2024-09-16 08:13 | EMG_ITS ---
Bilateral median and ulnar motor and sensory studies were performed. Bilateral radial and median and lateral antecubital brachial sensory studies were performed and paraspinal muscles were tested with a needle. IMPRESSION: 1. Moderately severe bilateral median neuropathy across carpal tunnel. 2. Mild bilateral ulnar neuropathy across cubital tunnel. MD LYDIA Beckford/JUANITA / [phone]
--- OUTSIDE RECORDS SUMMARY | 2024-09-16 08:19 | XMS_ITS ---
Author Organization [facility] Address [address] [place] [address] Care Team Providers Care Universal Worker Assisted Living Name Role Phone YEIMI MARRERO Unavailable [phone] REASON FOR VISIT Annual COSMETIC MANAGER Physical Medications Medication SIG (Take, Route, Frequency, Duration) Notes Start Date End Date Status Lisinopril 5 MG 1 tablet Orally Once a day for 30 day(s) Active Vitamin D (Ergocalciferol) 88815 UNIT 1 capsule Orally Active Gabapentin 600 [...] 40 MG TAKE 1 CAPSULE BY MO [facility] EVERY DAY Oral for 90 Active Progesterone 200 MG 1 capsule at bedtime Orally Once a day for 90 days 10/29/2023 Active Encounters Encounter Location Date Provider Diagnosis [address] [address] 08/19/2024 YEIMI MARRERO Plan Of Treatment No Information Progress Notes * EDISON RUGGIERODOB:1980 (44 yo F)Acc No.[id number]:08/19/2024 PROGRESS NOTES Patient:?MONIK EDISON Provider:?YEIMI MARRERO MD :1980???Age:44 Y???Sex:Female D ate:08/19/2024 Address:[address] [place], [place] [address] Subjective: * Chief Complaints: * ???1. Annual COSMETIC MANAGER Physical. * Medical History:? * Medications:?Taking Magnesiu m 400 MG Tablet as directed Orally , Taking Lisinopril 5 MG Tablet 1 tablet Orally Once a day , Taking Vitamin D (Ergocalciferol) 45868 UNIT Capsule 1 capsule Orally , Taking [...] Electronic signature of YEIMI MARRERO MD on 09/16/2024 at 08:18 AM EDT Sign off status: Pending * Provider:?YEIMI MARRERO MD Date:?2024 Generated for Lauren umanzor/Gina/eTmyahsmitting on:?09/16/2024 08:18 AM EDT
--- OUTSIDE RECORDS SUMMARY | 2024-09-16 08:19 | XMS_ITS | Clinical Summary ---
Author Organization [facility] Address [address] [facility] [address] [place] [address] Phone Care Team Providers Care Sheet Metal Duct Installer Apprentice Name Role Phone Emigdio Guthrie MD Primary Care Provider [phone] Allergies Active Allergy Reactions Criticality Noted Date [...] complete this topic Insurance [place] Care Teams Sheet Metal Duct Installer Apprentice Relationship Specialty Start Date End Date Emigdio Guthrie MD [facility] [place] [address] [place], [place] PCP - General Internal Medicine 11/02/20
--- OUTSIDE RECORDS SUMMARY | 2024-09-16 08:19 | XMS_ITS ---
Author Organization [facility] Address [address] [address] Care Team Providers Care Press Breaker Name Role Phone YEIMI MARRERO Unavailable [phone] REASON FOR VISIT Annual LEVELER HELPER Physical Encounters Encounter Location Date Provider Diagnosis [facility] [address] [place] [address] 08/28/2024 YEIMI MARRERO Encounter for gynecological examination [...] Follow Up: 1 Year, Reason: Y early Dam Attendant Exam Progress Notes * EDISON RUGGIERODOB:1980 (44 yo F)Acc No.[id number]:08/28/2024 PROGRESS NOTES Patient:?EDISON RUGGIERO Provider:?YEIMI MARRERO MD :1980???Age:44 Y???Sex:Female D ate:08/28/2024 Address:[address] [place] [address] Subjective: * Chief Complaints: * ???1. Annual LEVELER HELPER Physical. 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 She was hospitalized 07/14/24 for N/V/abdominal [...] indoor aerobic/walking to a video. * ROS:?Annual Dam Attendant Exam ROS:?Bowel habit changes?denies.?Bladder symptoms?denies.?Vaginal discharge, unusual?denies.?Vaginal itch or odor?denies.?abnormal bleeding?denies.?weight or appetite changes?denies.?Chest pains, SOB?denies.?depression?denies.?Breast:?Denies?Breast lump.?Denies?Nipple discharge.?Hematology:?Denies?Swollen glands.?Skin:?Patient denies?changing moles.?Psychiatric:?Denies?Anxiety.? * Medical History:? * Dam Attendant History:?/ Para?1/0.?Sexual activity?currently sexually active, with men.?Last Pap Smear:?07/20/21 NIL, NEG HPV, 07/27/20 NIL, NEG HPV, 05/27/2019 LSIL/+hrHPV, neg 16/18/45.?Mammogram:?not due per age.?Abnormal Pap Smear:?2019, 2017, 2014 abnl pap with HPV. Colpo was recommended but not done. She had colpo 2013 ([facility]?LMP and menses?hysterectomy.?History of STD's:?none.? Control:?none.?Menarche?.?Hysterectomy:?03/17/2024 (LAVH/BSO for AUB).?Endoscopy *?01/2023 - normal.?Colonoscopy?Yes 2016- Normal; 01/2023 - normal.? * OB History:?Total pregnancies?.? Objective: * Vitals:? * Examination: ???General Examination: ?GENERAL APPEARANCE:?in no acute distress, well developed, well nourished, grants specialist present in room.?HEAD:?normocephalic, atraumatic.?NECK/THYROID:?neck supple, full range [...] * Follow Up:?1 Year (Reason: Y early Dam Attendant Exam) * Images: Billing Information: * Visit Code:? [id number] Preventive Care Est Pt. Age 40-64. * Procedure Codes:? 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 She was hospitalized 07/14/24 for N/V/abdominal [...] ac sunita distress, well developed, well nourished, grants specialist present in room HEAD: normocephalic, atrau [...]
--- OUTSIDE RECORDS SUMMARY | 2024-09-16 08:19 | XMS_ITS | Clinical Summary ---
Author Organization [facility] Address [address] [place] [address] Care Team Providers Care Cuprous Chloride Helper Name Role Phone Emigdio Guthrie MD Primary Care Provider [phone] Allergies Active Allergy Reactions Criticality Noted Date [...] age to complete this topic Care Teams Cuprous Chloride Helper Relationship Specialty Start Date End Date Emigdio Guthrie MD [address] [place] [address] [address] [facility] [place] [address] PCP - General Internal Medicine 11/30/17
--- OUTSIDE RECORDS SUMMARY | 2024-09-16 08:19 | XMS_ITS ---
Author Organization [facility] Address [address] [address] Care Team Providers Care Host/Hostess Name Role Phone YEIMI MARRERO Unavailable [phone] REASON FOR VISIT Annual LEAD TECHNICAL ARCHITECT Physical Encounters Encounter Location Date Provider Diagnosis [facility] [address] [place] [phone] 07/28/2024 YEIMI MARRERO Encounter for gynecological examination [...] Follow Up: 1 Year, Reason: Y early Gas Treater Exam Progress Notes * EDISON RUGGIERODOB:1980 (44 yo F)Acc No.[id number]:07/28/2024 PROGRESS NOTES Patient:?EDISON RUGGIERO Provider:?YEIMI MARRERO MD :1980???Age:44 Y???Sex:Female D ate:07/28/2024 Address:[address] [place] [address] Subjective: * Chief Complaints: * ???1. Annual LEAD TECHNICAL ARCHITECT Physical. 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 director product management exam. She was hospitalized 07/14/24 for N/V/abdominal [...] indoor aerobic/walking to a video. * ROS:?Annual Gas Treater Exam ROS:?Bowel habit changes?denies.?Bladder symptoms?denies.?Vaginal discharge, unusual?denies.?Vaginal itch or odor?denies.?abnormal bleeding?denies.?weight or appetite changes?denies.?Chest pains, SOB?denies.?depression?denies.?Breast:?Denies?Breast lump.?Denies?Nipple discharge.?Hematology:?Denies?Swollen glands.?Skin:?Patient denies?changing moles.?Psychiatric:?Denies?Anxiety.? * Medical History:? * Gas Treater History:?/ Para?1/0.?Sexual activity?currently sexually active, with men.?Last Pap Smear:?07/20/21 NIL, NEG HPV, 07/27/20 NIL, NEG HPV, 05/27/2019 LSIL/+hrHPV, neg 16/18/45.?Mammogram:?not due per age.?Abnormal Pap Smear:?2019, 2017, 2014 abnl pap with HPV. Colpo was recommended but not done. She had colpo 2013 ([facility]).?LMP and menses?hysterectomy.?History of STD's:?none.? Control:?none.?Hysterectomy:?03/17/2024 (LAVH/BSO [...] no acute distress, well developed, well nourished, weaving instructor present in room.?HEAD:?normocephalic, atraumatic.?NECK/THYROID:?neck supple, full range [...] * Follow Up:?1 Year (Reason: Y early Gas Treater Exam) * Images: Billing Information: * Visit Code:? [id number] Preventive Care Est Pt. Age 40-64. * Procedure Codes:? 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 director product management exam. She was hospitalized 07/14/24 for N/V/abdominal [...] ac sunita distress, well developed, well nourished, weaving instructor present in room HEAD: normocephalic, atrau matic [...]
--- OUTSIDE RECORDS SUMMARY | 2024-09-16 08:19 | XMS_ITS | Patient Health Record ---
Author Organization [facility] Address [address] [facility] [address] [place] [address] Care Team Providers Care Transfer Car Operator Name Role Phone YEIMI MARRERO Unavailable [phone] Allergies Allergen (clinical drug ingredient) Drug/Non Drug [...] Test, Urine NEG CBC, Platelet, No Differenti al-[id number] Reviewed date:02/04/2024 08:56:32 AM Interpretation: Performing Lab:[facility], [address] [place] [address], Phone - [phone], Director - Adolfo Notes/Report: WBC 8.2 3.4-10.8 x10E3/uL RBC 4.46 3.77-5.28 x10E6/uL Hemoglobin 13.3 11.1-15.9 g/dL Hematocrit 38.8 34.0-46.6 % MCV 87 79-97 fL MCH 29.8 26.6-33.0 pg MCHC 34.3 31.5-35.7 g/dL RDW 13.9 11.7-15.4 % Platelets 209 150-450 x10E3/uL PDF Report Reviewed date:01/28/2024 08:47:37 AM Interpretation: Performing Lab:[facility], [address] [facility], [place], Phone - [phone], Director - Adolfo Notes/Report: Reason For Referral No Information Medications Medication SIG (Take, Route, Frequency, Duration) Notes Start Date End Date Status Lisinopril 5 MG 1 tablet Orally Once a day for 30 day(s) Active Vitamin D (Ergocalciferol) 36196 UNIT 1 capsule Orally Active Gabapentin 600 MG Orally two times a day Active Fenofibrate 145 MG 1 tablet Orally Once a day Active B-12 Once a day Active ALPRAZolam 0.25 MG 1 tablet Orally PRN Active Omeprazole 40 MG TAKE 1 CAPSULE BY [facility] EVERY DAY Oral for 90 Active Progesterone [...] test positive, high risk on vaginal specimen (043190866151164) Cervical high risk human papillomavirus (HPV) DNA test positive (R87.810) Active confirmed Problem Essential hypertension (51574326) Essential (primary) hypertension (I10) Active confirmed Problem Type II diabetes mellitus without complication (801445072) Type 2 diabetes mellitus without complications (E11.9) Active confirmed Problem Hyperlipidemia (19772863) Hyperlipidemia, unspecified (E78.5) Active confirmed Problem Anxiety disorder (207843651) Anxiety disorder, unspecified (F41.9) Active confirmed Problem Migraine without aura, not refractory (disorder) (345538792) Migraine, unspecified, not intractable, without status migrainosus (G43.909) Active confirmed Problem Chronic pain syndrome (086011538) Chronic pain syndrome (G89.4) Active confirmed Problem Hidradenitis suppurativa (59801448) Hidradenitis suppurativa (L73.2) Active confirmed Problem Oligomenorrhea (55535305) Oligomenorrhea, unspecified (N91.5) Active confirmed Problem Abnormal uterine bleeding (06154366986051) Abnormal uterine and vaginal bleeding, unspecified (N93.9) Active confirmed Problem Female infertility (5213166) Female infertility, unspecified (N97.9) Active confirmed Problem History of gastrointestinal disease (905672608) Personal history of other diseases of the digestive system (Z87.19) Active confirmed Problem COVID-19 (011333862) COVID-19 (U07.1) Active confirmed Vital Signs Temperature 97.1 degrees Fahrenheit 01/25/2024 Blood pressure diastolic 90 mm Hg 01/25/2024 Height 61 in 01/25/2024 Blood pressure systolic 160 mm Hg 01/25/2024 Weight 163 lbs 01/25/2024 BMI 30.8 kg/m2 01/25/2024 Encounters Encounter Location Date Provider Diagnosis [place] [address] [address] 08/19/2024 YEIMI MARRERO [place] [address] [address] 01/25/2024 YEIMI MARRERO Abnormal uterine and vaginal bleeding, unspecified N93.[address] [address] 10/25/2023 YEIMI AMRRERO [place] [address] [address] 10/29/2023 YEIMI MARRERO Abnormal uterine and vaginal bleeding, unspecified N93.9 [address] [address] 01/25/2024 YEIMI MARRERO [place] [address] [address] 01/25/2024 YEIMI MARRERO Assessments Encounter Date Diagnosis [...] Insured Coverage Start Date Coverage End Date [facility] [address] [place] [id number] EDISON RUGGIERO Self - patient is the insured Medical (General) History Medical History History ICD Code Hyperlipidemia, unspecified E78.5 Essential (primary) hypertension I10 COVID-19 U07.1 Surgical History Surgery Date(Month/Year) Dilation and curretage 2004 Hernia Repair 1980 Removal of Lump on R under arm 8 cholecystectomy 10/2018 upper endoscopy and colonoscopy 2018 [facility] 02/2021 [facility]/BSO - for AUB 02/2024 Hospitalization History Reason Date(Month/Year) See surgical Hx
== END 2024-09-16 08:09 | disposition home or self-care (01) ==
LOC: HO.NEURO 08:08
PROVIDERS: PCP Internal Medicine; Visit Provider Internal Medicine
DX: R20.0 Anesthesia of skin (principal); G62.9 Polyneuropathy, unspecified
CPT/HCPCS: 95886; 95913

== ENCOUNTER 2024-09-19 09:07 | Outpatient (AMB) | payer OTHER, SELFPAY ==
--- NOTE | 2024-09-19 09:08 | MHC.PC.OV ---
Vital Signs 09/19/24 09:08 Height 5 ft 1 in Blood Pressure Location Lt brachial Position Sitting Pulse Source Pulse Oximeter Oxygen Delivery Method Room Air Intake Visit Reasons: pain in my hands are getting worse Tank Maker Wood Required: No Accompanied by: Self / Same As Patient Allergies metoclopramide [From REGLAN] Allergy (Severe, Verified 09/19/24 09:10) ANXIETY promethazine [From PHENERGAN] Allergy (Severe, Verified 09/19/24 09:10) ANXIETY shellfish derived [SHELLFISH DERIVED] Allergy (Severe, Verified 09/19/24 09:10) THROAT SWELLING HIVES IN SCALP, ITCHY ibuprofen [From MOTRIN] Allergy (Unknown, Verified 09/19/24 09:10) HIVES morphine [MORPHINE] Allergy (Unknown, Verified 09/19/24 09:10) THROAT CLOSES, anaphylaxis prochlorperazine [From COMPAZINE] Allergy (Unknown, Verified 09/19/24 09:10) ANXIETY Sulfa (Sulfonamide Antibiotics) [SULFA (SULFONAMIDE ANTIBIOTICS)] Allergy (Unknown, Verified 09/19/24 09:10) SWELLING trazodone Adverse Reaction (Unknown, Verified 09/19/24 09:10) Dizziness Medication List - Last Reconciled 09/19/24 by Ceci Strickland PA-C acetaminophen ER 650 mg PO Q8H PRN alprazolam 1 mg PO .QD PRN 30 days baclofen 5 mg PO TID blood pressure monitor (Blood Pressure Kit) As directed blood sugar diagnostic (OneTouch Verio test strips) As directed two times per day blood-glucose meter As directed blood-glucose sensor (Dexcom G7 Sensor device) As directed blood-glucose,material handling technician,cont (Dexcom G7 Pharmacy Aide) As directed carvedilol 12.5 mg PO BID cholecalciferol (vitamin D3) 125 mcg PO DAILY clotrimazole 1% 1 appl topical BID cyanocobalamin (vitamin B-12) 1,000 mcg PO DAILY diclofenac sodium 1% (Voltaren Arthritis Pain) 4 grams topical QID empagliflozin 25 mg PO DAILY fenofibrate 160 mg PO DAILY gabapentin 600 mg PO QID 90 days hydralazine 50 mg PO TID insulin glargine (Lantus Solostar U-100 Insulin) 10 units (0.1 mL) subcut QPM insulin lispro (Humalog KwikPen (U-100) Insulin) 1 sliding scale dose subcut USEASDIRECTD lancets As directed lancets (OneTouch Delica Plus Lancet) As directed 2 times per day lisinopril 10 mg PO DAILY meloxicam 15 mg PO DAILY omeprazole 40 mg PO DAILY 90 days ondansetron HCl 4 mg PO Q6H oxycodone 5 mg PO Q8H PRN pantoprazole 40 mg PO TID pen needle, diabetic (Comfort EZ Pen [place]) As directed-daily pen needle, diabetic (1st Tier Unifine Pentips) As directed Inject Insulin 4 x a day polyethylene glycol 3350 (Gavilax) 17 grams PO DAILY scopolamine HBr mg PO sumatriptan succinate (Imitrex) 50 mg PO .qd PRN tramadol 50 mg PO DAILY Tobacco use date assessed: 09/19/24 Dental Screening Dental Screen Date: 09/19/24 Did you have a dental visit in the last 12 months?: Yes Did you have a dental problem in the last 6 months where you did not have access to dental care?: No Was dental information given to patient?: Patient has dentist HPI pain in my hands are getting worse HPI Details 44-year-old female with past medical history of diabetes mellitus, GERD, hypertension, hypercholesterolemia and generalized anxiety disorder last seen 08/[address] Guthrie presenting to be a telehealth for acute problem. In review of the notes, patient completed nerve conduction study 09/12 showing moderately severe bilateral carpal tunnel and mild bilateral ulnar neuropathy. Patient reports worsening hand stiffness in the morning and bilateral hand numbness and tingling. She does see a adoption specialist through [facility]. She has not yet tried the night splints as advised by Dr. Jones. She reports a Tylenol has not been working for her pain and symptoms have been worsening. [facility] Medical History Overweight (BMI 25.0-29.9) Liver fibrosis Steatosis, liver BMI 32.0-32.9,adult Obesity History of back pain BMI over 35 Vitamin D deficiency Hypercalcemia Adjustment disorder, unspecified Pre-procedure lab exam Obesity Family hx of hypertension Serum calcium elevated Proteinuria Onychomycosis Hematuria Vitamin B 12 deficiency LUQ abdominal pain COVID-19 virus infection Irritable bowel syndrome Migraine Insomnia Vitamin D deficiency Obesity (BMI 30-39.9) Diabetic retinopathy Atkins's palsy Peripheral neuropathy Trigeminal neuralgia Pancreatitis GERD (gastroesophageal reflux disease) Type 2 diabetes mellitus with diabetic polyneuropathy Type 2 diabetes mellitus with hyperglycemia Hypertriglyceridemia Essential hypertension Hyperlipidemia LDL goal <100 Surgical History History of hysterectomy H/O gastric sleeve History of wisdom tooth extraction, class I edentulism Hx of colonoscopy Acalculous cholecystitis Hx of hernia repair Hx of removal of cyst Hx of dilation and curettage Family History Father Diabetes mellitus Asthma Hypertension Mother Diabetes mellitus Hypertension Scleroderma Maternal Aunt Ovarian cancer Paternal Grandfather Diabetes mellitus Paternal Grandmother Diabetes mellitus Maternal Grandmother Diabetes mellitus Maternal Grandfather Diabetes mellitus CVD (cardiovascular disease) Sister CVD (cardiovascular disease) Brother Anxiety Arthritis Social History Household Members: Spouse Housing: Apartment Are you a primary healthcare receptionist to a significant other at home: No Do you presently have visiting nurse or other home services: No Alcohol intake: never Patient Tobacco Use Status: Former Tobacco user Tobacco use type: Cigarette Cigarette Packs Per Day: 0.25 Cigarettes Per Day: 4 Years Smoked: quit 03/2016. Restarted 03/2023. e-Cigarette/Vaping Use: Never Used Second Hand Smoke Exposure: Yes service: No Current occupational status: employed Cognitive needs: No Hearing needs: No Vision needs: Yes Questionnaire PHQ-9 Over the last 2 weeks, how often have you been bothered by any of the following problems? 1. Little interest or pleasure in doing things: more than half the days 2. Feeling down, depressed, or hopeless: more than half the days 3. Trouble falling or staying asleep, or sleeping too much: more than half the days 4. Feeling tired or having little energy: more than half the days 5. Poor appetite or overeating: several days 6. Feeling bad about yourself - or that you are a failure or have let yourself or your family down: not at all 7. Trouble concentrating on things, such as reading the newspaper or watching television: not at all 8. Moving or speaking so slowly that other people could have noticed. Or the opposite - being so fidgety or restless that you have been moving around a lot more than usual: not at all 9. Thoughts that you would be better off or of hurting yourself in some way: not at all Total score: 9 Source: Developed by Drs. Jovon Nation, Cecilia Ribeiro, Travon Silveira and colleagues, with an educational michelle from [employer]. Thrive Questionnaire Date Thrive assessed: 09/19/24 I am a: Patient What is your living situation today?: I have a steady place to live Within the past 12 months, did the food you bought not last and you didn't have the money to get more?: Never true Within the past 12 months, did you worry whether your food would run out before you got money to buy more?: Never true Do you have trouble paying for medicines?: No Do you have trouble getting transportation to medical appointments?: No Do you have trouble paying your heating and electricity bill?: No Do you have trouble taking care of your child, family member or friend?: No Do you have trouble with day-to-day activities such as bathing, preparing meals, shopping, managing finances, etc.?: No Are you currently unemployed and looking for a job?: No Are you interested in more education?: No Please select the resources that you would like help with: None THRIVE Score: 0 AUDIT C Alcohol Use Questionnaire (AUDIT-C) 1. How often do you have a drink containing alcohol?: Never 2. How many drinks containing alcohol do you have on a typical day when you are drinking?: 1 or 2 (0) 3. How often do you have six or more drinks on one occasion?: Never Total Score: 0 Score Reviewed/Action Taken: No BERTRAM-7 AMB Questionnaire BERTRAM-7 Date BERTRAM - 7 assessed: 09/19/24 Feeling nervous, anxious, or on edge: 0 = Not at all Not being able to stop or control worryin = Not at all Worrying too much about different things: 0 = Not at all Trouble relaxin = Not at all Being so restless that it is hard to sit still: 0 = Not at all Becoming easily annoyed or irritable: 0 = Not at all Feeling afraid as if something awful might happen: 0 = Not at all Total BERTRAM-7 score (0-4 normal; 5-9 mild; 10-14 moderate; 15-21 severe): 0 Source: Developed by Drs. Jovon Nation, Cecilia Ribeiro, Travon Silveira and colleagues, with an educational michelle from [employer]. Review of Systems Const Reports no additional complaints Eyes Reports no additional complaints Card Denies chest pain and Denies dyspnea Resp Denies dyspnea Musc Reports as per HPI and Denies abnormal gait Skin/Breast Reports system reviewed and no additional complaints, except as documented Neuro Denies abnormal gait Psych Reports no additional complaints Physical exam (Primary Care) Vital Signs: Oxygen Delivery Method Room Air 09/19/24 09:08 Vital signs and physical exam not performed today due to nature of telehealth visit. Tobacco/Smoking Status: Tobacco use Status Tobacco use date assessed 06/03/24 09/12/24 12:24 Patient Tobacco Use Status Former Tobacco user 09/12/24 12:24 Tobacco use type Cigarette 09/12/24 12:24 e-Cigarette/Vaping Use Never Used 09/12/24 12:24 Thrive Assessment: Date of Thrive Assessment Date Thrive assessed 06/03/24 09/12/24 12:24 Telehealth Telehealth Telehealth Platform: Telephone Location of provider rendering services: practice address Location of patient: address on file Patient Identification confirmed using: Name, : Yes Telehealth method: video (Iphone) Patient verbally consented to treatment: Yes Patient verbally consented to billing insurance company: Yes Patient informed of any privacy concerns related to visit: Yes Coding Level of Care Code Tele Est Pt Level 3 (60130) Diagnoses Trigger finger of all digits of both hands M65.321; M65.311; M65.312; M65.322; M65.331 Overweight E66.3 Carpal tunnel syndrome, bilateral G56.03 Cubital tunnel syndrome of both upper extremities G56.23 Assessment & Plan Assessment & Plan (1) Trigger finger of all digits of both hands: Code(s): M65.321 - Trigger finger, right index finger; M65.311 - Trigger thumb, right thumb; M65.312 - Trigger thumb, left thumb; M65.322 - Trigger finger, left index finger; M65.331 - Trigger finger, right middle finger Category: Medical Plan: Patient having trigger finger bilateral hands advised to follow up with [facility] for hand evaluation. May use diclofenac gel or meloxicam but not in conjunction for pain management. Advised patient to use meloxicam sparingly as she does have a history of gastric sleeve take with plenty of food and water. (2) Overweight: Code(s): E66.3 - Overweight Category: Medical Plan: Healthy diet and regular exercise is encouraged. (3) Carpal tunnel syndrome, bilateral: Code(s): G56.03 - Carpal tunnel syndrome, bilateral upper limbs Category: Medical Plan: Patient having bilateral carpal tunnel syndrome moderate to severe on EMG. Recommending orthopedic evaluation at this time for carpal tunnel release. Discussed with patient the risk of prolonged carpal tunnel and worsening nerve function. Patient agrees to reach out to [facility] to schedule appointment and referral was also placed today. (4) Cubital tunnel syndrome of both upper extremities: Code(s): G56.23 - Lesion of ulnar nerve, bilateral upper limbs Category: Medical Plan: Patient having bilateral cubital tunnel syndrome of upper extremities recommend [facility] evaluation. Patient may use meloxicam as needed for pain but must use this medication sparingly and take with plenty of food. Plan This note was constructed using voice recognition software. While every effort has been made to ensure accuracy and district administrator, still areas may have been included sometimes these areas may affect the content or meeting of the given symptoms. Total time spent caring for the patient today was 20 minutes. This includes time spent before the visit reviewing the chart, time spent during the visit, and time spent after the visit and documentation. Orders: Referrals Orthopedics Referral G56.03 - Carpal tunnel syndrome, bilateral upper limbs, M65.311 - Trigger thumb, right thumb, M65.312 - Trigger thumb, left thumb, M65.321 - Trigger finger, right index finger, M65.322 - Trigger finger, left index finger, M65.331 - Trigger finger, right middle finger, R20.0 - Anesthesia of skin Medications: Refilled diclofenac sodium 1% (Voltaren Arthritis Pain) apply to single knee, ankle, foot; for foot includes sole/toes/top of foot 4 grams topical QID 100 grams 12RF M25.561 - Pain in right knee, M25.562 - Pain in left knee meloxicam 15 mg PO DAILY 20 tabs 0RF
--- OUTSIDE RECORDS SUMMARY | 2024-09-19 09:42 | XMS_ITS ---
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 Annual LOOM CHECKER Physical. * HPI: ???Constitutional:?Edison is a 44 yo s/p LAVH/BSO for abnormal uterine bleeding on 03/17/24 who presents for her yearly pump installation and servicer exam. She was hospitalized 07/14/24 for N/V/abdominal [...] indoor aerobic/walking to a video. * ROS:?Annual Gravel Truck Driver Exam ROS:?Bowel habit changes?denies.?Bladder symptoms?denies.?Vaginal discharge, unusual?denies.?Vaginal itch or odor?denies.?abnormal bleeding?denies.?weight or appetite changes?denies.?Chest pains, SOB?denies.?depression?denies.?Breast:?Denies?Breast lump.?Denies?Nipple discharge.?Hematology:?Denies?Swollen glands.?Skin:?Patient denies?changing moles.?Psychiatric:?Denies?Anxiety.? * Medical History:? * Gravel Truck Driver History:?/ Para?1/0.?Sexual activity?currently sexually active, with men.?Last Pap Smear:?07/20/21 NIL, NEG HPV, 07/27/20 NIL, NEG HPV, 05/27/2019 LSIL/+hrHPV, neg 16/18/45.?Mammogram:?not due per age.?Abnormal Pap Smear:?2019, 2017, 2014 abnl pap with HPV. Colpo was recommended but not done. She had colpo 2013 ([facility]?LMP and menses?hysterectomy.?History of STD's:?none.? Control:?none.?Menarche?.?Hysterectomy:?03/17/2024 (LAVH/BSO for AUB).?Endoscopy *?01/2023 - normal.?Colonoscopy?Yes 2016- Normal; 01/2023 - normal.? * OB History:?Total pregnancies?.? Objective: * Vitals:? * Examination: ???General Examination: ?GENERAL APPEARANCE:?in no acute distress, well developed, well nourished, data entry present in room.?HEAD:?normocephalic, atraumatic.?NECK/THYROID:?neck supple, full range [...] * Follow Up:?1 Year (Reason: Y early Gravel Truck Driver Exam) * Images: Billing Information: * Visit Code:? 14825 Preventive Care Est Pt. Age 40-64. * Procedure Codes:? * Electronic signature of YEIMI MARRERO MD on 09/19/2024 at 09:42 AM EDT Sign off status: Pending * Provider:?YEIMI MARRERO MD Date:?2024 Generated for Lauren umanzor/Gina/Aubreyitting on:?09/19/2024 09:42 AM EDT History and Physical Notes * HPI (History of Present Illness) Category Sub-Category Detail Notes Category Not es Constitutional Edison is a 44 yo s/p LAVH/BSO for abnormal uterine bleeding on 03/17/24 who presents for her yearly pump installation and servicer exam. She was hospitalized 07/14/24 for N/V/abdominal [...] General Examination GENERAL APPEARANCE: in no ac kiana distress, well developed, well nourished, data entry present in room HEAD: normocephalic, atrau matic [...]
--- OUTSIDE RECORDS SUMMARY | 2024-09-19 09:42 | XMS_ITS | Patient Health Record ---
Author Organization [facility] [facility] Address [address] [place] [address] Care Team Providers Care Lap Regulator Name Role Phone YEIMI MARRERO Unavailable [phone] Allergies Allergen (clinical drug ingredient) Drug/Non Drug [...] Reviewed date:01/28/2024 08:47:37 AM Interpretation: Performing Lab:[facility], [address] [place] [address], Phone - [phone], Director - MDJodry Notes/Report: Test, Urine Reviewed date:01/25/2024 04:01:13 PM Interpretation: Performing Lab: Notes/Report: Test, Urine NEG CBC, Platelet, No Differenti [id number] Reviewed date:02/04/2024 08:56:32 AM Interpretation: Performing Lab:[facility], [address] [place] [address], Phone - [phone], Director - MDJodry Notes/Report: WBC 8.2 3.4-10.8 [...] for 30 day(s) Active Vitamin D (Ergocalciferol) 81089 UNIT 1 capsule Orally Active Gabapentin 600 MG Orally two times a day Active Fenofibrate 145 MG 1 tablet Orally Once a day Active B-12 Once a day Active ALPRAZolam 0.25 MG 1 tablet Orally PRN Active Omeprazole 40 MG TAKE 1 CAPSULE BY [facility] EVERY DAY Oral for 90 Active [...] test positive, high risk on vaginal specimen (701558307556402) Cervical high risk human papillomavirus (HPV) DNA test positive (R87.810) Active confirmed Problem Essential hypertension (48535744) Essential (primary) hypertension (I10) Active confirmed Problem Type II diabetes mellitus without complication (078067950) Type 2 diabetes mellitus without complications (E11.9) Active confirmed Problem Hyperlipidemia (62785149) Hyperlipidemia, unspecified (E78.5) Active confirmed Problem Anxiety disorder (425779304) Anxiety disorder, unspecified (F41.9) Active confirmed Problem Migraine without aura, not refractory (disorder) (385171741) Migraine, unspecified, not intractable, without status migrainosus (G43.909) Active confirmed Problem Chronic pain syndrome (256346709) Chronic pain syndrome (G89.4) Active confirmed Problem Hidradenitis suppurativa (53536332) Hidradenitis suppurativa (L73.2) Active confirmed Problem Oligomenorrhea (72512000) Oligomenorrhea, unspecified (N91.5) Active confirmed Problem Abnormal uterine bleeding (28869809252557) Abnormal uterine and vaginal bleeding, unspecified (N93.9) Active confirmed Problem Female infertility (9342449) Female infertility, unspecified (N97.9) Active confirmed Problem History of gastrointestinal disease (591883476) Personal history of other diseases of the digestive system (Z87.19) Active confirmed Problem COVID-19 (470376610) COVID-19 (U07.1) Active confirmed Vital Signs Temperature 97.1 degrees Fahrenheit 01/25/2024 Blood pressure diastolic 90 mm Hg 01/25/2024 Height 61 in 01/25/2024 Blood pressure systolic 160 mm Hg 01/25/2024 Weight 163 lbs 01/25/2024 BMI 30.8 kg/m2 01/25/2024 Encounters Encounter Location Date Provider Diagnosis [place] [address] [address] 08/19/2024 YEIMI MARRERO Total [address] [phone] 01/25/2024 YEIMI MARRERO Abnormal uterine and vaginal bleeding, unspecified N93.[address] [address] 10/25/2023 YEIMI MARRERO Total [address] [address] 10/29/2023 YEIMI MARRERO Abnormal uterine and vaginal bleeding, unspecified N93.[address] [address] 01/25/2024 YEIMI MARRERO [place] [address] [address] 01/25/2024 YEIMI MARRERO Assessments Encounter Date Diagnosis [...] Insured Coverage Start Date Coverage End Date [facility] [address] [place] [address] [id number] EDISON RUGGIERO Self - patient is the insured Medical (General) History Medical History History ICD Code Hyperlipidemia, unspecified E78.5 Essential (primary) hypertension I10 COVID-19 U07.1 Surgical History Surgery Date(Month/Year) Dilation and curretage 2004 Hernia Repair 1980 Removal of Lump on R under arm 8 cholecystectomy 10/2018 upper endoscopy and colonoscopy 2018 GASTRIC SLEEVE 02/2021 [facility]/BSO - for AUB 02/2024 Hospitalization History Reason Date(Month/Year) See surgical Hx
--- OUTSIDE RECORDS SUMMARY | 2024-09-19 09:42 | XMS_ITS ---
Author Organization [facility] Address [address] [address] Care Team Providers Care Montessori Preschool Teacher Name Role Phone YEIMI MARRERO Unavailable [phone] REASON FOR VISIT Annual PHYSICAL THERAPY COORDINATOR Physical Encounters Encounter Location Date Provider Diagnosis [facility] [address] [place] [phone] 07/28/2024 YEIMI MARRERO Encounter for gynecological examination [...] Follow Up: 1 Year, Reason: Y early Senior Asic Engineer Exam Progress Notes * EDISON RUGGIERODOB:1980 (44 yo F)Acc No.[id number]:07/28/2024 PROGRESS NOTES Patient:?EDISON RUGGIERO Provider:?YEIMI MARRERO MD :1980???Age:44 Y???Sex:Female D ate:07/28/2024 Address:[address] [place] [address] Subjective: * Chief Complaints: * ???1. Annual PHYSICAL THERAPY COORDINATOR Physical. * HPI: ???Constitutional:?Edison is a 44 yo s/p LAVH/BSO for abnormal uterine bleeding on 03/17/24 who presents for her yearly traveling buyer exam. She was hospitalized 07/14/24 for N/V/abdominal [...] indoor aerobic/walking to a video. * ROS:?Annual Senior Asic Engineer Exam ROS:?Bowel habit changes?denies.?Bladder symptoms?denies.?Vaginal discharge, unusual?denies.?Vaginal itch or odor?denies.?abnormal bleeding?denies.?weight or appetite changes?denies.?Chest pains, SOB?denies.?depression?denies.?Breast:?Denies?Breast lump.?Denies?Nipple discharge.?Hematology:?Denies?Swollen glands.?Skin:?Patient denies?changing moles.?Psychiatric:?Denies?Anxiety.? * Medical History:? * Senior Asic Engineer History:?/ Para?1/0.?Sexual activity?currently sexually active, with men.?Last Pap Smear:?07/20/21 NIL, NEG HPV, 07/27/20 NIL, NEG HPV, 05/27/2019 LSIL/+hrHPV, neg 16/18/45.?Mammogram:?not due per age.?Abnormal Pap Smear:?2019, 2017, 2014 abnl pap with HPV. Colpo was recommended but not done. She had colpo 2013 ([facility]).?LMP and menses?hysterectomy.?History of STD's:?none.? Control:?none.?Hysterectomy:?03/17/2024 (LAVH/BSO [...] no acute distress, well developed, well nourished, wood window and door craftsman present in room.?HEAD:?normocephalic, atraumatic.?NECK/THYROID:?neck supple, full range [...] * Follow Up:?1 Year (Reason: Y early Senior Asic Engineer Exam) * Images: Billing Information: * Visit Code:? 95806 Preventive Care Est Pt. Age 40-64. * Procedure Codes:? * Electronic signature of YEIMI MARRERO MD on 09/19/2024 at 09:42 AM EDT Sign off status: Pending * Provider:?YEIMI MARRERO MD Date:?2024 Generated for Lauren umanzor/Gina/eTransmitting on:?09/19/2024 09:42 AM EDT History and Physical Notes * HPI (History of Present Illness) Category Sub-Category Detail Notes Category Not es Constitutional Edison is a 44 yo s/p LAVH/BSO for abnormal uterine bleeding on 03/17/24 who presents for her yearly traveling buyer exam. She was hospitalized 07/14/24 for N/V/abdominal [...] ac sunita distress, well developed, well nourished, wood window and door craftsman present in room HEAD: normocephalic, atrau matic [...]
--- OUTSIDE RECORDS SUMMARY | 2024-09-19 09:42 | XMS_ITS ---
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 Medications Medication SIG (Take, Route, Frequency, Duration) Notes Start Date End Date Status Lisinopril 5 MG 1 tablet Orally Once a day for 30 day(s) Active Vitamin D (Ergocalciferol) 38751 UNIT 1 capsule Orally Active Gabapentin 600 [...] 40 MG TAKE 1 CAPSULE BY [facility] EVERY DAY Oral for 90 Active Progesterone 200 MG 1 capsule at bedtime Orally Once a day for 90 days 10/29/2023 Active Encounters Encounter Location Date Provider Diagnosis [address] [address] 08/19/2024 YEIMI MARRERO Plan Of Treatment No Information Progress Notes * EDISON RUGGIERODOB:1980 (44 yo F)Acc No.[id number]:08/19/2024 PROGRESS NOTES Patient:?MONIK EDISON Provider:?YEIMI MARRERO MD :1980???Age:44 Y???Sex:Female D ate:08/19/2024 Address:[address] [place], [place] [phone] Subjective: * Chief Complaints: * ???1. 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 * Medical History:? * Medications:?Taking Magnesiu m 400 MG Tablet as directed Orally , Taking Lisinopril 5 MG Tablet 1 tablet Orally Once a day , Taking Vitamin D (Ergocalciferol) 12699 UNIT Capsule 1 capsule Orally , Taking [...] of YEIMI MARRERO MD on 09/19/2024 at 09:41 AM EDT Sign off status: Pending * Provider:?YEIMI MARRERO MD Date:?2024 Generated for Lauren umanzor/Gina/Elizabethsmitting on:?09/19/2024 09:41 AM EDT
--- OUTSIDE RECORDS SUMMARY | 2024-09-19 09:42 | XMS_ITS | Clinical Summary ---
Author Organization [facility] Address [address] [place] [address] Care Team Providers Care Satellite Dish Repairer Name Role Phone Emigdio Guthrie MD Primary Care Provider [phone] Allergies Active Allergy Reactions Criticality Noted Date [...] Edgaurdo Cancer Maternal Aunt Eugenia Diabetes Mother Illiana Hypertension Mother Liliana Diabetes Sister javan Hypertension Sister javan Relation Name Status Comments Father Edgaurdo Alive Maternal Aunt Eugenia Mother Liliana Alive Sister ajvan Alive Social History Tobacco Use Types Packs/Day [...] age to complete this topic Care Teams Satellite Dish Repairer Relationship Specialty Start Date End Date Emigdio Guthrie MD [address] [place] [address] [address] [facility] [place] [address] PCP - General Internal Medicine 11/30/17
--- OUTSIDE RECORDS SUMMARY | 2024-09-19 09:42 | XMS_ITS | Clinical Summary ---
Author Organization [facility] Address [address] [facility] [address] [place] [address] Phone Care Team Providers Care Tuna Purse Seiner Name Role Phone Emigdio Guthrie MD Primary Care Provider [phone] Allergies Active Allergy Reactions Criticality Noted Date [...] complete this topic Insurance [place] Care Teams Tuna Purse Seiner Relationship Specialty Start Date End Date Emigdio Guthrie MD [facility] [address] [place], [place] PCP - General Internal Medicine 11/02/20
== END 2024-09-19 09:25 | disposition home or self-care (01) ==
LOC: HO.HMCH 09:07
PROVIDERS: PCP Internal Medicine
DX: M65.321 Trigger finger, right index finger (principal); M65.311 Trigger thumb, right thumb; M65.312 Trigger thumb, left thumb; M65.322 Trigger finger, left index finger; M65.331 Trigger finger, right middle finger; E66.3 Overweight; G56.03 Carpal tunnel syndrome, bilateral upper limbs; G56.23 Lesion of ulnar nerve, bilateral upper limbs

== ENCOUNTER → 2024-09-19 09:07 | Outpatient (BNVA) | payer OTHER, SELFPAY | PROVIDERS: PCP Internal Medicine | DX: Z13.89 Encounter for screening for other disorder (principal) ==

== ENCOUNTER 2024-11-04 15:51 | Outpatient (AMB) | payer OTHER, SELFPAY ==
[2024-11-04 15:53] VITALS: BP 116/80; PULSE 95; O2SAT 98; BMI 29.6
--- NOTE | 2024-11-04 15:53 | MHC.PC.OV ---
Vital Signs 11/04/24 15:53 Height 5 ft 1 in Weight 156 lb 8 oz BMI 29.6 BP 116/80 Blood Pressure Location Lt brachial Position Sitting Pulse 95 Pulse Source Pulse Oximeter Pulse Oximetry (%) 98 Oxygen Delivery Method Room Air Intake Visit Reasons: left side groin pain Overhead Cleaner Required: No Accompanied by: Self / Same As Patient Allergies metoclopramide [From REGLAN] Allergy (Severe, Verified 09/19/24 09:10) ANXIETY promethazine [From PHENERGAN] Allergy (Severe, Verified 09/19/24 09:10) ANXIETY shellfish derived [SHELLFISH DERIVED] Allergy (Severe, Verified 09/19/24 09:10) THROAT SWELLING HIVES IN SCALP, ITCHY ibuprofen [From MOTRIN] Allergy (Unknown, Verified 09/19/24 09:10) HIVES morphine [MORPHINE] Allergy (Unknown, Verified 09/19/24 09:10) THROAT CLOSES, anaphylaxis prochlorperazine [From COMPAZINE] Allergy (Unknown, Verified 09/19/24 09:10) ANXIETY Sulfa (Sulfonamide Antibiotics) [SULFA (SULFONAMIDE ANTIBIOTICS)] Allergy (Unknown, Verified 09/19/24 09:10) SWELLING trazodone Adverse Reaction (Unknown, Verified 09/19/24 09:10) Dizziness Medication List - Last Reconciled 11/04/24 by Emigdio Guthrie MD acetaminophen ER 650 mg PO Q8H PRN alprazolam 1 mg PO .QD PRN 30 days baclofen 5 mg PO TID blood pressure monitor (Blood Pressure Kit) As directed blood sugar diagnostic (OneTouch Verio test strips) As directed two times per day blood-glucose meter As directed blood-glucose sensor (Dexcom G7 Sensor device) As directed blood-glucose,weaver wire loom,cont (Dexcom G7 Social Media Director) As directed carvedilol 12.5 mg PO BID cholecalciferol (vitamin D3) 125 mcg PO DAILY clotrimazole 1% 1 appl topical BID cyanocobalamin (vitamin B-12) 1,000 mcg PO DAILY diclofenac sodium 1% (Voltaren Arthritis Pain) 4 grams topical QID empagliflozin 25 mg PO DAILY fenofibrate 160 mg PO DAILY gabapentin 600 mg PO QID 90 days hydralazine 50 mg PO TID insulin glargine (Lantus Solostar U-100 Insulin) 10 units (0.1 mL) subcut QPM insulin lispro (Humalog KwikPen (U-100) Insulin) 1 sliding scale dose subcut USEASDIRECTD lancets As directed lancets (OneTouch Delica Plus Lancet) As directed 2 times per day lisinopril 10 mg PO DAILY meloxicam 15 mg PO DAILY ondansetron HCl 4 mg PO Q6H oxycodone 5 mg PO Q8H PRN pantoprazole 40 mg PO .QD pen needle, diabetic (Comfort EZ Pen Scroggins) As directed-daily pen needle, diabetic (1st Tier Unifine Pentips) As directed Inject Insulin 4 x a day polyethylene glycol 3350 (Gavilax) 17 grams PO DAILY scopolamine HBr mg PO sumatriptan succinate (Imitrex) 50 mg PO .qd PRN tramadol 50 mg PO DAILY Tobacco use date assessed: 11/04/24 Dental Screening Dental Screen Date: 11/04/24 Did you have a dental visit in the last 12 months?: Yes Did you have a dental problem in the last 6 months where you did not have access to dental care?: No Was dental information given to patient?: Patient has dentist HPI left side groin pain HPI Details L groin pain, no dysuria.- did get better but complains of epigasgtric pain. PAtient needs letter [facility] Medical History (Updated 11/04/24 @ 16:34 by Emigdio Guthrie MD) Cubital tunnel syndrome of both upper extremities Bilateral hand numbness Overweight (BMI 25.0-29.9) Liver fibrosis Steatosis, liver BMI 32.0-32.9,adult Obesity History of back pain BMI over 35 Vitamin D deficiency Hypercalcemia Adjustment disorder, unspecified Pre-procedure lab exam Obesity Family hx of hypertension Serum calcium elevated Proteinuria Onychomycosis Hematuria Vitamin B 12 deficiency LUQ abdominal pain COVID-19 virus infection Irritable bowel syndrome Migraine Insomnia Vitamin D deficiency Obesity (BMI 30-39.9) Diabetic retinopathy Atkins's palsy Peripheral neuropathy Trigeminal neuralgia Pancreatitis GERD (gastroesophageal reflux disease) Type 2 diabetes mellitus with diabetic polyneuropathy Type 2 diabetes mellitus with hyperglycemia Hypertriglyceridemia Essential hypertension Hyperlipidemia LDL goal <100 Surgical History History of hysterectomy H/O gastric sleeve History of wisdom tooth extraction, class I edentulism Hx of colonoscopy Acalculous cholecystitis Hx of hernia repair Hx of removal of cyst Hx of dilation and curettage Family History Father Diabetes mellitus Asthma Hypertension Mother Diabetes mellitus Hypertension Scleroderma Maternal Aunt Ovarian cancer Paternal Grandfather Diabetes mellitus Paternal Grandmother Diabetes mellitus Maternal Grandmother Diabetes mellitus Maternal Grandfather Diabetes mellitus CVD (cardiovascular disease) Sister CVD (cardiovascular disease) Brother Anxiety Arthritis Social History Household Members: Spouse Housing: Apartment Are you a primary day care director to a significant other at home: No Do you presently have visiting nurse or other home services: No Alcohol intake: never Patient Tobacco Use Status: Former Tobacco user Tobacco use type: Cigarette Cigarette Packs Per Day: 0.25 Cigarettes Per Day: 4 Years Smoked: quit 03/2016. Restarted 03/2023. e-Cigarette/Vaping Use: Never Used Second Hand Smoke Exposure: Yes service: No Current occupational status: employed Cognitive needs: No Hearing needs: No Vision needs: Yes Questionnaire PHQ-9 Over the last 2 weeks, how often have you been bothered by any of the following problems? 1. Little interest or pleasure in doing things: not at all 2. Feeling down, depressed, or hopeless: not at all 3. Trouble falling or staying asleep, or sleeping too much: several days 4. Feeling tired or having little energy: several days 5. Poor appetite or overeating: several days 6. Feeling bad about yourself - or that you are a failure or have let yourself or your family down: not at all 7. Trouble concentrating on things, such as reading the newspaper or watching television: not at all 8. Moving or speaking so slowly that other people could have noticed. Or the opposite - being so fidgety or restless that you have been moving around a lot more than usual: not at all 9. Thoughts that you would be better off or of hurting yourself in some way: not at all Total score: 3 Source: Developed by Drs. Jovon Nation, Cecilia Ribeiro, Travon Silveira and colleagues, with an educational michelle from [employer]. Thrive Questionnaire Date Thrive assessed: 11/04/24 I am a: Patient What is your living situation today?: I have a steady place to live Within the past 12 months, did the food you bought not last and you didn't have the money to get more?: Never true Within the past 12 months, did you worry whether your food would run out before you got money to buy more?: Never true Do you have trouble paying for medicines?: No Do you have trouble getting transportation to medical appointments?: Yes Do you have trouble paying your heating and electricity bill?: No Do you have trouble taking care of your child, family member or friend?: Yes Do you have trouble with day-to-day activities such as bathing, preparing meals, shopping, managing finances, etc.?: No Are you currently unemployed and looking for a job?: No Are you interested in more education?: No Please select the resources that you would like help with: None Currently or been in a relationship where the following occur: No concerns reported THRIVE Score: 1 AUDIT C Alcohol Use Questionnaire (AUDIT-C) 1. How often do you have a drink containing alcohol?: Never 3. How often do you have six or more drinks on one occasion?: Never Total Score: 0 BERTRAM-7 AMB Questionnaire BERTRAM-7 Date BERTRAM - 7 assessed: 11/04/24 Feeling nervous, anxious, or on edge: 1 = Several days Not being able to stop or control worryin = Several days Worrying too much about different things: 1 = Several days Trouble relaxin = Not at all Being so restless that it is hard to sit still: 0 = Not at all Becoming easily annoyed or irritable: 1 = Several days Feeling afraid as if something awful might happen: 0 = Not at all Total BERTRAM-7 score (0-4 normal; 5-9 mild; 10-14 moderate; 15-21 severe): 4 Source: Developed by Drs. Jovon Nation, Cecilia Ribeiro, Travon Silveira and colleagues, with an educational michelle from [employer]. Physical exam (Primary Care) Vital Signs: Last Vital Signs Pulse 95 11/04/24 15:53 BP 116/80 11/04/24 15:53 Pulse Ox 98 11/04/24 15:53 Oxygen Delivery Method Room Air 11/04/24 15:53 BMI result Body Mass Index 29.6 Tobacco/Smoking Status: Tobacco use Status Tobacco use date assessed 11/04/24 11/04/24 16:01 Patient Tobacco Use Status Former Tobacco user 11/04/24 16:01 Tobacco use type Cigarette 11/04/24 16:01 e-Cigarette/Vaping Use Never Used 11/04/24 16:01 PHQ-9: PHQ-9 Score PHQ-9: Total score 3 11/04/24 16:20 Thrive Assessment: Date of Thrive Assessment Date Thrive assessed 11/04/24 11/04/24 16:01 Currently or been in a relationship where the following occur: No concerns reported Const General: alert; No acute distress Eyes Conjunctivae: conjunctivae normal Resp Auscultation: clear to auscultation bilaterally Cardio Rate: regular rate Rhythm: regular rhythm GI Other: Soft, tender on the epigastric area but no guarding and no rebound, no rash Skin Other: Tender on palpation of the left groin with no redness no rash no mass noted painful on lifting the left thigh Extrem General: Yes normal to inspection and No edema Coding Level of Care Code Est Pt Level 4 (72175) Complex EM visit Add On G2211 Diagnoses Carpal tunnel syndrome, bilateral G56.03 Type 2 diabetes mellitus with hyperglycemia, without long-term current use of insulin E11.65 Diabetes mellitus intermission coordinator insulin use: without intermission coordinator use S/P laparoscopic sleeve gastrectomy Z98.84 Gastroesophageal reflux disease without esophagitis K21.9 Esophagitis presence: without esophagitis Hypertriglyceridemia E78.1 Essential hypertension I10 Left groin pain R10.32 Epigastric abdominal pain R10.13 Assessment & Plan Assessment & Plan (1) Carpal tunnel syndrome, bilateral: Code(s): G56.03 - Carpal tunnel syndrome, bilateral upper limbs Category: Medical Plan: Patient is being followed up by Orthopedics and from the last note planned injections (2) Type 2 diabetes mellitus with hyperglycemia: Comment: Eye and lasik Code(s): E11.65 - Type 2 diabetes mellitus with hyperglycemia Category: Medical Qualifiers: Diabetes mellitus nursing home insulin use: without nursing home use Qualified Code(s): E11.65 - Type 2 diabetes mellitus with hyperglycemia Plan: Decrease the amount of carbohydrate intake, pasta, bread, rice and potatoes are all sugar and that is aside from all the sweet stuff, remember that fruits are good but they are Sweet also. Hemoglobin A1c goal of less than 6.5 patient is on Jardiance 25 mg once a day Lantus 10 units once a day Humalog/NovoLog sliding scale (3) S/P laparoscopic sleeve gastrectomy: Comment: February 2021 Code(s): Z98.84 - Bariatric surgery status Category: Surgical Plan: Continue to follow-up with bariatric (4) GERD (gastroesophageal reflux disease): Code(s): K21.9 - Gastro-esophageal reflux disease without esophagitis Category: Medical Qualifiers: Esophagitis presence: without esophagitis Qualified Code(s): K21.9 - Gastro-esophageal reflux disease without esophagitis Plan: Avoid the foods that causes that usually spicy foods, tomato products, juices, coffee, soda and foods that your sensitive to. After eating do not lie down, allow 3-4 hours before in lie down. And keep the head of bed above 30 degrees to avoid the acid from going up. (5) Hypertriglyceridemia: Code(s): E78.1 - Pure hyperglyceridemia Category: Medical Plan: Avoid fried foods, chicken skin, eggs, butter margarine, pastries and meat. Be it pork or beef they have a lot of cholesterol patient is on fenofibrate and will need to follow-up with cholesterol (6) Essential hypertension: Code(s): I10 - Essential (primary) hypertension Category: Medical Plan: Continue with blood pressure medication. Decrease salt intake and exercise carvedilol 12.5 mg twice a day lisinopril 10 mg once a day (7) Left groin pain: Code(s): R10.32 - Left lower quadrant pain Category: Medical Plan: Patient is insistent on wanting the MRI done on the left groin even though discussed with the patient to get physical therapy done. (8) Epigastric abdominal pain: Code(s): R10.13 - Epigastric pain Category: Medical Plan: Avoid the foods that causes that usually spicy foods, tomato products, juices, coffee, soda and foods that your sensitive to. After eating do not lie down, allow 3-4 hours before in lie down. And keep the head of bed above 30 degrees to avoid the acid from going up. Patient has not been taking any PPIs for quite some time already as discussed with the patient. Advised to take the medication. If the pain gets to be really bad of course advised patient to go to the emergency room Plan History of Present Illness The patient is a 44-year-old female presenting for a follow-up visit. The patient has a history of hypertriglyceridemia, hypertension, diabetes mellitus, and gastroesophageal reflux disease (GERD). She underwent a laparoscopic sleeve gastrectomy in 2020 and has hepatic steatosis. Her diabetes mellitus is currently controlled. In August, her blood work showed a normal blood count with no anemia, normal electrolytes, stable renal function, and a blood sugar level of 141 mg/dL with a hemoglobin A1c of 6.2%. However, she has mild hypercalcemia, normal liver function, and significantly elevated triglycerides at 937 mg/dL. The patient also has bilateral carpal tunnel syndrome and trigger fingers, for which she is seeing orthopedics and has received cortisone injections. She reports that the injections have helped, although they may elevate her blood sugar levels. The patient experiences abdominal pain, which she describes as persistent and worsening, particularly in the morning and when bending down. She has not been taking her prescribed pantoprazole, which she stopped after feeling better post-hospital discharge in August. She resumed taking it recently after finding the medication at home. Health Maintenance - Mammogram is due but has been completed at [facility] - Colon test completed in January 2023 Social History - Employment: Works from home, requires medical accommodation for diabetes management Review of Systems - Musculoskeletal: Reports pain in the leg, particularly in the morning and when bending down - Gastrointestinal: Reports persistent abdominal pain, worsened in the morning - Neurological: Denies any lumps or masses, no hernias felt Physical Exam - Abdominal: No palpable masses or hernias noted - Musculoskeletal: Pain noted upon leg movement, particularly in the morning and when bending down Results - Labs: Normal blood count, no anemia, normal electrolytes, stable renal function, blood sugar 141 mg/dL, hemoglobin A1c 6.2%, mild hypercalcemia, normal liver function, triglycerides 937 mg/dL Plan The patient will continue to follow up with orthopedics for bilateral carpal tunnel syndrome and trigger fingers, with cortisone injections planned to manage symptoms. For diabetes management, the patient is advised to maintain a hemoglobin A1c goal of less than 6.5% and continue current medications including Jardiance, Lantus, and a sliding scale insulin regimen. The patient is on fenofibrate for hypertriglyceridemia and will need to follow up on cholesterol management. For hypertension, the patient is on carvedilol and lisinopril, and should continue monitoring blood pressure. The patient is advised to resume pantoprazole for GERD management and to seek emergency care if abdominal pain worsens significantly. Patient was informed and verbally consented to the use of an ambient scribe for clinic note documentation during this visit. Discussion Notes I discussed with the patient the management of her diabetes, emphasizing the importance of maintaining a hemoglobin A1c goal of less than 6.5%. We reviewed her current medications, including Jardiance, Lantus, and sliding scale insulin, and the need for continued monitoring of her blood sugar levels. For her hypertriglyceridemia, I advised continuation of fenofibrate and follow-up on cholesterol levels. We also discussed her hypertension management with carvedilol and lisinopril, and the importance of regular blood pressure monitoring. Regarding her GERD, I recommended resuming pantoprazole and advised her to seek emergency care if her abdominal pain worsens. Patient Instructions - Continue follow-up with orthopedics for carpal tunnel syndrome and trigger fingers. - Maintain hemoglobin A1c goal of less than 6.5% and continue current diabetes medications. - Continue fenofibrate for hypertriglyceridemia and follow up on cholesterol management. - Continue carvedilol and lisinopril for hypertension and monitor blood pressure regularly. - Resume pantoprazole for GERD management and seek emergency care if abdominal pain worsens. Orders: Orders MR hip LT wo con Today R10.32 - Left lower quadrant pain Medications: Changed From pantoprazole 40 mg PO TID Z98.84 - Bariatric surgery status To pantoprazole 40 mg PO .QD 30 tabs 3RF Z98.84 - Bariatric surgery status Discontinued omeprazole Discontinued Reason: Duplicate 40 mg PO DAILY 90 days 90 caps 0RF K21.9 - Gastro-esophageal reflux disease without esophagitis
--- OUTSIDE RECORDS SUMMARY | 2024-11-04 18:21 | XMS_ITS | Data Portability ---
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 bilateral moderate carpal tunnel syndrome +EDS 2. Bilateral mild cubital tunnel syndrome on EDS 3. Bilateral long finger trigger finger Plan: Pathophysiology of each of these problems has been reviewed. Treatment options for each of these problems have been reviewed. 1. Bilateral Velcro wrist splints are provided for initiation of nighttime splinting. Bilateral carpal tunnel injections are performed today. 2. Activity modifications positional modifications have been reviewed for treatment of mild cubital tunnel syndrome 3. No cortisone injections are performed to the trigger fingers today but will be performed if symptoms persist or worsen. 4. Follow-up is scheduled to assess response to the cortisone injections performed today. The patient is ambulatory, but has weakness and/or instability of their extremity which requires stabilization from this semi-rigid/rigid orthosis to improve their function. Verbal and written instructions for their use and application of this item were given. patient was instructed that should the brace result in increased pain, decreased sensation, increased swelling or an overall worsening of their medical condition, to please contact our office immediately. [email or web address] Not available 10/08/2024 13:21:24 Plan of Treatment Reminders Order Date Submit Date Provider Last Modified By Organization Details Last Modified Time Details Appointments RECHECK 15 2024 12:30P M Danae Ocasio PA-C Not available Not available Not available RECHECK 15 2024 11:00A M Gabriela guerrero MD Not available Not available Not available Lab None recorde d. Referral None recorde d. Procedures None recorde d. Surgeries None recorde d. Imaging None recorde d. Medication Orders None recorde d. Patient TargetsNo targets recorded. Patient InstructionsNo instructions recorded. Reason for Referral None Reported. Problems Name Problem SNOMED Code Status Onset Date Resolution Date Notes Provider Name and Address Organization Details Recorded Time Chondromala chace of bilateral patellas 0610840341532 9100 Active 2023 Cathie Wolfe i, PA-C [address], [place], [address], [facility] 4 12:36:07 Chondromala chace of right patella 3386842821618 9108 Active 2023 Cathie Wolfe i, PA-C [address], [place], [address], [facility] 4 12:36:47 Problem Notes None recorded. Procedures Surgical History Date Name Laterality Status Provider Name and Address Organization Details Recorded Time 5 Carpal Tunnel Kenalog 1cc Injection, Bilateral completed Gabriela Oneill MD [address], [place], [address], [facility] 10/08/2024 09:39:44 4 Sports Knee 4&1 completed Cathie Reich PA-C [address], [place], [address], [facility] 01/15/2024 12:36:58 Imaging Results None recorded. Procedure Notes None recorded. Medical Equipment None Reported. Allergies Allergen ID Allergen Name Allergen Category Reaction Reaction Severity Criticality Documentation Date Start Date Code Code System Note Provider Name and Address Organization Details Recorded Time [id number] shellfish derived food,medi cation Not available Not available Not available 01/16/2024 09696 MELANIE ALDANA [facility] 13:57:05 128806 Reglan medicatio n Not available Not available Not available 01/16/2024 9230 RxNorm EDISON BERNABEGUIN-M KIRSTYIA null, [facility] 4 13:57:21 005499 Compazine medicatio n Not available Not available Not available 01/16/2024 87664 6 RxNorm EDISON BERNABEGUIN-M KIRSTYIA null, [facility] 4 13:57:30 521932 trazodone medicatio n Not available Not available Not available 01/16/2024 76423 RxNorm EDISON BERNABEGUIN-M KIRSTYIA null, [facility] 4 13:57:36 120940 Motrin medicatio n Not available Not available Not available 01/16/202452377 8 RxNorm EDISON BERNABEGUIN-M KIRSTYIA null, [facility] 4 13:57:43 774079 Benadryl medicatio n Not available Not available Not available 01/16/202495251 7 RxNorm EDISON BERNABEGUIN-M KIRSTYIA null, [facility] 4 13:57:48 450686 Phenergan medicatio n Not available Not available Not available 01/16/2024 89369 8 RxNorm EDISON PECKIN-M KIRSTYIA null, [facility] 4 13:58:03 49049 morphine sulfate medicatio n Not available Not available Not available 07/23/20232022 89368 RxNorm Not Available [facility] 4 11:09:53 Medications Name Sig Start Date Stop Date Status Note LastModified by Organization Details LastModified Time acetaminoph en 325 mg tablet TAKE 2 TABLETS BY MOUTH EVERY 4 HOURS NEEDED FOR PAIN active Not Available Not Available No t Available gabapentin 600 mg tablet TAKE 1 TABLET BY MOUTH 4 TIMES A DAY FOR PAIN active Not Available Not Available No t Available carvedilol 12.5 mg tablet TAKE 1 TABLET BY MOUTH TWICE A DAY WITH FOOD active Not Available Not Available No t Available azithromyci n 250 mg tablet TAKE 2 TABLETS BY MOUTH TODAY, THEN TAKE 1 TABLET DAILY FOR 4 DAYS DIRECTED 01/15 completed Not Available Not Available Not Available alprazolam 1 mg tablet TAKE 1 TABLET BY MOUTH EVERY DAY NEEDED FOR ANXIETY FOR 30 DAYS active Not Available Not Available No t Available simethicone 180 mg capsule TAKE 1 CAPSULE BY MOUTH 4 TIMES A DAY active Not Available Not Available No t Available fluconazole 150 mg tablet TAKE 1 TABLET BY MOUTH ONCE FOR 1 DAYS active Not Available Not Available No t Available senna 8.6 mg tablet TAKE 2 TABLETS BY MOUTH DAILY AT BEDTIME active Not Available Not Available No t Available meloxicam 15 mg tablet TAKE 1 TABLET BY MOUTH EVERY DAY active Not Available Not Available No t Available sucralfate 1 gram tablet TAKE 1 TABLET BY MOUTH THREE TIMES A DAY BEFORE MEALS AND EVERY DAY AT BEDTIME active Not Available Not Available No t Available ondansetron HCl 4 mg tablet TAKE 1 TABLET BY MOUTH EVERY 8 HOURS NEEDED FOR NAUSEA AND VOMITING active Not Available Not Available No t Available prednisone 20 mg tablet TAKE 2 TABLETS BY MOUTH DAILY FOR 5 DAYS 01/15 completed Not Available Not Available Not Available cyanocobala min (vit B-12) 1,000 mcg tablet TAKE 1 TABLET BY MOUTH EVERY DAY active Not Available Not Available No t Available amlodipine 5 mg tablet TAKE 1 TABLET BY MOUTH ONCE A DAY active Not Available Not Available No t Available omeprazole 40 mg capsule,del ayed release TAKE 1 CAPSULE BY MOUTH EVERY DAY active Not Available Not Available No t Available tramadol 50 mg tablet TAKE 1 TABLET BY MOUTH EVERY DAY active Not Available Not Available No t Available acetaminoph en ER 650 mg tablet,exte nded release TAKE 1 TABLET BY MOUTH EVERY 8 HOURS NEEDED FOR PAIN active Not Available Not Available No t Available oxycodone-a cetaminophe n 5 mg-325 mg tablet TAKE 1 TABLET BY MOUTH EVERY 4-6 HORS NEEDED FOR PAIN 01/15 completed Not Available Not Available Not Available erythromyci n 250 mg tablet TAKE 1 TABLET BY MOUTH THREE TIMES A DAY BEFORE MEALS active Not Available Not Available No t Available alprazolam 0.5 mg tablet TAKE 1 TABLET ORALLY BEDTIME NEEDED FOR ANXIETY FOR 30 DAYS active Not Available Not Available No t Available amoxicillin 875 mg tablet TAKE 1 TABLET BY MOUTH TWICE A DAY 01/15 completed Not Available Not Available Not Available hydromorpho ne 2 mg tablet TAKE 1 TABLET BY MOUTH EVERY 6 HOURS NEEDED FOR SEVERE PAIN. active Not Available Not Available No t Available dicyclomine 20 mg tablet TAKE 1 TABLET ORALLY 2-4 TIMES A DAY 01/15 completed Not Available Not Available Not Available pantoprazol e 40 mg tablet,ramona yed release TAKE 1 TABLET BY MOUTH TWO TIMES A DAY active Not Available Not Available No t Available lisinopril 10 mg tablet TAKE 1 TABLET BY MOUTH EVERY DAY active Not Available Not Available No t Available misoprostol 200 mcg tablet DIRECTED ORALLY 8-12 HRS PRIOR TO APPOINTME NT X1 DAY 01/15 completed Not Available Not Available Not Available progesteron e micronized 200 mg capsule TAKE 1 CAPSULE BY MOUTH EVERY DAY AT BEDTIME FOR 90 DAYS active Not Available Not Available No t Available hydralazine 50 mg tablet TAKE 1 TABLET BY MOUTH 3 TIMES A DAY active Not Available Not Available No t Available lisinopril 5 mg tablet TAKE 1 TABLET BY MOUTH EVERY DAY active Not Available Not Available No t Available scopolamine 1 mg over 3 days transdermal patch APPLY 1 PATCH TO SKIN BEHIND LEFT EAR EVERY 72 HOURS FOR 10 DAYS active Not Available Not Available No t Available ondansetron 4 mg disintegrat ing tablet DISSOLVE 1 TABLET BY MOUTH 3 TIMES A DAY FOR 3 DAYS NEEDED FOR VOMITING active Not Available Not Available No t Available metformin ER 500 mg tablet,exte nded release 24 hr TAKE 1 TABLET BY MOUTH EVERY DAY active Not Available Not Available No t Available cholecalcif jasmina (vitamin D3) 125 mcg (5,000 unit) capsule TAKE 1 CAPSULE BY MOUTH EVERY DAY active Not Available Not Available No t Available oxycodone 5 mg tablet TAKE 1 TABLET BY MOUTH EVERY 6 HOURS NEEDED FOR SEVERE PAIN active Not Available Not Available No t Available insulin lispro (U-100) 100 unit/mL subcutaneou s pen PLEASE SEE ATTACHED FOR DETAILED DIRECTION S active Not Available Not Available No t Available cyclobenzap rine 5 mg tablet TAKE 1 TABLET BY MOUTH 3 TIMES A DAY NEEDED FOR MUSCLE SPASM 01/15 completed Not Available Not Available Not Available fenofibrate 160 mg tablet TAKE 1 TABLET BY MOUTH EVERY DAY active Not Available Not Available No t Available BD Ultra-Fine Short Pen Needle 31 gauge x 5/16 DIRECTED INJECT INSULIN 4 TIMES PER DAY active Not Available Not Available No t Available Lantus Solostar U-100 Insulin 100 unit/mL (3 mL) subcutaneou s pen INJECT 10 UNIT (0.1 ML) UNDER THE SKIN EVERY EVENING active Not Available Not Available No t Available diclofenac 1 % topical gel PLEASE SEE ATTACHED FOR DETAILED DIRECTION S active Not Available Not Available No t Available Gavilax 17 gram/dose oral powder TAKE 17 GRAMS MIXED IN 8 OUNCES OF LIQUID AND TAKEN BY MOUTH EVERY DAY active Not Available Not Available No t Available tranexamic acid 650 mg tablet TAKE 2 TABLETS ORALLY THREE TIMES DAILY X 5 DAYS active Not Available Not Available No t Available OneTouch Verio test strips DIRECTED TWO TIMES PER DAY active Not Available Not Available No t Available Jardiance 10 mg tablet TAKE 1 TABLET BY MOUTH EVERY DAY active Not Available Not Available No t Available Jardiance 25 mg tablet TAKE 1 TABLET BY MOUTH EVERY DAY active Not Available Not Available No t Available baclofen 5 mg tablet TAKE 1 TABLET BY MOUTH 3 TIMES A DAY active Not Available Not Available No t Available OneTouch Delica Plus Lancet 33 gauge DIRECTED 2 TIMES PER DAY active Not Available Not Available No t Available OneTouch Verio Reflect Meter DIRECTED 01/15 completed Not Available Not Available Not Available Dexcom G7 Icd 9 Coder DIRECTED active Not Available Not Available No t Available Dexcom G7 Sensor device DIRECTED active Not Available Not Available No t Available Vitals Date Recorded Body height Body mass index (BMI) Body weight Provider Name and Address Organization Details Last Updated DateTime 10/08/2024 154.94 cm 30.2 kg/m2 12991.78 g KELLEY LOYDERON [facility] 10/08/2024 09:18:08 Date Recorded Body height Body mass index (BMI) Body weight Provider Name and Address Organization Details Last Updated DateTime 01/16/2024 154.94 cm 31.2 kg/m2 84304.74 g EDISON Mendoza [facility] 01/16/2024 13:56:52 Social History Question Answer Notes LastModified by Organizat ion Details LastModified Time Tobacco Smoking Status Current Every Day Smoker EDISON fish [facility] 01/16/2024 14:00:29 Which Of Your Hands Is Dominant? Right Information not available 01/16/2024 What Is Your Relationship Status? Information not available 01/16/2024 How Much Tobacco Do You Smoke? 0.25 PPD Information not available 01/16/2024 Sex: Unknown Functional Status Question Answer Note LastModified by Organizat ion Details LastModified Time Do you use any illicit or recreational drugs? No Information not available 01/16/2024 Do you or have you ever used any other forms of tobacco or nicotine? No Information not available 01/16/2024 What is your level of alcohol consumption? [facility] Information not available 01/16/2024 Mental Status None recorded. Family History Nothing Reported. Medical History Condition Response Anxiety/Depression Y Acid Reflux (GERD) Y Cholesterol Y Hypertension Y Gynecological HistoryNo gynecological history recorded. Obstetrics History GPAL:G 0 P 0 0 0 0 Past Encounters Encounter ID Performer Location Encounter Start Date Encounter Closed Date Diagnosis/Indication Diagnosis SNOMED-CT Code Diagnosis ICD10 Code Diagnosis Note [id number] KAYLEEN Newman [address] [place] [address] 01/16/2024 13:25:47 02/01/2024 07:14:03 Chondromalacia of right patella [id number] M22.41 [id number] MD ALEXANDRE Reynolds [address] [place] [address] 10/08/2024 09:08:11 10/10/2024 16:06:23 Carpal tunnel syndrome of right wrist 7363729941 53045 G56.01 Carpal dylan susi syndrome of left wrist 2302013431 56854 G56.02 Triggering of digit 2399 07944 M65.331 M65.332 Lesion of left ulnar nerve 4152250066 92708 G56.22 Lesion of right ulnar nerve 5517758267 35789 G56.21 Health Concerns Section Related Observation LastModified by Organization Shyam phipps LastModified Time None Recorded Concern Status LastModified by Organization Details LastModified Time None Recorded Advance Directives Directive None Recorded Payers Insurance Date Sequence Insurance Name Policy Number Policy Mckeon Covered Member ID Mckeon Member ID Guarantor Name 10/17/2024 1 [facility] - DOS ON OR AFTER 2022 - ONE CARE (MEDICARE REPLACEMENT/ADV ANTAGE - HMO) Edison Cotton [id number] Edison Yury Notes Date Note Type Note Provider Name and Address Organization Details Recorded Time 01/16/2024 text/html I am seeing the patient today under the supervision of Dr. Conteh who was available but who did not see the patient. CLINICAL UPDATE: 43-year-old female patient presents today for right knee recheck. Last right knee cortisone injection 2022 provided relief until November. HPI: Denies injury. Reports has been going on for over 2 years. Pain is worse with sitting cross-legged, getting up from a seated position, kneeling or squatting, prolonged walking, stairs. She reports she puts a pillow in between her legs at night to sleep as this makes her knees feel better. She localizes the pain to the anterior aspect of her knees. She has tried Motrin but had to discontinue as she has a gastric sleeve now, Tylenol, diclofenac cream with minimal relief. Past family, social history and review of systems has been reviewed, updated and is located in the patient? s chart. PHYS EXAM:The patient is well appearing and in no apparent distress. Alert and oriented x3. Gait is symmetric.Bilateral knees: ROM knee 0-125. Patellar border tenderness. No laxity appreciated with anterior and posterior drawer testing and varus/valgus stress. Negative Sahil's. Negative Luis Carlos's maneuver. Mild crepitus, with no effusion. No erythema, ecchymosis or warmth visualized around the knee. Soft, non-tender calf. Pain with patellofemoral manipulation. Sensation in tact distally.Peripheral, vascular, lymphatic examination, skin, neurological, coordination, reflexes, sensation are within normal limits. X-RAYS:Previous 4v X-rays of bilateral knees reviewed today at [facility]. AP and Sr views demonstrate mild medial compartment narrowing bilaterally. Lateral and merchant views demonstrate mild patellofemoral compartments space narrowing worse on the right, early osteophyte formation at the superior and inferior patellar poles. IMPRESSION: Right knee - patellofemoral osteoarthritis PLAN: Findings reviewed. She has tried oral anti-inflammatories, Tylenol, patellofemoral stabilizing brace, diclofenac cream with minimal relief. Denies any catching or locking type symptoms. We discussed conservative treatment as an appropriate option. She elected to proceed with repeat right knee cortisone injection today. Will follow-up in 3 months for recheck. All concerns are addressed today and she understands and agrees with the plan. Speech recognition consulting solution manager software was used to create portions of this document. An attempt at proofreading has been made to minimize errors. Please call for corrections. Cathie Reich PA-C [address] [facility] 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 not currently splinting, was suggested by PCP, but not startedShe also has locking and pain in bilat long fingers. Gabriela Oneill MD [address], [place], [address], [facility] 10/08/2024 13:22:29 OBGyn Episode No OBEpisode recorded.
== END 2024-11-04 16:42 | disposition home or self-care (01) ==
LOC: HO.HMCH 15:52
PROVIDERS: PCP Internal Medicine; Visit Provider Internal Medicine
DX: G56.03 Carpal tunnel syndrome, bilateral upper limbs (principal); E11.65 Type 2 diabetes mellitus with hyperglycemia; Z98.84 Bariatric surgery status; K21.9 Gastro-esophageal reflux disease without esophagitis; E78.1 Pure hyperglyceridemia; I10 Essential (primary) hypertension; R10.32 Left lower quadrant pain; R10.13 Epigastric pain

== ENCOUNTER → 2024-11-04 15:51 | Outpatient (BNVA) | payer OTHER, SELFPAY | PROVIDERS: PCP Internal Medicine; Visit Provider Internal Medicine | DX: R10.31 Right lower quadrant pain (principal); R10.13 Epigastric pain; E11.65 Type 2 diabetes mellitus with hyperglycemia; G56.03 Carpal tunnel syndrome, bilateral upper limbs; K21.9 Gastro-esophageal reflux disease without esophagitis; E78.1 Pure hyperglyceridemia; I10 Essential (primary) hypertension; R10.32 Left lower quadrant pain; Z98.84 Bariatric surgery status | CPT/HCPCS: 96127; 99212 ==

== ENCOUNTER 2024-11-04 16:53 | Emergency (ER) | payer OTHER, SELFPAY ==
--- NOTE | ~2024-11-04 | CT_ITS ---
CLINICAL HISTORY: s p gastric sleeve, dark stools CT abdomen and pelvis with contrast Comparison: CT/REG/SR - CT ABDOMEN PELVIS WO IV CON - 01/17/23 00:03 EDT Findings: No consolidation or effusion. The gallbladder is surgically absent. The solid organs are within normal limits. No hydronephrosis or hydroureter. No bowel obstruction, pneumoperitoneum, or pneumatosis. Postsurgical changes of the stomach compatible with gastric sleeve procedure present. Contrast is identified within the bowel from the level of the stomach to the proximal ascending colon. No extraluminal contrast identified to suggest a bowel leak. No fluid or abscess collections are visualized. Pelvic contents unremarkable. The bladder is underdistended, mildly limiting its evaluation. No focal bladder wall thickening. Normal appendix. No acute fracture visualized. IMPRESSION: 1. Postsurgical changes compatible with gastric sleeve procedure without CT evidence for complication. No acute inflammatory process identified within the abdomen or pelvis. This document has been electronically signed by: Angelo Davila MD on 11/05/2024 03:07:57
[2024-11-04 17:20] VITALS: BP 186/101; PULSE 97; RESP 16; TEMP 36.4; O2SAT 97; BMI 29.5
--- NOTE | 2024-11-04 17:27 | ED.GENADULT ---
HPI - General Adult General Chief complaint: Abdominal Pain Stated complaint: Abdominal pain Time Seen by Provider: 11/04/24 21:42 Source: patient and old records reviewed Mode of arrival: ambulatory Limitations: no limitations History of Present Illness ED Provider: CAMERON ARMENTA narrative: 44 yo female with PMH of obesity, DM, anxiety, GERD, HTN, IBS here with c/o worsening epigastric pain over last two days. She notes she has nausea and had an episode of dark stool earlier. She denies CP/SOB, fevers. She had a BM today and has passed flatus. She has hx of hysterectomy, cholecystectomy, s/p gastric sleeve [place] [address] Harris. She notes no urinary symptoms. MD complaint: abdominal pain Onset (ago): day(s) (2) Location: abdomen Radiation: back Severity: severe Quality: constant Pain Consistency: constant Relieving factors: immobilization Exacerbating factors: movement Associated symptoms: malaise and nausea/vomiting Treatments prior to arrival: none Related Data Home Medications ?Medication ?Instructions ?Recorded ?Confirmed oxycodone 5 mg capsule 5 mg PO Q8H PRN 06/03/24 11/04/24 scopolamine HBr 0.4 mg tablet mg PO 06/03/24 11/04/24 Previous Rx's ?Medication ?Instructions ?Recorded sumatriptan succinate 50 mg tablet 50 mg PO .qd PRN migraine headache 07/28/20 (Imitrex) #10 tabs blood pressure monitor (Blood #1 ea 08/13/20 Pressure Kit) clotrimazole 1 % topical cream 1 appl topical BID #30 grams 01/12/22 blood-glucose meter #1 ea 09/12/22 lancets 33 gauge #100 ea 05/23/23 cholecalciferol (vitamin D3) 125 125 mcg PO DAILY #90 caps 07/26/23 mcg (5,000 unit) capsule gabapentin 600 mg tablet 600 mg PO QID pain 90 days #360 09/10/23 tabs lisinopril 10 mg tablet 10 mg PO DAILY #90 tabs 02/25/24 baclofen 5 mg tablet 5 mg PO TID #20 tabs 06/03/24 insulin glargine 100 unit/mL (3 10 unit (0.1 mL) subcut QPM #15 mL 06/03/24 mL) subcutaneous pen (Lantus Solostar U-100 Insulin) blood sugar diagnostic (OneTouch #100 ea 06/05/24 Verio test strips) lancets 33 gauge (OneTouch Delica #100 ea 06/05/24 Plus Lancet) ondansetron HCl 4 mg tablet 4 mg PO Q6H #60 tabs 06/13/24 pen needle, diabetic 32 gauge x #100 ea 06/13/2410/03 (Comfort EZ Pen [place]orte) blood-glucose,freight receiver,cont #1 ea 08/04/24 (Dexcom G7 Fur Ironer) hydralazine 50 mg tablet 50 mg PO TID #270 tabs 08/12/24 cyanocobalamin (vitamin B-12) 1,000 mcg PO DAILY #30 caps 08/17/24 1,000 mcg capsule polyethylene glycol 3350 17 17 g PO DAILY #510 grams 08/18/24 gram/dose oral powder (Gavilax) fenofibrate 160 mg tablet 160 mg PO DAILY #90 tabs 08/28/24 empagliflozin 25 mg tablet 25 mg PO DAILY #30 tabs 09/04/24 insulin lispro 100 unit/mL 1 sliding scale dose subcut 09/04/24 subcutaneous pen (Humalog KwikPen USEASDIRECTD #15 mL (U-100) Insulin) pen needle, diabetic 31 gauge x #400 ea 09/04/2410/03 (1st Tier Unifine Pentips) carvedilol 12.5 mg tablet 12.5 mg PO BID #180 tabs 09/10/24 diclofenac sodium 1 % topical gel 4 g topical QID #100 grams 09/19/24 (Voltaren Arthritis Pain) acetaminophen 650 mg 650 mg PO Q8H PRN pain #30 tabs 09/24/24 tablet,extended release alprazolam 1 mg tablet 1 mg PO .QD PRN anxiety 30 days 09/24/24 #25 tabs blood-glucose sensor (Dexcom G7 #6 ea 10/11/24 Sensor device) meloxicam 15 mg tablet 15 mg PO DAILY #20 tabs 11/02/24 tramadol 50 mg tablet 50 mg PO DAILY #30 tabs 11/02/24 pantoprazole 40 mg tablet,delayed 40 mg PO .QD #30 tabs 11/04/24 release Allergies Allergy/AdvReac Type Severity Reaction Status Date / Time metoclopramide (From REGLAN) Allergy Severe ANXIETY Verified 11/04/24 17:24 promethazine (From PHENERGAN) Allergy Severe ANXIETY Verified 11/04/24 17:24 shellfish derived (SHELLFISH Allergy Severe THROAT Verified 11/04/24 17:24 DERIVED) SWELLING HIVES IN SCALP, ITCHY ibuprofen (From MOTRIN) Allergy Unknown HIVES Verified 11/04/24 17:24 morphine (MORPHINE) Allergy Unknown THROAT Verified 11/04/24 17:24 CLOSES, anaphylaxis prochlorperazine (From Allergy Unknown ANXIETY Verified 11/04/24 17:24 COMPAZINE) Sulfa (Sulfonamide Allergy Unknown SWELLING Verified 11/04/24 17:24 Antibiotics) (SULFA (SULFONAMIDE ANTIBIOTICS)) trazodone AdvReac Unknown Dizziness Verified 11/04/24 17:24 Review of Systems Review of Systems: Constitutional : No Weight loss, No Fever, No Chills ENT/Mouth : No sore throat, No Rhinorrhea Eyes: No Swelling, No Redness Cardiovascular : No Chest Pain, No SOB, NoEdema Respiratory : No Cough, No Sputum, No Wheezing Gastrointestinal : Positive Nausea, Positive Vomiting, no Diarrhea, positive abdominal Pain, No Hematochezia, No Melena Genitourinary : No Dysuria, No Urinary Frequency, No Hematuria, No Urgency Musculoskeletal : No joint pain, No Myalgias, No Joint Swelling Skin : No Skin Lesions, No rash Neuro : No Weakness, No Numbness, No Dizziness, No Headache All other systems reviewed and are negative. [facility] Past Medical History Attestation statement: The following information was validated with the patient. Source: old records reviewed Medical History Cubital tunnel syndrome of both upper extremities Bilateral hand numbness Overweight (BMI 25.0-29.9) Liver fibrosis Steatosis, liver BMI 32.0-32.9,adult Obesity History of back pain BMI over 35 Vitamin D deficiency Hypercalcemia Adjustment disorder, unspecified Pre-procedure lab exam Obesity Family hx of hypertension Serum calcium elevated Proteinuria Onychomycosis Hematuria Vitamin B 12 deficiency LUQ abdominal pain COVID-19 virus infection Irritable bowel syndrome Migraine Insomnia Vitamin D deficiency Obesity (BMI 30-39.9) Diabetic retinopathy Atkins's palsy Peripheral neuropathy Trigeminal neuralgia Pancreatitis GERD (gastroesophageal reflux disease) Type 2 diabetes mellitus with diabetic polyneuropathy Type 2 diabetes mellitus with hyperglycemia Hypertriglyceridemia Essential hypertension Hyperlipidemia LDL goal <100 Surgical History History of hysterectomy H/O gastric sleeve History of wisdom tooth extraction, class I edentulism Hx of colonoscopy Acalculous cholecystitis Hx of hernia repair Hx of removal of cyst Hx of dilation and curettage Family History Family History Father Diabetes mellitus Asthma Hypertension Mother Diabetes mellitus Hypertension Scleroderma Maternal Aunt Ovarian cancer Paternal Grandfather Diabetes mellitus Paternal Grandmother Diabetes mellitus Maternal Grandmother Diabetes mellitus Maternal Grandfather Diabetes mellitus CVD (cardiovascular disease) Sister CVD (cardiovascular disease) Brother Anxiety Arthritis Social History Social History Household Members: Spouse Housing: Apartment Are you a primary acute care physician to a significant other at home: No Do you presently have visiting nurse or other home services: No Alcohol intake: never Patient Tobacco Use Status: Former Tobacco user Tobacco use type: Cigarette Cigarette Packs Per Day: 0.25 Cigarettes Per Day: 4 Years Smoked: quit 03/2016. Restarted 03/2023. e-Cigarette/Vaping Use: Never Used Second Hand Smoke Exposure: Yes Advance Directives: Yes Advance Directives Information Provided: Yes Advance Directives on File: No Do you have a plan to hurt others: No Plan Patient : No service: No Current occupational status: employed Cognitive needs: No Hearing needs: No Vision needs: Yes Physical Exam ED Vital Signs: Vital Signs - 24 hr 11/04/24 17:20 11/04/24 22:22 11/04/24 22:59 Temperature 97.6 F 98.9 F Pulse Rate 97 93 Respiratory Rate 16 16 18 Blood Pressure 186/101 H 129/51 L Pulse Oximetry 97 98 Oxygen Delivery Method Room Air Room Air 11/05/24 00:19 11/05/24 02:49 Temperature 98.4 F 98.4 F Pulse Rate 87 86 Respiratory Rate 16 16 Blood Pressure 140/87 H 154/84 H Pulse Oximetry 96 97 Oxygen Delivery Method Room Air Room Air BMI result Body Mass Index 29.5 Appearance: Alert. Oriented X3. No acute distress. Eyes: Pupils equal, round and reactive to light. ENT: Pharynx normal. Neck: Normal inspection. Neck supple. CVS: Normal heart rate and rhythm. Pulses normal. Respiratory: No respiratory distress. Breath sounds normal. Abdomen: Soft and moderate epigastric ttp no rebound Skin: Skin warm and dry. Normal skin color. Normal skin turgor. Extremities: No lower extremity edema. No calf ttp Neuro: Oriented X 3. No motor deficit. No sensory deficit. CN2-12 intact Course Course Course Narrative: RME, this is a rapid medical exam performed by Hubert Ramires please refer to primary provider for complete H&P- 44-year-old female presents for evaluation upper abdominal pain and she reports black stool. She reports a history of pancreatitis. Plan for labs, urinalysis Reevaluation(s) Reevaluation #1: signed out to Dr. Ochoa pending work pu Medications Administered Discontinued Medications Generic Name Dose Route Start Last Admin Trade Name Freq PRN Reason Stop Dose Admin Diatrizoate Meglum/Diatrizoate Sod 30 ml 11/05/24 02:25 11/05/24 02:26 Diatrizoate Meglumine, Sodium 30 Ml Solution PO 11/05/24 02:26 30 ml ONCE ONE Administration Diazepam 2.5 mg 11/04/24 23:39 11/04/24 23:46 Diazepam 10 Mg/2 Ml Cartridge IVPUSH 11/04/24 23:40 2.5 mg STAT STA Administration Hydromorphone HCl 1 mg 11/04/24 21:41 11/04/24 22:59 Hydromorphone Hcl 1 Mg/Ml Syringe IVPUSH 11/04/24 21:42 1 mg ONCE ONE Administration Protocol Lactated Ringer's 1,000 mls @ 999 mls/hr 11/04/24 21:41 11/04/24 22:59 Lr IV 11/04/24 22:41 999 mls/hr .Q1H1M ONE Administration Iohexol 85 ml 11/05/24 02:27 11/05/24 02:28 Iohexol 350 Mg/Ml 100 Ml Infus..Btl IV 11/05/24 02:28 85 ml ONCE ONE Administration Metoclopramide HCl 10 mg 11/05/24 02:05 11/05/24 02:13 Metoclopramide Hcl 10 Mg/2 Ml Vial IVPUSH 11/05/24 02:06 Not Given ONCE ONE Ondansetron HCl 4 mg 11/04/24 21:41 11/04/24 22:58 Ondansetron Hcl 4 Mg/2 Ml Vial IVPUSH 11/04/24 21:42 4 mg ONCE ONE Administration Medical Decision Making Medical Decision Making [facility] Narrative: 44 yo female with PMH of obesity, DM, anxiety, GERD, HTN, IBS here with c/o abdominal pain x 2 days with n/v but passing gas. At this time she is having worsening pain will need labs, CT scan for SBO/PUD, gastritis. She reports a dark stool today - H/H ordered. IV dilaudid for pain as well. Please see paper discharge I discussed the patient with Dr. Sullivan, patient instructed to follow-up with bariatric surgery in the office Paper script for Vicenta was given Differential Diagnosis Differential Diagnoses: The differential diagnosis associated with the presentation includes PUD, gastritis, SBO, hernia Admission/Observation Consideration of admission/observation: Escalation of care including admission/observation considered Lab Data [facility] Lab Attestation statement: I reviewed the patient's lab results. 11/04/24 17:51 11/04/24 17:51 Labs: Lab Results 11/04/24 11/05/24 Range/Units 17:51 00:16 WBC 5.7 (4.8-10.8) X10*3/uL RBC 4.90 (4.20-5.50) X10*6/uL Hgb 13.8 (12.0-16.0) g/dl Hct 40.1 (37.0-47.0) % MCV 81.8 (80.0-98.0) fL MCH 28.2 (27.0-33.0) pg MCHC 34.4 (31.0-35.0) g/dl RDW 14.0 (11.0-16.0) % Plt Count 175 (160-400) X10*3/uL MPV 9.3 L (9.4-12.3) fL Immature Gran % (Auto) 0.4 (0.0-0.4) % Neut % (Auto) 68.8 (45-73) % Lymph % (Auto) 21.4 (20-40) % [place] % (Auto) 7.0 (2-11) % Eos % (Auto) 1.9 (0-4) % Baso % (Auto) 0.5 (0-2) % Lymph # (Auto) 1.2 (1.2-4.9) X10*3/uL [place] # (Auto) 0.4 (0.1-1.2) X10*3/uL Eos # (Auto) 0.1 (0.0-0.4) X10*3/uL Baso # (Auto) 0.0 (0.0-0.2) X10*3/uL Abs Immat Gran (auto) 0.02 (0.00-0.03) X10*3/uL Absolute Neuts (auto) 3.9 (2.0-8.3) x10*3/uL Absolute Nucleated RBC 0.000 (0.0-0.012) X10*3/uL Nucleated RBC % (auto) 0.0 (0.0-0.2) /100WBC Sodium 140 (135-145) mmol/L Potassium 4.5 (3.3-5.1) mmol/L Chloride 104 (96-108) mmol/L Carbon Dioxide 28 (22-29) mmol/L Anion Gap 13 (12-20) BUN 31 H (9-16) mg/dL Creatinine 1.32 (0.5-1.4) mg/dL Estim Creat Clear Calc 49.4 Estimated GFR 44 Random Glucose 145 H (60-115) mg/dL Calcium 10.5 H (8.4-10.2) mg/dL Total Bilirubin 0.6 (0.0-1.0) mg/dL AST 21 (5-31) U/L ALT 12 (0-31) U/L Alkaline Phosphatase 68 (39-117) U/L Total Protein 8.2 H (6.5-8.0) g/dL Albumin 5.0 (3.5-5.0) g/dL Lipase 27 (8-78) U/L Beta HCG, Quant < 2 mIU/mL Urine Color Yellow Urine Appearance Clear Urine pH 5.0 (5.0-9.0) Ur Specific [place] 1.025 (1.005-1.025) Urine Protein 100 (2+) H (Neg-Trace) mg/dL Urine Glucose (UA) >=1000 H (Negative) mg/dL Urine Ketones Negative (Negative) mg/dL Urine Blood Trace H (Negative) Urine Nitrite Negative (Negative) Ur Leukocyte Esterase Negative (Negative) Urine RBC 0-2 (0-2) /HPF Urine WBC 6-10 H (0-5) /HPF Ur Squamous Epith Cells 0-2 (0-2) /HPF Urine Bacteria None Seen (None Seen) Hyaline Casts 0-2 (0-2) /LPF Independent Interpretation I performed an independent interpretation of an: CT Scan Radiology Impression Discussion of test interpretation with radiology: I have reviewed the radiologist's reading. Independent Historian Clinical information obtained from an independent historian. History obtained from or confirmed by: Spouse External Record Review External record reviewed: Outpatient record Discharge Plan Discharge Clinical Impression: Abdominal pain Qualifiers: Abdominal location: epigastric Qualified Code(s): R10.13 - Epigastric pain Patient Disposition: Home, Self-Care Prescriptions: No Action sumatriptan succinate [Imitrex] 50 mg tablet 50 mg PO .qd PRN (Reason: migraine headache) Qty: 10 5RF Rx Instructions: do not exceed 4 doses per 24 hrs (DME) blood-glucose meter Misc See Rx Instructions .Route Qty: 1 0RF Rx Instructions: As directed (DME) lancets 33 gauge misc See Rx Instructions .Route Qty: 100 1RF Rx Instructions: As directed cholecalciferol (vitamin D3) 125 mcg (5,000 unit) capsule 125 mcg PO DAILY Qty: 90 1RF gabapentin 600 mg tablet 600 mg PO QID 90 Days Qty: 360 3RF (DME) OneTouch Verio test strips Strip See Rx Instructions .Route Qty: 100 0RF Rx Instructions: As directed two times per day (DME) lancets [OneTouch Delica Plus Lancet] 33 gauge misc See Rx Instructions .Route Qty: 100 0RF Rx Instructions: As directed 2 times per day (DME) pen needle, diabetic [Comfort EZ Pen [place]] 32 gauge x 5/16 needle See Rx Instructions .Route Qty: 100 11RF Rx Instructions: As directed-daily ondansetron HCl 4 mg tablet 4 mg PO Q6H Qty: 60 0RF (DME) Dexcom G7 Fur Ironer Misc See Rx Instructions .Route Qty: 1 0RF Rx Instructions: As directed hydralazine 50 mg tablet 50 mg PO TID Qty: 270 1RF cyanocobalamin (vitamin B-12) 1,000 mcg capsule 1,000 mcg PO DAILY Qty: 30 1RF polyethylene glycol 3350 [Gavilax] 17 gram/dose powder 17 g PO DAILY Qty: 510 3RF fenofibrate 160 mg tablet 160 mg PO DAILY Qty: 90 3RF carvedilol 12.5 mg tablet 12.5 mg PO BID Qty: 180 1RF acetaminophen 650 mg tablet extended release 650 mg PO Q8H PRN (Reason: pain) Qty: 30 0RF alprazolam 1 mg tablet 1 mg PO .QD PRN (Reason: anxiety) 30 Days Qty: 25 0RF (DME) Dexcom G7 Sensor Device See Rx Instructions .Route Qty: 6 0RF Rx Instructions: As directed meloxicam 15 mg tablet 15 mg PO DAILY Qty: 20 0RF tramadol 50 mg tablet 50 mg PO DAILY Qty: 30 0RF (DME) blood pressure monitor [Blood Pressure Kit] Kit See Rx Instructions .ROUTE .MEDSUPPLY Qty: 1 0RF Rx Instructions: As directed clotrimazole 1 % cream 1 appl topical BID Qty: 30 3RF scopolamine HBr 0.4 mg tablet PO oxycodone 5 mg capsule 5 mg PO Q8H PRN insulin glargine [Lantus Solostar U-100 Insulin] 100 unit/mL (3 mL) insulin pen 10 unit subcut QPM Qty: 15 0RF baclofen 5 mg tablet 5 mg PO TID Qty: 20 0RF empagliflozin 25 mg tablet 25 mg PO DAILY Qty: 30 3RF insulin lispro [Humalog KwikPen Insulin] 100 unit/mL insulin pen 1 sliding scale dose subcut USEASDIRECTD Qty: 15 12RF Rx Instructions: Inject insulin as per sliding scale < 70 u eat, 71-150 no insulin, 151- 230 2 units 231-280 4 u, 281-330 6 u 331-380 8 u > 380 10 u (DME) pen needle, diabetic [1st Tier Unifine Pentips] 31 gauge x 5/16 needle See Rx Instructions .Route Qty: 400 12RF Rx Instructions: As directed Inject Insulin 4 x a day pantoprazole 40 mg tablet,delayed release (DR/EC) 40 mg PO .QD Qty: 30 3RF lisinopril 10 mg tablet 10 mg PO DAILY Qty: 90 1RF diclofenac sodium [Voltaren Arthritis Pain] 1 % gel 4 g topical QID Qty: 100 12RF Rx Instructions: apply to single knee, ankle, foot; for foot includes sole/toes/top of foot Print Language: Cameroonian
[2024-11-04 17:59] LABS: MANUAL DIFF FLAG NO
[2024-11-04 18:00] LABS: Basophils Percent Auto 0.5 % (0-2); Eosinophils Absolute Auto 0.1 X10*3/uL (0.0-0.4); Eosinophils Percent Auto 1.9 % (0-4); Hematocrit 40.1 % (37.0-47.0); Hemoglobin 13.8 g/dl (12.0-16.0); Imm Gran Abs Auto 0.02 X10*3/uL (0.00-0.03); Imm Gran Pct Auto 0.4 % (0.0-0.4); Lymphocytes Absolute Auto 1.2 X10*3/uL (1.2-4.9); Lymphocytes Percent Auto 21.4 % (20-40); Mean Corpuscular HGB Conc 34.4 g/dl (31.0-35.0); Mean Corpuscular Hemoglobin 28.2 pg (27.0-33.0); Mean Corpuscular Volume 81.8 fL (80.0-98.0); Mean Platelet Volume 9.3 fL (9.4-12.3); Monocytes Absolute Auto 0.4 X10*3/uL (0.1-1.2); Neutrophils Absolute Auto 3.9 x10*3/uL (2.0-8.3); Neutrophils Percent Auto 68.8 % (45-73); Platelet Count 175 X10*3/uL (160-400); White Blood Count 5.7 X10*3/uL (4.8-10.8)
[2024-11-04 18:16] LABS: Alanine Aminotransferase 12 U/L (0-31); Alkaline Phosphatase 68 U/L (39-117); Anion Gap 13 (12-20); Aspartate Amino Transferase 21 U/L (5-31); Bilirubin Total 0.6 mg/dL (0.0-1.0); Blood Urea Nitrogen 31 mg/dL (9-16); Calcium 10.5 mg/dL (8.4-10.2); Carbon Dioxide 28 mmol/L (22-29); Chloride 104 mmol/L (96-108); Creatinine Clr Calc Pharmacy 49.4; Estimated Glomerular Filt Rate 44; Glucose Random 145 mg/dL (60-115); Lipase 27 U/L (8-78); Potassium 4.5 mmol/L (3.3-5.1); Sodium 140 mmol/L (135-145); Total Protein 8.2 g/dL (6.5-8.0)
[2024-11-04 18:24] LABS: HCG Quantitative < 2 mIU/mL
[2024-11-04 22:22] VITALS: BP 129/51; PULSE 93; RESP 16; TEMP 37.2; O2SAT 98
--- NOTE | 2024-11-04 22:30 | PC.NURSE ---
x3 nurses attempted IV at this time, unable to obtain access, provider aware, plan for us guided iv
--- NOTE | 2024-11-04 22:43 | PC.NURSE ---
josiah fuentes at bedside placing us guided iv
[2024-11-04] MEDS: ondansetron HCL 4 MG/2 ML VIAL IVPUSH (22:58)
[2024-11-04 22:59] VITALS: RESP 18
[2024-11-04] MEDS: Lactated Ringers 1,000 ML 999 ML IV (22:59)
[2024-11-04] MEDS: HYDROmorphone HCl 1 MG/ML SYRINGE IVPUSH (22:59)
[2024-11-04] MEDS: diazePAM 10 MG/2 ML CARTRIDGE 2.5 MG IVPUSH (23:46)
[2024-11-05 00:19] VITALS: BP 140/87; PULSE 87; RESP 16; TEMP 36.9; O2SAT 96
[2024-11-05 00:32] LABS: Appearance Urine Clear; Color Urine Yellow; Glucose Urine UA >=1000 mg/dL (Negative); Leukocyte Esterase Urine Negative (Negative); Nitrite Urine Negative (Negative); Specific Gravity - Urine 1.025 (1.005-1.025); UMIC TRIGGER UACC YES; Urine Blood Trace (Negative); Urine Ketones Negative (Negative); Urine Protein 100 (2+) mg/dL (Neg-Trace)
[2024-11-05 00:37] LABS: Bacteria Urine None Seen (None Seen); Hyaline Casts Urine 0-2 /LPF (0-2); RBC Urine 0-2 /HPF (0-2); Squamous Epithelial Cell Urine 0-2 /HPF (0-2); UACC Culture Trigger YES
--- NOTE | 2024-11-05 01:55 | PC.NURSE ---
Pt taken to CT now. IV that was previously placed kinked and was not patent. Removed and BENSON Lam at bedside, ultrasound guided IV placed in R bicep.
--- NOTE | 2024-11-05 02:14 | PC.NURSE ---
pt iv fluids continue to administer at this time
[2024-11-05] MEDS: Diatrizoate Meglumine, Sodium 30 ML SOLUTION PO (02:26)
[2024-11-05] MEDS: iohexoL 350 MG/ML 100 ML INFUS..BTL 85 ML IV (02:28)
[2024-11-05 02:49] VITALS: BP 154/84; PULSE 86; RESP 16; TEMP 36.9; O2SAT 97
[2024-11-05 06:29] VITALS: BP 162/79; PULSE 93; RESP 16; TEMP 37; O2SAT 98
== END 2024-11-04 22:15 | disposition home or self-care (01) ==
PROVIDERS: Physician Assistant; Emergency Provider Emergency Medicine; PCP Internal Medicine
DX: R10.13 Epigastric pain (principal); E11.9 Type 2 diabetes mellitus without complications; I10 Essential (primary) hypertension; Z87.891 Personal history of nicotine dependence; Z79.4 Long term (current) use of insulin; Z79.899 Other long term (current) drug therapy
CPT/HCPCS: 36415; 74177; 80053; 81001; 83690; 84702; 85025; 87086; 99284; J1171; J2405; J3360; J7120; Q9967

== ENCOUNTER → 2024-11-05 | Outpatient (BNV) | payer OTHER, SELFPAY | PROVIDERS: Emergency Provider Emergency Medicine; PCP Internal Medicine; Visit Provider Radiology Diagnostic Radiology | DX: Z98.84 Bariatric surgery status (principal) | CPT/HCPCS: 74177 ==

== ENCOUNTER → 2024-11-15 19:59 | Outpatient (BNV) | payer OTHER, SELFPAY | PROVIDERS: PCP Internal Medicine; Visit Provider Radiology Diagnostic Radiology | DX: R10.32 Left lower quadrant pain (principal) | CPT/HCPCS: 73721 ==

== ENCOUNTER 2024-11-15 20:00 | Outpatient (REF) | payer OTHER, SELFPAY ==
--- NOTE | ~2024-11-15 | MR_ITS ---
EXAMINATION: MR HIP WITHOUT CONTRAST, LEFT CLINICAL INFORMATION: Left lower quadrant pain. COMPARISON: Correlated to x-ray dated June 24, 2024. TECHNIQUE: MRI of the left hip was obtained using routine sequences on a high-field magnet. FINDINGS: There is subtle bone marrow T2 fat-sat signal involving mostly the anterior: The left acetabulum. There is no volume loss of the osseous structures. There is normal alignment at the coxofemoral joint. There is a trace likely physiologic fluid, coxofemoral joint. The left femoral head neck instability region and proximal diaphysis of the femur demonstrated no signal abnormality or volume loss. No signal abnormality within the muscles of the left hip. There is no herniation, left inguinal canal. Nonspecific mildly prominent lymph nodes. No free fluid in the included lower pelvic cavity. Flow-void signal within the included vessels is normal. MR/MR hip LT wo con IMPRESSION: Probable subacute inflammatory/bone contusion anterior column, left acetabulum. No acute fracture or dislocation. No avascular necrosis. No left inguinal hernia. Electronically signed by: Moses Moe MD 11/17/2024 10:20 AM EDT
== END 2024-11-15 20:01 | disposition home or self-care (01) ==
LOC: HO.MRI 20:00
PROVIDERS: PCP Internal Medicine; Visit Provider Internal Medicine
DX: R10.32 Left lower quadrant pain (principal)
CPT/HCPCS: 73721

== ENCOUNTER 2024-12-01 08:25 | Outpatient (REF) | payer OTHER, SELFPAY ==
--- OUTSIDE RECORDS SUMMARY | 2024-02-27 07:40 | XMS_ITS ---
Author Organization [facility] Address [address] [place] [phone] Support Name Relationship Address Phone NADIYA RUGGIERO Emergency Contact [address] [place] [address] [address] [place], [place] [phone] RUGGIEROEDISON Guarantor Unknown [phone] Care Team Providers Care Bronze Chaser Name Role Phone Emigdio Guthrie MD Primary Care Provider Kain Dia Jr [phone] REASON FOR VISIT Patient presents today for abdominal pain Encounters Encounter Location Date Provider Diagnosis [facility] [address] [facility] [address] [place] [phone] 02/27/2024 Kain Orr Jr Plan Of Treatment No Information Progress Notes * EDISON RUGGIERODOB:1980 (44 yo F)Acc No.[id number]:02/27/2024 Progress Notes Patient: EDISON JAY Provider: Alexis Orr MD :1980 A ge:44 Y S ex:Female Date:02/27/2024 Address:[address] [place], [place] [phone] Pcp:Emigdio Guthrie MD Subjective: * Chief Complaints: [...] 1 Generated for Lauren umanzor/Gina/eTransmitting on: 0 12/01/2024 08:31 AM EDT
--- OUTSIDE RECORDS SUMMARY | 2024-08-19 10:20 | XMS_ITS ---
Author Organization [facility] Address [address] [place] [address] Care Team Providers Care Gardener Florist Name Role Phone YEIMI MARRERO Unavailable [phone] REASON FOR VISIT Annual COMPUTER NUMERICAL CONTROL MACHINIST Physical Medications Medication SIG (Take, Route, Frequency, Duration) Notes Start Date End Date Status Lisinopril 5 MG 1 tablet Orally Once a day; Duration: 30 day(s) Active Vitamin D (Ergocalciferol) 03734 UNIT 1 capsule Orally Active Gabapentin 600 [...] Active Encounters Encounter Location Date Provider Diagnosis [address] [address] 08/19/2024 YEIMI MARRERO Plan Of Treatment No Information Progress Notes * EDISON RUGGIERODOB:1980 (44 yo F)Acc No.[id number]:08/19/2024 PROGRESS NOTES Patient: Melva LUO EDISON Provider: Maxwell MARRERO MD :1980 A ge:44 Y S ex:Female Date:08/19/2024 Address:[address] [place], [place] [phone] Subjective: * Chief Complaints: * 1 . 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 * Medical History: * Medications: T aking Magnesium 400 MG Tablet as directed Orally , Taking Lisinopril 5 MG Tablet 1 tablet Orally Once a day , Taking Vitamin D (Ergocalciferol) 78764 UNIT Capsule 1 capsule Orally , Taking [...] Electronic signature of YEIMI MARRERO MD on 12/01/2024 at 08:31 AM EDT Sign off status: Pending * Provider: Maxwell MARRERO MD Date: 08/19/2024 Generated for Lauren umanzor/Gina/Alexander on: 12/01/2024 08:31 AM EDT
--- NOTE | ~2024-12-01 | FL_ITS ---
EXAMINATION: XR FLUOROSCOPY UPPER GI SERIES CLINICAL INFORMATION: Patient with history of gastric sleeve procedure and hiatus hernia repair complaining of episodic dysphagia, and epigastric pain and burning. COMPARISON: 02/08/2021 upper GI series. TECHNIQUE: Fluoroscopic air contrast upper GI examination was performed utilizing standard techniques with thin and thick barium and effervescent granules. Numerous spot images were obtained. Several fluoroscopic image hold cine sequences were also obtained. FINDINGS: UPPER GI SERIES: Lateral cine images of the oropharynx and hypopharynx demonstrate normal swallow mechanism with normal epiglottic inversion and soft palate elevation. There was persistent laryngeal penetration, without subglottic aspiration identified. No nasopharyngeal reflux present. Hypopharyngeal structures appear normal without evidence of mass or diverticulum. There was no significant cricopharyngeal achalasia. Dual and single contrast images of the esophagus demonstrate a mildly patulous caliber. Normal contour and mucosal pattern. No evidence of stricture, mass, or ulcerations identified. Esophageal peristalsis was moderately disordered. There is a likely tiny recurrent type I hiatus hernia present. No significant gastroesophageal reflux was seen during the course of the examination. Dual contrast and single contrast images of the stomach demonstrated contour in keeping with prior gastric sleeve surgery and prior hiatus hernia repair. No mass or gross ulceration present. Prominence of the areae gastricae noted, in keeping with gastritis. Contrast freely passed into the gastric antrum and duodenal bulb without delay. Single and air-contrast images of the duodenal bulb demonstrate no abnormality. The duodenal sweep has a normal appearance, course, and mucosal fold appearance. Cholecystectomy clips noted. FLUOROSCOPY TIME: 3 minutes, 18 seconds Number of Spot Images:13 Number of cines obtained: 6 DOSE AREA PRODUCT: 4523 uGy-m2 (microgray-meter squared) FL/FL upper GI w air IMPRESSION: 1. Laryngeal penetration without subglottic aspiration identified. 2. Moderately disordered esophageal peristalsis. Mildly patulous esophageal caliber. Normal esophageal mucosal pattern. 3. No definite gastroesophageal reflux identified during the course of the examination. 4. Expected postoperative appearance of gastric sleeve and prior hiatus hernia repair. Mild equivocal for a tiny recurrent type I hiatus hernia. 4. Mild thickening/prominence of the area gastricae of the stomach, suggesting underlying mild gastritis. Electronically signed by: Yunior Ureña MD 12/01/2024 09:32 AM EDT RP
--- OUTSIDE RECORDS SUMMARY | 2024-12-01 08:31 | XMS_ITS | Data Portability ---
Author Organization [facility], [facility] Address [address] [place] [address] Care Team Providers Care Political Organizer Name Role Phone SERGE CANCINO Primary Care Provider Assessment Encounter Date Assessment Date Assessment LastModified [...] condition, to please contact our office immediately. Not available 10/08/2024 13:21:24 11/17/2024 11/17/2024 A/ follow up: 1. bilateral moderate carpal tunnel syndrome +EDS 2. Bilateral mild cubital tunnel syndrome on EDS 3. Bilateral long finger trigger finger New dx: L wrist DeQuervains Plan: Pathophysiology of each of these problems has been reviewed. Treatment options for each of these problems have been reviewed. 1. Bilat CTS: Responded well to cortisone injection. Follow-up when symptoms return. 2. Activity modifications positional modifications have been previously reviewed for treatment of mild cubital tunnel syndrome 3. No cortisone injections are performed to the trigger fingers today but will be performed if symptoms persist or worsen. 4. De Quervain's treated to this point with splinting, topical anti-inflammatory which she has at home, and ice Unfortunately, she has had challenges with hyperglycemia with injections in the past. No injections are performed at this time due to these concerns. The patient is ambulatory, but has weakness [...] condition, to please contact our office immediately. Not available 11/17/2024 16:53:12 Plan of Treatment Reminders Order Date Submit Date Provider Last Modified By Organization Details Last Modified Time Details Appointments RECHECK 2024 11:00A M Gabriela guerrero MD Not available Not available Not available INJECTI ON ONLY 2024 02:15P M Edison Anderson CNP Not available Not available Not available INJECTI ON ONLY 2024 02:15P M Edison Anderson CNP Not available Not available Not available INJECTI ON ONLY 2024 02:15P M Edison Anderson CNP Not available Not available Not available NEW PATIENT 2024 09:00A M Ramírez Demarco PA-C Not available Not available Not available Lab [...] Recorded Time Chondromala chace of bilateral patellas 1301208472425 9100 Active 2023 Cathie Wolfe i, PA-C [address], [place], [address], [facility] 4 12:36:07 Chondromala chace of right patella 4317403157969 9108 Active 2023 Cathie Wolfe i, PA-C [address], [place], [address], [facility] 4 12:36:47 Osteoarthri tis of right knee joint 9299700082410 00 Active 2024 Danae Ocasio PA-C [address], [place], [address], [facility] 5 22:34:17 Problem Notes None recorded. Procedures Surgical History Date Name Laterality Status Provider Name and Address Organization Details Recorded Time 5 Knee Kenalog 1cc L/R completed Danae Ocasio PA-C [address], [place], [address], [facility] 11/13/2024 22:33:46 5 Carpal Tunnel Kenalog 1cc Injection, Bilateral completed Gabriela Oneill MD [address], [place], [address], [facility] 10/08/2024 09:39:44 4 Sports Knee 4&1 completed Cathie Reich PA-C [address], [place], [address], [facility] 01/15/2024 12:36:58 Imaging Results None recorded. Procedure Notes None recorded. Medical Equipment None Reported. Allergies Allergen ID Allergen Name Allergen Category Reaction Reaction Severity Criticality Documentation Date Start Date Code Code System Note Provider Name and Address Organization Details Recorded Time 430118 shellfish derived food,medi cation Not available Not available Not available 01/16/2024 19496 MELANIE ALDANA [facility] 08/28/202 4 13:57:05 648741 Reglan medicatio n Not available Not available Not available 01/16/2024 9230 RxNorm EDISON PECKIN-M KIRSTYIA null, [facility] 4 13:57:21 590069 Compazine medicatio n Not available Not available Not available 01/16/2024 10731 6 RxNorm EDISON BERNABEGUIN-M KIRSTYIA null, [facility] 4 13:57:30 575101 trazodone medicatio n Not available Not available Not available 01/16/2024 41892 RxNorm EDISON BERNABEGUIN-M EJIA null, [facility] 4 13:57:36 899961 Motrin medicatio n Not available Not available Not available 01/16/2024 71063 8 RxNorm EDISON BERNABEGUIN-M KIRSTYIA abe, [facility] 4 13:57:43 899922 Benadryl medicatio n Not available Not available Not available 01/16/2024 32006 7 RxNorm EDISON BERNABEGUIN-M KIRSTYIA null, [facility] 4 13:57:48 445130 Phenergan medicatio n Not available Not available Not available 01/16/2024 82574 8 RxNorm EDISON BERNABEGUIN-M KIRSTYIA abe, [facility] 4 13:58:03 31620 morphine sulfate medicatio n Not available Not available Not available 07/23/20232022 31598 RxNorm Not Available [facility] 4 11:09:53 Medications Name Sig Start Date [...] yed release TAKE 1 TABLET BY MOUTH EVERY DAY [...] Available Not Available Not Available Dexcom G7 Scrap Wheeler DIRECTED active Not Available Not Available No t Available Dexcom G7 Sensor device USE DIRECTED active Not Available Not Available No t Available Vitals Date Recorded Body height Body mass index (BMI) Body weight Provider Name and Address Organization Details Last Updated DateTime 10/08/2024 154.94 cm 30.2 kg/m2 90125.78 g [facility] 10/08/2024 09:18:08 Date Recorded Body height Provider Name an d Address Organization Details Last Updated DateTime 11/13/2024 154.94 cm CIELO LLAMAS [facility] 11/13/2024 12:29:24 Date Recorded Body height Body mass index (BMI) Body weight Provider Name and Address Organization Details Last Updated DateTime 11/17/2024 154.94 cm 29.5 kg/m2 12152.41 g KELLEY PATE [facility] 11/17/2024 14:42:32 Date Recorded Body height Body mass index (BMI) Body weight Provider Name and Address Organization Details Last Updated DateTime 01/16/2024 154.94 cm 31.2 kg/m2 53928.74 g EDISON Mendoza [facility] 01/16/2024 13:56:52 Social History Question Answer Notes LastModified by Organizat ion Details LastModified Time Tobacco Smoking Status Current Every Day Smoker EDISON NOVOA abe [facility] 01/16/2024 14:00:29 Which Of Your Hands Is Dominant? Right [email or web address] Information not available 01/16/2024 What Is Your Relationship Status? Information not available 01/16/2024 How Much Tobacco Do You Smoke? 0.25 PPD [email or web address] Information not available 01/16/2024 Sex: Unknown Functional Status Question Answer Note LastModified by Organizat ion Details LastModified Time Do you use any illicit or recreational drugs? No Information not available 01/16/2024 Do you or have you ever used any other forms of tobacco or nicotine? No Information not available 01/16/2024 What is your level of alcohol consumption? None Information not available 01/16/2024 Mental Status None recorded. Family History Nothing Reported. Medical History Condition Response Anxiety/Depression Y Acid Reflux (GERD) Y Hypertension Y Cholesterol Y Gynecological HistoryNo gynecological history recorded. Obstetrics History GPAL:G 0 P 0 0 0 0 Past Encounters Encounter ID Performer Location Encounter Start Date Encounter Closed Date Diagnosis/Indication Diagnosis SNOMED-CT Code Diagnosis ICD10 Code Diagnosis Note [id number] KAYLEEN Newman [address] [place] [address] 01/16/2024 13:25:47 02/01/2024 07:14:03 Chondromalacia of right patella 6999563990 8191577 M22.41 [id number] MD ALEXANDRE Reynolds [address] [place] [id number] 10/08/2024 09:08:11 10/10/2024 16:06:23 Carpal tunnel syndrome of right wrist 2481984410 14305 G56.01 Carpal dylan susi syndrome of left wrist 0147365300 95364 G56.02 Triggering of digit 2399 53764 M65.331 M65.332 Lesion of left ulnar nerve 0184706939 44455 G56.22 Lesion of right ulnar nerve 0371104416 00383 G56.21 [id number] KAYLEEN C[facility] - [place] [address] [place] [id number] 11/13/2024 12:26:46 11/25/2024 12:21:10 Osteoarthritis of right knee joint 4341682705 40201 M17.11 [id number] MD ALEXANDRE [facility] [place] [address] [place] [id number] 11/17/2024 14:31:01 11/20/2024 09:16:49 Carpal tunnel syndrome of right wrist 9453548652 47166 G56.01 Carpal dylan susi syndrome of left wrist 9600501798 53197 G56.02 Triggering of digit 2399 12799 M65.331 M65.332 Lesion of left ulnar nerve 6798204133 11678 G56.22 Lesion of right ulnar nerve 3366756436 85151 G56.21 Tenosynovi tis of left radial styloid 2511842936 5653862 M65.4 Health Concerns Section Related Observation LastModified by Organization Detai ls LastModified Time None Recorded Concern Status LastModified by Organization Details LastModified Time None Recorded Advance Directives Directive None Recorded Payers Insurance Date Sequence Insurance Name Policy Number Policy Mckeon Covered Member ID Mckeon Member ID Guarantor Name 11/20/2024 1 [facility] - DOS ON OR AFTER 2022 - ONE CARE (MEDICARE REPLACEMENT/ADV ANTAGE - HMO) Edison Cotton [id number] Edison Cotton Notes Date Note Type Note Provider Name [...] reviewed, updated and is located in the patient s chart. PHYS EXAM:The patient is well [...] X-rays of bilateral knees reviewed today at [facility]. AP and Sr views demonstrate mild medial [...] and agrees with the plan. Speech recognition grain inspector software was used to create portions of this document. An attempt at proofreading has been made to minimize errors. Please call for corrections. Cathie Reich PA-C [address] [address], [place], [address], 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 not currently splinting, was suggested by PCP, but not startedShe also has locking and pain in bilat long fingers. Gabriela Oneill MD [address] [place] [address] [address], [place], [address], [facility] [place] [facility] 10/08/2024 13:22:29 11/13/2024 text/html I am seeing the patient today under the supervision of Dr. Moseley who was available but who did not see the patient. HPI: Patient presenting today with known osteoarthritis of the right knee. Has been responding favorably to conservative treatment. Here today for a cortisone injection. Denies recent injury. No new systemic complaints. She was last seen by one of my colleagues in December 2023. Continues to experience pain over the anterior medial aspect of the knee. Symptoms are increased with weightbearing activities. She continues to take [id number] medication for pain. Past family, medical, social history and review of systems has been reviewed, updated, and is located in the patient s chart. Examination: Examination of the right knee reveals no effusion, erythema, or warmth. Injection site benign. Decreased range of motion. Point tender medial joint line. Calf is soft and nontender. 5/5 strength knee flexion and extension. X-rays performed previously at [facility] have been reviewed. Impression: Right knee osteoarthritis Plan: The patient was thoroughly counseled today regarding their knee condition, its natural history, and conservative versus surgical treatment options. The patient is interested in receiving an injection with corticosteroid. The right knee was prepped sterilely and an injection was administered utilizing 40mg of Kenalog and 4cc of 0.25% Marcaine. The patient tolerated the procedure well. Post-injection precautions were discussed. Recommended avoiding strenuous activity over the next 24-48 hours. Encouraged elevation of the leg, applying ice, and taking over the counter medication as needed. The patient is aware that the injection can be repeated as often as every 3 months. She is also interested in trying viscosupplementation . We will obtain authorization through her insurance. All questions answered. Danae Ocasio PA-C [address], [place], [address], 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 not currently splinting, was suggested by PCP, but not startedShe also has locking and pain in bilat long fingers. Clin Update: Bilat CTS injections done at first visit, got a period of relief of the electric symptoms, no cortisone injections were performed for the trigger finger and she does still have some triggering of the long fingers. She has a new complaint today also pain in the left wrist dorsal radial aspect of the wrist consistent with de Quervain's Gabriela Oneill MD [address], [place], [address], [facility] 11/17/2024 16:53:34 OBGyn Episode No OBEpisode recorded.
--- OUTSIDE RECORDS SUMMARY | 2024-12-01 08:31 | XMS_ITS | Clinical Summary ---
Author Organization [facility] Address [address] [place] [address] Care Team Providers Care Poultry Picking Machine Tender Name Role Phone Emigdio Guthrie MD Primary Care Provider Allergies Active Allergy Reactions Criticality Noted Date [...] 106 11/30/2017 11:00 AM EDT Temperature 36.3 C (97.3 F) 11/30/2017 11:00 AM EDT Respiratory Rate - - Oxygen [...] (P ap Smear) 2002 Influenza Vaccine (#1) 2025 Pneumococcal Vaccine Aged Out No long er eligible based on patient's age to complete this topic RSV Ped < 20 months Aged Out No longe r eligible based on patient's age to complete this topic Care Teams Poultry Picking Machine Tender Relationship Specialty Start Date End Date Emigdio Guthrie MD [address] [place] [address] [address] [facility] [place] [address] PCP - General Internal Medicine 11/30/17
--- OUTSIDE RECORDS SUMMARY | 2024-12-01 08:31 | XMS_ITS | Clinical Summary ---
Author Organization [facility] Address [address] [facility] [address] [place] [address] Phone Care Team Providers Care Business Employment Specialist Name Role Phone Emigdio Guthrie MD Primary Care Provider [phone] Allergies Active Allergy Reactions Criticality Noted Date [...] Visual Foot Exam 02/14/2021 Influenza Vaccine (#1) 2025 Pneumococcal Vaccine: Peds ( 0 to 5 Years) and At-Risk Patients (6 to 49 Years) Aged Out No longer eligible b ased on patient's age to complete this topic Insurance [place] Care Teams Business Employment Specialist Relationship Specialty Start Date End Date Emigdio Guthrie MD [facility] [address] [place], [place] PCP - General Internal Medicine 11/02/20
== END 2024-12-01 08:26 | disposition home or self-care (01) ==
LOC: HO.XRAY 08:25
PROVIDERS: PCP Internal Medicine; Visit Provider Physician Assistant Surgical
DX: R10.13 Epigastric pain (principal); Z98.84 Bariatric surgery status
CPT/HCPCS: 74246

== ENCOUNTER → 2024-12-01 08:26 | Outpatient (BNV) | payer OTHER, SELFPAY | PROVIDERS: PCP Internal Medicine; Visit Provider Radiology Diagnostic Radiology | DX: R13.10 Dysphagia, unspecified (principal) | CPT/HCPCS: 74246 ==

== ENCOUNTER 2024-12-18 13:33 | Outpatient (AMB) | payer OTHER, SELFPAY ==
--- OUTSIDE RECORDS SUMMARY | 2024-02-27 07:40 | XMS_ITS ---
Author Organization [facility] Address [address] [place] [phone] Support Name Relationship Address Phone NADIYA RUGGIERO Emergency Contact [address] [place] [address] [address] [place], [place] [phone] RUGGIEROEDISON Guarantor Unknown [phone] Care Team Providers Care Biology Adjunct Instructor Name Role Phone Emigdio Guthrie MD Primary Care Provider Kain Dia Jr [phone] REASON FOR VISIT Patient presents today for abdominal pain Encounters Encounter Location Date Provider Diagnosis [facility] [address] [facility] [address] [place] [phone] 02/27/2024 Kain Orr Jr Plan Of Treatment No Information Progress Notes * EDISON RUGGIERODOB:1980 (44 yo F)Acc No.[id number]:02/27/2024 Progress Notes Patient: EDISON JAY Provider: Alexis rOr MD :1980 A ge:44 Y S ex:Female Date:02/27/2024 Address:[address] [place], [place] [phone] Pcp:Emigdio Guthrie MD Subjective: * Chief Complaints: [...] 1 Generated for Lauren umanzor/Gina/eTransmitting on: 0 12/18/2024 01:46 PM EDT
--- OUTSIDE RECORDS SUMMARY | 2024-08-19 10:20 | XMS_ITS ---
Author Organization [facility] Address [address] [place] [address] Care Team Providers Care Centura Technical Lead Senior Developer Name Role Phone YEIMI MARRERO Unavailable [phone] REASON FOR VISIT Annual BOOKMOBILE CLERK Physical Medications Medication SIG (Take, Route, Frequency, Duration) Notes Start Date End Date Status Lisinopril 5 MG 1 tablet Orally Once a day; Duration: 30 day(s) Active Vitamin D (Ergocalciferol) 85411 UNIT 1 capsule Orally Active Gabapentin 600 [...] Active Encounters Encounter Location Date Provider Diagnosis [address] [address] 08/19/2024 YEIMI MARRERO Plan Of Treatment No Information Progress Notes * EDISON RUGGIERODOB:1980 (44 yo F)Acc No.[id number]:08/19/2024 PROGRESS NOTES Patient: Melva LUO EDISON Provider: Maxwell MARRERO MD :1980 A ge:44 Y S ex:Female Date:08/19/2024 Address:[address] [place], [place] [phone] Subjective: * Chief Complaints: * 1 . 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 * Medical History: * Medications: T aking Magnesium 400 MG Tablet as directed Orally , Taking Lisinopril 5 MG Tablet 1 tablet Orally Once a day , Taking Vitamin D (Ergocalciferol) 55957 UNIT Capsule 1 capsule Orally , Taking [...] Electronic signature of YEIMI MARRERO MD on 12/18/2024 at 01:46 PM EDT Sign off status: Pending * Provider: Maxwell MARRERO MD Date: 08/19/2024 Generated for Lauren umanzor/Gina/Alexander on: 12/18/2024 01:46 PM EDT
--- NOTE | 2024-12-18 13:36 | MHC.OFFVISWM ---
VS Expanded 12/18/24 13:44 BP 169/91 H Blood Pressure Location Rt brachial Blood Pressure Position Sitting Pulse 94 Pulse Source Pulse Oximeter Temp 96.6 F L Temperature Source Temporal Artery Scan Pulse Oximetry 98 Oxygen Delivery Method Room Air Height 5 ft 1 in Weight 156 lb 12.8 oz BMI 29.6 Body Fat % 38.3 Body Fat Mass 60.0 Fat Free Mass 96.8 Visceral Fat Rating 8.0 Body Water % 43.9 Body Water Mass 68.8 Muscle Mass/Score 92.0 Basal Metabolic Rate/Score 1,339 Intake Visit Reasons: OV PO LSG 10/10/22 Allergies metoclopramide (From REGLAN) Allergy (Severe, Verified 12/29/24 14:18) ANXIETY promethazine (From PHENERGAN) Allergy (Severe, Verified 12/29/24 14:18) ANXIETY shellfish derived (SHELLFISH DERIVED) Allergy (Severe, Verified 12/29/24 14:18) THROAT SWELLING HIVES IN SCALP, ITCHY ibuprofen (From MOTRIN) Allergy (Unknown, Verified 12/29/24 14:18) HIVES morphine (MORPHINE) Allergy (Unknown, Verified 12/29/24 14:18) THROAT CLOSES, anaphylaxis prochlorperazine (From COMPAZINE) Allergy (Unknown, Verified 12/29/24 14:18) ANXIETY Sulfa (Sulfonamide Antibiotics) (SULFA (SULFONAMIDE ANTIBIOTICS)) Allergy (Unknown, Verified 12/29/24 14:18) SWELLING trazodone Adverse Reaction (Unknown, Verified 12/29/24 14:18) Dizziness Medication List - Last Reconciled 12/18/24 by BENSON Alvarado acetaminophen ER 650 mg PO Q8H PRN alprazolam 1 mg PO .QD PRN 30 days baclofen 5 mg PO TID blood pressure monitor (Blood Pressure Kit) As directed blood sugar diagnostic (OneTouch Verio test strips) As directed two times per day blood-glucose meter As directed blood-glucose sensor (Neuro Kinetics G7 Sensor device) As directed blood-glucose,graphic design specialist,cont (Dexcom G7 Vp Care Management) As directed carvedilol 12.5 mg PO BID cholecalciferol (vitamin D3) 125 mcg PO DAILY clotrimazole 1% 1 appl topical BID cyanocobalamin (vitamin B-12) 1,000 mcg PO DAILY diclofenac sodium 1% (Voltaren Arthritis Pain) 4 grams topical QID empagliflozin 25 mg PO DAILY fenofibrate 160 mg PO DAILY gabapentin 600 mg PO QID 90 days hydralazine 50 mg PO TID insulin glargine (Lantus Solostar U-100 Insulin) 10 units (0.1 mL) subcut QPM insulin lispro (Humalog KwikPen (U-100) Insulin) 1 sliding scale dose subcut USEASDIRECTD lancets As directed lancets (OneTouch Delica Plus Lancet) As directed 2 times per day lisinopril 10 mg PO DAILY meloxicam 15 mg PO DAILY ondansetron HCl 4 mg PO Q6H pantoprazole 40 mg PO .QD pen needle, diabetic (Comfort EZ Pen [place]) As directed-daily pen needle, diabetic (1st Tier Unifine Pentips) As directed Inject Insulin 4 x a day polyethylene glycol 3350 (Gavilax) 17 grams PO DAILY scopolamine HBr mg PO [Shower chair As directed] sucralfate 10 mL PO BID sumatriptan succinate (Imitrex) 50 mg PO .qd PRN tramadol 50 mg PO DAILY HPI Comments Details: This?is a?44?yo F who is s/p LSG 03/10/2021. Weight gain of 3.8lbs since last OV. Pt is a previous smoker (reports she stopped) and has taken meloxicam. I started her on a trial of carafate after communicating with her via text about her abdominal pain. She also had UGI. Traveled to [place], just got back yesterday. Since last visit, pt reports abdominal pain is very much better . She reports the sucralfate has helped a lot. She is very careful to chew thoroughly and take small bites, however sometimes feels like food gets stuck in her esophagus and is concerned about choking. Present meal plan includes: a few weeks ago I asked pt to follow a meal plan created on [employer] ha with mostly shakes and one small meal per day. She also sent me a photo of her dinner which included lettuce, chicken, brown rice, and plantain. i asked her to remove the rice and plantain. [facility] Medical History Cubital tunnel syndrome of both upper extremities Bilateral hand numbness Overweight (BMI 25.0-29.9) Liver fibrosis Steatosis, liver BMI 32.0-32.9,adult Obesity History of back pain BMI over 35 Vitamin D deficiency Hypercalcemia Adjustment disorder, unspecified Pre-procedure lab exam Obesity Family hx of hypertension Serum calcium elevated Proteinuria Onychomycosis Hematuria Vitamin B 12 deficiency LUQ abdominal pain COVID-19 virus infection Irritable bowel syndrome Migraine Insomnia Vitamin D deficiency Obesity (BMI 30-39.9) Diabetic retinopathy Atkins's palsy Peripheral neuropathy Trigeminal neuralgia Pancreatitis GERD (gastroesophageal reflux disease) Type 2 diabetes mellitus with diabetic polyneuropathy Type 2 diabetes mellitus with hyperglycemia Hypertriglyceridemia Essential hypertension Hyperlipidemia LDL goal <100 Surgical History History of hysterectomy H/O gastric sleeve History of wisdom tooth extraction, class I edentulism Hx of colonoscopy Acalculous cholecystitis Hx of hernia repair Hx of removal of cyst Hx of dilation and curettage Family History Father Diabetes mellitus Asthma Hypertension Mother Diabetes mellitus Hypertension Scleroderma Maternal Aunt Ovarian cancer Paternal Grandfather Diabetes mellitus Paternal Grandmother Diabetes mellitus Maternal Grandmother Diabetes mellitus Maternal Grandfather Diabetes mellitus CVD (cardiovascular disease) Sister CVD (cardiovascular disease) Brother Anxiety Arthritis Social History Household Members: Spouse Housing: Apartment Are you a primary assurance services manager health care to a significant other at home: No Do you presently have visiting nurse or other home services: No Alcohol intake: never Patient Tobacco Use Status: Former Tobacco user Tobacco use type: Cigarette Cigarette Packs Per Day: 0.25 Cigarettes Per Day: 4 Years Smoked: quit 03/2016. Restarted 03/2023. e-Cigarette/Vaping Use: Never Used Second Hand Smoke Exposure: Yes service: No Current occupational status: employed Cognitive needs: No Hearing needs: No Vision needs: Yes Physical Exam Vital Signs: Last Vital Signs Temp 96.6 F L 12/18/24 13:44 Pulse 94 12/18/24 13:44 BP 169/91 H 12/18/24 13:44 Pulse Ox 98 12/18/24 13:44 Oxygen Delivery Method Room Air 12/18/24 13:44 BMI result Body Mass Index 29.6 Results Reviewed Results Reviewed: UGI 12/01/2024: IMPRESSION: 1. Laryngeal penetration without subglottic aspiration identified. 2. Moderately disordered esophageal peristalsis. Mildly patulous esophageal caliber. Normal esophageal mucosal pattern. 3. No definite gastroesophageal reflux identified during the course of the examination. 4. Expected postoperative appearance of gastric sleeve and prior hiatus hernia repair. Mild equivocal for a tiny recurrent type I hiatus hernia. 4. Mild thickening/prominence of the area gastricae of the stomach, suggesting underlying mild gastritis. Assessment & Plan Assessment & Plan (1) S/P laparoscopic sleeve gastrectomy: Comment: February 2021 Code(s): Z98.84 - Bariatric surgery status Category: Surgical (2) Obesity (BMI 30-39.9): Code(s): E66.9 - Obesity, unspecified Category: Medical Plan Pt concerned about dyskinesia of esophagus and difficulty with swallowing. Her abdominal pain is better but this persists. She requests a referral to [facility] for consultation. ? need for endoscopy or manometry. Will fax records. RTC 6w. Orders: Referrals Gastroenterology Referral K22.4 - Dyskinesia of esophagus
[2024-12-18 13:44] VITALS: BP 169/91; PULSE 94; TEMP 35.9; O2SAT 98; BMI 29.6
--- OUTSIDE RECORDS SUMMARY | 2024-12-18 13:46 | XMS_ITS | Clinical Summary ---
Author Organization [facility] Address [address] [place] [address] Phone Care Team Providers Care Compliance Specialist Name Role Phone Emigdio Guthrie MD Primary Care Provider [phone] Allergies Active Allergy Reactions Criticality Noted Date [...] complete this topic Insurance [place] Care Teams Compliance Specialist Relationship Specialty Start Date End Date Emigdio Guthrie MD [facility] [place] [address] [place], [place] PCP - General Internal Medicine 11/02/20
--- OUTSIDE RECORDS SUMMARY | 2024-12-18 13:46 | XMS_ITS | Clinical Summary ---
Author Organization [facility] Address [address] [place] [address] Care Team Providers Care Sorting Supervisor Name Role Phone Emigdio Guthrie MD Primary Care Provider [phone] Allergies Active Allergy Reactions Criticality Noted Date [...] age to complete this topic Care Teams Sorting Supervisor Relationship Specialty Start Date End Date Emigdio Guthrie MD [address] [place] [address] [address] [facility] [place] [address] PCP - General Internal Medicine 11/30/17
--- OUTSIDE RECORDS SUMMARY | 2024-12-18 13:46 | XMS_ITS ---
Author Name [facility] Organization Unknown Encounters Encounter Type Encounter Reason Primary Diagnosis Location Date Ambulatory [facility] [place] 11/18/2024
== END 2024-12-18 15:20 | disposition home or self-care (01) ==
LOC: HO.HBS 13:34
PROVIDERS: PCP Internal Medicine; Visit Provider Physician Assistant Surgical
DX: E66.3 Overweight (principal); Z68.29 Body mass index [BMI] 29.0-29.9, adult; Z90.3 Acquired absence of stomach [part of]; Z98.84 Bariatric surgery status
CPT/HCPCS: 99213; G2211

== ENCOUNTER → 2024-12-18 13:33 | Outpatient (BNVA) | payer OTHER, SELFPAY | PROVIDERS: PCP Internal Medicine; Visit Provider Physician Assistant Surgical | DX: K22.4 Dyskinesia of esophagus (principal); E66.9 Obesity, unspecified; R10.9 Unspecified abdominal pain; Z68.29 Body mass index [BMI] 29.0-29.9, adult; Z90.3 Acquired absence of stomach [part of] | CPT/HCPCS: 99212 ==

== ENCOUNTER 2024-12-29 13:54 | Outpatient (AMB) | payer OTHER, SELFPAY ==
--- OUTSIDE RECORDS SUMMARY | 2024-02-27 07:40 | XMS_ITS ---
Author Organization [facility] Address [address] [place] [phone] Support Name Relationship Address Phone NADIYA RUGGEIRO Emergency Contact [address] [place] [address] [address] [place], [place] [phone] RUGGIEROEDISON Guarantor Unknown [phone] Care Team Providers Care Account Executive Key Accounts Name Role Phone Emigdio Guthrie MD Primary Care Provider Kain Dia Jr [phone] REASON FOR VISIT Patient presents today for abdominal pain Encounters Encounter Location Date Provider Diagnosis [facility] [address] [facility] [address] [place] [phone] 02/27/2024 Kain Orr Jr Plan Of Treatment No Information Progress Notes * EDISON RUGGIERODOB:1980 (44 yo F)Acc No.[id number]:02/27/2024 Progress Notes Patient: EDISON JAY Provider: Alexis Orr MD :1980 A ge:44 Y S ex:Female Date:02/27/2024 Address:[address] [place], [place] [phone] Pcp:Emigdio Guthrie MD Subjective: * Chief Complaints: [...] 1 Generated for Lauren umanzor/Gina/eTransmitting on: 0 12/29/2024 02:20 PM EDT
--- OUTSIDE RECORDS SUMMARY | 2024-08-19 10:20 | XMS_ITS ---
Author Organization [facility] Address [address] [place] [address] Care Team Providers Care Rod Bending Machine Operator Name Role Phone YEIMI MARRERO Unavailable [phone] REASON FOR VISIT Annual COORDINATE MEASURING MACHINE PROGRAMMER Physical Medications Medication SIG (Take, Route, Frequency, Duration) Notes Start Date End Date Status Lisinopril 5 MG 1 tablet Orally Once a day; Duration: 30 day(s) Active Vitamin D (Ergocalciferol) 50543 UNIT 1 capsule Orally Active Gabapentin 600 [...] Active Encounters Encounter Location Date Provider Diagnosis [address] [address] 08/19/2024 YEIMI MARRERO Plan Of Treatment No Information Progress Notes * EDISON RUGGIERODOB:1980 (44 yo F)Acc No.[id number]:08/19/2024 PROGRESS NOTES Patient: Melva LUO EDISON Provider: Maxwell MARRERO MD :1980 A ge:44 Y S ex:Female Date:08/19/2024 Address:[address] [place], [place] [phone] Subjective: * Chief Complaints: * 1 . 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 * Medical History: * Medications: T aking Magnesium 400 MG Tablet as directed Orally , Taking Lisinopril 5 MG Tablet 1 tablet Orally Once a day , Taking Vitamin D (Ergocalciferol) 09975 UNIT Capsule 1 capsule Orally , Taking [...] Electronic signature of YEIMI MARRERO MD on 12/29/2024 at 02:21 PM EDT Sign off status: Pending * Provider: Maxwell MARRERO MD Date: 0 08/19/2024 Generated for Lauren umanzor/Gina/Alexander on: 0 12/29/2024 02:21 PM EDT
--- NOTE | 2024-12-29 14:00 | MHC.PC.OV ---
Vital Signs 12/29/24 14:01 Height 5 ft 1 in Weight 160 lb BMI 30.2 BP 134/80 Blood Pressure Location Lt brachial Position Sitting Pulse 97 Pulse Oximetry (%) 97 Oxygen Delivery Method Room Air Intake Visit Reasons: Physical Credit Negotiator Required: No Accompanied by: Self / Same As Patient Allergies metoclopramide (From REGLAN) Allergy (Severe, Verified 12/29/24 14:18) ANXIETY promethazine (From PHENERGAN) Allergy (Severe, Verified 12/29/24 14:18) ANXIETY shellfish derived (SHELLFISH DERIVED) Allergy (Severe, Verified 12/29/24 14:18) THROAT SWELLING HIVES IN SCALP, ITCHY ibuprofen (From MOTRIN) Allergy (Unknown, Verified 12/29/24 14:18) HIVES morphine (MORPHINE) Allergy (Unknown, Verified 12/29/24 14:18) THROAT CLOSES, anaphylaxis prochlorperazine (From COMPAZINE) Allergy (Unknown, Verified 12/29/24 14:18) ANXIETY Sulfa (Sulfonamide Antibiotics) (SULFA (SULFONAMIDE ANTIBIOTICS)) Allergy (Unknown, Verified 12/29/24 14:18) SWELLING trazodone Adverse Reaction (Unknown, Verified 12/29/24 14:18) Dizziness Medication List - Last Reconciled 12/29/24 by Ceci Strickland PA-C acetaminophen ER 650 mg PO Q8H PRN alprazolam 1 mg PO .QD PRN 30 days baclofen 5 mg PO TID blood pressure monitor (Blood Pressure Kit) As directed blood sugar diagnostic (OneTouch Verio test strips) As directed two times per day blood-glucose meter As directed blood-glucose sensor (Dexcom G7 Sensor device) As directed blood-glucose,metalsmith apprentice,cont (Dexcom G7 Director Orange) As directed carvedilol 12.5 mg PO BID cholecalciferol (vitamin D3) 125 mcg PO DAILY clotrimazole 1% 1 appl topical BID cyanocobalamin (vitamin B-12) 1,000 mcg PO DAILY diclofenac sodium 1% (Voltaren Arthritis Pain) 4 grams topical QID empagliflozin 25 mg PO DAILY fenofibrate 160 mg PO DAILY gabapentin 600 mg PO QID 90 days hydralazine 50 mg PO TID insulin glargine (Lantus Solostar U-100 Insulin) 10 units (0.1 mL) subcut QPM insulin lispro (Humalog KwikPen (U-100) Insulin) 1 sliding scale dose subcut USEASDIRECTD lancets As directed lancets (OneTouch Delica Plus Lancet) As directed 2 times per day lisinopril 10 mg PO DAILY meloxicam 15 mg PO DAILY ondansetron HCl 4 mg PO Q6H pantoprazole 40 mg PO .QD pen needle, diabetic (Comfort EZ Pen [place]) As directed-daily pen needle, diabetic (1st Tier Unifine Pentips) As directed Inject Insulin 4 x a day polyethylene glycol 3350 (Gavilax) 17 grams PO DAILY scopolamine HBr mg PO [Shower chair As directed] sucralfate 10 mL PO BID sumatriptan succinate (Imitrex) 50 mg PO .qd PRN tramadol 50 mg PO DAILY Tobacco use date assessed: 12/29/24 Dental Screening Dental Screen Date: 12/29/24 Did you have a dental visit in the last 12 months?: Yes Did you have a dental problem in the last 6 months where you did not have access to dental care?: No Was dental information given to patient?: Patient has dentist HPI Physical HPI Details 44-year-old female with past medical history of diabetes mellitus, GERD, hypertension, hypercholesterolemia and generalized anxiety disorder last seen 10/[address] Guthrie. Presenting with management of diabetes mellitus, evaluation of hypoglycemic episodes, and addressing a recurrent yeast infection. The patient has diabetes mellitus and has experienced hypoglycemic episodes, likely due to insulin dosing errors. She uses a Dexcom device for glucose monitoring, which has been crucial in alerting her to low blood sugar levels. Her sister's from diabetic complications influenced her decision to undergo a gastric sleeve procedure. The patient is experiencing a recurrent yeast infection, which is being evaluated with a swab to confirm the diagnosis. She reported a single episode of severe muscle cramp in her right leg, with visible vein distention, raising concerns about possible electrolyte imbalances. mammogram: order placed today eye doctor: eddie Hunter [place] [facility] Medical History Cubital tunnel syndrome of both upper extremities Bilateral hand numbness Overweight (BMI 25.0-29.9) Liver fibrosis Steatosis, liver BMI 32.0-32.9,adult Obesity History of back pain BMI over 35 Vitamin D deficiency Hypercalcemia Adjustment disorder, unspecified Pre-procedure lab exam Obesity Family hx of hypertension Serum calcium elevated Proteinuria Onychomycosis Hematuria Vitamin B 12 deficiency LUQ abdominal pain COVID-19 virus infection Irritable bowel syndrome Migraine Insomnia Vitamin D deficiency Obesity (BMI 30-39.9) Diabetic retinopathy Atkins's palsy Peripheral neuropathy Trigeminal neuralgia Pancreatitis GERD (gastroesophageal reflux disease) Type 2 diabetes mellitus with diabetic polyneuropathy Type 2 diabetes mellitus with hyperglycemia Hypertriglyceridemia Essential hypertension Hyperlipidemia LDL goal <100 Surgical History History of hysterectomy H/O gastric sleeve History of wisdom tooth extraction, class I edentulism Hx of colonoscopy Acalculous cholecystitis Hx of hernia repair Hx of removal of cyst Hx of dilation and curettage Family History Father Diabetes mellitus Asthma Hypertension Mother Diabetes mellitus Hypertension Scleroderma Maternal Aunt Ovarian cancer Paternal Grandfather Diabetes mellitus Paternal Grandmother Diabetes mellitus Maternal Grandmother Diabetes mellitus Maternal Grandfather Diabetes mellitus CVD (cardiovascular disease) Sister CVD (cardiovascular disease) Brother Anxiety Arthritis Social History Household Members: Spouse Housing: Apartment Are you a primary critical care educator to a significant other at home: No Do you presently have visiting nurse or other home services: No Alcohol intake: never Patient Tobacco Use Status: Former Tobacco user Tobacco use type: Cigarette Cigarette Packs Per Day: 0.25 Cigarettes Per Day: 4 Years Smoked: quit 03/2016. Restarted 03/2023. e-Cigarette/Vaping Use: Never Used Second Hand Smoke Exposure: Yes service: No Current occupational status: employed Cognitive needs: No Hearing needs: No Vision needs: Yes Questionnaire PHQ-9 Over the last 2 weeks, how often have you been bothered by any of the following problems? 1. Little interest or pleasure in doing things: not at all 2. Feeling down, depressed, or hopeless: not at all 3. Trouble falling or staying asleep, or sleeping too much: several days 4. Feeling tired or having little energy: several days 5. Poor appetite or overeating: several days 6. Feeling bad about yourself - or that you are a failure or have let yourself or your family down: not at all 7. Trouble concentrating on things, such as reading the newspaper or watching television: not at all 8. Moving or speaking so slowly that other people could have noticed. Or the opposite - being so fidgety or restless that you have been moving around a lot more than usual: not at all 9. Thoughts that you would be better off or of hurting yourself in some way: not at all Total score: 3 Depression Screening Interpretation: Negative Depression Screening Done: Yes Source: Developed by Drs. Jovon Nation, Cecilia Ribeiro, Travon Silveira and colleagues, with an educational michelle from [email or web address]. Thrive Questionnaire Date Thrive assessed: 12/29/24 I am a: Patient What is your living situation today?: I have a steady place to live Within the past 12 months, did the food you bought not last and you didn't have the money to get more?: Never true Within the past 12 months, did you worry whether your food would run out before you got money to buy more?: Never true Do you have trouble paying for medicines?: No Do you have trouble getting transportation to medical appointments?: Yes Do you have trouble paying your heating and electricity bill?: No Do you have trouble taking care of your child, family member or friend?: Yes Do you have trouble with day-to-day activities such as bathing, preparing meals, shopping, managing finances, etc.?: No Are you currently unemployed and looking for a job?: No Are you interested in more education?: No Please select the resources that you would like help with: None Currently or been in a relationship where the following occur: No concerns reported THRIVE Score: 1 BERTRAM-7 AMB Questionnaire BERTRAM-7 Date BERTRAM - 7 assessed: 12/29/24 Feeling nervous, anxious, or on edge: 1 = Several days Not being able to stop or control worryin = Several days Worrying too much about different things: 1 = Several days Trouble relaxin = Not at all Being so restless that it is hard to sit still: 0 = Not at all Becoming easily annoyed or irritable: 1 = Several days Feeling afraid as if something awful might happen: 0 = Not at all Total BERTRAM-7 score (0-4 normal; 5-9 mild; 10-14 moderate; 15-21 severe): 4 Source: Developed by Drs. Jovon Nation, Cecilia Ribeiro, Travon Silveira and colleagues, with an educational michelle from [email or web address]. Review of Systems Const Denies body aches, Denies fatigue, Denies fever(s), Denies frequent falls, Denies headache(s) and Denies weakness Eyes Reports no additional complaints and Denies change in vision ENT Reports dysphagia, Denies dizziness, Denies facial pain, Denies headache(s) and Denies odynophagia Card Details: occasional heart racing Denies chest pain, Denies syncope, Denies irregular heart rhythm, Denies leg edema, Denies lightheadedness and Denies dyspnea Resp Denies cough and Denies dyspnea GI Reports dysphagia, Denies dyspepsia, Denies diarrhea, Denies nausea, Denies odynophagia and Denies vomiting Details: vaginal discomfort Denies urinary frequency, Denies dysuria, Denies urinary hesitancy and Denies urinary urgency Musc Details: left hip pain Denies back pain and Denies myalgias Skin/Breast Reports system reviewed and no additional complaints, except as documented Neuro Denies dizziness, Denies syncope, Denies frequent falls, Denies headache(s) and Denies weakness Psych Reports no additional complaints Endo Denies fatigue Physical exam (Primary Care) Vital Signs: Last Vital Signs Pulse 97 12/29/24 14:01 BP 134/80 12/29/24 14:01 Pulse Ox 97 12/29/24 14:01 Oxygen Delivery Method Room Air 12/29/24 14:01 BMI result Body Mass Index 30.2 Tobacco/Smoking Status: Tobacco use Status Tobacco use date assessed 12/29/24 12/29/24 14:05 Patient Tobacco Use Status Former Tobacco user 12/29/24 14:05 Tobacco use type Cigarette 12/29/24 14:05 e-Cigarette/Vaping Use Never Used 12/29/24 14:05 PHQ-9: PHQ-9 Score PHQ-9: Total score 3 12/30/24 08:04 Depression Screening Interpretation: Negative Thrive Assessment: Date of Thrive Assessment Date Thrive assessed 12/29/24 12/29/24 14:05 Currently or been in a relationship where the following occur: No concerns reported Const General: cooperative, healthy appearing, comfortable and no acute distress Orientation/consciousness: patient oriented x3 HENMT Head: Yes normocephalic Ears: hearing grossly normal bilaterally General nose exam: Normal external nose present Face and sinus: Yes normal facial exam and Yes sinuses nontender Mouth: Normal oral and palatal mucosa present and tongue normal Throat: Yes posterior oropharynx normal Eyes General: appearance normal, both eyes and all related structures Conjunctivae: conjunctivae normal Pupils: Equal, round and reactive pupils present EOM: EOMs intact bilaterally and No Nystagmus present Neck Neck: Yes full ROM and Yes no lymphadenopathy Chest Chest palpation & inspection: normal inspection of the chest Resp Effort & Inspection: normal respiratory effort Auscultation: clear to auscultation bilaterally, no crackles, no rales, no rhonchi and no wheezes Cardio Rate: regular rate Rhythm: regular rhythm Peripheral pulses: radial pulses present and dorsalis pedis present GI Inspection: Yes normal to inspection and No Abdominal wall edema Palpation (GI): Soft to palpation, not firm and nontender Auscultation: normal bowel sounds Rectal Exam - Female: deferred General: Yes no CVA tenderness Back/Spine/Pelvis Back: no CVA tenderness Skin General skin exam: no rashes or lesions noted Neuro General: patient oriented x3 Cranial nerves: Yes Equal, round and reactive pupils present, Yes Midline tongue present, Yes Ability to bilaterally elevate shoulders present and No Nystagmus present Gait exam (Neuro): Normal gait present Extrem General: Yes normal to inspection, Yes full ROM and No edema Psych Speech and movement: Normal speech and movement present Affect: normal affect Attitude: cooperative Insight: Good insight present (Psych) Judgement: Good judgement present (Psych) Results AMB Hemoglobin A1c AMB Hemoglobin A1c 6.0 % Last Edit by Mp Glez MA on 12/29/24 14:31 Results Reviewed Results Reviewed: Laboratory Last Values Hgb A1c (Clinic) 6.0 % (4.0-6.0) 12/29/24 14:07 Coding Level of Care Code Est Pt Prev Care 40-64y(67922) Diagnoses Annual physical exam Z00.00 Generalized anxiety disorder F41.1 Essential hypertension I10 Hypertriglyceridemia E78.1 Type 2 diabetes mellitus with diabetic polyneuropathy, without long-term current use of insulin E11.42 Diabetes mellitus salvage determiner insulin use: without fpc use Obesity (BMI 30-39.9) E66.9 Gastroesophageal reflux disease without esophagitis K21.9 Esophagitis presence: without esophagitis Steatosis, liver K76.0 Vaginal discomfort N94.9 Muscle cramps R25.2 Assessment & Plan Assessment & Plan (1) Annual physical exam: Code(s): Z00.00 - Encounter for general adult medical examination without abnormal findings Category: Medical Plan: Patient is up-to-date on all recommended routine screenings and vaccinations for her age. Blood work has been ordered for what is due. Healthy diet and regular exercise is encouraged. (2) Generalized anxiety disorder: Comment: Declined referral for counseling September 2021 Code(s): F41.1 - Generalized anxiety disorder Category: Medical Plan: For anxiety management patient is on alprazolam 1 mg as needed. Declining additional medication or counseling at this time. (3) Essential hypertension: Code(s): I10 - Essential (primary) hypertension Category: Medical Plan: Continue on current blood pressure medication. Avoid salt intake and encourage healthy diet and regular exercise. (4) Hypertriglyceridemia: Code(s): E78.1 - Pure hyperglyceridemia Category: Medical Plan: Avoid foods that are high in cholesterol such as red meat, fried foods, eggs and baked goods. Triglyceride goal of less than 150 and LDL goal of less than 100. Continue on fenofibrate. Her last triglycerides were significantly elevated over 900 as she would discontinue the fenofibrate she has since restarted on this medication. Plan to repeat cholesterol labs (5) Type 2 diabetes mellitus with diabetic polyneuropathy: Code(s): E11.42 - Type 2 diabetes mellitus with diabetic polyneuropathy Category: Medical Qualifiers: Diabetes mellitus fpc insulin use: without fpc use Qualified Code(s): E11.42 - Type 2 diabetes mellitus with diabetic polyneuropathy Plan: Decrease the amount of carbohydrates such as pasta, bread, rice, and potatoes and limit the amount of sweets. Although fruits are generally healthy they should be eaten in moderation as they are still high in sugar. Hemoglobin A1c goal of less than 7%. She is currently using insulin as well as Jardiance for management of her diabetes. (6) Obesity (BMI 30-39.9): Code(s): E66.9 - Obesity, unspecified Category: Medical Plan: Healthy diet and regular exercise is encouraged. Currently working with weight management clinic for gastric sleeve (7) GERD (gastroesophageal reflux disease): Code(s): K21.9 - Gastro-esophageal reflux disease without esophagitis Category: Medical Qualifiers: Esophagitis presence: without esophagitis Qualified Code(s): K21.9 - Gastro-esophageal reflux disease without esophagitis Plan: Avoid trigger foods such as citrus, tomato products, soda, caffeine, spicy foods and other foods that may be irritating to your stomach. Avoid laying flat 3-4 hours after eating and elevate the head of the bed 30 degrees to prevent acid from moving into the esophagus. Continue on pantoprazole (8) Steatosis, liver: Code(s): K76.0 - Fatty (change of) liver, not elsewhere classified Category: Medical Plan: Healthy diet and regular exercise is encouraged. (9) Vaginal discomfort: Code(s): N94.9 - Unspecified condition associated with female genital organs and menstrual cycle Category: Medical Plan: Patient is experiencing vaginal discomfort which she believes to be a yeast infection. She was given fluconazole prophylactically as she is prone to yeast infections. We did also obtain a vaginosis panel for further evaluation. (10) Muscle cramps: Code(s): R25.2 - Cramp and spasm Category: Medical Plan: Patient had a single episode of a muscle cramp in the lower extremity without recurrence. Recommend increasing hydration, gentle stretching and plan to order for blood work for further evaluation. Plan The plan involves managing diabetes mellitus by optimizing insulin dosing and utilizing the Dexcom device for continuous glucose monitoring. Blood work will be performed to evaluate cholesterol, potassium, and magnesium levels, addressing potential causes of hypoglycemia and muscle cramps. For the yeast infection, a swab will confirm the diagnosis, and fluconazole will be prescribed, with follow-up if symptoms do not resolve. Preventative care includes a mammogram referral to ensure routine screening compliance. This note was constructed using voice recognition software. While every effort has been made to ensure accuracy and quantity surveyor, still areas may have been included sometimes these areas may affect the content or meeting of the given symptoms. Total time spent caring for the patient today was 30 minutes. This includes time spent before the visit reviewing the chart, time spent during the visit, and time spent after the visit and documentation. Patient was informed and verbally consented to the use of an ambient scribe for clinic note documentation during this visit. Orders: Orders AMB Hemoglobin A1c 12/29/24 Z13.9 - Encounter for screening, unspecified Lipid Panel 12/29/24 E78.00 - Pure hypercholesterolemia, unspecified Comprehensive Met. Panel 12/29/24 E83.52 - Hypercalcemia, Z00.00 - Encounter for general adult medical examination without abnormal findings Bacterial Vaginosis Panel 12/29/24 N94.9 - Unspecified condition associated with female genital organs and menstrual cycle MM tomosynthesis screening BI 12/29/24 Z12.31 - Encounter for screening mammogram for malignant neoplasm of breast Magnesium 12/29/24 R00.2 - Palpitations Medications: New fluconazole 150 mg PO Q3D 2 tabs 0RF 2 doses
[2024-12-29 14:01] VITALS: BP 134/80; PULSE 97; O2SAT 97; BMI 30.2
--- OUTSIDE RECORDS SUMMARY | 2024-12-29 14:21 | XMS_ITS | Clinical Summary ---
Author Organization [facility] Address [address] [place] [address] Care Team Providers Care Roaster Operator Name Role Phone Emigdio Guthrie MD Primary Care Provider [phone] Allergies Active Allergy Reactions Criticality Noted Date [...] age to complete this topic Care Teams Roaster Operator Relationship Specialty Start Date End Date Emigdio Guthrie MD [address] [place] [address] Dr [address] [facility] [place] [address] PCP - General Internal Medicine 11/30/17
--- OUTSIDE RECORDS SUMMARY | 2024-12-29 14:21 | XMS_ITS | Clinical Summary ---
Author Organization [facility] Address [address] [facility] [address] [place] [address] Phone Care Team Providers Care Manufacturing Industrial Engineer Name Role Phone Emigdio Guthrie MD Primary Care Provider [phone] Allergies Active Allergy Reactions Criticality Noted Date [...] complete this topic Insurance [place] Care Teams Manufacturing Industrial Engineer Relationship Specialty Start Date End Date Emigdio Guthrie MD [facility] [place] [address] [place], [place] PCP - General Internal Medicine 11/02/20
== END 2024-12-29 14:56 | disposition home or self-care (01) ==
LOC: HO.HMCH 13:55
PROVIDERS: PCP Internal Medicine
DX: Z00.00 Encounter for general adult medical examination without abnormal findings (principal); E11.42 Type 2 diabetes mellitus with diabetic polyneuropathy; E66.9 Obesity, unspecified; Z68.30 Body mass index [BMI] 30.0-30.9, adult; F41.1 Generalized anxiety disorder; I10 Essential (primary) hypertension; E78.1 Pure hyperglyceridemia; K21.9 Gastro-esophageal reflux disease without esophagitis; K76.0 Fatty (change of) liver, not elsewhere classified; N94.9 Unspecified condition associated with female genital organs and menstrual cycle; R25.2 Cramp and spasm

== ENCOUNTER 2024-12-29 13:54 | Outpatient (REF) | payer OTHER, SELFPAY ==
[2024-12-29 16:14] LABS: Bacterial Vaginosis PCR NEGATIVE (Negative); Candida Group PCR NOT DETECTED (Not Detect); Candida glab krusei PCR NOT DETECTED (Not Detect); Trichomonas vaginalis PCR NOT DETECTED (Not Detect)
== END 2024-12-29 13:55 | disposition home or self-care (01) ==
LOC: HO.LNP 13:54
PROVIDERS: PCP Internal Medicine
DX: Z00.00 Encounter for general adult medical examination without abnormal findings (principal); E11.42 Type 2 diabetes mellitus with diabetic polyneuropathy; K21.9 Gastro-esophageal reflux disease without esophagitis; I10 Essential (primary) hypertension; E78.00 Pure hypercholesterolemia, unspecified; F41.1 Generalized anxiety disorder; E78.1 Pure hyperglyceridemia; E66.9 Obesity, unspecified; K76.0 Fatty (change of) liver, not elsewhere classified; N94.9 Unspecified condition associated with female genital organs and menstrual cycle; R25.2 Cramp and spasm; E83.52 Hypercalcemia; Z20.2 Contact with and (suspected) exposure to infections with a predominantly sexual mode of transmission
CPT/HCPCS: 81515; 83036; 96127; 99396

== ENCOUNTER 2025-01-26 13:02 | Outpatient (AMB) | payer OTHER, SELFPAY ==
--- OUTSIDE RECORDS SUMMARY | 2024-02-27 07:40 | XMS_ITS ---
Author Organization [facility] Address [address] [place] [phone] Support Name Relationship Address Phone NADIYA RUGGIERO Emergency Contact [address] [place] [address] [address] [place], [place] [phone] RUGGIEROEDISON Guarantor Unknown [phone] Care Team Providers Care Certified Surgical Tech/First Assistant Name Role Phone Emigdio Guthrie MD Primary Care Provider Kain Dia Jr REASON FOR VISIT Patient presents today for abdominal pain Encounters Encounter Location Date Provider Diagnosis [facility] [address] [facility] [address] [place] [phone] 02/27/2024 Kain Orr Jr Plan Of Treatment No Information Progress Notes * EDISON RUGGIERODOB:1980 (45 yo F)Acc No.[id number]:02/27/2024 Progress Notes Patient: EDISON JAY Provider: Alexis Orr MD :1980 A ge:44 Y S ex:Female Date:02/27/2024 Address:[address] [place], [place] [phone] Pcp:Emigdio Guthrie MD Subjective: * Chief Complaints: [...] 1 Generated for Lauren umanzor/Gina/eTransmitting on: 0 01/26/2025 03:12 PM EDT
--- OUTSIDE RECORDS SUMMARY | 2024-03-27 09:20 | XMS_ITS ---
Author Organization [employer] [facility] Address [address] [facility] [address] [place] [address] Care Team Providers Care Energy Trader Name Role Phone YEIMI MARRERO Unavailable [phone] REASON FOR VISIT EB AND F/U FROM DR ZAVALA D&C Encounters Encounter Location Date Provider Diagnosis [facility] [employer] [address] [address] 03/27/2024 YEIMI MARRERO Plan Of Treatment Next Appt Details Provider Name:YEIMI Das, 03/02/2025 01:30:00 PM, [address] [facility], [address], [place], [address], Progress Notes * EDISON RUGGIERODOB:1980 (45 yo F)Acc No.[id number]:03/27/2024 PROGRESS NOTES Patient: ERICA JAYICA Provider: Maxwell MARRERO MD :1980 A ge:44 Y S ex:Female Date:03/27/2024 Address:[address] [place], [place] [phone] Subjective: * Chief Complaints: * 1 . EB AND F/U FROM DR SALLY Marx. * Medical History: Objective: * Vitals: Assessment: Plan: * Treatment: * Images: Billing Information: * Visit Code: * Procedure Codes: * Electronic signature of YEIMI MARRERO MD on 01/26/2025 at 03:12 PM EDT Sign off status: Pending * Provider: Maxwell MARRERO MD Date: 05/27/2023 Generated for Lauren umanzor/Gina/Alexander on: 0 01/26/2025 03:12 PM EDT
--- OUTSIDE RECORDS SUMMARY | 2024-07-28 09:00 | XMS_ITS ---
Author Organization [facility] Address [address] [address] Care Team Providers Care Job Coach/Job Developer Name Role Phone YEIMI MARRERO Unavailable [phone] REASON FOR VISIT Annual FAMILY SOCIOLOGIST Physical Encounters Encounter Location Date Provider Diagnosis [facility] [address] [place] [phone] 07/28/2024 YEIMI MARRERO Encounter for gynecological examination [...] Follow Up: 1 Year, Reason: Y early Retail Loss Prevention Specialist Exam Provider Name:YEIMI BARNETT Pippa, 03/02/2025 01:30:00 PM, [address], [address], [place], [address], Progress Notes * MONIK ERICAMAXDOB:1980 (45 yo F)Acc No.[id number]:07/28/2024 PROGRESS NOTES Patient: EDISON JAY Provider: Maxwell MARRERO MD :1980 A ge:44 Y S ex:Female Date:07/28/2024 Address:[address] [place], [place] [phone] Subjective: * Chief Complaints: * 1 . Annual FAMILY SOCIOLOGIST Physical. 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 She was hospitalized 07/14/24 for N/V/abdominal [...] to a video. * ROS: A nnual Retail Loss Prevention Specialist Exam ROS: Bowel habit changes d enies. [...] Denies A nxiety. * Medical History: * Retail Loss Prevention Specialist History: G ravida/ Para 1 /0. S exual activity c urrently sexually active, with men. L ast Pap Smear: NIL, NEG HPV, 07/27/20 NIL, NEG HPV, 05/27/2019 LSIL/+hrHPV, neg 16/18/45. M ammogram: n ot due per age. A bnormal Pap Smear: 2 020, 2017, 2014 abnl pap with HPV. Colpo was recommended but not done. She had colpo 2013 ([facility]). L MP and menses h ysterectomy. H [...] no acute distress, well developed, well nourished, results engineer present in room. HEAD: n ormocephalic, atraumatic. [...] * Follow Up: 1 Year (Reason: Yearly Retail Loss Prevention Specialist Exam) * Images: Billing Information: * Visit Code: 30067 Preventive Care Est Pt. Age 40-64. 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 She was hospitalized 07/14/24 for N/V/abdominal [...] ac sunita distress, well developed, well nourished, results engineer present in room HEAD: normocephalic, atrau matic [...]
--- OUTSIDE RECORDS SUMMARY | 2024-08-19 10:20 | XMS_ITS ---
Author Organization [facility] Address [address] [place] [address] Care Team Providers Care Apron Man Name Role Phone YEIMI MARRERO Unavailable [phone] REASON FOR VISIT Annual METER MAKER Physical Medications Medication SIG (Take, Route, Frequency, Duration) Notes Start Date End Date Status Lisinopril 5 MG 1 tablet Orally Once a day; Duration: 30 day(s) Active Vitamin D (Ergocalciferol) 65135 UNIT 1 capsule Orally Active Gabapentin 600 [...] Active Encounters Encounter Location Date Provider Diagnosis [address] [address] 08/19/2024 YEIMI MARRERO Plan Of Treatment Next Appt Details Provider Name:YEIMI Das, 03/02/2025 01:30:00 PM, [address] [place] [address], [place], [address], Progress Notes * EDISON RUGGIERODOB:1980 (45 yo F)Acc No.[id number]:08/19/2024 PROGRESS NOTES Patient: EDISON JAY Provider: Maxwell MARRERO MD :1980 A ge:44 Y S ex:Female Date:08/19/2024 Address:[address] [place] [address] Subjective: * Chief Complaints: * 1 . 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 * Medical History: * Medications: T aking Magnesium 400 MG Tablet as directed Orally , Taking Lisinopril 5 MG Tablet 1 tablet Orally Once a day , Taking Vitamin D (Ergocalciferol) 11109 UNIT Capsule 1 capsule Orally , Taking [...] Date: 08/19/2024 Generated for Lauren umanzor/Gina/Alexander on: 01/26/2025 03:13 PM EDT
--- OUTSIDE RECORDS SUMMARY | 2024-08-28 09:00 | XMS_ITS ---
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 Encounters Encounter Location Date Provider Diagnosis [facility] [address] [place] [phone] 08/28/2024 YEIMI MARRERO Encounter for gynecological examination [...] Follow Up: 1 Year, Reason: Y early Director Of Product Design Exam Provider Name:YEIMI BARNETT Pippa, 03/02/2025 01:30:00 PM, [address], [address], [place], [address], Progress Notes * MONIK ERICAMAXDOB:1980 (45 yo F)Acc No.[id number]:08/28/2024 PROGRESS NOTES Patient: EDISON JAY Provider: Maxwell MARRERO MD :1980 A ge:44 Y S ex:Female Date:08/28/2024 Address:[address] [place], [place] [phone] Subjective: * Chief Complaints: * 1 . 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 She was hospitalized 07/14/24 for N/V/abdominal [...] to a video. * ROS: A nnual Director Of Product Design Exam ROS: Bowel habit changes d enies. [...] Denies A nxiety. * Medical History: * Director Of Product Design History: G ravida/ Para 1 /0. S exual activity c urrently sexually active, with men. L ast Pap Smear: NIL, NEG HPV, 07/27/20 NIL, NEG HPV, 05/27/2019 LSIL/+hrHPV, neg 16/18/45. M ammogram: n ot due per age. A bnormal Pap Smear: 2 020, 2017, 2014 abnl pap with HPV. Colpo was recommended but not done. She had colpo 2013 ([facility]). L MP and menses h ysterectomy. H istory of STD's: n one. B irth Control: n one. M enarche * . H ysterectomy: 1 ([facility]/BSO for AUB). E ndoscopy * - normal. C olonoscopy Y es 2016- Normal; 01/2023 - normal. * OB History: T otal pregnancies G 1 P0010. Objective: * Vitals: * Examination: G eneral Examination: GENERAL APPEARANCE: i n no acute distress, well developed, well nourished, english drawer present in room. HEAD: n ormocephalic, atraumatic. [...] * Follow Up: 1 Year (Reason: Yearly Director Of Product Design Exam) * Images: Billing Information: * Visit Code: 90569 Preventive Care Est Pt. Age 40-64. 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 She was hospitalized 07/14/24 for N/V/abdominal [...] General Examination GENERAL APPEARANCE: in no ac [place] distress, well developed, well nourished, english drawer present in room HEAD: normocephalic, atrau matic [...]
--- OUTSIDE RECORDS SUMMARY | 2024-10-10 04:50 | XMS_ITS ---
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 * Medical History: Objective: * Vitals: Assessment: Plan: * Treatment: * Images: Billing Information: * Visit Code: * Procedure Codes: * Electronic signature of YEIMI MARRERO MD on 01/26/2025 at 03:13 PM EDT Sign off status: Pending * Provider: Maxwell MARRERO MD Date: 0 10/10/2024 Generated for Lauren umanzor/Gina/eTransmitting on: 0 01/26/2025 03:13 PM EDT
--- NOTE | 2025-01-26 12:32 | MHC.OFFVISWM ---
Intake Visit Reasons: TV PO LSG 10/10/22 Allergies metoclopramide (From REGLAN) Allergy (Severe, Verified 12/29/24 14:18) ANXIETY promethazine (From PHENERGAN) Allergy (Severe, Verified 12/29/24 14:18) ANXIETY shellfish derived (SHELLFISH DERIVED) Allergy (Severe, Verified 12/29/24 14:18) THROAT SWELLING HIVES IN SCALP, ITCHY ibuprofen (From MOTRIN) Allergy (Unknown, Verified 12/29/24 14:18) HIVES morphine (MORPHINE) Allergy (Unknown, Verified 12/29/24 14:18) THROAT CLOSES, anaphylaxis prochlorperazine (From COMPAZINE) Allergy (Unknown, Verified 12/29/24 14:18) ANXIETY Sulfa (Sulfonamide Antibiotics) (SULFA (SULFONAMIDE ANTIBIOTICS)) Allergy (Unknown, Verified 12/29/24 14:18) SWELLING trazodone Adverse Reaction (Unknown, Verified 12/29/24 14:18) Dizziness Medication List - Last Reconciled 01/26/25 by BENSON Alvarado acetaminophen ER 650 mg PO Q8H PRN alprazolam 1 mg PO .QD PRN 30 days baclofen 5 mg PO TID blood pressure monitor (Blood Pressure Kit) As directed blood sugar diagnostic (Watly BV Verio test strips) As directed two times per day blood-glucose meter As directed blood-glucose sensor (Dexcom G7 Sensor device) As directed blood-glucose,sales service coordinator,cont (Dexcom G7 Central Aisle Cashier) As directed carvedilol 12.5 mg PO BID cholecalciferol (vitamin D3) 125 mcg PO DAILY clotrimazole 1% 1 appl topical BID cyanocobalamin (vitamin B-12) 1,000 mcg PO DAILY diclofenac sodium 1% (Voltaren Arthritis Pain) 4 grams topical QID empagliflozin 25 mg PO DAILY fenofibrate 160 mg PO DAILY fluconazole 150 mg PO Q3D 2 doses gabapentin 600 mg PO QID 90 days hydralazine 50 mg PO TID insulin glargine (Lantus Solostar U-100 Insulin) 10 units (0.1 mL) subcut QPM insulin lispro (Humalog KwikPen (U-100) Insulin) 1 sliding scale dose subcut USEASDIRECTD lancets As directed lancets (Rapid Diagnostekuch Delica Plus Lancet) As directed 2 times per day lisinopril 10 mg PO DAILY meloxicam 15 mg PO DAILY ondansetron HCl 4 mg PO Q6H pantoprazole 40 mg PO .QD pen needle, diabetic (Comfort EZ Pen [place]) As directed-daily pen needle, diabetic (1st Tier Unifine Pentips) As directed Inject Insulin 4 x a day polyethylene glycol 3350 (Gavilax) 17 grams PO DAILY scopolamine HBr mg PO [Shower chair As directed] sucralfate 10 mL PO BID sumatriptan succinate (Imitrex) 50 mg PO .qd PRN tramadol 50 mg PO DAILY HPI Comments Details: This?is a?44?yo F who is s/p LSG 03/10/2021. Pt is a previous smoker (reports she stopped) and has taken meloxicam. I started her on a trial of carafate after communicating with her via text about her abdominal pain. She also had UGI. Recently, pt reports abdominal pain is very much better . She reports the sucralfate has helped a lot. She is very careful to chew thoroughly and take small bites, however sometimes feels like food gets stuck in her esophagus and is concerned about choking. She has an appt with [facility] for Feb 04. Present meal plan includes: prior to last visit I asked pt to follow a meal plan created on [email or web address] ha with mostly shakes and one small meal per day. She has had to switch certain foods that she eats to avoid feeling like she is choking. She had been doing okay with yogurt but later had an episode of regurgitation. Meats cause trouble- trying to eat softer. Right now she is doing 1 protein shake around 12pm. She has coffee in AM and a snack in afternoon such as half a tuna sandwich and a few chips. Then her dinner meal. [facility] Medical History Cubital tunnel syndrome of both upper extremities Bilateral hand numbness Overweight (BMI 25.0-29.9) Liver fibrosis Steatosis, liver BMI 32.0-32.9,adult Obesity History of back pain BMI over 35 Vitamin D deficiency Hypercalcemia Adjustment disorder, unspecified Pre-procedure lab exam Obesity Family hx of hypertension Serum calcium elevated Proteinuria Onychomycosis Hematuria Vitamin B 12 deficiency LUQ abdominal pain COVID-19 virus infection Irritable bowel syndrome Migraine Insomnia Vitamin D deficiency Obesity (BMI 30-39.9) Diabetic retinopathy Atkins's palsy Peripheral neuropathy Trigeminal neuralgia Pancreatitis GERD (gastroesophageal reflux disease) Type 2 diabetes mellitus with diabetic polyneuropathy Type 2 diabetes mellitus with hyperglycemia Hypertriglyceridemia Essential hypertension Hyperlipidemia LDL goal <100 Surgical History History of hysterectomy H/O gastric sleeve History of wisdom tooth extraction, class I edentulism Hx of colonoscopy Acalculous cholecystitis Hx of hernia repair Hx of removal of cyst Hx of dilation and curettage Family History Father Diabetes mellitus Asthma Hypertension Mother Diabetes mellitus Hypertension Scleroderma Maternal Aunt Ovarian cancer Paternal Grandfather Diabetes mellitus Paternal Grandmother Diabetes mellitus Maternal Grandmother Diabetes mellitus Maternal Grandfather Diabetes mellitus CVD (cardiovascular disease) Sister CVD (cardiovascular disease) Brother Anxiety Arthritis Social History Household Members: Spouse Housing: Apartment Are you a primary wound care technician to a significant other at home: No Do you presently have visiting nurse or other home services: No Alcohol intake: never Patient Tobacco Use Status: Former Tobacco user Tobacco use type: Cigarette Cigarette Packs Per Day: 0.25 Cigarettes Per Day: 4 Years Smoked: quit 03/2016. Restarted 03/2023. e-Cigarette/Vaping Use: Never Used Second Hand Smoke Exposure: Yes service: No Current occupational status: employed Cognitive needs: No Hearing needs: No Vision needs: Yes Telehealth Telehealth Telehealth Platform: Telephone Location of provider rendering services: other Location of patient: address on file Patient Identification confirmed using: Name, : Yes Telehealth method: voice only Patient verbally consented to treatment: Yes Patient verbally consented to billing insurance company: Yes Patient informed of any privacy concerns related to visit: Yes Minutes spent on Phone/Video with Pt.: 16 Assessment & Plan Assessment & Plan (1) S/P laparoscopic sleeve gastrectomy: Comment: February 2021 Code(s): Z98.84 - Bariatric surgery status Category: Medical (2) Obesity (BMI 30-39.9): Code(s): E66.9 - Obesity, unspecified Category: Medical Plan Reiterated the importance of pt following a structured meal plan via [employer] ha. Pt was not following previously but agrees to download. She has been off PPI and carafate x 2 weeks so can undergo H pylori testing. Will follow up with [facility] later this month. RTC 4 months, phone visit ok. Orders: Orders H Pylori Breath Test Today
--- OUTSIDE RECORDS SUMMARY | 2025-01-26 15:13 | XMS_ITS | Clinical Summary ---
Author Organization [facility] Address [address] [place] [address] Care Team Providers Care Chair Inspector Name Role Phone Emigdio Guthrie MD Primary Care Provider [phone] Allergies Active Allergy Reactions Criticality Noted Date [...] age to complete this topic Care Teams Chair Inspector Relationship Specialty Start Date End Date Emigdio Guthrie MD [address] [place] [address] Dr [address] [facility] [place] [address] PCP - General Internal Medicine 11/30/17
--- OUTSIDE RECORDS SUMMARY | 2025-01-26 15:13 | XMS_ITS | Patient Health Record ---
Author Organization [facility] Address [address] [place] [address] Support Name Relationship Address Phone NADIYA RUGGIERO Emergency Contact [address] [place] [address] [address] [place], [place] [id number] EDISON RUGGIERO Guarantor Unknown [phone] Care Team Providers Care Spindle Repairer Name Role Phone Emigdio Guthrie MD Primary Care Provider Kain Dia Jr Unavailable [phone] Allergies Allergen (clinical drug ingredient) Drug/Non Drug [...] Date Status Vitamin D3 Active Zofran Active Vitamin B-2 100 MG 1 tablet Orally Once a day Active Fenofibrate 145 MG 1 tablet with food O rally Once a day for 30 day(s) Active ALPRAZolam 0.5 MG 1 tablet Orally as needed Active Lisinopril 5 MG 1 tablet Orally Once a day for 30 day(s) Active SUMAtriptan & Homeopathic Prod 50 MG as directed Combination prn Active Dicyclomine HCl 20 MG 1 tablet Orally 2- 4 times a day for 30 days 01/25/2023 Active Omeprazole 40 MG 1 capsule 30 [...] Problem Status W/U Status Risk Notes Problem 08071690 Epigastric pain (R10.13) Active confirmed Problem 550047161 Irritable bowel syndrome with diarrhea (K58.0) Active confirmed Problem 104146376 Generalized abdominal pain (R10.84) Active confirmed Problem Gastroesophageal reflux disease (336504037) Gastroesophageal reflux disease (K21.9) Active confirmed Problem 29635449 Rectal pain (K62.89) Active confirmed Problem 69569680 Diarrhea, unspecified type (R19.7) Active confirmed Problem 22386959 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) Active confirmed Problem 29982261 Change in bowel movement (R19.8) Active confirmed Problem 553097590 Gastroesophageal reflux disease, unspecified whether esophagitis present (K21.9) Active confirmed Encounters Encounter Location Date Provider Diagnosis [facility] [address] [place] [address] 05/06/2024 Kain Orr Jr [facility] [address] [place] [address] 12/01/2024 Kain Orr Jr Generalized abdominal pain R10.84 [facility] [address] [place] [phone] 02/25/2024 Kain Orr Jr Assessments Encounter Date Diagnosis (ICD Code) Assessment Notes Treatment Notes Treatment Clinical Notes Section Notes 12/01/2024 Generalized abdominal pain (ICD-10 - R10.84) Plan Of Treatment Pending Test Test Name [...] Insured Coverage Start Date Coverage End Date [facility] [address] Attn Claims BEN[place] Guadarrama [id number] EDISON RUGGIERO Self - patient is the insured MEDICAID OF [facility] [address] [place] [address] [id number] EDISON RUGGIERO Self - patient is the insured [place]ARE OF [place] [address] [place] [address] [phone] [id number] EDISON RUGGIERO Self - patient is the [...]
--- OUTSIDE RECORDS SUMMARY | 2025-01-26 15:13 | XMS_ITS | Patient Health Record ---
Author Organization [facility] [facility] Address [address] [place] [address] Care Team Providers Care Command Post Craftsman Name Role Phone YEIMI MARRERO Unavailable [phone] Allergies Allergen (clinical drug ingredient) Drug/Non Drug [...] (substance) Sulfa Antibiotics hives Drug Allergy Active Reason For Referral No Information Medications Medication SIG (Take, Route, Frequency, Duration) Notes Start Date End Date Status Lisinopril 5 MG 1 tablet Orally Once a day; Duration: 30 day(s) Active Vitamin D (Ergocalciferol) 25184 UNIT 1 capsule Orally Active Gabapentin 600 MG Orally two times a day Active Fenofibrate 145 MG 1 tablet Orally Once a day Active B-12 Once a day Active ALPRAZolam 0.25 MG 1 tablet Orally PRN Active Omeprazole 40 MG TAKE 1 CAPSULE BY [facility] EVERY DAY Oral; Duration: 90 Active Progesterone 200 MG 1 capsule at bedtime Orally Once a day; Duration: 90 days 10/29/2023 Active Tranexamic Acid 650 [...] test positive, high risk on vaginal specimen (689103237902774) Cervical high risk human papillomavirus (HPV) DNA test positive (R87.810) Active confirmed Problem Essential hypertension (60483437) Essential (primary) hypertension (I10) Active confirmed Problem Type II diabetes mellitus without complication (030636369) Type 2 diabetes mellitus without complications (E11.9) Active confirmed Problem Hyperlipidemia (64204019) Hyperlipidemia, unspecified (E78.5) Active confirmed Problem Anxiety disorder (267557497) Anxiety disorder, unspecified (F41.9) Active confirmed Problem Migraine without aura, not refractory (disorder) (388277126) Migraine, unspecified, not intractable, without status migrainosus (G43.909) Active confirmed Problem Chronic pain syndrome (708809016) Chronic pain syndrome (G89.4) Active confirmed Problem Hidradenitis suppurativa (87979255) Hidradenitis suppurativa (L73.2) Active confirmed Problem Oligomenorrhea (30529937) Oligomenorrhea, unspecified (N91.5) Active confirmed Problem Abnormal uterine bleeding (66100173696749) Abnormal uterine and vaginal bleeding, unspecified (N93.9) Active confirmed Problem Female infertility (7404279) Female infertility, unspecified (N97.9) Active confirmed Problem History of gastrointestinal disease (595715514) Personal history of other diseases of the digestive system (Z87.19) Active confirmed Problem COVID-19 (654867554) COVID-19 (U07.1) Active confirmed Encounters Encounter Location Date Provider Diagnosis [address] [place] [address] 08/19/2024 YEIMI MARRERO Plan Of Treatment Pending Test Test Name [...] Mammogram 3D 2023 Next Appt Details Provider Name:YEIMI Maxwell Das, 03/02/2025 01:30:00 PM, [employer] [facility], [address], [place], [address], Insurance Providers Payer Name Payer Address Payer Phone Subscriber Number Group Number Insured Name Patient Relationship to Insured Coverage Start Date Coverage End Date [facility] [address] [place] [address] [id number] EDISON RUGGIERO Self - patient is the insured Medical (General) History Medical History History ICD Code Hyperlipidemia, unspecified E78.5 Essential (primary) hypertension I10 COVID-19 U07.1 Surgical History Surgery Date(Month/Year) Dilation and curretage 2004 Hernia Repair 1981 Removal of Lump on R under arm 8 cholecystectomy 10/2018 upper endoscopy and colonoscopy 2019 GASTRIC SLEEVE 02/2021 LAVH/BSO - for AUB 02/2024 Hospitalization History Reason Date(Month/Year) See surgical Hx
--- OUTSIDE RECORDS SUMMARY | 2025-01-26 15:14 | XMS_ITS | Clinical Summary ---
Author Organization [facility] Address [address] [facility] [address] [place] [address] Phone Care Team Providers Care Bandsaw Operator Name Role Phone Emigdio Guthrie MD Primary Care Provider [phone] Allergies Active Allergy Reactions Criticality Noted Date [...] complete this topic Insurance [employer] Care Teams Bandsaw Operator Relationship Specialty Start Date End Date Emigdio Guthrie MD [facility] [place] [address] [place], [place] PCP - General Internal Medicine 11/02/20
== END 2025-01-26 13:02 | disposition home or self-care (01) ==
LOC: HO.HBS 13:02
PROVIDERS: PCP Internal Medicine; Visit Provider Physician Assistant Surgical
DX: Z71.3 Dietary counseling and surveillance (principal); Z90.3 Acquired absence of stomach [part of]; Z98.84 Bariatric surgery status
CPT/HCPCS: 99213; G2211

== ENCOUNTER → 2025-01-26 13:02 | Outpatient (BNVA) | payer OTHER, SELFPAY | PROVIDERS: PCP Internal Medicine; Visit Provider Physician Assistant Surgical | DX: E66.9 Obesity, unspecified (principal); Z68.39 Body mass index [BMI] 39.0-39.9, adult; Z79.84 Long term (current) use of oral hypoglycemic drugs; Z87.891 Personal history of nicotine dependence; Z13.89 Encounter for screening for other disorder ==

== ENCOUNTER 2025-01-27 08:59 | Outpatient (REF) | payer OTHER, SELFPAY ==
--- OUTSIDE RECORDS SUMMARY | 2024-02-27 07:40 | XMS_ITS ---
Author Organization [facility] Address [address] [place] [phone] Support Name Relationship Address Phone NADIYA RUGGIERO Emergency Contact [address] [place] [address] [address] [place], [place] [phone] RUGGIEROEDISON Guarantor Unknown [phone] Care Team Providers Care Health Editor Name Role Phone Emigdio Guthrie MD Primary Care Provider Kain Dia Jr REASON FOR VISIT Patient presents today for abdominal pain Encounters Encounter Location Date Provider Diagnosis [facility] [address] [facility] [address] [place] [phone] 02/27/2024 Kain Orr Jr Plan Of Treatment No Information Progress Notes * EDISON RUGGIERODOB:1980 (45 yo F)Acc No.[id number]:02/27/2024 Progress Notes Patient: EDISON JAY Provider: Alexis Orr MD :1980 A ge:44 Y S ex:Female Date:02/27/2024 Address:[address] [place], [place] [phone] Pcp:Emigdio Guthrie MD Subjective: * Chief Complaints: * 1 . Patient presents today for abdominal pain. * Medical History: Objective: * Vitals: Assessment: Plan: * Treatment: * * The named appointment provid er may or may not be the originator of this progress note, and it is not deemed complete until electronically signed by the appointment provider. Sign off status: Pending * Provider: Alexis Orr MD Date: 1 Generated for Lauren umanzor/Gina/eTransmitting on: 0 01/28/2025 09:37 AM EDT
--- OUTSIDE RECORDS SUMMARY | 2024-03-27 09:20 | XMS_ITS ---
Author Organization [employer] [facility] Address [address] [facility] [address] [place] [address] Care Team Providers Care Bleaching Supervisor Name Role Phone YEIMI MARRERO Unavailable [phone] REASON FOR VISIT EB AND F/U FROM DR ZAVALA D&C Encounters Encounter Location Date Provider Diagnosis [facility] [employer] [address] [address] 03/27/2024 YEIMI MARRERO Plan Of Treatment Next Appt Details Provider Name:YEIMI Das, 03/02/2025 01:30:00 PM, [address] [place] [address], [address], [place], [address], Progress Notes * EDISON RUGGIERODOB:1980 (45 yo F)Acc No.[id number]:03/27/2024 PROGRESS NOTES Patient: ERICA JAYICA Provider: Maxwell MARRERO MD :1980 A ge:44 Y S ex:Female Date:03/27/2024 Address:[address] [place], [place] [phone] Subjective: * Chief Complaints: * 1 . EB AND F/U FROM DR SALLY Marx. * Medical History: Objective: * Vitals: Assessment: Plan: * Treatment: * Images: Billing Information: * Visit Code: * Procedure Codes: * Electronic signature of YEIMI MARRERO MD on 01/28/2025 at 09:37 AM EDT Sign off status: Pending * Provider: Maxwell MARRERO MD Date: 05/27/2023 Generated for Lauren umanzor/Gina/Alexander on: 0 01/28/2025 09:37 AM EDT
--- OUTSIDE RECORDS SUMMARY | 2024-07-28 09:00 | XMS_ITS ---
Author Organization [facility] Address [address] [address] Care Team Providers Care Stummel Selector Name Role Phone YEIMI MARRERO Unavailable [phone] REASON FOR VISIT Annual TAFFY PULLER Physical Encounters Encounter Location Date Provider Diagnosis [facility] [address] [place] [phone] 07/28/2024 YEIMI MARRERO Encounter for gynecological examination [...] Follow Up: 1 Year, Reason: Y early Sealer Operator Exam Provider Name:YEIMI BARNETT Pippa, 03/02/2025 01:30:00 PM, [address], [address], [place], [address], Progress Notes * MONIK ERICAMAXDOB:1980 (45 yo F)Acc No.[id number]:07/28/2024 PROGRESS NOTES Patient: EDISON JAY Provider: Maxwell MARRERO MD :1980 A ge:44 Y S ex:Female Date:07/28/2024 Address:[address] [place], [place] [phone] Subjective: * Chief Complaints: * 1 . Annual TAFFY PULLER Physical. 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 She was hospitalized 07/14/24 for N/V/abdominal [...] to a video. * ROS: A nnual Sealer Operator Exam ROS: Bowel habit changes d enies. [...] Denies A nxiety. * Medical History: * Sealer Operator History: G ravida/ Para 1 /0. S exual activity c urrently sexually active, with men. L ast Pap Smear: NIL, NEG HPV, 07/27/20 NIL, NEG HPV, 05/27/2019 LSIL/+hrHPV, neg 16/18/45. M ammogram: n ot due per age. A bnormal Pap Smear: 2 020, 2017, 2014 abnl pap with HPV. Colpo was recommended but not done. She had colpo 2013 ([facility]). L MP and menses h ysterectomy. [...] no acute distress, well developed, well nourished, denture model maker present in room. HEAD: n ormocephalic, atraumatic. [...] * Follow Up: 1 Year (Reason: Yearly Sealer Operator Exam) * Images: Billing Information: * Visit Code: 12009 Preventive Care Est Pt. Age 40-64. 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 She was hospitalized 07/14/24 for N/V/abdominal [...] ac sunita distress, well developed, well nourished, denture model maker present in room HEAD: normocephalic, atrau matic [...]
--- OUTSIDE RECORDS SUMMARY | 2024-08-19 10:20 | XMS_ITS ---
Author Organization [facility] Address [address] [place] [address] Care Team Providers Care Dumpman Name Role Phone YEIMI MARRERO Unavailable [phone] REASON FOR VISIT Annual ARCHITECTURAL SUPERINTENDENT Physical Medications Medication SIG (Take, Route, Frequency, Duration) Notes Start Date End Date Status Lisinopril 5 MG 1 tablet Orally Once a day; Duration: 30 day(s) Active Vitamin D (Ergocalciferol) 95385 UNIT 1 capsule Orally Active Gabapentin 600 [...] Active Encounters Encounter Location Date Provider Diagnosis [address] [address] 08/19/2024 YEIMI MARRERO Plan Of Treatment Next Appt Details Provider Name:YEIMI Das, 03/02/2025 01:30:00 PM, [address] [place] [address], [place], [address], Progress Notes * EDISON RUGGIERODOB:1980 (45 yo F)Acc No.[id number]:08/19/2024 PROGRESS NOTES Patient: EDISON JAY Provider: Maxwell MARRERO MD :1980 A ge:44 Y S ex:Female Date:08/19/2024 Address:[address] [place] [address] Subjective: * Chief Complaints: * 1 . 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 * Medical History: * Medications: T aking Magnesium 400 MG Tablet as directed Orally , Taking Lisinopril 5 MG Tablet 1 tablet Orally Once a day , Taking Vitamin D (Ergocalciferol) 05496 UNIT Capsule 1 capsule Orally , Taking [...] Pending * Provider: Maxwell MARRERO MD Date: 08/19/2024 Generated for Lauren umanzor/Gina/Alexander on: 01/28/2025 09:37 AM EDT
--- OUTSIDE RECORDS SUMMARY | 2024-08-28 09:00 | XMS_ITS ---
Author Organization [facility] Address [address] [address] Care Team Providers Care Children'S Entertainer Name Role Phone YEIMI MARRERO Unavailable [phone] REASON FOR VISIT Annual SKIDDER RUNNER Physical Encounters Encounter Location Date Provider Diagnosis [facility] [address] [place] [address] 08/28/2024 YEIMI MARRERO Encounter for gynecological examination [...] Follow Up: 1 Year, Reason: Y early Wind Turbine Mechanical Engineer Exam Provider Name:YEIMI BARNETT Pippa, 03/02/2025 01:30:00 PM, [address], [address], [place], [address], Progress Notes * MONIK ERICAMAXDOB:1980 (45 yo F)Acc No.[id number]:08/28/2024 PROGRESS NOTES Patient: EDISON JAY Provider: Maxwell MARRERO MD :1980 A ge:44 Y S ex:Female Date:08/28/2024 Address:[address] [place], [place] [phone] Subjective: * Chief Complaints: * 1 . Annual SKIDDER RUNNER Physical. * HPI: C onstitutional: Iliana villasenor is a 44 yo s/p LAVH/BSO for abnormal uterine bleeding on 03/17/24 who presents for her yearly horse exerciser exam. She was hospitalized 07/14/24 for N/V/abdominal [...] to a video. * ROS: A nnual Wind Turbine Mechanical Engineer Exam ROS: Bowel habit changes d enies. [...] Denies A nxiety. * Medical History: * Wind Turbine Mechanical Engineer History: G ravida/ Para 1 /0. S exual activity c urrently sexually active, with men. L ast Pap Smear: NIL, NEG HPV, 07/27/20 NIL, NEG HPV, 05/27/2019 LSIL/+hrHPV, neg 16/18/45. M ammogram: n ot due per age. A bnormal Pap Smear: 2 020, 2017, 2014 abnl pap with HPV. Colpo was recommended but not done. She had colpo 2013 ([facility]). L MP and menses h ysterectomy. H istory of STD's: n one. B irth Control: n one. M enarche * . H ysterectomy: 1 ([facility]/BSO for AUB). E ndoscopy * - normal. C olonoscopy Y es 2016- Normal; 01/2023 - normal. * OB History: T otal pregnancies G 1 P0010. Objective: * Vitals: * Examination: G eneral Examination: GENERAL APPEARANCE: i n no acute distress, well developed, well nourished, crusher loader equipment operator present in room. HEAD: n ormocephalic, atraumatic. [...] * Follow Up: 1 Year (Reason: Yearly Wind Turbine Mechanical Engineer Exam) * Images: Billing Information: * Visit Code: 66720 Preventive Care Est Pt. Age 40-64. * Procedure Codes: * Electronic signature of YEIMI MARRERO MD on 01/28/2025 at 09:38 AM EDT Sign off status: Pending * Provider: Maxwell MARRERO MD Date: 0 08/28/2024 Generated for Lauren umanzor/Gina/eTransmitting on: 0 01/28/2025 09:38 AM EDT History and Physical Notes * HPI (History of Present Illness) Category Sub-Category Detail Notes Category Not es Constitutional Edison is a 44 yo s/p LAVH/BSO for abnormal uterine bleeding on 03/17/24 who presents for her yearly horse exerciser exam. She was hospitalized 07/14/24 for N/V/abdominal [...] General Examination GENERAL APPEARANCE: in no ac qagan [place] distress, well developed, well nourished, crusher loader equipment operator present in room HEAD: normocephalic, atrau [...]
--- OUTSIDE RECORDS SUMMARY | 2024-10-10 04:50 | XMS_ITS ---
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 * Medical History: Objective: * Vitals: Assessment: Plan: * Treatment: * Images: Billing Information: * Visit Code: * Procedure Codes: * Electronic signature of YEIMI MARRERO MD on 01/28/2025 at 09:38 AM EDT Sign off status: Pending * Provider: Maxwell MARRERO MD Date: 0 10/10/2024 Generated for Lauren umanzor/Gina/eTransmitting on: 0 01/28/2025 09:38 AM EDT
--- OUTSIDE RECORDS SUMMARY | 2025-01-28 09:38 | XMS_ITS | Clinical Summary ---
Author Organization [facility] Address [address] [place] [address] Care Team Providers Care Compounder Helper Name Role Phone Emigdio Guthrie MD Primary Care Provider [phone] Allergies Active Allergy Reactions Criticality Noted Date [...] age to complete this topic Care Teams Compounder Helper Relationship Specialty Start Date End Date Emigdio Guthrie MD [address] [place] [address] Dr [address] [facility] [place] [address] PCP - General Internal Medicine 11/30/17
--- OUTSIDE RECORDS SUMMARY | 2025-01-28 09:38 | XMS_ITS | Patient Health Record ---
Author Organization [facility] [facility] Address [address] [place] [address] Care Team Providers Care Jig Builder Helper Name Role Phone YEIMI MARRERO Unavailable [phone] Allergies Allergen (clinical drug ingredient) Drug/Non Drug [...] Duration: 30 day(s) Active Vitamin D (Ergocalciferol) 58317 UNIT 1 capsule Orally Active Gabapentin 600 MG Orally two times a day Active Fenofibrate 145 MG 1 tablet Orally Once a day Active B-12 Once a day Active ALPRAZolam 0.25 MG 1 tablet Orally PRN Active Omeprazole 40 MG TAKE 1 CAPSULE BY [facility] EVERY DAY Oral; Duration: 90 Active [...] test positive, high risk on vaginal specimen (278813502422492) Cervical high risk human papillomavirus (HPV) DNA test positive (R87.810) Active confirmed Problem Essential hypertension (51466872) Essential (primary) hypertension (I10) Active confirmed Problem Type II diabetes mellitus without complication (513805403) Type 2 diabetes mellitus without complications (E11.9) Active confirmed Problem Hyperlipidemia (17399678) Hyperlipidemia, unspecified (E78.5) Active confirmed Problem Anxiety disorder (968991874) Anxiety disorder, unspecified (F41.9) Active confirmed Problem Migraine without aura, not refractory (disorder) (408920488) Migraine, unspecified, not intractable, without status migrainosus (G43.909) Active confirmed Problem Chronic pain syndrome (929534305) Chronic pain syndrome (G89.4) Active confirmed Problem Hidradenitis suppurativa (46086944) Hidradenitis suppurativa (L73.2) Active confirmed Problem Oligomenorrhea (47841266) Oligomenorrhea, unspecified (N91.5) Active confirmed Problem Abnormal uterine bleeding (65932719114552) Abnormal uterine and vaginal bleeding, unspecified (N93.9) Active confirmed Problem Female infertility (9120788) Female infertility, unspecified (N97.9) Active confirmed Problem History of gastrointestinal disease (073290724) Personal history of other diseases of the digestive system (Z87.19) Active confirmed Problem COVID-19 (435121535) COVID-19 (U07.1) Active confirmed Encounters Encounter Location Date Provider Diagnosis [address] [place] [address] 08/19/2024 YEIMI MARRERO Plan Of Treatment Pending [...] Provider Name:YEIMI Maxwell Das, 03/02/2025 01:30:00 PM, [employer] [place], [address], [place], [address], Insurance Providers Payer Name Payer Address Payer Phone Subscriber Number Group Number Insured Name Patient Relationship to Insured Coverage Start Date Coverage End Date [facility] [address] [place] [id number] EDISON RUGGIERO Self - patient is the [...]
--- OUTSIDE RECORDS SUMMARY | 2025-01-28 09:38 | XMS_ITS | Patient Health Record ---
Author Organization [facility] Address [address] [place] [address] Support Name Relationship Address Phone NADIYA RUGGIERO Emergency Contact [address] [place] [address] [address] [place], [place] [phone] EDISON RUGGIERO Guarantor Unknown [phone] Care Team Providers Care Freight Broker Name Role Phone Emigdio Guthrie MD Primary [...] Problem Status W/U Status Risk Notes Problem 71397519 Epigastric pain (R10.13) Active confirmed Problem 990709910 Irritable bowel syndrome with diarrhea (K58.0) Active confirmed Problem 067313960 Generalized abdominal pain (R10.84) Active confirmed Problem Gastroesophageal reflux disease (054334459) Gastroesophageal reflux disease (K21.9) Active confirmed Problem 15107107 Rectal pain (K62.89) Active confirmed Problem 15581180 Diarrhea, unspecified type (R19.7) Active confirmed Problem 19528669 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) Active confirmed Problem 24272713 Change in bowel movement (R19.8) Active confirmed Problem 658699648 Gastroesophageal reflux disease, unspecified whether esophagitis present (K21.9) Active confirmed Encounters Encounter Location Date Provider Diagnosis [facility] [address] [place] [address] 05/06/2024 Kain Orr Jr [facility] [address] [place] [address] 12/01/2024 Kain Orr Jr Generalized abdominal pain R10.84 [facility] [address] [place] [address] 02/25/2024 Kain Orr Jr Assessments Encounter Date [...] Insured Coverage Start Date Coverage End Date [facility] [address] Attn Claims [place] [id number] EDISON RUGGIERO Self - patient is the insured MEDICAID OF [facility] [address] [place] [address] [id number] EDISON RUGGIERO Self - patient is the insured MEDICARE OF [place] [address] [place] [address] [phone] [id number] EDISON RUGGIERO Self - patient is the [...]
--- OUTSIDE RECORDS SUMMARY | 2025-01-28 09:39 | XMS_ITS | Clinical Summary ---
Author Organization [facility] Address [address] [facility] [address] [place] [address] Phone Care Team Providers Care Instrumentation And Control Technician Name Role Phone Emigdio Guthrie MD Primary Care Provider [phone] Allergies Active Allergy Reactions Criticality Noted Date [...] complete this topic Insurance [employer] Care Teams Instrumentation And Control Technician Relationship Specialty Start Date End Date Emigdio Guthrie MD [facility] [place] [address] [place], [place] PCP - General Internal Medicine 11/02/20
== END 2025-01-27 09:00 | disposition home or self-care (01) ==
LOC: HO.LNP 08:59
PROVIDERS: PCP Internal Medicine; Visit Provider Physician Assistant Surgical
DX: Z11.0 Encounter for screening for intestinal infectious diseases (principal)
CPT/HCPCS: 83013

== ENCOUNTER 2025-02-02 08:11 | Outpatient (REF) | payer OTHER, SELFPAY ==
[2025-02-02 09:29] LABS: Alanine Aminotransferase 17 U/L (0-31); Albumin Level 4.5 g/dL (3.5-5.0); Alkaline Phosphatase 63 U/L (39-117); Anion Gap 11 (12-20); Aspartate Amino Transferase 23 U/L (5-31); Blood Urea Nitrogen 19 mg/dL (9-16); Calcium 10.1 mg/dL (8.4-10.2); Carbon Dioxide 30 mmol/L (22-29); Chloride 107 mmol/L (96-108); Cholesterol 159 mg/dL (<200); Estimated Glomerular Filt Rate 53; HDL Cholesterol 38 mg/dL (>40); Magnesium 2.1 mg/dL (1.6-2.6); Potassium 4.4 mmol/L (3.3-5.1); Sodium 144 mmol/L (135-145); Total Protein 7.4 g/dL (6.5-8.0); Triglycerides 137 mg/dL (<150)
== END 2025-02-02 08:12 | disposition home or self-care (01) ==
LOC: HO.LAB 08:11
PROVIDERS: PCP Internal Medicine
DX: Z00.00 Encounter for general adult medical examination without abnormal findings (principal); E83.52 Hypercalcemia; E78.00 Pure hypercholesterolemia, unspecified; R00.2 Palpitations
CPT/HCPCS: 36415; 80053; 80061; 83735

== ENCOUNTER 2025-05-15 12:40 | Outpatient (AMB) | payer OTHER, SELFPAY ==
--- OUTSIDE RECORDS SUMMARY | 2023-12-13 08:20 | XMS_ITS ---
Author Organization [facility] Address [address] [place] [address] Care Team Providers Care Blade Aligner Name Role Phone YEIMI MARRERO Unavailable [phone] Allergies Allergen (clinical drug ingredient) Drug/Non Drug Allergy documented on EMR Reaction Allergy Type Onset Date Status morphine Morphine Sulfate anaphylaxis Drug Allergy Active Motrin hives Drug Allergy Active promethazine Phenergan Anxiety Drug Allergy Acti ve metoclopramide Reglan Anxiety Drug Allergy Ac tive Compazine Anxiety feeling Drug Allergy A ctive Substance with sulfonamide structure and antibacterial mechanism of action (substance) Sulfa Antibiotics hives Drug Allergy Active REASON FOR VISIT CONTINUED BLEEDING Encounters Encounter Location Date Provider Diagnosis [facility] [address] [address] 12/13/2023 YEIMI MARRERO Abnormal uterine and vaginal bleeding, unspecified N93.9 Assessments Encounter Date Diagnosis (ICD Code) Assessment Notes Treatment Notes Treatment Clinical Notes Section Notes 12/13/2023 Abnormal uterine and vaginal bleeding, unspecified (ICD-10 - N93.9) Plan Of Treatment Next Appt Details Provider Name:YEIMI Arreola ANIABL Das, 06/01/2025 01:20:00 PM, [address], [address], [place], [address], Progress Notes * RACHELE RUGGIERO:1980 (45 yo F)Acc No.[id number]:12/13/2023 PROGRESS NOTES Patient: EDISON JAY Provider: Maxwell MARRERO MD :1980 A ge:43 Y S ex:Female Date:12/13/2023 Address:[address] [place], [place] [id number] Subjective: * Chief Complaints: * 1 . CONTINUED BLEEDING. * HPI: Konstantin YN (Problems): 43 year old female presents with c/o Abnormal bleeding: C urrent bleeding problem: c ontinuous bleeding Patient had surgery with Dr Michelle on 10/17/23 for DxC Hysteroscopy/polypectomy. The pathology showed: 1. Endometrium, curettage: - Fragments of hyperplastic endometrial polyp(s). - Fragments of proliferative endometrium with focal glandular disorder and crowding, with stromal breakdown. - Endocervical glandular mucosa and squamous mucosa. 2. Endometrium, polyp, polypectomy: - Fragments of hyperplastic endometrial polyp(s), some with foci of squamous morulae (see note). - Proliferative endometrium with focal glandular disorder, with stromal breakdown. Note: Focal squamous morula formation (morular metaplasia) is present within fragments of hyperplastic polyp, in the background of proliferative endometrium. Morular metaplasia may be associated with hyperplastic and neoplastic endometrial lesions, often driven by a hyperestrogenic state, which are not seen in the current biopsy material. In isolation morular metaplasia may regress or may persist and evolve. Regular follow-up with repeat endometrial sampling is recommended. Multiple additional levels of part 2 have been examined microscopically. She was then started on Prometrium 200mg/night and is due for resampling in 03/2024. * ROS: G eneral/Constitutional: Denies C hills. D enies F ever. D enies L ightheadedness. D enies W eight gain. D enies W eight loss. E NT: Denies N osebleed. E ndocrine: Denies A cne. D enies C old intolerance. D enies H eat intolerance. D enies H ot flashes. B reast: Denies B reast pain. D enies N ipple discharge.? G astrointestinal: Denies A bdominal pain. D enies B lood in stool.?Denies H ematemesis. D enies R ectal bleeding. H ematology: Denies E asy bruising. D enies F amily member with bleeding problems. W omen Only: Denies I rregular menses. D enies V aginal bleeding between periods. G enitourinary: Denies B lood in urine. * Medical History: H yperlipidemia, unspecified, Essential (primary) hypertension, COVID-19. * Allergies: M orphine Sulfate: anaphylaxis - Allergy, Phenergan: Anxiety - Allergy, Reglan: Anxiety - Allergy, Compazine: Anxiety feeling - Allergy, Motrin: hives - Allergy, Sulfa Antibiotics: hives - Allergy. Objective: * Vitals: * Examination: G eneral Examination: GENERAL APPEARANCE: pleasant, well nourished, in no acute distress, system development engineer present in room. SKIN: warm and dry. G enitourinary - Female: ABDOMEN: soft, non-tender, no mass. EXTERNAL GENITALS: normal. URETHRAL MEATUS: normal. VAGINA: healthy pink mucosa without any lesions or abnormal discharge, no lacerations. ANUS/PERINEUM: normal. CERVIX: downward, normal appearing, no cervical movement tenderness. UTERUS: normal size, mobile, non tender. OVARIES: no masses felt in adnexa. P sychiatry: AFFECT: appropriate. ATTITUDE: cooperative. SPEECH: clear. Assessment: * Assessment: 1. 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 The pathology showed: 1. Endometrium, curettage: - Fragments of hyperplastic endometrial polyp(s). - Fragments of proliferative endometrium with focal glandular disorder and crowding, with stromal breakdown. - Endocervical glandular mucosa and squamous mucosa. 2. Endometrium, polyp, polypectomy: - Fragments of hyperplastic endometrial polyp(s), some with foci of squamous morulae (see note). - Proliferative endometrium with focal glandular disorder, with stromal breakdown. Note: Focal squamous morula formation (morular metaplasia) is present within fragments of hyperplastic polyp, in the background of proliferative endometrium. Morular metaplasia may be associated with hyperplastic and neoplastic endometrial lesions, often driven by a hyperestrogenic state, which are not seen in the current biopsy material. In isolation morular metaplasia may regress or may persist and evolve. Regular follow-up with repeat endometrial sampling is recommended. Multiple additional levels of part 2 have been examined microscopically. She was then started on Prometrium 200mg/night and is due for resampling in 03/2024. Examination Category Sub-Category Detail Notes Category Not es Genitourinary - Female ABDOMEN: soft, non-tender, no mass EXTERNAL GENITALS: normal VAGINA: healthy pink mucosa without any lesions or abnormal discharge, no lacerations CERVIX: downward, normal ha earing, no cervical movement tenderness UTERUS: normal size, mobile, non tender OVARIES: no masses felt in ad nexa URETHRAL MEATUS: normal ANUS/PERINEUM: normal Psychiatry ATTITUDE: cooperative AFFECT: appropriate SPEECH: clear General Examination GENERAL APPEARANCE: pleasant , well nourished, in no acute distress, system development engineer present in room SKIN: warm and dry
--- OUTSIDE RECORDS SUMMARY | 2024-03-27 08:20 | XMS_ITS ---
Author Organization [employer] [facility] Address [address] [place] [address] Care Team Providers Care Air Launch Weapons Technician Name Role Phone YEIMI MARRERO Unavailable [phone] REASON FOR VISIT EB AND F/U FROM DR ZAVALA D&C Encounters Encounter Location Date Provider Diagnosis [facility] [address] [address] 03/27/2024 YEIMI MARRERO Plan Of Treatment Next Appt Details Provider Name:YEIMI Das, 06/01/2025 01:20:00 PM, [address] [facility], [address], [place], [address], Progress Notes * EDISON RUGGIERODOB:1980 (45 yo F)Acc No.[id number]:03/27/2024 PROGRESS NOTES Patient: ERICA JAYICA Provider: Maxwell MARRERO MD :1980 A ge:44 Y S ex:Female Date:03/27/2024 Address:[address] [place], [place] [phone] Subjective: * Chief Complaints: * 1 . EB AND F/U FROM DR SALLY Marx. * Medical History: Objective: * Vitals: Assessment: Plan: * Treatment: * Images: Billing Information: * Visit Code: * Procedure Codes: * Electronic signature of YEIMI MARRERO MD on 05/15/2025 at 12:43 PM EST Sign off status: Pending * Provider: Maxwell MARRERO MD Date: 05/27/2023 Generated for Lauren umanzor/Gina/Alexander on: 1 07/16/2024 12:43 PM EST
--- OUTSIDE RECORDS SUMMARY | 2024-07-28 08:00 | XMS_ITS ---
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 Name Role Phone YEIMI MARRERO Unavailable [phone] REASON FOR VISIT Annual BUS ESCORT Physical Encounters Encounter Location Date Provider Diagnosis [facility] [address] [place] [id number] 07/28/2024 YEIMI MARRERO Encounter for gynecological examination (general) (routine) without abnormal findings Z01.419 ; Encounter for screening mammogram for malignant neoplasm of breast Z12.31 and Encounter for screening for infections with a predominantly sexual mode of transmission Z11.3 Assessments Encounter Date Diagnosis (ICD Code) Assessment Notes Treatment Notes Treatment Clinical Notes Section Notes 07/28/2024 Encounter for gynecological examination (general) (routine) without abnormal findings (ICD-10 - Z01.419) Discussed cervical cancer screening with either cytology alone every 3 years or high risk HPV co-testing every 5 years as per ASCCP guidelines. Advised continued annual pelvic exams. Patient encouraged to increase her level of exercise. SBE technique encouraged/tau ght. Patient reminded when annual mammogram is due. 07/28/2024 Encounter for screening mammogram for malignant neoplasm of breast (ICD-10 - Z12.31) 07/28/2024 Encounter for screening for infections with a predominantly sexual mode of transmission (ICD-10 - Z11.3) Plan Of Treatment Treatment Notes Assessment Notes Encounter for gynecological examination (general) (routine) without abnormal findings Discussed cervical cancer screening with either cytology alone every 3 years or high risk HPV co-testing every 5 years as per ASCCP guidelines. Advised continued annual pelvic exams. Patient encouraged to increase her level of exercise. SBE technique encouraged/taught. Patient reminded when annual mammogram is due. Pending Test Test Name Order Date MM Digital Screening Mammogram 3D 2024 Next Appt Details Follow Up: 1 Year, Reason: Y early Criminal Investigator Customs Exam Provider Name:YEIMI Arreola ANIBAL Das, 06/01/2025 01:20:00 PM, [address], [address], [place], [address], Progress Notes * MONIK ERICAMAXDOB:1980 (45 yo F)Acc No.[id number]:07/28/2024 PROGRESS NOTES Patient: EDISON JAY Provider: Maxwell MARRERO MD :1980 A ge:44 Y S ex:Female Date:07/28/2024 Address:[address] [place], [place] [phone] Subjective: * Chief Complaints: * 1 . Annual BUS ESCORT Physical. 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 She was hospitalized 07/14/24 for N/V/abdominal pain associated with diabetic gastroparesis. She has been in state of good health since her last exam. She has the following concerns: none* She has received the Moderna Covid-19 vaccine. Relationship status: * for 10 years. She is sexually active. Sexual partner(s): male. She does wish to have STI testing. She does *not report vaginal dryness. She does* have hot flashes/night sweats for YEARS (she doesn't think it has to do with menopause). The patient has not had an abnormal pap smear within the last 5 years. Her most recent pap smear was 07/20/21 - NIL, neg HR HPV. Prior pap was 07/27/2020 - NIL, neg HR HPV. Her previous pap was 05/27/2019 - LSIL, +HR HPV. Her hysterectomy specimen showed no pathologic change of the cervix. Paps are no longer indicated. She has not been diagnosed with breast cancer. She does not have a family history of breast cancer. She had a mammogram on 06/26/23 - heterogeneously dense breasts, with Ivory risk of 11.9%. Supplemental screening is not indicated. The patient does* exercise. She exercises about twice weekly - she does an indoor aerobic/walking to a video. * ROS: A nnual Criminal Investigator Customs Exam ROS: Bowel habit changes d enies. B ladder symptoms d enies. V aginal discharge, unusual d enies. V aginal itch or odor d enies. a bnormal bleeding d enies. w eight or appetite changes d enies. C hest pains, SOB d enies. d epression d enies. B reast: Denies B reast lump. D enies N ipple discharge.? H ematology: Denies S wollen glands. S kin: Patient denies c hanging moles. P sychiatric: Denies A nxiety. * Medical History: * Criminal Investigator Customs History: G ravida/ Para 1 /0. S exual activity c urrently sexually active, with men. L ast Pap Smear: NIL, NEG HPV, 07/27/20 NIL, NEG HPV, 05/27/2019 LSIL/+hrHPV, neg 16/18/45. M ammogram: n ot due per age. A bnormal Pap Smear: 2 020, 2017, 2014 abnl pap with HPV. Colpo was recommended but not done. She had colpo 2013 ([facility] L MP and menses h ysterectomy. H istory of STD's: n one. B irth Control: n one. H ysterectomy: 1 (LAVH/BSO for AUB). E ndoscopy * - normal. C olonoscopy Y es 2016- Normal; 01/2023 - normal. * OB History: T otal pregnancies G 1 P0010. * Surgical History: D ilation and curretage 2004, Hernia Repair 1980, Removal of Lump on R under arm 05/16/2018, cholecystectomy 10/2018, upper endoscopy and colonoscopy 2018, GASTRIC SLEEVE 02/2021, LAVH/BSO - for AUB 02/2024. * Hospitalization/Major Diagno stic Procedure: S ee surgical Hx . Objective: * Vitals: * Examination: G eneral Examination: GENERAL APPEARANCE: i n no acute distress, well developed, well nourished, application systems architect present in room. HEAD: n ormocephalic, atraumatic. NECK/THYROID: n sissy supple, full range of motion, thyroid normal. LYMPH NODES: n o axillary or supraclavicular adenopathy.? SKIN: normal, good turgor, no rashes, no suspicious lesions. BREASTS: n ormal, no dimpling, no discharge, no drainage, no masses palpable bilaterally, nontender. ABDOMEN: soft, non-tender, non distended without masses or hepatosplenomegay. RECTAL: normal tone, no masses palpable. BACK: no costovertebral angle tenderness. FEMALE GENITOURINARY: V ulva without lesions or masses, vagina pink without abnormal discharge, lesions or masses, cervix, uterus and ovaries are surgically absent. NEUROLOGIC: alert and oriented, gait normal. PSYCH: alert, oriented, cognitive function intact, cooperative with exam, good eye contact, mood/affect full range, speech clear. Assessment: * Assessment: 1. E ncounter for gynecological examination (general) (routine) without abnormal findings - Z01.419 (Primary) 2 . E ncounter for screening mammogram for malignant neoplasm of breast - Z12.31 3 . E ncounter for screening for infections with a predominantly sexual mode of transmission - Z11.3 Plan: * Treatment: 2. E ncounter for screening mammogram for malignant neoplasm of breast I maging: MM Digital Screening Mammogram 3D * Follow Up: 1 Year (Reason: Yearly Criminal Investigator Customs Exam) * Images: Billing Information: * Visit Code: 41616 Preventive Care Est Pt. Age 40-64. 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 She was hospitalized 07/14/24 for N/V/abdominal pain associated with diabetic gastroparesis. She has been in state of good health since her last exam. She has the following concerns: none* She has received the Moderna Covid-19 vaccine. Relationship status: * for 10 years. She is sexually active. Sexual partner(s): male. She does wish to have STI testing. She does *not report vaginal dryness. She does* have hot flashes/night sweats for YEARS (she doesn't think it has to do with menopause). The patient has not had an abnormal pap smear within the last 5 years. Her most recent pap smear was 07/20/21 - NIL, neg HR HPV. Prior pap was 07/27/2020 - NIL, neg HR HPV. Her previous pap was 05/27/2019 - LSIL, +HR HPV. Her hysterectomy specimen showed no pathologic change of the cervix. Paps are no longer indicated. She has not been diagnosed with breast cancer. She does not have a family history of breast cancer. She had a mammogram on 06/26/23 - heterogeneously dense breasts, with Ivory risk of 11.9%. Supplemental screening is not indicated. The patient does* exercise. She exercises about twice weekly - she does an indoor aerobic/walking to a video. Examination Category Sub-Category Detail Notes Category Not es General Examination GENERAL APPEARANCE: in no ac sunita distress, well developed, well nourished, application systems architect present in room HEAD: normocephalic, atrau matic NECK/THYROID: neck supple, full ra nge of motion, thyroid normal ABDOMEN: soft, non-tender, no n distended without masses or hepatosplenomegay NEUROLOGIC: alert and oriented, gait normal SKIN: normal, good turgor, no rashes, no suspicious lesions BACK: no costovertebral an gle tenderness BREASTS: normal, no dimpling, no discharge, no drainage, no masses palpable bilaterally, nontender LYMPH NODES: no axillary or supra clavicular adenopathy RECTAL: normal tone, no mass es palpable PSYCH: alert, oriented, cog nitive function intact, cooperative with exam, good eye contact, mood/affect full range, speech clear FEMALE GENITOURINARY: Vulva without lesi ons or masses, vagina pink without abnormal discharge, lesions or masses, cervix, uterus and ovaries are surgically absent
--- OUTSIDE RECORDS SUMMARY | 2024-08-19 09:20 | XMS_ITS ---
Author Organization 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 Medications Medication SIG (Take, Route, Frequency, Duration) Notes Start Date End Date Status Lisinopril 5 MG 1 tablet Orally Once a day; Duration: 30 day(s) Active Vitamin D (Ergocalciferol) 45364 UNIT 1 capsule Orally Active Gabapentin 600 MG Orally two times a day Active Tranexamic Acid 650 MG 2 tablets Orally three times daily; Duration: 5 days 01/25/2024 Active Magnesium 400 MG as directed Orally Active Fenofibrate 145 MG 1 tablet Orally Once a day Active B-12 Once a day Active ALPRAZolam 0.25 MG 1 tablet Orally PRN Active Omeprazole 40 MG TAKE 1 CAPSULE BY [facility] EVERY DAY Oral; Duration: 90 Active Progesterone 200 MG 1 capsule at bedtime Orally Once a day; Duration: 90 days 10/29/2023 Active Encounters Encounter Location Date Provider Diagnosis [address] [address] 08/19/2024 YEIMI MARRERO Plan Of Treatment Next Appt Details Provider Name:YEIMI Das, 06/01/2025 01:20:00 PM, [address] [place] [address], [place], [address], Progress Notes * EDISON RUGGIERODOB:1980 (45 yo F)Acc No.[id number]:08/19/2024 PROGRESS NOTES Patient: EDISON JAY Provider: Maxwell MARRERO MD :1980 A ge:44 Y S ex:Female Date:08/19/2024 Address:[address] [place] [address] Subjective: * Chief Complaints: * 1 . 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 * Medical History: * Medications: T aking Magnesium 400 MG Tablet as directed Orally , Taking Lisinopril 5 MG Tablet 1 tablet Orally Once a day , Taking Vitamin D (Ergocalciferol) 90777 UNIT Capsule 1 capsule Orally , Taking Gabapentin 600 MG Tablet Orally two times a day , Taking Fenofibrate 145 MG Tablet 1 tablet Orally Once a day , Taking B-12 Once a day , Taking ALPRAZolam 0.25 MG Tablet 1 tablet Orally PRN , Taking Omeprazole 40 MG Capsule Delayed Release TAKE 1 CAPSULE BY MOUTH EVERY DAY Oral , Taking Progesterone 200 MG Capsule 1 capsule at bedtime Orally Once a day , Taking Tranexamic Acid 650 MG Tablet 2 tablets Orally three times daily Objective: * Vitals: Assessment: Plan: * Treatment: * Images: Billing Information: * Visit Code: * Procedure Codes: * Electronic signature of YEIMI MARRERO MD on 05/15/2025 at 12:43 PM EST Sign off status: Pending * Provider: Maxwell MARRERO MD Date: 0 08/19/2024 Generated for Lauren umanzor/Gina/Alexander on: 07/16/2024 12:43 PM EST
--- OUTSIDE RECORDS SUMMARY | 2024-08-28 08:00 | XMS_ITS ---
Author Organization [facility] Address [address] [address] Care Team Providers Care Glassie Name Role Phone YEIMI MARRERO Unavailable [phone] REASON FOR VISIT Annual DIALYSIS PATIENT CARE TECHNICIAN Physical Encounters Encounter Location Date Provider Diagnosis [facility] [address] [place] [address] 08/28/2024 YEIMI MARRERO Encounter for gynecological examination (general) (routine) without abnormal findings Z01.419 ; Encounter for screening mammogram for malignant neoplasm of breast Z12.31 and Encounter for screening for infections with a predominantly sexual mode of transmission Z11.3 Assessments Encounter Date Diagnosis (ICD Code) Assessment Notes Treatment Notes Treatment Clinical Notes Section Notes 08/28/2024 Encounter for gynecological examination (general) (routine) without abnormal findings (ICD-10 - Z01.419) Discussed cervical cancer screening with either cytology alone every 3 years or high risk HPV co-testing every 5 years as per ASCCP guidelines. Advised continued annual pelvic exams. Patient encouraged to increase her level of exercise. SBE technique encouraged/tau ght. Patient reminded when annual mammogram is due. 08/28/2024 Encounter for screening mammogram for malignant neoplasm of breast (ICD-10 - Z12.31) 08/28/2024 Encounter for screening for infections with a [...] Follow Up: 1 Year, Reason: Y early Mosaic Tile Maker Exam Provider Name:YEIMI Arreola ANBIAL Das, 06/01/2025 01:20:00 PM, [address], [address], [place], [address], Progress Notes * RUGGIEROERICAMAXDOB:1980 (45 yo F)Acc No.[id number]:08/28/2024 PROGRESS NOTES Patient: EDISON JAY Provider: Maxwell MARRERO MD :1980 A ge:44 Y S ex:Female Date:08/28/2024 Address:[address] [place], [place] [address] Subjective: * Chief Complaints: * 1 . Annual DIALYSIS PATIENT CARE TECHNICIAN Physical. * HPI: C onstitutional: Iliana villasenor is a 44 yo s/p LAVH/BSO for abnormal uterine bleeding on 03/17/24 who presents for her yearly obstetrics and gynecology professor exam. She was hospitalized 07/14/24 for N/V/abdominal [...] to a video. * ROS: A nnual Mosaic Tile Maker Exam ROS: Bowel habit changes d enies. [...] Denies A nxiety. * Medical History: * Mosaic Tile Maker History: G ravida/ Para 1 /0. S exual activity c urrently sexually active, with men. L ast Pap Smear: NIL, NEG HPV, 07/27/20 NIL, NEG HPV, 05/27/2019 LSIL/+hrHPV, neg 16/18/45. M ammogram: n ot due per age. A bnormal Pap Smear: 2 020, 2017, 2014 abnl pap with HPV. Colpo was recommended but not done. She had colpo 2013 ([facility]). L MP and menses h ysterectomy. H istory of STD's: n one. B irth Control: n one. M enarche * . H ysterectomy: 1 ([facility]/BSO for AUB). E ndoscopy * - normal. C olonoscopy Y es 2016- Normal; 01/2023 - normal. * OB History: T otal pregnancies G 1 P0010. Objective: * Vitals: * Examination: G eneral Examination: GENERAL APPEARANCE: i n no acute distress, well developed, well nourished, crime victim specialist present in room. HEAD: n ormocephalic, atraumatic. [...] * Follow Up: 1 Year (Reason: Yearly Mosaic Tile Maker Exam) * Images: Billing Information: * Visit Code: 92847 Preventive Care Est Pt. Age 40-64. * Procedure Codes: * Electronic signature of YEIMI MARRERO MD on 05/15/2025 at 12:44 PM EST Sign off status: Pending * Provider: Maxwell MARRERO MD Date: 0 08/28/2024 Generated for Lauren umanzor/Gina/eTransmitting on: 1 07/16/2024 12:44 PM EST History and Physical Notes * HPI (History of Present Illness) Category Sub-Category Detail Notes Category Not es Constitutional Edison is a 44 yo s/p LAVH/BSO for abnormal uterine bleeding on 03/17/24 who presents for her yearly obstetrics and gynecology professor exam. She was hospitalized 07/14/24 for N/V/abdominal [...] General Examination GENERAL APPEARANCE: in no ac [place] distress, well developed, well nourished, crime victim specialist present in room HEAD: normocephalic, atrau matic [...]
--- OUTSIDE RECORDS SUMMARY | 2024-10-10 03:50 | XMS_ITS ---
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 * Medical History: Objective: * Vitals: Assessment: Plan: * Treatment: * Images: Billing Information: * Visit Code: * Procedure Codes: * Electronic signature of YEIMI MARRERO MD on 05/15/2025 at 12:44 PM EST Sign off status: Pending * Provider: Maxwell MARRERO MD Date: 0 10/10/2024 Generated for Lauren umanzor/Gina/eTransmitting on: 07/16/2024 12:44 PM EST
--- OUTSIDE RECORDS SUMMARY | 2025-03-02 08:30 | XMS_ITS ---
Author Organization [facility] Address [address] [address] Care Team Providers Care Apprentice Architect Name Role Phone YEIMI MARRERO Unavailable [phone] REASON FOR VISIT Annual GAG WRITER Physical Encounters Encounter Location Date Provider Diagnosis [facility] [address] [place] [address] 03/02/2025 YEIMI MARRERO Encounter for gynecological examination (general) (routine) without abnormal findings Z01.419 ; Encounter for screening mammogram for malignant neoplasm of breast Z12.31 and Encounter for screening for infections with a predominantly sexual mode of transmission Z11.3 Assessments Encounter Date Diagnosis (ICD Code) Assessment Notes Treatment Notes Treatment Clinical Notes Section Notes 03/02/2025 Encounter for gynecological examination (general) (routine) without abnormal findings (ICD-10 - Z01.419) Discussed cervical cancer screening with either cytology alone every 3 years or high risk HPV co-testing every 5 years as per ASCCP guidelines. Advised continued annual pelvic exams. Patient encouraged to increase her level of exercise. SBE technique encouraged/tau ght. Patient reminded when annual mammogram is due. 03/02/2025 Encounter for screening mammogram for malignant neoplasm of breast (ICD-10 - Z12.31) 03/02/2025 Encounter for screening for infections with a [...] Follow Up: 1 Year, Reason: Y early Manager Poker Exam Provider Name:YEIMI Arreola ANIBAL Das, 06/01/2025 01:20:00 PM, [address], [address], [place], [address], Progress Notes * ERICA RUGGIEROMAXDOB:1980 (45 yo F)Acc No.[id number]:03/02/2025 PROGRESS NOTES Patient: EDISON JAY Provider: Maxwell MARRERO MD :1980 A ge:45 Y S ex:Female Date:03/02/2025 Address:[address] [place], [place] [id number] Subjective: * Chief Complaints: * 1 . Annual GAG WRITER Physical. * HPI: C onstitutional: Iliana villasenor is a 45 yo s/p LAVH/BSO for abnormal uterine bleeding on 03/17/24 who presents for her yearly box coverer hand exam. She was hospitalized 07/14/24 for N/V/abdominal pain associated with diabetic gastroparesis. She had an EGD on 02/17/25. She has been in state of good [...] breast cancer. She had a mammogram on 01/20/25, as ordered by her PCP. The breasts are heterogeneously dense, which may obscure small masses, The G ail risk is 11.9%. Supplemental screening is not indicated. The patient does* exercise. She exercises about twice weekly - she does an indoor aerobic/walking to a video. * ROS: A nnual Manager Poker Exam ROS: Bowel habit changes d enies. [...] sychiatric: Denies A nxiety. * Medical History: Objective: * Vitals: * Examination: G eneral Examination: GENERAL APPEARANCE: i n no acute distress, well developed, well nourished, wet chemistry analyst present in room. HEAD: n ormocephalic, atraumatic. [...] * Follow Up: 1 Year (Reason: Yearly Manager Poker Exam) * Images: Billing Information: * Visit Code: 53405 Preventive Care Est Pt. Age 40-64. * Procedure Codes: * Electronic signature of YEIMI MARRERO MD on 05/15/2025 at 12:43 PM EST Sign off status: Pending * Provider: Maxwell MARRERO MD Date: 1 Generated for Cindyi erna/Gina/eTransmitting on: 1 07/16/2024 12:43 PM EST History and Physical Notes * HPI (History of Present Illness) Category Sub-Category Detail Notes Category Not es Constitutional Edison is a 45 yo s/p LAVH/BSO for abnormal uterine bleeding on 03/17/24 who presents for her yearly box coverer hand exam. She was hospitalized 07/14/24 for N/V/abdominal pain associated with diabetic gastroparesis. She had an EGD on 02/17/25. She has been in state of good [...] breast cancer. She had a mammogram on 01/20/25, as ordered by her PCP. The breasts are heterogeneously dense, which may obscure small masses, The Ivory risk is 11.9%. Supplemental screening is not indicated. The patient does* exercise. She exercises about twice weekly - she does an indoor aerobic/walking to a video. Examination Category Sub-Category Detail Notes Category Not es General Examination GENERAL APPEARANCE: in no ac sunita distress, well developed, well nourished, wet chemistry analyst present in room HEAD: normocephalic, atrau matic [...]
--- OUTSIDE RECORDS SUMMARY | 2025-03-24 10:00 | XMS_ITS ---
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 Encounter Location Date Provider Diagnosis [facility] [address] [place] [phone] 03/24/2025 YEIMI MARRERO Encounter for gynecological examination (general) (routine) without abnormal findings Z01.419 ; Encounter for screening mammogram for malignant neoplasm of breast Z12.31 and Encounter for screening for infections with a predominantly sexual mode of transmission Z11.3 Assessments Encounter Date Diagnosis (ICD Code) Assessment Notes Treatment Notes Treatment Clinical Notes Section Notes 03/24/2025 Encounter for gynecological examination (general) (routine) without abnormal findings (ICD-10 - Z01.419) Discussed cervical cancer screening with either cytology alone every 3 years or high risk HPV co-testing every 5 years as per ASCCP guidelines. Advised continued annual pelvic exams. Patient encouraged to increase her level of exercise. SBE technique encouraged/tau ght. Patient reminded when annual mammogram is due. 03/24/2025 Encounter for screening mammogram for malignant neoplasm of breast (ICD-10 - Z12.31) 03/24/2025 Encounter for screening for infections with a [...] Follow Up: 1 Year, Reason: Y early Medical Practitioners Exam Provider Name:YEIMI MATHEWYON Das, 06/01/2025 01:20:00 PM, [address], [address], [place], [address], Progress Notes * EDISON RUGGIERODOB:1980 (45 yo F)Acc No.[id number]:03/24/2025 PROGRESS NOTES Patient: EDISON JAY Provider: Maxwell MARRERO MD :1980 A ge:45 Y S ex:Female Date:03/24/2025 Address:[address] [place], [place] [id number] Subjective: * Chief Complaints: * 1 . 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 She was hospitalized 07/14/24 for N/V/abdominal [...] to a video. * ROS: A nnual Medical Practitioners Exam ROS: Bowel habit changes d enies. [...] no acute distress, well developed, well nourished, sharemilker present in room. HEAD: n ormocephalic, atraumatic. [...] * Follow Up: 1 Year (Reason: Yearly Medical Practitioners Exam) * Images: Billing Information: * Visit Code: 60004 Preventive Care Est Pt. Age 40-64. 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 She was hospitalized 07/14/24 for N/V/abdominal [...] General Examination GENERAL APPEARANCE: in no ac [place] distress, well developed, well nourished, sharemilker present in room HEAD: normocephalic, atrau matic [...]
--- NOTE | 2025-05-15 12:44 | MHC.PC.OV ---
Vital Signs 05/15/25 12:46 Height 5 ft 1 in Weight 175 lb BMI 33.1 BP 158/90 H Blood Pressure Location Lt brachial Position Sitting Pulse 105 H Pulse Source Pulse Oximeter Temp 97.0 F Temp Source Temporal Artery Scan Pulse Oximetry (%) 98 Oxygen Delivery Method Room Air Intake Visit Reasons: 3mth f/u- needs A1C Accompanied by: Father Allergies metoclopramide (From REGLAN) Allergy (Severe, Verified 05/15/25 12:49) ANXIETY promethazine (From PHENERGAN) Allergy (Severe, Verified 05/15/25 12:49) ANXIETY shellfish derived (SHELLFISH DERIVED) Allergy (Severe, Verified 05/15/25 12:49) THROAT SWELLING HIVES IN SCALP, ITCHY ibuprofen (From MOTRIN) Allergy (Unknown, Verified 05/15/25 12:49) HIVES morphine (MORPHINE) Allergy (Unknown, Verified 05/15/25 12:49) THROAT CLOSES, anaphylaxis prochlorperazine (From COMPAZINE) Allergy (Unknown, Verified 05/15/25 12:49) ANXIETY Sulfa (Sulfonamide Antibiotics) (SULFA (SULFONAMIDE ANTIBIOTICS)) Allergy (Unknown, Verified 05/15/25 12:49) SWELLING trazodone Adverse Reaction (Unknown, Verified 05/15/25 12:49) Dizziness Medication List - Last Reconciled 05/15/25 by Emigdio Guthrie MD acetaminophen ER 650 mg PO Q8H PRN alprazolam 1 mg PO .QD PRN 30 days baclofen 5 mg PO TID blood pressure monitor (Blood Pressure Kit) As directed blood sugar diagnostic (OneTouch Verio test strips) As directed two times per day blood sugar diagnostic (Accu-Chek Guide test strips) As directed check BS QID blood-glucose meter As directed blood-glucose meter (Accu-Chek Guide Glucose Meter) As directed blood-glucose sensor (Photolitec G7 Sensor device) As directed blood-glucose,prep manager,cont (Dexcom G7 Cosmetic Sales Consultant) As directed carvedilol 12.5 mg PO BID cholecalciferol (vitamin D3) 125 mcg PO DAILY clotrimazole 1% 1 appl topical BID cyanocobalamin (vitamin B-12) 1,000 mcg PO DAILY diclofenac sodium 1% (Voltaren Arthritis Pain) 4 grams topical QID empagliflozin 25 mg PO DAILY fenofibrate 160 mg PO DAILY fluconazole 150 mg PO Q3D 2 doses gabapentin 600 mg PO QID 90 days hydralazine 50 mg PO TID insulin glargine (Lantus Solostar U-100 Insulin) 10 units (0.1 mL) subcut QPM insulin lispro (Humalog KwikPen (U-100) Insulin) 1 sliding scale dose subcut USEASDIRECTD lancets As directed lancets (OneTouch Delica Plus Lancet) As directed 2 times per day lancets (Accu-Chek Softclix Lancets) As directed check blood sugars 4 times a day lisinopril 10 mg PO DAILY meloxicam 15 mg PO DAILY ondansetron HCl 4 mg PO Q6H pantoprazole 40 mg PO .QD pen needle, diabetic (Comfort EZ Pen [place]) As directed-daily pen needle, diabetic (1st Tier Unifine Pentips) As directed Inject Insulin 4 x a day polyethylene glycol 3350 (Gavilax) 17 grams PO DAILY scopolamine HBr mg PO [Shower chair As directed] sucralfate 10 mL PO BID sumatriptan succinate (Imitrex) 50 mg PO .qd PRN tirzepatide (Mounjaro) 2.5 mg (0.5 mL) subcut QWEEK tramadol 50 mg PO DAILY Tobacco use date assessed: 05/15/25 Dental Screening Dental Screen Date: 05/15/25 Did you have a dental visit in the last 12 months?: Yes Did you have a dental problem in the last 6 months where you did not have access to dental care?: No Was dental information given to patient?: Patient has dentist HPI HPI Comments History of Present Illness Details History of Present Illness The patient is a 45-year-old obese female presenting for a follow-up and management of multiple chronic conditions. Her medical history includes diabetes mellitus, hypertension, hypercholesterolemia, irritable bowel syndrome, GERD, hepatic steatosis, generalized anxiety disorder, and a history of laparoscopic gastrectomy in February 2021. She was last seen in December 2024. Regarding her diabetes, she has developed proliferative diabetic retinopathy bilaterally and is status post partial PRP on the right in September 2024 and Avastin on the left. She feels her eyes are improving with the shots and her next injection is scheduled for June. Her hemoglobin A1c was 6.0% in December but is 7.6% today. She reports her blood sugars have been very high, reaching the 300s after consuming only coffee. Her Dexcom CGM sometimes provides inaccurate readings requiring calibration with a fingerstick glucose meter. A urine test showed proteinuria, and she has some macular edema. She has been followed by orthopedics for right knee pain, diagnosed as mild osteoarthritis, and received a right knee injection in April 2025. A recent MRI of the knee showed fluid, but the meniscus was intact. She associates the pain with her posture of always sitting with her legs crossed. For her gastrointestinal issues, she underwent an EGD for dysphagia in January 2025, which showed no evidence of strictures. She had a total hysterectomy in April. She reports symptoms of a yeast infection, including inflammation and some discharge. Past labs from October showed a normal blood count, normal electrolytes, and a creatinine of 1.12. Her LDL was 94 in January 2025. Health Maintenance The patient is up-to-date with her mammogram. She has an upcoming SOCIAL MEDIA STRATEGIST appointment in May. Will follow up in 3 months but was instructed to send a message sooner regarding the Mounjaro efficacy. Social History - Family/Living Situation: Her father recently moved from [place] to live with her. - Substance Use: She denies any current use of marijuana (pot). - Diet and Exercise: Encouraged to improve diet and exercise and to follow up with bariatrics. Results - Wloor-zp-feum A1c: 7.6%. - Hemoglobin A1c (December): 6.0%. - Labs (November 04): Normal blood count with no anemia, normal electrolytes, creatinine of 1.12, blood sugar of 159. - Lipid Panel (January 2025): LDL of 94. - Urine test: Positive for proteinuria. - EGD (January 2025): No evidence of strictures. - Cologuard (January 2023): Completed. - Right Knee MRI (May 06): Showed fluid collection with meniscus intact. [facility] Medical History (Updated 05/15/25 @ 13:00 by Emigdio Guthrie MD) Cubital tunnel syndrome of both upper extremities Bilateral hand numbness Overweight (BMI 25.0-29.9) Liver fibrosis Steatosis, liver BMI 32.0-32.9,adult Obesity History of back pain BMI over 35 Vitamin D deficiency Hypercalcemia Adjustment disorder, unspecified Pre-procedure lab exam Obesity Family hx of hypertension Serum calcium elevated Proteinuria Onychomycosis Hematuria Vitamin B 12 deficiency LUQ abdominal pain COVID-19 virus infection Irritable bowel syndrome Migraine Insomnia Vitamin D deficiency Obesity (BMI 30-39.9) Diabetic retinopathy Atkins's palsy Peripheral neuropathy Trigeminal neuralgia Pancreatitis GERD (gastroesophageal reflux disease) Type 2 diabetes mellitus with diabetic polyneuropathy Type 2 diabetes mellitus with hyperglycemia Hypertriglyceridemia Essential hypertension Hyperlipidemia LDL goal <100 Surgical History History of hysterectomy H/O gastric sleeve History of wisdom tooth extraction, class I edentulism Hx of colonoscopy Acalculous cholecystitis Hx of hernia repair Hx of removal of cyst Hx of dilation and curettage Family History Father Diabetes mellitus Asthma Hypertension Mother Diabetes mellitus Hypertension Scleroderma Maternal Aunt Ovarian cancer Paternal Grandfather Diabetes mellitus Paternal Grandmother Diabetes mellitus Maternal Grandmother Diabetes mellitus Maternal Grandfather Diabetes mellitus CVD (cardiovascular disease) Sister CVD (cardiovascular disease) Brother Anxiety Arthritis Social History Household Members: Spouse Housing: Apartment Are you a primary client care manager to a significant other at home: No Do you presently have visiting nurse or other home services: No Alcohol intake: never Patient Tobacco Use Status: Current everyday Tobacco user Tobacco use type: Cigarette Cigarette Packs Per Day: 0.25 Cigarettes Per Day: 4 Years Smoked: quit 03/2016. Restarted 03/2023. e-Cigarette/Vaping Use: Never Used Second Hand Smoke Exposure: Yes service: No Current occupational status: employed Cognitive needs: No Hearing needs: No Vision needs: Yes Questionnaire PHQ-9 Over the last 2 weeks, how often have you been bothered by any of the following problems? 1. Little interest or pleasure in doing things: not at all 2. Feeling down, depressed, or hopeless: not at all 3. Trouble falling or staying asleep, or sleeping too much: several days 4. Feeling tired or having little energy: several days 5. Poor appetite or overeating: several days 6. Feeling bad about yourself - or that you are a failure or have let yourself or your family down: not at all 7. Trouble concentrating on things, such as reading the newspaper or watching television: not at all 8. Moving or speaking so slowly that other people could have noticed. Or the opposite - being so fidgety or restless that you have been moving around a lot more than usual: not at all 9. Thoughts that you would be better off or of hurting yourself in some way: not at all Total score: 3 Depression Screening Interpretation: Negative Depression Screening Done: Yes Source: Developed by Drs. Jovon Nation, Cecilia Ribeiro, Travon Silveira and colleagues, with an educational michelle from [employer]. Thrive Questionnaire Date Thrive assessed: 11/04/24 I am a: Patient What is your living situation today?: I have a steady place to live Within the past 12 months, did the food you bought not last and you didn't have the money to get more?: Never true Within the past 12 months, did you worry whether your food would run out before you got money to buy more?: Never true Do you have trouble paying for medicines?: No Do you have trouble getting transportation to medical appointments?: Yes Do you have trouble paying your heating and electricity bill?: No Do you have trouble taking care of your child, family member or friend?: Yes Do you have trouble with day-to-day activities such as bathing, preparing meals, shopping, managing finances, etc.?: No Are you currently unemployed and looking for a job?: No Are you interested in more education?: No Currently or been in a relationship where the following occur: No concerns reported THRIVE Score: 1 AUDIT C Alcohol Use Questionnaire (AUDIT-C) 1. How often do you have a drink containing alcohol?: Never 3. How often do you have six or more drinks on one occasion?: Never Total Score: 0 BERTRAM-7 AMB Questionnaire BERTRAM-7 Date BERTRAM - 7 assessed: 12/29/24 Feeling nervous, anxious, or on edge: 1 = Several days Not being able to stop or control worryin = Several days Worrying too much about different things: 1 = Several days Trouble relaxin = Not at all Being so restless that it is hard to sit still: 0 = Not at all Becoming easily annoyed or irritable: 1 = Several days Feeling afraid as if something awful might happen: 0 = Not at all Total BERTRAM-7 score (0-4 normal; 5-9 mild; 10-14 moderate; 15-21 severe): 4 Source: Developed by Drs. Jovon Nation, Cecilia Ribeiro, Travon Silveira and colleagues, with an educational michelle from [employer]. Review of Systems Narrative Review of Systems - Constitutional: Reports weight gain. - Eyes: Reports vision is doing so much better with eye injections for diabetic retinopathy. - Gastrointestinal: History of GERD and dysphagia. - Genitourinary: Reports symptoms of a yeast infection, including inflammation and a small amount of discharge. - Musculoskeletal: Reports painful right knee with fluid, which she attributes to her posture. - Endocrine: Reports persistently high blood sugar levels, sometimes in the 300s. - Cardiovascular: Denies leg swelling. Physical exam (Primary Care) Vital Signs: Last Vital Signs Temp 97.0 F 05/15/25 12:46 Pulse 105 H 05/15/25 12:46 BP 158/90 H 05/15/25 12:46 Pulse Ox 98 05/15/25 12:46 Oxygen Delivery Method Room Air 05/15/25 12:46 BMI result Body Mass Index 33.1 Tobacco/Smoking Status: Tobacco use Status Tobacco use date assessed 05/15/25 05/15/25 12:51 Patient Tobacco Use Status Current everyday Tobacco 05/15/25 12:51 Tobacco use type Cigarette 05/15/25 12:45 e-Cigarette/Vaping Use Never Used 05/15/25 12:45 PHQ-9: PHQ-9 Score PHQ-9: Total score 3 05/15/25 13:02 Depression Screening Interpretation: Negative Thrive Assessment: Date of Thrive Assessment Date Thrive assessed 11/04/24 05/15/25 12:45 Currently or been in a relationship where the following occur: No concerns reported Narrative Physical Exam - Vitals: Gxetp-rk-vzpe A1c is 7.6%. - General: Appears in no acute distress. - Extremities: No leg swelling was noted on questioning. Const General: alert; No acute distress Eyes Conjunctivae: conjunctivae normal Resp Auscultation: clear to auscultation bilaterally Cardio Rate: regular rate Rhythm: regular rhythm GI Inspection: Yes normal to inspection Extrem General: Yes normal to inspection and No edema Results AMB Hemoglobin A1c AMB Hemoglobin A1c 7.6 % Last Edit by Martha Webster CMA on 05/15/25 13:08 Results Reviewed Results Reviewed: Laboratory Last Values Hgb A1c (Clinic) 7.6 % (4.0-6.0) H 05/15/25 12:48 Coding Level of Care Code Est Pt Level 4 (75652) Add On Problem Visit Only Diagnoses Type 2 diabetes mellitus with hyperglycemia, without long-term current use of insulin E11.65 Diabetes mellitus skilled nursing insulin use: without adjunct faculty for medical terminology use S/P laparoscopic sleeve gastrectomy Z98.84 Obesity (BMI 30-39.9) E66.9 Essential hypertension I10 Hypertriglyceridemia E78.1 Generalized anxiety disorder F41.1 Gastroesophageal reflux disease without esophagitis K21.9 Esophagitis presence: without esophagitis Diabetic retinopathy E11.319 Assessment & Plan Assessment & Plan (1) Type 2 diabetes mellitus with hyperglycemia: Comment: Eye and lasik Code(s): E11.65 - Type 2 diabetes mellitus with hyperglycemia Category: Medical Qualifiers: Diabetes mellitus skilled nursing insulin use: without skilled nursing use Qualified Code(s): E11.65 - Type 2 diabetes mellitus with hyperglycemia Plan: Decrease the amount of carbohydrate intake, pasta, bread, rice and potatoes are all sugar and that is aside from all the sweet stuff, remember that fruits are good but they are Sweet also. Hemoglobin A1c goal of less than 6.5. Patient is taking Jardiance 25 mg once a day Lantus 10 units once a day Humalog sliding scale (2) S/P laparoscopic sleeve gastrectomy: Comment: February 2021 Code(s): Z98.84 - Bariatric surgery status Category: Surgical Plan: Diet and exercise continue to follow-up with bariatric (3) Obesity (BMI 30-39.9): Code(s): E66.9 - Obesity, unspecified Category: Medical Plan: Diet and exercise (4) Essential hypertension: Code(s): I10 - Essential (primary) hypertension Category: Medical Plan: Continue with blood pressure medication. Decrease salt intake and exercise patient takes lisinopril 10 mg once a day (5) Hypertriglyceridemia: Code(s): E78.1 - Pure hyperglyceridemia Category: Medical Plan: Avoid fried foods, chicken skin, eggs, butter margarine, pastries and meat. Be it pork or beef they have a lot of cholesterol LDL goal of less than 100 and triglyceride of less than 150 on fenofibrate only (6) Generalized anxiety disorder: Comment: Declined referral for counseling September 2021 Code(s): F41.1 - Generalized anxiety disorder Category: Medical Plan: Continue with present medication (7) GERD (gastroesophageal reflux disease): Code(s): K21.9 - Gastro-esophageal reflux disease without esophagitis Category: Medical Qualifiers: Esophagitis presence: without esophagitis Qualified Code(s): K21.9 - Gastro-esophageal reflux disease without esophagitis Plan: Avoid the foods that causes that usually spicy foods, tomato products, juices, coffee, soda and foods that your sensitive to. After eating do not lie down, allow 3-4 hours before in lie down. And keep the head of bed above 30 degrees to avoid the acid from going up. (8) Diabetic retinopathy: Comment: Dr. Webb Code(s): E11.319 - Type 2 diabetes mellitus with unspecified diabetic retinopathy without macular edema Category: Medical Plan: Discussed importance of follow-up with Ophthalmology and getting diabetes under control blood pressure under control cholesterol under control and weight down Plan Plan Patient was informed and verbally consented to the use of an ambient scribe for clinic note documentation during this visit. 1. Type 2 Diabetes Mellitus With Proliferative Retinopathy The patient's current A1c is 7.6%, which is above the goal of less than 6.5%. She reports persistently high blood sugars. Current medications include Jardiance 25 mg daily, Lantus 10 units daily, and a Humalog sliding scale. The importance of controlling blood sugar, blood pressure, and cholesterol was emphasized to halt the progression of diabetic retinopathy. A prescription for Mounjaro once weekly injection will be sent to the pharmacy to aid in weight loss and glycemic control. The patient was counseled on potential side effects like nausea, the small risk of pancreatitis, cost, and availability issues. She was instructed to notify the office after three weeks if she is not losing weight to adjust the dose. A new prescription for an Accu-Chek glucose meter, strips, and lancets will be sent to her pharmacy. 2. Obesity The patient notes weight gain. She will be started on Mounjaro to promote weight loss. Continue to encourage diet, exercise, and follow up with weight management/bariatrics. The goal is to use the medication to reach a target weight and then discontinue it, while establishing lifestyle changes. 3. Hypertension The patient will continue taking lisinopril 10 mg once a day to manage her blood pressure. 4. Hypercholesterolemia The patient will continue fenofibrate for her triglycerides, with a goal of less than 150 mg/dL. Despite a good LDL of 94, it was recommended to start a low-dose statin for primary cardiovascular prevention due to her diabetes risk, per clinical guidelines. She agreed, and a prescription for a low-dose statin to be taken at bedtime will be provided. 5. Vaginal Candidiasis The patient reports symptoms of a yeast infection. A prescription for two doses of fluconazole will be sent to the pharmacy. She was advised not to take it at the same time as alprazolam due to a potential interaction. 6. Right Knee Osteoarthritis The patient has mild osteoarthritis and recently had an injection. Recent MRI results were discussed, showing fluid with an intact meniscus. She will continue to follow up with an orthopedist for management. Discussion Notes I discussed the patient's elevated A1c of 7.6% and persistently high blood sugar readings. I emphasized that poorly controlled diabetes is the cause of her progressive diabetic retinopathy, and that while we can stop its progression, we cannot reverse the damage already done. Given her struggles with weight gain and high blood sugars, I recommended starting Mounjaro, a once-weekly injectable. I reviewed the mechanism of action (slowing the gut to promote satiety), benefits (weight loss, improved glycemic control, reduced cardiovascular risk), and potential side effects such as nausea. We also discussed the high cost, potential insurance coverage issues, and the lack of long-term (20-year) safety data. The patient has a history of pancreatitis, and I reassured her that while it is a listed risk, we have not seen it occur in our patients. I instructed her to message me in 3 weeks if she does not experience weight loss so we can titrate the dose. I also explained the guidelines recommending a statin for all diabetic patients for primary prevention of heart disease. She was initially hesitant but agreed to a low-dose statin. A prescription for fluconazole was provided for her yeast infection with counseling on interactions. I will send a prescription for a new glucose meter as requested. I scheduled a follow-up in 3 months. Patient Instructions - You will be started on Mounjaro, which is an injection you will give yourself once a week to help with weight loss and blood sugar control. - If you have not started losing any weight after 3 weeks on Mounjaro, please send our office a message so we can increase your dose. - If your insurance does not cover Mounjaro, you can ask the pharmacy if they will cover Ozempic instead. - A prescription for a new blood sugar meter (Accu-Chek), test strips, and lancets has been sent to your pharmacy. - For the yeast infection, take the two fluconazole pills as prescribed. - Do not take fluconazole at the same time as your alprazolam (anxiety medicine). - A new prescription for a low-dose cholesterol medication (a statin) will be sent to your pharmacy. - Take the new cholesterol medication at bedtime. - Continue your other medications for diabetes, high blood pressure, and cholesterol as you have been taking them. - Follow up with your eye doctor, casino cashier manager, and bariatrics/weight management as planned. - Return to the clinic in 3 months for a follow-up appointment. Orders: Orders AMB Hemoglobin A1c Today Z13.9 - Encounter for screening, unspecified Medications: New blood-glucose meter (Accu-Chek Guide Glucose Meter) As directed 1 ea 0RF E11.65 - Type 2 diabetes mellitus with hyperglycemia blood sugar diagnostic (Accu-Chek Guide test strips) As directed check BS QID 400 ea 3RF E11.65 - Type 2 diabetes mellitus with hyperglycemia lancets (Accu-Chek Softclix Lancets) As directed check blood sugars 4 times a day 400 ea 3RF E11.65 - Type 2 diabetes mellitus with hyperglycemia fluconazole 150 mg PO Q3D 2 tabs 0RF 2 doses E11.65 - Type 2 diabetes mellitus with hyperglycemia simvastatin 5 mg PO BEDTIME 30 tabs 3RF E11.65 - Type 2 diabetes mellitus with hyperglycemia tirzepatide (Mounjaro) for 4 weeks 2.5 mg (0.5 mL) subcut QWEEK 2 mL 1RF E11.65 - Type 2 diabetes mellitus with hyperglycemia
--- OUTSIDE RECORDS SUMMARY | 2025-05-15 12:44 | XMS_ITS | Clinical Summary ---
Author Organization [facility] Address [address] [facility] [address] [place] [address] Phone Care Team Providers Care Windows Application Developer Name Role Phone Emigdio Guthrie MD [...] complete this topic Insurance [employer] Care Teams Windows Application Developer Relationship Specialty Start Date End Date Emigdio Guthrie MD [facility] [address] [place], [place] PCP - General Internal Medicine 11/02/20
--- OUTSIDE RECORDS SUMMARY | 2025-05-15 12:44 | XMS_ITS | Patient Health Record ---
Author Organization [facility] Address [address] [place] [address] Support Name Relationship Address Phone NADIYA RUGGIERO Emergency Contact [address] [place] [address] [address] [place], [place] [id number] EDISON RUGGIERO Guarantor Unknown [phone] Care Team Providers Care Car Bracer Name Role Phone Emigdio Guthrie MD Primary Care Provider Kain Dia Jr Unavailable [phone] Allergies Allergen (clinical drug ingredient) Drug/Non Drug Allergy documented on EMR Reaction Allergy Type Onset Date Status shell fish (uncoded) Unknown Allergy Active morphine Morphine Sulfate Unknown Drug Allergy Active Motrin hives Drug Allergy Active promethazine Phenergan Unknown Drug Allergy Acti ve metoclopramide Reglan Unknown Drug Allergy Ac tive Sulfacet-R Unknown Drug Allergy Active Compazine Unknown Drug Allergy Active Reason For Referral No Information Medications Medication SIG (Take, Route, Frequency, Duration) Notes Start Date End Date Status Vitamin D3 Active Zofran Active Vitamin B-2 100 MG Tablet 1 tablet Orally Once a day Active Fenofibrate 145 MG Tablet 1 tablet with food Orally Once a day; Duration: 30 day(s) Active ALPRAZolam 0.5 MG Tablet 1 tablet Orally as needed Active Lisinopril 5 MG Tablet 1 tablet Orally O nce a day; Duration: 30 day(s) Active SUMAtriptan & Homeopathic Prod 50 MG Therapy Pack as directed Combination prn Active Dicyclomine HCl 20 MG Tablet 1 tablet Orally 2-4 times a day; Duration: 30 days 01/25/2023 Active Omeprazole 40 MG Capsule Delayed Release 1 capsule 30 minutes before morning meal Orally Once a day; Duration: 30 day(s) Active Gabapentin 600 MG Tablet 1 tablet Orally Twice a day Active Immunizations Vaccine Route Administration Date Status Comme nts Influenza Unknown 03/01/2018 Administered Influenza Unknown 02/18/2019 Administered Social History Social History Drugs/Alcohol: Social Info Question Answer Notes Alcohol Screen Did you have a drink containing alcohol in the past year? No Points 0 Interpretation Negative Additional Details Category Social Info Options Details Miscellaneous: Marital status: Occupation: DISABLED Problems Problem Type SNOMED Code ICD Code Onset Dates Problem Status W/U Status Risk Notes Problem Epigastric pain (05697067) Epigastric pain (R10.13) Active confirmed Problem Irritable bowel syndrome with diarrhea (486125027) Irritable bowel syndrome with diarrhea (K58.0) Active confirmed Problem Generalized abdominal pain (992794136) Generalized abdominal pain (R10.84) Active confirmed Problem Gastroesophageal reflux disease (456331353) Gastroesophageal reflux disease (K21.9) Active confirmed Problem Rectal pain (13798973) Rectal pain (K62.89) Active confirmed Problem Diarrhea (55549508) Diarrhea, unspecified type (R19.7) Active confirmed Problem Proctalgia fugax (14015811) 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) Active confirmed Problem Altered bowel function (46093794) Change in bowel movement (R19.8) Active confirmed Problem Gastroesophageal reflux disease (002774081) Gastroesophageal reflux disease, unspecified whether esophagitis present (K21.9) Active confirmed Encounters Encounter Location Date Provider Diagnosis [facility] [address] [address] 12/01/2024 Kain Orr Jr Generalized abdominal pain R10.84 Assessments Encounter Date Diagnosis (ICD Code) Assessment [...] Insured Coverage Start Date Coverage End Date [facility] [address] Attn Claims [place] [id number] [phone] [id number] RUGGIEROEDISON Self - patient is the insured MEDICAID OF [facility] [address] [place] [address] [phone] [id number] EDISON RUGGIERO Self - patient is the insured MEDICARE OF [place] [address] [place] [address] [id number] EDISON RUGGIERO Self - patient is the [...]
--- OUTSIDE RECORDS SUMMARY | 2025-05-15 12:44 | XMS_ITS | Patient Health Record ---
Author Organization [employer] [facility] Address [address] [facility] [address] [place] [address] Care Team Providers Care Certification Officer Name Role Phone YEIMI MARRERO Unavailable [phone] Allergies Allergen (clinical drug ingredient) Drug/Non Drug [...] Duration: 30 day(s) Active Vitamin D (Ergocalciferol) 24719 UNIT 1 capsule Orally Active Gabapentin 600 MG Orally two times a day Active Fenofibrate 145 MG 1 tablet Orally Once a day Active B-12 Once a day Active ALPRAZolam 0.25 MG 1 tablet Orally PRN Active Omeprazole 40 MG TAKE 1 CAPSULE BY [facility] EVERY DAY Oral; Duration: [...] test positive, high risk on vaginal specimen (664570153956388) Cervical high risk human papillomavirus (HPV) DNA test positive (R87.810) Active confirmed Problem Essential hypertension (40649611) Essential (primary) hypertension (I10) Active confirmed Problem Type II diabetes mellitus without complication (825394691) Type 2 diabetes mellitus without complications (E11.9) Active confirmed Problem Hyperlipidemia (16222085) Hyperlipidemia, unspecified (E78.5) Active confirmed Problem Anxiety disorder (819609767) Anxiety disorder, unspecified (F41.9) Active confirmed Problem Migraine without aura, not refractory (disorder) (691893879) Migraine, unspecified, not intractable, without status migrainosus (G43.909) Active confirmed Problem Chronic pain syndrome (546217560) Chronic pain syndrome (G89.4) Active confirmed Problem Hidradenitis suppurativa (41505079) Hidradenitis suppurativa (L73.2) Active confirmed Problem Oligomenorrhea (35259034) Oligomenorrhea, unspecified (N91.5) Active confirmed Problem Abnormal uterine bleeding (15484168805242) Abnormal uterine and vaginal bleeding, unspecified (N93.9) Active confirmed Problem Female infertility (5410931) Female infertility, unspecified (N97.9) Active confirmed Problem History of gastrointestinal disease (182797806) Personal history of other diseases of the digestive system (Z87.19) Active confirmed Problem COVID-19 (429679958) COVID-19 (U07.1) Active confirmed Encounters Encounter Location Date Provider Diagnosis [address] [place] [address] 08/19/2024 YEIMI MARRERO Plan Of Treatment Pending [...] Next Appt Details Provider Name:YEIMI Maxwell Das, 06/01/2025 01:20:00 PM, [facility], [address], [place], [address], Insurance Providers Payer Name Payer Address Payer Phone Subscriber Number Group Number Insured Name Patient Relationship to Insured Coverage Start Date Coverage End Date [facility] [address] [place] [address] [id number] EDISON RUGGIERO Self - patient is the [...]
--- OUTSIDE RECORDS SUMMARY | 2025-05-15 12:44 | XMS_ITS | Clinical Summary ---
Author Organization [facility] Prior to 10/18/24 Address [address] [place] [address] Care Team Providers Care Dyeing Machine Back Tender Name Role Phone Emigdio Guthrie MD Primary Care Provider [phone] Allergies Active Allergy Reactions Criticality Noted Date [...] age to complete this topic Care Teams Dyeing Machine Back Tender Relationship Specialty Start Date End Date Emigdio Guthrie MD [address] [place] [address] [address] [facility] [place] [address] PCP - General Internal Medicine 11/30/17
[2025-05-15 12:46] VITALS: BP 158/90; PULSE 105; TEMP 36.1; O2SAT 98; BMI 33.1
== END 2025-05-15 13:25 | disposition home or self-care (01) ==
LOC: HO.HMCH 12:41
PROVIDERS: PCP Internal Medicine; Visit Provider Internal Medicine
DX: E11.65 Type 2 diabetes mellitus with hyperglycemia (principal); Z98.84 Bariatric surgery status; E66.9 Obesity, unspecified; I10 Essential (primary) hypertension; E78.1 Pure hyperglyceridemia; F41.1 Generalized anxiety disorder; K21.9 Gastro-esophageal reflux disease without esophagitis; E11.319 Type 2 diabetes mellitus with unspecified diabetic retinopathy without macular edema; Z13.9 Encounter for screening, unspecified

== ENCOUNTER → 2025-05-15 12:40 | Outpatient (BNVA) | payer OTHER, SELFPAY | PROVIDERS: PCP Internal Medicine; Visit Provider Internal Medicine | DX: E11.65 Type 2 diabetes mellitus with hyperglycemia (principal); E11.319 Type 2 diabetes mellitus with unspecified diabetic retinopathy without macular edema; I10 Essential (primary) hypertension; E66.9 Obesity, unspecified; E78.1 Pure hyperglyceridemia; F41.1 Generalized anxiety disorder; K21.9 Gastro-esophageal reflux disease without esophagitis; Z98.84 Bariatric surgery status; Z68.33 Body mass index [BMI] 33.0-33.9, adult; Z79.4 Long term (current) use of insulin | CPT/HCPCS: 83036; 96127; 99212 ==